=== PATIENT | male | born 1965 | race Caucasian/White ===

== ENCOUNTER 2018-12-10 04:05 | Outpatient (CLI) | payer OTHER | END 2018-12-10 04:06 | disposition EMS.NT | LOC: EMS 04:05 | PROVIDERS: ATTEND Surgery | DX: R56.9 Unspecified convulsions (principal) ==

== ENCOUNTER 2018-12-10 06:13 | Outpatient (CLI) | payer OTHER | END 2018-12-10 06:14 | disposition critical access hospital (66) | LOC: EMS 06:13 | PROVIDERS: ATTEND Surgery | DX: R56.9 Unspecified convulsions (principal) | CPT/HCPCS: A0425; A0429 ==

== ENCOUNTER 2018-12-10 06:18 | Emergency (ER) | payer OTHER ==
[2018-12-10 06:50] LABS: BASOPHILS % (AUTO) 0.4 %; EOSINOPHILS # (AUTO) 0.2 10^3/uL (0.0-0.7); EOSINOPHILS % (AUTO) 1.8 %; HGB - HEMOGLOBIN 14.5 g/dL (14.0-18.0); LYMPHOCYTES # (AUTO) 1.3 10^3/uL (1.5-3.5); LYMPHOCYTES % (AUTO) 13.9 %; MEAN CORPUSCULAR HGB CONC 32.2 g/dL (32.0-36.0); MEAN CORPUSCULAR VOLUME 96.4 fL (80.0-94.0); MEAN PLATELET VOLUME 9.4 fL (7.4-11.4); MONOCYTES # (AUTO) 0.8 10^3/uL (0.0-1.0); MONOCYTES % (AUTO) 8.4 %; NEUTROPHILS # (AUTO) 6.8 10^3/uL (1.5-6.6); NEUTROPHILS % (AUTO) 74.1 %; PLT - PLATELET COUNT 261 10^3/uL (130-450); RED BLOOD COUNT 4.67 10^6/uL (4.70-6.10); RED CELL DISTRIBUTION WIDTH 12.1 % (12.0-15.0); WHITE BLOOD COUNT 9.1 x10^3/uL (4.8-10.8)
[2018-12-10 07:07] LABS: ALBUMIN 4.3 g/dL (3.2-5.5); ALBUMIN/GLOBULIN RATIO 1.5 (1.0-2.2); ALKALINE PHOSPHATASE 54 IU/L (42-121); ALT ALANINE AMINOTRANSFERASE 25 IU/L (10-60); AST ASPARTATE AMINOTRANSFERASE 28 IU/L (10-42); BILIRUBIN,TOTAL 0.8 mg/dL (0.2-1.0); BUN - BLOOD UREA NITROGEN 14 mg/dL (6-20); CARBON DIOXIDE - CO2 19 mmol/L (21-32); CHLORIDE 94 mmol/L (101-111); CREATININE 0.8 mg/dL (0.6-1.2); GFR - MDRD 101 (>89); GLUCOSE 115 mg/dL (70-100); LIPASE 31 U/L (22-51); SODIUM 132 mmol/L (135-145); TOTAL PROTEIN 7.2 g/dL (6.7-8.2)
--- NOTE | 2018-12-10 07:10 | ED Physician Documentation ---
History of Present Illness - Stated complaint Stated Complaint: SZ - Chief complaint Chief Complaint: Neuro - History obtained from History obtained from: Patient, Family - History of Present Illness Timing: Prior to arrival - Additonal information Additional information: Patient is a 53-year-old male with history currently compliant with antiepileptic medications presenting with his after 2 seizures earlier this morning. Patient's notes they were sleeping at about 4 AM and she noted him to be having a generalized tonic-clonic seizure that lasted several minutes. He was postictal. EMS evaluated him at that time and all decided that he did not require transfer to the hospital. However, at about 6 AM today, patient had a second seizure, tonic-clonic movements again lasted several minutes causing him to fall to the ground. is able to catch him and denies any particular trauma. Patient was incontinent of urine. No tongue biting noted. Patient and deny any prodromal symptoms. Patient denies vision changes, neck pain, back pain, chest pain, difficulty breathing, abdominal pain, urine or stool changes, extremity pain or injury. Patient does note mild headache and feeling thirsty.Patient receives his care at [facility] in [place] and has had extensive work-ups to determine the source of his seizures including different types of brain imaging, repeat lumbar punctures, and neurology evaluations. notes the patient has area of brain scarring.No other improving or worsening factors noted. Review of Systems Constitutional: denies: Fever Eyes: denies: Loss of vision Cardiac: denies: Chest pain / pressure Respiratory: denies: Dyspnea GI: denies: Abdominal Pain, Nausea, Vomiting, Diarrhea : reports: Incontinent. denies: Dysuria Skin: denies: Bite / sting Musculoskeletal: denies: Neck pain, Back pain, Extremity pain Neurologic: reports: Seizure, Headache PD PAST MEDICAL HISTORY - Past Medical History Past Medical History: Yes Cardiovascular: None Respiratory: None Neuro: Seizure disorder Endocrine/Autoimmune: None GI: None : None HEENT: None Psych: Anxiety Musculoskeletal: None Derm: None Other Past Medical History: HYPONATREMIA...MOOD DISORDER...TICS DISORDER...MENINGIOMA... - Past Surgical History Past Surgical History: No - Present Medications Home Medications: Ambulatory Orders Medication Instructions Recorded Confirmed Divalproex [Мария Swift] 1,250 mg PO DAILY 12/10/18 12/10/18 Escitalopram [Lexapro] 10 mg PO DAILY 12/10/18 12/10/18 hydrOXYzine HCl [Hydroxyzine HCl] 20 mg PO DAILY PM 12/10/18 12/10/18 - Allergies Allergies/Adverse Reactions: Allergies Allergy/AdvReac Type Severity Reaction Status Date / Time lamotrigine [From Lamictal] AdvReac Unknown Verified 12/10/18 06:56 - Social History Does the pt smoke?: No Smoking Status: Never smoker Does the pt drink ETOH?: No Does the pt have substance abuse?: No - Immunizations Immunizations are current?: Yes - POLST Patient has POLST: No PD ED PE NORMAL - Vitals Vital signs reviewed: Yes - General General: No acute distress, Well developed/nourished, Other (Sleeping, but easily arousable, oriented except to time) - HEENT HEENT: Atraumatic, PERRL, EOMI (Gross visual acuity intact. No nystagmus.), Pharynx benign, Dentition benign, Other (No evidence of tongue biting). No: Moist mucous membranes (dry) - Neck Neck: No bony TTP - Cardiac Cardiac: RRR, No murmur - Respiratory Respiratory: No respiratory distress, Clear bilaterally - Abdomen Abdomen: Soft, Non tender, Non distended - Back Back: No spinal TTP - Derm Derm: Normal color, Warm and dry, No rash, Other (Small scattered areas of petechiae surrounding eyelids and upper chest) - Extremities Extremities: No deformity, No tenderness to palpate - Neuro Neuro: No motor deficit, No sensory deficit. No: Alert and oriented X 3 (Oriented except to time) - Psych Psych: Normal mood, Normal affect Results - Vitals Vitals: Vital Signs - 24 hr 12/10/18 12/10/18 12/10/18 06:23 06:31 06:59 Temperature 36.8 C Heart Rate 94 77 72 Respiratory 16 18 14 Rate Blood Pressure 134/101 H 135/90 H 135/90 H O2 Saturation 98 96 98 12/10/18 12/10/18 07:30 08:00 Temperature Heart Rate 73 71 Respiratory 18 18 Rate Blood Pressure 145/88 H 145/92 H O2 Saturation 99 99 Oxygen O2 Source Room air - Labs Labs: Laboratory Tests 12/10/18 12/10/18 12/10/18 06:25 06:25 06:25 WBC 9.1 RBC 4.67 L Hgb 14.5 Hct 45.0 MCV 96.4 H MCH 31.0 MCHC 32.2 RDW 12.1 Plt Count 261 MPV 9.4 Neut # (Auto) 6.8 H Lymph # (Auto) 1.3 L [place] # (Auto) 0.8 Eos # (Auto) 0.2 Baso # (Auto) 0.0 Absolute Nucleated RBC 0.00 Nucleated RBC % 0.0 Sodium 132 L Potassium 3.9 Chloride 94 L Carbon Dioxide 19 L Anion Gap 19.0 H BUN 14 Creatinine 0.8 Estimated GFR (MDRD) 101 Glucose 115 H Calcium 9.0 Total Bilirubin 0.8 AST 28 ALT 25 Alkaline Phosphatase 54 Total Protein 7.2 Albumin 4.3 Globulin 2.9 Albumin/Globulin Ratio 1.5 Lipase 31 TSH 1.73 Urine Color Urine Clarity Urine pH Ur Specific [place] Urine Protein Urine Glucose (UA) Urine Ketones Urine Occult Blood Urine Nitrite Urine Bilirubin Urine Urobilinogen Ur Leukocyte Esterase Ur Microscopic Review Urine Culture Comments Last Dose Date UNK Last Dose Time UNK Valproic Acid 58.0 12/10/18 09:00 WBC RBC Hgb Hct MCV MCH MCHC RDW Plt Count MPV Neut # (Auto) Lymph # (Auto) [place] # (Auto) Eos # (Auto) Baso # (Auto) Absolute Nucleated RBC Nucleated RBC % Sodium Potassium Chloride Carbon Dioxide Anion Gap BUN Creatinine Estimated GFR (MDRD) Glucose Calcium Total Bilirubin AST ALT Alkaline Phosphatase Total Protein Albumin Globulin Albumin/Globulin Ratio Lipase TSH Urine Color YELLOW Urine Clarity CLEAR Urine pH 8.0 H Ur Specific [place] 1.015 Urine Protein NEGATIVE Urine Glucose (UA) NEGATIVE Urine Ketones NEGATIVE Urine Occult Blood NEGATIVE Urine Nitrite NEGATIVE Urine Bilirubin NEGATIVE Urine Urobilinogen 0.2 (NORMAL) Ur Leukocyte Esterase NEGATIVE Ur Microscopic Review NOT INDICATED Urine Culture Comments NOT INDICATED Last Dose Date Last Dose Time Valproic Acid PD MEDICAL DECISION MAKING - ED course Complexity details: reviewed results, re-evaluated patient, considered differential, d/w patient, d/w family ED course: Patient presenting with 2 tonic-clonic seizures, each lasting several minutes and resolving spontaneously, that occurred earlier today. Do not believe patient is in status. Since arrival to ED, patient has had no further seizure activity and per his has nearly returned to his baseline except for being slightly disoriented to time. No evidence of trauma, new neurological deficit, or systemic infection on exam. Screening lab work returned relatively unremarkable. Depakote level within therapeutic range. Had extensive discussion with patient and regarding further interventions including imaging at all felt appropriate to obtain CT head at this time, particularly as patient has not had any brain imaging since May 2018 and patient has had 2 seizures today. Patient is currently scheduled for further neurology evaluation next week in [place].CT head returned without evidence of acute changes or other concerns. Urinalysis also returned unremarkable. Patient taking home antiepileptic medications in the ED. Patient and feel comfortable with discharge plan. Departure - Departure Disposition: 01 Home, Self Care Clinical Impression: Seizure Instructions: ED Seizure Recurrent Follow-Up: your,neurologist [Other] - Within 3 Days Comments: Please continue all home medications as previously instructed. Please follow-up with your primary care physician and neurologist in the next 2 to 3 days or as scheduled next week. Return to ED sooner if you experience recurrent seizure, worsening symptoms, or have other concerns.
[2018-12-10] MEDS ORDERED: SODIUM CHLORIDE 0.9% 1,000 ML IV ONE (07:43)
[2018-12-10] MEDS ORDERED: IBUPROFEN 800 MG TABLET PO STA (08:45)
[2018-12-10 09:07] LABS: BILIRUBIN,URINE NEGATIVE (NEGATIVE); GLUCOSE, URINE (UA) NEGATIVE (NEGATIVE); KETONES,URINE (UA) NEGATIVE (NEGATIVE); LEUKOCYTE ESTERASE, URINE NEGATIVE (NEGATIVE); NITRITE,URINE NEGATIVE (NEGATIVE); OCCULT BLOOD,URINE NEGATIVE (NEGATIVE); PROTEIN,URINE NEGATIVE (NEGATIVE); UROBILINOGEN,URINE 0.2 (NORMAL) E.U./dL (NORMAL)
[2018-12-10 09:09] LABS: CLARITY,URINE CLEAR (CLEAR)
--- NOTE | 2018-12-10 09:12 | CT Report ---
Reason: history of seizure, 2 seizures today Procedure Date: 12/10/2018 Accession Number: [id number] / [id number] Procedure: CT - HEAD WO CPT Code: FULL RESULT: EXAM: CT HEAD EXAM DATE: 12/10/2018 08:27 AM. CLINICAL HISTORY: History of seizure, 2 seizures today. COMPARISON: HEAD FAST TRAUMA (ADULT) 08/02/2018 9:01 AM MR BRAIN WITHOUT CONTRAST 08/20/2017 12:58 PM. TECHNIQUE: Multiaxial CT images were obtained from the foramen magnum to the vertex. Reformats: Sagittal and coronal. IV contrast: None. In accordance with CT protocol optimization, one or more of the following dose reduction techniques were utilized for this exam: automated exposure control, adjustment of mA and/or KV based on patient size, or use of iterative reconstructive technique. FINDINGS: Parenchyma: No evidence of an acute vascular insult or acute parenchymal hemorrhage. No midline shift. No mass-effect. Extraaxial Spaces: Extra-axial spaces are prominent. Falcine calcification again seen. No subdural or epidural collections identified. Ventricles: Ventricles are stable in size. No hydrocephalus. Sinuses and Orbits: Imaged paranasal sinuses, orbits, and mastoids show no significant abnormality. Bones: No evidence of fracture or calvarial defect. Other: Globes and orbits are unremarkable. IMPRESSION: 1. No acute intracranial abnormality is identified. 2. No acute fracture. RADIA
[2018-12-10] MEDS ORDERED: ONDANSETRON ODT 4 MG TABLET TL STA (09:36)
[2018-12-10] MEDS ORDERED: ONDANSETRON ODT 4 MG TABLET ONE (09:39)
[2018-12-10 09:41] VITALS: BP 142/90
== END 2018-12-10 09:49 | disposition home or self-care (01) ==
LOC: ED 06:18
DX: G40.909 Epilepsy, unspecified, not intractable, without status epilepticus (principal); R23.3 Spontaneous ecchymoses
CPT/HCPCS: 36415; 70450; 80164; 81003; 83690; 99283; 99284; A9270; Q0162; 80053; 81001; 84443; 85025; 87086

== ENCOUNTER 2019-03-28 09:55 | Emergency (ER) | payer OTHER ==
[2019-03-28] MEDS ORDERED: KETOROLAC 60 MG/2 ML VIAL IM STA (10:28)
[2019-03-28] MEDS ORDERED: ONDANSETRON ODT 4 MG TABLET TL STA (10:28)
--- NOTE | 2019-03-28 10:32 | ED Physician Documentation ---
PD HPI SEIZURE - Stated complaint Stated Complaint: SZ - Chief complaint Chief Complaint: Neuro - History obtained from History obtained from: Patient, Family - History of Present Illness Timing - onset: How many hours ago (3) Witnessed: Witnessed Number of seizures: Single, Lasted minutes (3-5) Description of seizure activity: Generalized, Tonic clonic Injury during seizure: Other (he thinks he may have hit his head) Pain level max: 6 Pain level now: 5 Associated symptoms: Headache. No: None, Unknown, Vision changes, Chest pain, Palpitations, Diaphoresis, Dyspnea, Nausea / vomiting History of seizures: Known seizure disorder Contributing factors: Other (tapering his depakote) Treatment FINANCIAL WRITER: Other (none) Similar symptoms before: Has not had sx before Recently seen: Not recently seen Review of Systems Ten Systems: 10 systems reviewed and negative Constitutional: denies: Fever, Chills Nose: denies: Rhinorrhea / runny nose, Congestion Cardiac: denies: Chest pain / pressure Respiratory: denies: Dyspnea, Cough GI: denies: Abdominal Pain, Vomiting, Diarrhea Skin: denies: Rash Musculoskeletal: reports: Neck pain (states neck is sore). denies: Back pain, Extremity pain, Joint pain Neurologic: reports: Confused ( states has long post ictal periods normally, states this is actually shorter than his normal post ictal period.). denies: Focal weakness, Numbness PD PAST MEDICAL HISTORY - Past Medical History Cardiovascular: None Respiratory: None Neuro: Seizure disorder Endocrine/Autoimmune: None GI: None : None HEENT: None Psych: Anxiety Musculoskeletal: None Derm: None - Past Surgical History Past Surgical History: No - Present Medications Home Medications: Ambulatory Orders Medication Instructions Recorded Confirmed Divalproex [Depakote ] 1,500 mg PO BID 12/10/18 03/28/19 Escitalopram [Lexapro] 10 mg PO DAILY 12/10/18 03/28/19 - Allergies Allergies/Adverse Reactions: Allergies Allergy/AdvReac Type Severity Reaction Status Date / Time lamotrigine [From Lamictal] AdvReac Unknown Verified 12/10/18 06:56 - Social History Does the pt smoke?: No Smoking Status: Never smoker Does the pt drink ETOH?: No Does the pt have substance abuse?: No - Immunizations Immunizations are current?: Yes - POLST Patient has POLST: No PD ED PE NORMAL - Vitals Vital signs reviewed: Yes - General General: Alert and oriented X 3, No acute distress, Well developed/nourished - HEENT HEENT: Atraumatic, PERRL, EOMI, Ears normal, Moist mucous membranes, Pharynx benign - Neck Neck: Supple, no meningeal sign, No bony TTP - Cardiac Cardiac: RRR - Respiratory Respiratory: No respiratory distress, Clear bilaterally - Back Back: No spinal TTP - Derm Derm: Warm and dry, No rash - Extremities Extremities: Normal ROM s pain - Neuro Neuro: Alert and oriented X 3, mergers and acquisitions banker 2-12 intact, No motor deficit, No sensory d eficit, Normal speech Eye Opening: Spontaneous Motor: Obeys Commands Verbal: Oriented GCS Score: 15 - Psych Psych: Normal mood, Normal affect Results - Vitals Vitals: Vital Signs - 24 hr 03/28/19 03/28/19 09:58 11:42 Temperature 36.4 C L Heart Rate 83 80 Respiratory 16 20 Rate Blood Pressure 159/92 H 150/81 H O2 Saturation 100 94 Oxygen O2 Source Room air - Labs Labs: Laboratory Tests 03/28/19 03/28/19 10:27 10:50 WBC 12.8 H RBC 4.60 L Hgb 14.4 Hct 43.3 MCV 94.1 H MCH 31.3 H MCHC 33.3 RDW 12.3 Plt Count 212 MPV 9.0 Neut # (Auto) 11.5 H Lymph # (Auto) 0.5 L [place] # (Auto) 0.8 Eos # (Auto) 0.0 Baso # (Auto) 0.0 Absolute Nucleated RBC 0.00 Nucleated RBC % 0.0 Sodium 134 L Potassium 3.9 Chloride 96 L Carbon Dioxide 27 Anion Gap 11.0 BUN 13 Creatinine 0.7 Estimated GFR (MDRD) 118 Glucose 130 H Calcium 8.7 Last Dose Date UNK Last Dose Time UNK Valproic Acid 121.2 PD MEDICAL DECISION MAKING - ED course Complexity details: reviewed results, re-evaluated patient, considered differential, d/w patient, d/w family ED course: Patient with a recurrent seizure disorder. No acute lab abnormalities. No indication for repeat imaging. Headache resolved with Toradol. Patient and family reminded not to drive, not to go swimming or take baths. They will follow-up with his neurologist for further care. C-spine cleared by Nexus criteria. Patient and family counseled regarding signs and symptoms for which I believe and urgent re-evaluation would be necessary. Patient with good understanding of and agreement to plan and is comfortable going home at this time This document was made in part using voice recognition software. While efforts are made to proofread this document, sound alike and grammatical errors may occur. Departure - Departure Disposition: 01 Home, Self Care Clinical Impression: Seizure Condition: Good Instructions: ED Seizure Recurrent Follow-Up: your,doctor in 1 week [Other] Comments: your depakote level today is 121. Return if you worsen. continue your current medications. Follow up with your neurologist for further care. Discharge Date/Time: 03/28/19 11:43
[2019-03-28 11:00] LABS: BASOPHILS % (AUTO) 0.3 %; EOSINOPHILS % (AUTO) 0.1 %; HGB - HEMOGLOBIN 14.4 g/dL (14.0-18.0); LYMPHOCYTES # (AUTO) 0.5 10^3/uL (1.5-3.5); LYMPHOCYTES % (AUTO) 3.7 %; MEAN CORPUSCULAR HEMOGLOBIN 31.3 pg (27.0-31.0); MEAN CORPUSCULAR HGB CONC 33.3 g/dL (32.0-36.0); MEAN CORPUSCULAR VOLUME 94.1 fL (80.0-94.0); MONOCYTES # (AUTO) 0.8 10^3/uL (0.0-1.0); MONOCYTES % (AUTO) 5.9 %; NEUTROPHILS # (AUTO) 11.5 10^3/uL (1.5-6.6); NEUTROPHILS % (AUTO) 89.2 %; PLT - PLATELET COUNT 212 10^3/uL (130-450); RED CELL DISTRIBUTION WIDTH 12.3 % (12.0-15.0); WHITE BLOOD COUNT 12.8 x10^3/uL (4.8-10.8)
[2019-03-28 11:15] LABS: BUN - BLOOD UREA NITROGEN 13 mg/dL (6-20); CALCIUM 8.7 mg/dL (8.5-10.3); CARBON DIOXIDE - CO2 27 mmol/L (21-32); CHLORIDE 96 mmol/L (101-111); CREATININE 0.7 mg/dL (0.6-1.2); GFR - MDRD 118 (>89); GLUCOSE 130 mg/dL (70-100); SODIUM 134 mmol/L (135-145); VALPROIC ACID (DEPAKOTE) 121.2 ug/mL
[2019-03-28 11:43] VITALS: BP 150/81
== END 2019-03-28 11:43 | disposition home or self-care (01) ==
LOC: ED 09:55
DX: G40.909 Epilepsy, unspecified, not intractable, without status epilepticus (principal); R51 Headache; M54.2 Cervicalgia
CPT/HCPCS: 36415; 80048; 80164; 85025; 96372; 99283; 99284; Q0162

== ENCOUNTER 2019-07-29 06:40 | Outpatient (CLI) | payer OTHER | END 2019-07-29 06:41 | disposition critical access hospital (66) | LOC: EMS 06:40 | PROVIDERS: ATTEND Surgery | DX: S09.90XA Unspecified injury of head, initial encounter (principal); R56.9 Unspecified convulsions; Z79.01 Long term (current) use of anticoagulants; W18.39XA Other fall on same level, initial encounter; Y92.000 Kitchen of unspecified non-institutional (private) residence as the place of occurrence of the external cause | CPT/HCPCS: A0425; A0429 ==

== ENCOUNTER 2019-08-19 06:06 | Outpatient (CLI) | payer OTHER | END 2019-08-19 06:07 | disposition EMS.NT | LOC: EMS 06:06 | PROVIDERS: ATTEND Surgery | DX: R56.9 Unspecified convulsions (principal) ==

== ENCOUNTER 2019-08-19 07:17 | Emergency (ER) | payer OTHER ==
[2019-08-19] MEDS ORDERED: KETOROLAC 60 MG/2 ML VIAL IM STA (08:38)
[2019-08-19] MEDS ORDERED: diphenhydrAMINE INJ 50 MG/ML VIAL IM STA (08:39)
[2019-08-19] MEDS ORDERED: PROMETHAZINE 25 MG/1 ML VIAL IM STA (08:39)
--- NOTE | 2019-08-19 08:44 | ED Physician Documentation ---
History of Present Illness - Stated complaint Stated Complaint: SEIZURE - Chief complaint Chief Complaint: Neuro - History obtained from History obtained from: Patient, Family - History of Present Illness Timing: Prior to arrival - Additonal information Additional information: Patient comes emergency department with his after experiencing a seizure this morning around 5:50 AM. 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 The patient takes Depakote for this, and states that he has not had any recent dose changes or known missed doses of his medication. He states he did have head injury about 3 weeks ago for which she was seen in the emergency department and had negative CT of the brain. He also had a CT C- spine which was unremarkable at that time. The patient states that he had a had a seizure at that time, as well, which resulted in a ground-level fall, In which he struck his head on the hard tile floor. However, this time, the states that she heard some strange noises in the bathroom upon awakening and went in to find the patient postictal on the toilet. She states he did not fall to the floor although he started to slump forward. She was able to catch him and call 911. The paramedics evaluated the patient at home, but he stated he did not want to be transported to the emergency department. The patient states that now, he is actually feeling fine, except he feels some tension in his neck musculature and feels as though he has a "migraine". He states that this headache is not really any different than headaches and neck tension that he has had in the past, especially after seizures. He states that he has not had escalating, increasingly excruciating headaches since the fall, and has not had any nausea or vomiting. He has not been off balance, and actually, has been able to ambulate in the emergency department. He denies any recent illnesses. NoInsomnia or other sleep deprivation. No stress. The patient is followed by neurology and actually had a provocation study in June for 8 days, during w hich time he did not have any seizure activity. It is not clear whether his seizures are from the hippocampal mass or another cause, according to patient and .Patient is here because called neurologist's on-call line, and they said to come and be evaluated here. The patient has had a total of 13 seizures, including today's, since onset of seizures 2 years ago. The seizures generally, every 1 to 4 months and prior to the seizure earlier this month, the last one had been in March. Review of Systems Ten Systems: 10 systems reviewed and negative Constitutional: reports: Reviewed and negative Eyes: reports: Reviewed and negative Ears: reports: Reviewed and negative Nose: reports: Reviewed and negative Throat: reports: Reviewed and negative Cardiac: reports: Reviewed and negative Respiratory: reports: Reviewed and negative GI: reports: Reviewed and negative : reports: Reviewed and negative Skin: reports: Reviewed and negative Musculoskeletal: reports: Reviewed and negative Neurologic: reports: Seizure, Headache Psychiatric: reports: Reviewed and negative Endocrine: reports: Reviewed and negative Immunocompromised: reports: Reviewed and negative PD PAST MEDICAL HISTORY - Past Medical History Cardiovascular: None Respiratory: None Neuro: Seizure disorder Endocrine/Autoimmune: None GI: None : None HEENT: None Psych: Anxiety Musculoskeletal: None Derm: None - Past Surgical History Past Surgical History: No - Present Medications Home Medications: Ambulatory Orders Medication Instructions Recorded Confirmed Divalproex [Depakote Dr] 1,250 mg PO DAILY 12/10/18 08/19/19 Escitalopram [Lexapro] 10 mg PO DAILY 12/10/18 03/28/19 - Allergies Allergies/Adverse Reactions: Allergies Allergy/AdvReac Type Severity Reaction Status Date / Time bupropion [From Wellbutrin] Allergy Unknown Verified 08/19/19 07:41 lamotrigine [From Lamictal] AdvReac Unknown Verified 08/19/19 07:41 - Social History Does the pt smoke?: No Smoking Status: Never smoker Does the pt drink ETOH?: No Does the pt have substance abuse?: No - Immunizations Immunizations are current?: Yes - POLST Patient has POLST: No PD ED PE NORMAL - Vitals Vital signs reviewed: Yes - General General: Alert and oriented X 3, No acute distress, Well developed/nourished - HEENT HEENT: Atraumatic, PERRL - Neck Neck: Supple, no meningeal sign - Cardiac Cardiac: RRR, No murmur - Respiratory Respiratory: Clear bilaterally - Abdomen Abdomen: Soft, Non tender, Non distended - Derm Derm: Warm and dry - Extremities Extremities: No deformity - Neuro Neuro: Alert and oriented X 3, registered midwife 2-12 intact, No motor deficit, No sensory deficit, Normal speech, Other (Patient ambulates normally on a narrow based gait without assistance) - Psych Psych: Normal mood, Normal affect Results - Vitals Vitals: Vital Signs - 24 hr 08/19/19 08/19/19 08/19/19 07:24 09:00 10:00 Temperature 36.7 C Heart Rate 98 87 80 Respiratory 16 17 19 Rate Blood Pressure 142/92 H 120/98 H O2 Saturation 99 97 98 Oxygen O2 Source Room air - Labs Labs: Laboratory Tests 08/19/19 08/19/19 08:56 08:56 PT 23.4 H INR 2.1 H Last Dose Date Unknown Last Dose Time Unknown Valproic Acid 73.9 PD MEDICAL DECISION MAKING - ED course Complexity details: reviewed old records, reviewed results, re-evaluated patient, considered differential, d/w patient, d/w family ED course: Patient opted not to have IV placed in the emergency department. He was evaluated with a Depakote level and INR, and treated symptomatically with low- dose Toradol, Phenergan, and Benadryl for his migraine/tension.We did discuss whether or not to get a CT scan; at this point, I do not find any evidence of head trauma and the patient and the patient did not fall to the ground. It is possible that he may have hit his head lightly on adjacent structures while having the seizure, but there is no evidence of trauma for the. Additionally, there is no evidence of a slow bleed that may have come up since the last head injury 3 weeks ago. At this time I do not feel that CT is indicated, and patient and family are agreeable.Depakote level was therapeutic as was the patient's INR. We have discussed the potential need for follow-up with neurology if the patient continues to have more frequent seizures. However, at this point in time, he has had only 2 seizures in close succession with otherwise no escalation in his seizure activity. We have discussed that the patient should follow-up with his bread packer tomorrow, as planned.We have discussed home management and symptoms, as well as usual indications for return. Departure - Departure Disposition: 01 Home, Self Care Clinical Impression: Seizure, Migraine, Tension headache Condition: Good Instructions: ED Headache Tension, ED Headache Migraine, ED Seizure Recurrent Comments: Your Depakote level today was within the therapeutic range, and your INR was at the low end of the therapeutic range.At this point, there is not evidence of a slow bleed in your brain, and any degree of head trauma you received today during the seizure is unlikely to have caused bleeding on its own. Please follow-up with your bread packer tomorrow, as planned. If you have further seizure activity, you will need to see your neurologist to determine whether your seizure medications need to be changed, or whether there is another cause for the increased frequency in seizures. The 2 seizures this month, which are closer together than usual for you, may be a fluke, but it remains to be seen. You may return to the emergency department at any time if needed Discharge Date/Time: 08/19/19 10:35
[2019-08-19 09:21] LABS: VALPROIC ACID (DEPAKOTE) 73.9 ug/mL
[2019-08-19 09:25] LABS: INR 2.1 (0.8-1.2); PT - PROTHROMBIN TIME 23.4 secs (9.9-12.6)
[2019-08-19 10:16] VITALS: BP 120/98
== END 2019-08-19 10:35 | disposition home or self-care (01) ==
LOC: ED 07:17
DX: R56.9 Unspecified convulsions (principal); G43.909 Migraine, unspecified, not intractable, without status migrainosus; G44.209 Tension-type headache, unspecified, not intractable
CPT/HCPCS: 36415; 80164; 85610; 96372; 99283; 99284; J1200

== ENCOUNTER 2019-08-29 23:53 | Emergency (ER) | payer OTHER ==
[2019-08-30] MEDS ORDERED: AMOXICILLIN 250 MG CAPSULE PO STA (00:34)
[2019-08-30] MEDS ORDERED: HYDROcod/ACET 5/325 Prepack 4 PO STA (00:36)
[2019-08-30] MEDS ORDERED: HYDROcod/ACETAM 5/325 MG TABLET PO STA (00:36)
--- NOTE | 2019-08-30 00:45 | ED Physician Documentation ---
PD HPI HEENT - Stated complaint Stated Complaint: TOOTH PX - Chief complaint Chief Complaint: Heent - History obtained from History obtained from: Patient - Additional information Additional information: Patient comes emergency department complaining of left maxillary dental pain that started yesterday afternoon. Patient has had intermittent problems with this tooth, and has a dental appointment scheduled in a week to take care of it, but states that the pain suddenly became worse. He denies any fevers or facial swelling. No swelling of his gingiva or tongue. No difficulty breathing or throat tightness. Patient states that he is otherwise doing well. He is here because he could not sleep, secondary to the pain. Review of Systems Ten Systems: 10 systems reviewed and negative Constitutional: reports: Reviewed and negative Eyes: reports: Reviewed and negative Ears: reports: Reviewed and negative Nose: reports: Reviewed and negative Throat: reports: Dental pain / toothache Cardiac: reports: Reviewed and negative Respiratory: reports: Reviewed and negative GI: reports: Reviewed and negative : reports: Reviewed and negative Skin: reports: Reviewed and negative Musculoskeletal: reports: Reviewed and negative Neurologic: reports: Reviewed and negative Psychiatric: reports: Reviewed and negative Endocrine: reports: Reviewed and negative Immunocompromised: reports: Reviewed and negative PD PAST MEDICAL HISTORY - Past Medical History Past Medical History: Yes Cardiovascular: Atrial fibrillation Respiratory: None Neuro: Seizure disorder Endocrine/Autoimmune: None GI: None : None HEENT: None Psych: Anxiety Musculoskeletal: None Derm: None - Past Surgical History Past Surgical History: No - Present Medications Home Medications: Ambulatory Orders Medication Instructions Recorded Confirmed Divalproex [Мария Swift] 1,250 mg PO DAILY 12/10/18 08/30/19 Escitalopram [Lexapro] 10 mg PO DAILY 12/10/18 08/30/19 Amoxicillin 500 mg PO TID 7 Days #21 capsule 08/30/19 Hydrocodone/Acetaminophen 1 - 2 each PO Q6H PRN #14 tablet 08/30/19 [Hydrocodon-Acetaminophen 5-325] Warfarin Sodium [Coumadin] 7.5 mg PO DAILY 08/30/19 08/30/19 - Allergies Allergies/Adverse Reactions: Allergies Allergy/AdvReac Type Severity Reaction Status Date / Time bupropion [From Wellbutrin] Allergy Unknown Verified 08/29/19 23:59 lamotrigine [From Lamictal] AdvReac Unknown Verified 08/29/19 23:59 - Social History Does the pt smoke?: No Smoking Status: Never smoker Does the pt drink ETOH?: No Does the pt have substance abuse?: No - Immunizations Immunizations are current?: Yes - POLST Patient has POLST: No PD ED PE NORMAL - Vitals Vital signs reviewed: Yes - General General: Alert and oriented X 3, No acute distress - HEENT HEENT: Atraumatic, PERRL, EOMI, Moist mucous membranes, Pharynx benign, Dentition benign, Other (No facial edema) - Neck Neck: Supple, no meningeal sign, No adenopathy - Respiratory Respiratory: No respiratory distress - Derm Derm: Normal color, Warm and dry, No rash - Extremities Extremities: No deformity, Other (Normal range of motion and gait.) - Neuro Neuro: Alert and oriented X 3, numerical control operator 2-12 intact, Normal speech - Psych Psych: Normal mood, Normal affect Results - Vitals Vitals: Vital Signs - 24 hr 08/29/19 08/30/19 23:56 00:48 Temperature 36.2 C L Heart Rate 88 77 Respiratory 16 16 Rate Blood Pressure 153/111 H 138/95 H O2 Saturation 98 98 Oxygen O2 Source Room air PD MEDICAL DECISION MAKING - ED course Complexity details: re-evaluated patient, considered differential, d/w patient, d/w family ED course: The patient was given doses of Vicodin and amoxicillin in the emergency department. He was given prescriptions for the same for at home and a prepack of Vicodin to take home. We have discussed home management of his symptoms, as well as usual indications for return.Patient states he will call the dentist luis alberto rios first thing later this morning when they open to see if he can get a same- day appointment. Departure - Departure Disposition: 01 Home, Self Care Clinical Impression: Pain due to dental caries Condition: Fair Instructions: ED Tooth Pain Prescriptions: Amoxicillin 500 mg PO TID 7 Days #21 capsule Hydrocodone/Acetaminophen [Hydrocodon-Acetaminophen 5-325] 1 - 2 each PO Q6H PRN #14 tablet PRN Reason: pain Discharge Date/Time: 08/30/19 00:49
[2019-08-30 00:49] VITALS: BP 138/95
== END 2019-08-30 00:49 | disposition home or self-care (01) ==
LOC: ED 23:53
DX: K02.9 Dental caries, unspecified (principal); I48.91 Unspecified atrial fibrillation; G40.909 Epilepsy, unspecified, not intractable, without status epilepticus; Z79.01 Long term (current) use of anticoagulants
CPT/HCPCS: 99282; 99284; A9270

== ENCOUNTER 2019-09-07 14:30 | Outpatient (CLI) | payer OTHER | END 2019-09-07 14:31 | disposition home or self-care (01) | LOC: LAB 14:30 | PROVIDERS: ATTEND Internal Medicine Cardiovascular Disease | DX: I48.19 Other persistent atrial fibrillation (principal) | CPT/HCPCS: 85610 ==

== ENCOUNTER 2019-09-10 17:39 | Outpatient (CLI) | payer OTHER ==
[2019-09-10] MEDS ORDERED: IOVERSOL 320 100 ML VIAL IVP ONE (18:22)
--- NOTE | 2019-09-10 19:10 | CT Report ---
Reason: SEIZURE DISORDER, DIZINESS, CLUSTER HEADACHES,FALL Procedure Date: 09/10/2019 Accession Number: [id number] / [id number] Procedure: CT - HEAD W/WO CPT Code: Final Report FULL RESULT: EXAM: CT HEAD WITHOUT AND WITH CONTRAST EXAM DATE: 09/10/2019 06:49 PM. CLINICAL HISTORY: 54-year-old male. SEIZURE DISORDER, DIZZINESS, CLUSTER HEADACHES, FALL. COMPARISON: CT head 07/29/2019 TECHNIQUE: Multiaxial CT images were obtained from the foramen magnum to the vertex without and with intravenous contrast. Reformats: Sagittal and coronal. IV contrast: 80 mL Optiray 320. In accordance with CT protocol optimization, one or more of the following dose reduction techniques were utilized for this exam: automated exposure control, adjustment of mA and/or KV based on patient size, or use of iterative reconstructive technique. FINDINGS: Parenchyma: No intraparenchymal hemorrhage. No evidence of mass, midline shift, or CT findings of infarction. Castaneda-white differentiation is distinct. No abnormal intracranial enhancement. Extraaxial Spaces: Normal for age. No subdural or epidural collections identified. Ventricles: Normal in size and position. Sinuses and Orbits: Imaged paranasal sinuses, orbits, and mastoids show no significant abnormality. Bones: No evidence of fracture or calvarial defect. Other: Stable 14 x 6 mm left parafalcine dural calcification. IMPRESSION: 1. No CT evidence of acute intracranial abnormality, specifically no CT evidence of acute infarct, intracranial hemorrhage, mass effect, midline shift, or hydrocephalus. 2. No abnormal intracranial enhancement. [facility] The call report notification system was initiated by Dr. Annalee Navarro at 07:08 PM on 09/10/2019.
== END 2019-09-10 17:40 | disposition home or self-care (01) ==
LOC: DI 17:39
PROVIDERS: ATTEND Psychiatry & Neurology Neurology
DX: G44.009 Cluster headache syndrome, unspecified, not intractable (principal); R42 Dizziness and giddiness
CPT/HCPCS: 70470; Q9967

== ENCOUNTER 2019-09-14 11:13 | Outpatient (CLI) | payer OTHER | END 2019-09-14 11:14 | disposition home or self-care (01) | LOC: LAB 11:13 | PROVIDERS: ATTEND Internal Medicine Cardiovascular Disease | DX: I48.19 Other persistent atrial fibrillation (principal) | CPT/HCPCS: 85610 ==

== ENCOUNTER 2019-09-18 04:42 | Outpatient (CLI) | payer OTHER | END 2019-09-18 04:43 | disposition EMS.NT | LOC: EMS 04:42 | PROVIDERS: ATTEND Surgery | DX: R56.9 Unspecified convulsions (principal) ==

== ENCOUNTER 2019-09-18 06:21 | Outpatient (CLI) | payer OTHER | END 2019-09-18 06:22 | disposition critical access hospital (66) | LOC: EMS 06:21 | PROVIDERS: ATTEND Surgery | DX: R56.9 Unspecified convulsions (principal) | CPT/HCPCS: A0425; A0429 ==

== ENCOUNTER 2019-09-18 06:26 | Emergency (ER) | payer OTHER ==
[2019-09-18 06:56] LABS: BASOPHILS % (AUTO) 0.6 %; EOSINOPHILS # (AUTO) 0.1 10^3/uL (0.0-0.7); HGB - HEMOGLOBIN 14.4 g/dL (14.0-18.0); LYMPHOCYTES # (AUTO) 0.9 10^3/uL (1.5-3.5); LYMPHOCYTES % (AUTO) 17.8 %; MEAN CORPUSCULAR HEMOGLOBIN 32.7 pg (27.0-31.0); MEAN CORPUSCULAR HGB CONC 33.8 g/dL (32.0-36.0); MEAN CORPUSCULAR VOLUME 96.6 fL (80.0-94.0); MEAN PLATELET VOLUME 9.4 fL (7.4-11.4); MONOCYTES # (AUTO) 0.6 10^3/uL (0.0-1.0); MONOCYTES % (AUTO) 11.7 %; NEUTROPHILS # (AUTO) 3.2 10^3/uL (1.5-6.6); NEUTROPHILS % (AUTO) 66.3 %; PLT - PLATELET COUNT 161 10^3/uL (130-450); RED BLOOD COUNT 4.41 10^6/uL (4.70-6.10); RED CELL DISTRIBUTION WIDTH 12.1 % (12.0-15.0); WHITE BLOOD COUNT 4.9 x10^3/uL (4.8-10.8)
[2019-09-18 07:05] LABS: INR 2.2 (0.8-1.2); PT - PROTHROMBIN TIME 24.1 secs (9.9-12.6)
[2019-09-18 07:09] LABS: CALCIUM 8.5 mg/dL (8.5-10.3); CREATININE 0.8 mg/dL (0.6-1.2)
[2019-09-18 07:12] LABS: PARTIAL THROMBOPLASTIN TIME 33.5 secs (24.9-33.3)
--- NOTE | 2019-09-18 07:14 | ED Physician Documentation ---
PD HPI SEIZURE - Stated complaint Stated Complaint: SZ - Chief complaint Chief Complaint: Neuro - History obtained from History obtained from: Patient - History of Present Illness Timing - onset: Last night (reportedlly had brief seizure about 4 am and again about 6 am. Self limited both. history of seizures the past 2 years, but has had 3 of them in past 2 months. He says he saw Neurologist couple weeks ago and had CT 1 weeks ago. No change in meds.) Witnessed: Witnessed (by ) Number of seizures: Multiple (2), Lasted minutes, Recovered between seizure Description of seizure activity: Generalized Injury during seizure: None Associated symptoms: None. No: Headache, Chest pain, Palpitations History of seizures: Known seizure disorder Contributing factors: No: Off meds, Out of meds, Changed meds, Low blood sugar, Head injury, EtOH withdrawal, Fever, Sleep deprivation Similar symptoms before: Diagnosis (Seizure disorder. 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 A CT from a week ago showed just some para falcine calcifications stable. I will sign) Recently seen: Clinic (Saw his neurologist just in the last couple of weeks. No change in medicines.) Review of Systems Constitutional: denies: Fever Nose: denies: Rhinorrhea / runny nose, Congestion Throat: denies: Sore throat Cardiac: reports: Palpitations. denies: Chest pain / pressure, Pedal edema, Calf pain Respiratory: denies: Dyspnea, Cough GI: denies: Vomiting, Diarrhea Skin: denies: Rash Neurologic: denies: Generalized weakness, Focal weakness, Headache, Head injury PD PAST MEDICAL HISTORY - Past Medical History Past Medical History: Yes Cardiovascular: Atrial fibrillation Respiratory: None Neuro: Seizure disorder Endocrine/Autoimmune: None GI: None : None HEENT: None Psych: Anxiety Musculoskeletal: None Derm: None Other Past Medical History: Brain tumor x2 - Past Surgical History Past Surgical History: No - Present Medications Home Medications: Ambulatory Orders Medication Instructions Recorded Confirmed Divalproex [Мария Swift] 1,250 mg PO DAILY 12/10/18 09/18/19 Escitalopram [Lexapro] 10 mg PO DAILY 12/10/18 09/18/19 Warfarin Sodium [Coumadin] 7.5 mg PO DAILY 08/30/19 09/18/19 Metoprolol Succinate [Toprol Xl] 1 tab DAILY 09/18/19 09/18/19 diazePAM [Valium] 5 - 10 mg PO TID PRN #15 tablet 09/18/19 - Allergies Allergies/Adverse Reactions: Allergies Allergy/AdvReac Type Severity Reaction Status Date / Time bupropion [From Wellbutrin] Allergy Unknown Verified 08/29/19 23:59 lamotrigine [From Lamictal] AdvReac Unknown Verified 08/29/19 23:59 - Social History Does the pt smoke?: No Smoking Status: Never smoker Does the pt drink ETOH?: No Does the pt have substance abuse?: No - Immunizations Immunizations are current?: Yes - POLST Patient has POLST: No PD ED PE NORMAL - Vitals Vital signs reviewed: Yes - General General: Alert and oriented X 3, No acute distress, Well developed/nourished - HEENT HEENT: Atraumatic, Ears normal, Moist mucous membranes, Pharynx benign - Neck Neck: Supple, no meningeal sign, No adenopathy - Cardiac Cardiac: RRR, No murmur - Respiratory Respiratory: Clear bilaterally - Abdomen Abdomen: Soft, Non tender - Back Back: No CVA TTP - Derm Derm: Normal color, Warm and dry - Extremities Extremities: No deformity, Normal ROM s pain - Neuro Neuro: Alert and oriented X 3, fighting vehicle infantryman 2-12 intact, No motor deficit, No sensory deficit, Normal speech Eye Opening: To Voice Motor: Obeys Commands Verbal: Oriented GCS Score: 14 Results - Vitals Vitals: Vital Signs - 24 hr 09/18/19 09/18/19 09/18/19 06:31 06:36 07:55 Temperature 36.7 C Heart Rate 83 82 74 Respiratory 18 18 16 Rate Blood Pressure 139/110 H 125/88 H 147/104 H O2 Saturation 97 96 98 09/18/19 08:43 Temperature 36.9 C Heart Rate 78 Respiratory 16 Rate Blood Pressure 145/100 H O2 Saturation 97 Oxygen O2 Source Room air - Labs Labs: Laboratory Tests 09/18/19 09/18/19 09/18/19 06:45 06:45 06:45 WBC 4.9 RBC 4.41 L Hgb 14.4 Hct 42.6 MCV 96.6 H MCH 32.7 H MCHC 33.8 RDW 12.1 Plt Count 161 MPV 9.4 Neut # (Auto) 3.2 Lymph # (Auto) 0.9 L [place] # (Auto) 0.6 Eos # (Auto) 0.1 Baso # (Auto) 0.0 Absolute Nucleated RBC 0.00 Nucleated RBC % 0.0 PT INR APTT Sodium 132 L Potassium 4.0 Chloride 95 L Carbon Dioxide 29 Anion Gap 8.0 BUN 14 Creatinine 0.8 Estimated GFR (MDRD) 101 Glucose 117 H Calcium 8.5 Last Dose Date 09/17/19 Last Dose Time 2000 Valproic Acid 72.3 09/18/19 06:45 WBC RBC Hgb Hct MCV MCH MCHC RDW Plt Count MPV Neut # (Auto) Lymph # (Auto) [place] # (Auto) Eos # (Auto) Baso # (Auto) Absolute Nucleated RBC Nucleated RBC % PT 24.1 H INR 2.2 H APTT 33.5 H Sodium Potassium Chloride Carbon Dioxide Anion Gap BUN Creatinine Estimated GFR (MDRD) Glucose Calcium Last Dose Date Last Dose Time Valproic Acid PD MEDICAL DECISION MAKING - ED course Complexity details: considered differential (No red flags to suggest need for imaging or lab testing. We will treat as recurrent seizure.), d/w patient Departure - Departure Disposition: 01 Home, Self Care Clinical Impression: Grand mal seizure Condition: Stable Record reviewed to determine appropriate education?: Yes Instructions: ED Seizure Recurrent Follow-Up: ANGELA GOMES MD [Physician No Access] - Ronal Everett MD [Primary Care Provider] - Prescriptions: diazePAM [Valium] 5 - 10 mg PO TID PRN #15 tablet PRN Reason: Spasms Comments: Stay well-hydrated and continue usual medications. Your Depakote level is in the therapeutic range at 72. Your electrolytes and blood sugar are good. Contact your neurologist office later today and see if they want to change or add any medications. I provided a copy of your CT report from last week did not have any significant findings. In the short-term, if you are having recurrent seizures, you could add diazepam orally twice daily to try to decrease the seizure activity and to be in contact with your neurologist as well. Discharge Date/Time: 09/18/19 08:43
[2019-09-18 07:15] LABS: VALPROIC ACID (DEPAKOTE) 72.3 ug/mL
[2019-09-18] MEDS ORDERED: diazePAM INJ 5 MG/ML SYRINGE IVP STA (07:25)
[2019-09-18 08:46] VITALS: BP 145/100
== END 2019-09-18 08:43 | disposition home or self-care (01) ==
LOC: EDUNIT# → ED 06:26
DX: G40.409 Other generalized epilepsy and epileptic syndromes, not intractable, without status epilepticus (principal); I48.91 Unspecified atrial fibrillation; F41.9 Anxiety disorder, unspecified; Z79.01 Long term (current) use of anticoagulants
CPT/HCPCS: 36415; 80048; 80164; 85025; 85610; 85730; 99283; 99284

== ENCOUNTER 2019-09-21 11:41 | Outpatient (CLI) | payer OTHER | END 2019-09-21 11:42 | disposition home or self-care (01) | LOC: LAB 11:41 | PROVIDERS: ATTEND Internal Medicine Cardiovascular Disease | DX: I48.91 Unspecified atrial fibrillation (principal) | CPT/HCPCS: 85610 ==

== ENCOUNTER 2019-09-28 10:12 | Outpatient (CLI) | payer OTHER | END 2019-09-28 10:13 | disposition home or self-care (01) | LOC: LAB 10:12 | PROVIDERS: ATTEND Internal Medicine Cardiovascular Disease | DX: I48.19 Other persistent atrial fibrillation (principal) | CPT/HCPCS: 85610 ==

== ENCOUNTER 2019-10-05 12:27 | Outpatient (CLI) | payer OTHER | END 2019-10-05 12:28 | disposition home or self-care (01) | LOC: LAB 12:27 | PROVIDERS: ATTEND Internal Medicine Cardiovascular Disease | DX: I48.19 Other persistent atrial fibrillation (principal) | CPT/HCPCS: 85610 ==

== ENCOUNTER 2019-10-12 11:51 | Outpatient (CLI) | payer OTHER | END 2019-10-12 11:52 | disposition home or self-care (01) | LOC: LAB 11:51 | PROVIDERS: ATTEND Internal Medicine Cardiovascular Disease | DX: I48.19 Other persistent atrial fibrillation (principal) | CPT/HCPCS: 85610 ==

== ENCOUNTER 2019-10-19 10:05 | Outpatient (CLI) | payer MEDICAID, OTHER | END 2019-10-19 10:06 | disposition home or self-care (01) | LOC: LAB 10:05 | PROVIDERS: ATTEND Internal Medicine Cardiovascular Disease | DX: I48.91 Unspecified atrial fibrillation (principal) | CPT/HCPCS: 85610 ==

== ENCOUNTER 2019-10-20 06:44 | Outpatient (CLI) | payer MEDICAID, OTHER | END 2019-10-20 06:45 | disposition critical access hospital (66) | LOC: EMS 06:44 | PROVIDERS: ATTEND Surgery | DX: S09.93XA Unspecified injury of face, initial encounter (principal); R56.9 Unspecified convulsions; W18.39XA Other fall on same level, initial encounter; Y92.002 Bathroom of unspecified non-institutional (private) residence as the place of occurrence of the external cause | CPT/HCPCS: A0425; A0429 ==

== ENCOUNTER 2019-10-20 06:49 | Emergency (ER) | payer OTHER ==
[2019-10-20] MEDS ORDERED: LORazepam 2 MG/ML VIAL IVP STA (07:02)
--- NOTE | 2019-10-20 07:12 | ED Physician Documentation ---
PD HPI SEIZURE - Stated complaint Stated Complaint: SZ - History obtained from History obtained from: Patient, EMS - History of Present Illness Timing - onset: Today Witnessed: Witnessed Number of seizures: Single (He was sitting on toiletAnd apparently had a seizure. His heard a noise and came into the bathroom and saw him having a seizure on the floor. He apparently struck the right side of his face in the periorbital area as he fell. He does have history of seizures. His seizure was self-limited after just a minute or so and then he was confused. She called EMS and was brought to the ER still somewhat confused on route. He had some bleeding on the right marie-orbital eyebrow area and a brief epistaxis on the way. He does take blood thinners of Coumadin. He had had a cardioversion from atrial fibrillation on September 30 and is supposed to be on the blood thinner about a month.), Lasted minutes (1) Description of seizure activity: Generalized Injury during seizure: Other (right periorbital and nose) Associated symptoms: Headache. No: Nausea / vomiting History of seizures: Known seizure disorder Contributing factors: No: Off meds, Out of meds, Low blood sugar Similar symptoms before: Diagnosis (seizures and is on Depakote. Has had seizures about every 1-2 months recently.) Recently seen: Clinic (had cardioversion by Cardiology September 30.) Review of Systems Constitutional: denies: Fever Nose: reports: Epistaxis. denies: Rhinorrhea / runny nose, Congestion Throat: denies: Sore throat Respiratory: denies: Cough GI: denies: Vomiting, Diarrhea Musculoskeletal: denies: Neck pain, Back pain Neurologic: reports: Confused, Headache. denies: Focal weakness, Numbness PD PAST MEDICAL HISTORY - Past Medical History Cardiovascular: Atrial fibrillation Respiratory: None Neuro: Seizure disorder Endocrine/Autoimmune: None GI: None : None HEENT: None Psych: Anxiety Musculoskeletal: None Derm: None - Past Surgical History Past Surgical History: No - Present Medications Home Medications: Ambulatory Orders Medication Instructions Recorded Confirmed Divalproex [Мария Swift] 1,250 mg PO DAILY 12/10/18 10/20/19 Escitalopram [Lexapro] 10 mg PO DAILY 12/10/18 10/20/19 Warfarin Sodium [Coumadin] 7.5 mg PO DAILY 08/30/19 10/20/19 Metoprolol Succinate [Toprol Xl] 1 tab DAILY 09/18/19 10/20/19 diazePAM [Valium] 5 - 10 mg PO TID PRN #15 tablet 09/18/19 10/20/19 - Allergies Allergies/Adverse Reactions: Allergies Allergy/AdvReac Type Severity Reaction Status Date / Time bupropion [From Wellbutrin] Allergy Unknown Verified 08/29/19 23:59 lamotrigine [From Lamictal] AdvReac Unknown Verified 08/29/19 23:59 - Social History Does the pt smoke?: No Smoking Status: Never smoker Does the pt drink ETOH?: No Does the pt have substance abuse?: No - Immunizations Immunizations are current?: Yes - POLST Patient has POLST: No PD ED PE NORMAL - Vitals Vital signs reviewed: Yes - General General: No acute distress, Well developed/nourished. No: Alert and oriented X 3 (Initially with some confusion and slow to process but that cleared within several minutes of being in the ER. He had dried blood over the right side of his face and some bruising on the upper and lower eyelids on the right. There is a small laceration in the lateral eyebrow area on the right. There is some mild tenderness of the nose. Dried blood in the nose but no epistaxis currently.) - HEENT HEENT: Moist mucous membranes, Pharynx benign, Dentition benign - Neck Neck: Supple, no meningeal sign, No bony TTP, No adenopathy - Cardiac Cardiac: RRR, No murmur, Other (Heart monitor appears to be sinus rhythm with occasional PACs.) - Respiratory Respiratory: Clear bilaterally - Abdomen Abdomen: Soft, Non tender - Back Back: No CVA TTP - Derm Derm: Normal color, Warm and dry - Extremities Extremities: No tenderness to palpate, Normal ROM s pain - Neuro Neuro: rn hematology 2-12 intact, No motor deficit, Normal speech Eye Opening: Spontaneous Motor: Obeys Commands Verbal: Oriented GCS Score: 15 Results - Vitals Vitals: Vital Signs - 24 hr 10/20/19 10/20/19 10/20/19 06:58 07:53 08:15 Temperature 36 C L Heart Rate 120 H 99 79 Respiratory 28 H 16 10 L Rate Blood Pressure 167/120 H 132/84 H 128/84 H O2 Saturation 97 99 100 10/20/19 10:27 Temperature 37.1 C Heart Rate 78 Respiratory 14 Rate Blood Pressure 122/78 O2 Saturation 98 Oxygen O2 Source Room air - Labs Labs: Laboratory Tests 10/20/19 10/20/19 10/20/19 06:56 06:56 06:56 WBC 9.7 RBC 4.95 Hgb 16.1 Hct 48.5 MCV 98.0 H MCH 32.5 H MCHC 33.2 RDW 12.1 Plt Count 255 MPV 9.6 Neut # (Auto) 3.8 Lymph # (Auto) 4.4 H [place] # (Auto) 1.0 Eos # (Auto) 0.3 Baso # (Auto) 0.1 Absolute Nucleated RBC 0.00 Nucleated RBC % 0.0 PT 32.9 H INR 3.1 H Sodium 133 L Potassium 3.8 Chloride 96 L Carbon Dioxide 19 L Anion Gap 18.0 H BUN 18 Creatinine 1.0 Estimated GFR (MDRD) 78 L Glucose 155 H Calcium 9.0 Magnesium 2.3 Total Bilirubin 0.6 AST 30 ALT 18 Alkaline Phosphatase 50 Total Protein 7.3 Albumin 4.3 Globulin 3.0 Albumin/Globulin Ratio 1.4 Lipase 36 Urine Color Urine Clarity Urine pH Ur Specific [place] Urine Protein Urine Glucose (UA) Urine Ketones Urine Occult Blood Urine Nitrite Urine Bilirubin Urine Urobilinogen Ur Leukocyte Esterase Ur Microscopic Review Urine Culture Comments Last Dose Date Last Dose Time Urine Opiates Screen Ur Oxycodone Screen Urine Methadone Screen Ur Propoxyphene Screen Ur Barbiturates Screen Valproic Acid Ur Tricyclics Screen Ur Phencyclidine Scrn Ur Amphetamine Screen U Methamphetamines Scrn U Benzodiazepines Scrn Urine Cocaine Screen U Cannabinoids Screen Ethyl Alcohol 10/20/19 10/20/19 06:56 07:52 WBC RBC Hgb Hct MCV MCH MCHC RDW Plt Count MPV Neut # (Auto) Lymph # (Auto) [place] # (Auto) Eos # (Auto) Baso # (Auto) Absolute Nucleated RBC Nucleated RBC % PT INR Sodium Potassium Chloride Carbon Dioxide Anion Gap BUN Creatinine Estimated GFR (MDRD) Glucose Calcium Magnesium Total Bilirubin AST ALT Alkaline Phosphatase Total Protein Albumin Globulin Albumin/Globulin Ratio Lipase Urine Color YELLOW Urine Clarity CLEAR Urine pH 6.0 Ur Specific [place] 1.025 Urine Protein TRACE Urine Glucose (UA) NEGATIVE Urine Ketones TRACE Urine Occult Blood TRACE-LYSE Urine Nitrite NEGATIVE Urine Bilirubin NEGATIVE Urine Urobilinogen 0.2 (NORMAL) Ur Leukocyte Esterase NEGATIVE Ur Microscopic Review NOT INDICATED Urine Culture Comments NOT INDICATED Last Dose Date UNKNOWN Last Dose Time UNKNOWN Urine Opiates Screen NEGATIVE Ur Oxycodone Screen NEGATIVE Urine Methadone Screen NEGATIVE Ur Propoxyphene Screen NEGATIVE Ur Barbiturates Screen NEGATIVE Valproic Acid 97.1 Ur Tricyclics Screen NEGATIVE Ur Phencyclidine Scrn NEGATIVE Ur Amphetamine Screen NEGATIVE U Methamphetamines Scrn NEGATIVE U Benzodiazepines Scrn NEGATIVE Urine Cocaine Screen NEGATIVE U Cannabinoids Screen POSITIVE H Ethyl Alcohol < 5.0 - Rads (name of study) head CT Radiology: Prelim report reviewed (No ICH. Right periorbital fractures n ondisplaced. ), See rad report cervical CT Radiology: Prelim report reviewed (no fractures. ), See rad report Procedures - Epistaxis Site: Right, Anterior Preparation: Clots removed, Afrin, Clamp / pressure applied, Other (TXA) Treatment: Packing inserted (expanding foam) Other: Observed - no bleeding, Pt tolerated well, O2 sat WNL PD MEDICAL DECISION MAKING - ED course Complexity details: re-evaluated patient (Initially was some little bit dazed and slow to process answers but that improved while in the ER. He was subsequently talking on his phone and having conversations and interacting but seemed appropriately. Prior to discharge his nose did start bleeding and so we treated the epistaxis on the right with TXA and Afrin and expanding foam packing. With then pinching it it did seem to be stopped bleeding at this time.), considered differential (He was initially dazed and slow to process consistent with postictal state and or mild concussive effect. We did a CT of the head and neck given the injury to the face and being on blood thinners. No intracranial hemorrhage was seen. He does have some nondisplaced periorbital fractures. He had a very minimal nosebleed initially but that did increase after sneezing on return from imaging. It was able to be controlled with Afrin and TXA as well as a expanding foam packing. He was not bleeding at the time of discharge. His conversation ability and orientation and such were much improved after being in the ER consistent with again either mild concussive effect or a postictal phase improving.), d/w patient, d/w technology methodology consultant (I talked with Dr. Dobbins, his sports equipment racker, who would want him to continue the Coumadin for another couple of weeks since he is recently post cardioversion. He is having a Holter monitor mailed to him and he will wear it for a week and if no recurrent A. fib episodes then they could discontinue the Coumadin at that point. Anticipation timeframe would be around October 30 or so to stop his blood thinners if all is well.) Departure - Departure Disposition: 01 Home, Self Care Clinical Impression: Seizure, Anticoagulant long-term use, Recurrent seizures, Anterior epistaxis Facial contusion Qualifiers: Encounter type: initial encounter Qualified Code(s): S00.83XA - Contusion of other part of head, initial encounter Orbital fracture Qualifiers: Encounter type: initial encounter Fracture type: closed Qualified Code(s): S02.85XA - Fracture of orbit, unspecified, initial encounter for closed fracture Mild concussion Qualifiers: Encounter type: initial encounter Loss of consciousness presence/duration: with LOC of unspecified duration Qualified Code(s): S06.0X9A - Concussion with loss of consciousness of unspecified duration, initial encounter Condition: Stable Record reviewed to determine appropriate education?: Yes Instructions: ED Nosebleed, ED Fx Face Follow-Up: Ronal Everett MD [Primary Care Provider] - Jose Dobbins MD [Physician No Access] - Mark Anthony Herrera DDS [Provider Admit Priv/Credential] - Comments: Continue your current medications. I did talk with Dr. Dobbins to confirm wanting to stay on the Coumadin for now. He asked if you have gotten the heart monitor in the mail as yet. They mailed it apparently on the . Call his [facility] if you have not received it today or tomorrow. He will want you to have the heart monitor for a week and confirm your maintaining normal rhythm and at that point could likely stop the blood thinner. This would be beneficial since you are having recurrent seizures to reduce the chance of bleeding from injury. Otherwise your valproic acid level is in the therapeutic range at 97. Your CT scan did not show any bleeding in the brain compartment. There was fractures of the orbit bones that are nondisplaced and should heal up adequately. Follow-up with the maxillofacial surgeon in a week or so to ensure they are healing well; call Dr. Melendrez for an appointment. Tylenol as needed for pains. Have your head and shoulders elevated often for the next few days to reduce swelling around the eye and orbit area. For the nosebleed leave the foam packing in the right nostril for a day today and a half to allow the bleeding area to heal up better. Remove it gently at that point later tomorrow. Through the day today, use the Afrin nasal spray 2-3 spritzes every 3 hours to re-moisturize the foam packing and decrease the blood flow in the area. If any bleeding occurs, then pinch the nose for 15-20 minutes. Return if consistent bleeding. Discharge Date/Time: 10/20/19 10:27
[2019-10-20] MEDS ORDERED: KETOROLAC 15 MG/ML VIAL IVP STA (07:26)
[2019-10-20 07:36] LABS: BASOPHILS # (AUTO) 0.1 10^3/uL (0.0-0.1); BASOPHILS % (AUTO) 0.5 %; EOSINOPHILS # (AUTO) 0.3 10^3/uL (0.0-0.7); EOSINOPHILS % (AUTO) 2.6 %; HGB - HEMOGLOBIN 16.1 g/dL (14.0-18.0); LYMPHOCYTES # (AUTO) 4.4 10^3/uL (1.5-3.5); LYMPHOCYTES % (AUTO) 45.2 %; MEAN CORPUSCULAR HEMOGLOBIN 32.5 pg (27.0-31.0); MEAN CORPUSCULAR HGB CONC 33.2 g/dL (32.0-36.0); MEAN PLATELET VOLUME 9.6 fL (7.4-11.4); MONOCYTES % (AUTO) 10.8 %; NEUTROPHILS # (AUTO) 3.8 10^3/uL (1.5-6.6); NEUTROPHILS % (AUTO) 39.7 %; PLT - PLATELET COUNT 255 10^3/uL (130-450); RED BLOOD COUNT 4.95 10^6/uL (4.70-6.10); RED CELL DISTRIBUTION WIDTH 12.1 % (12.0-15.0); WHITE BLOOD COUNT 9.7 x10^3/uL (4.8-10.8)
[2019-10-20 07:47] LABS: ALBUMIN 4.3 g/dL (3.2-5.5); ALBUMIN/GLOBULIN RATIO 1.4 (1.0-2.2); BILIRUBIN,TOTAL 0.6 mg/dL (0.2-1.0); MAGNESIUM 2.3 mg/dL (1.7-2.8); TOTAL PROTEIN 7.3 g/dL (6.7-8.2)
[2019-10-20 07:48] LABS: VALPROIC ACID (DEPAKOTE) 97.1 ug/mL
[2019-10-20 07:56] LABS: INR 3.1 (0.8-1.2); PT - PROTHROMBIN TIME 32.9 secs (9.9-12.6)
[2019-10-20 08:01] LABS: MUDS CUTOFF CONCENTRATIONS CUTOFF CONC BELOW:
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
[2019-10-20 08:08] LABS: BILIRUBIN,URINE NEGATIVE (NEGATIVE); GLUCOSE, URINE (UA) NEGATIVE (NEGATIVE); KETONES,URINE (UA) TRACE mg/dL (NEGATIVE); LEUKOCYTE ESTERASE, URINE NEGATIVE (NEGATIVE); NITRITE,URINE NEGATIVE (NEGATIVE); OCCULT BLOOD,URINE TRACE-LYSE (NEGATIVE); PROTEIN,URINE TRACE mg/dL (NEGATIVE); UROBILINOGEN,URINE 0.2 (NORMAL) E.U./dL (NORMAL)
[2019-10-20 08:13] LABS: CLARITY,URINE CLEAR (CLEAR)
[2019-10-20 08:21] LABS: AMPHETAMINE SCREEN,URINE NEGATIVE (NEGATIVE); BENZODIAZEPINES SCREEN, URINE NEGATIVE (NEGATIVE); COCAINE SCREEN URINE NEGATIVE (NEGATIVE); METHADONE SCREEN, URINE NEGATIVE (NEGATIVE); METHAMPHETAMINES SCREEN, URINE NEGATIVE (NEGATIVE); OPIATE SCREEN, URINE NEGATIVE (NEGATIVE); OXYCODONE SCREEN, URINE NEGATIVE (NEGATIVE); PROPOXYPHENE SCREEN, URINE NEGATIVE (NEGATIVE); TRICYCLIC ANTIDEPRESSANT,URINE NEGATIVE (NEGATIVE)
[2019-10-20] MEDS ORDERED: TRANEXAMIC ACID 1,000 MG/10 ML VIAL NAS STA (09:44)
[2019-10-20] MEDS ORDERED: OXYMETAZOLINE HCL 100 SPRAYS BOTTLE NAS STA (09:44)
[2019-10-20 10:28] VITALS: BP 122/78
[2019-10-20] MEDS ORDERED: OXYMETAZOLINE HCL 100 SPRAYS BOTTLE NAS ONE (12:41)
[2019-10-20] MEDS ORDERED: TRANEXAMIC ACID 1,000 MG/10 ML VIAL ONE (13:27)
== END 2019-10-20 10:27 | disposition home or self-care (01) ==
LOC: EDUNIT# → ED 06:49
DX: G40.909 Epilepsy, unspecified, not intractable, without status epilepticus (principal); R04.0 Epistaxis; S06.0X9A Concussion with loss of consciousness of unspecified duration, initial encounter; S00.83XA Contusion of other part of head, initial encounter; S02.85XA Fracture of orbit, unspecified, initial encounter for closed fracture; S02.40CA Maxillary fracture, right side, initial encounter for closed fracture; W22.8XXA Striking against or struck by other objects, initial encounter; Y93.89 Activity, other specified; Y92.002 Bathroom of unspecified non-institutional (private) residence as the place of occurrence of the external cause; I48.91 Unspecified atrial fibrillation; Z79.01 Long term (current) use of anticoagulants
CPT/HCPCS: 36415; 70450; 72125; 80053; 80164; 80306; 80320; 81001; 81003; 83690; 83735; 85025; 85610; 87086

== ENCOUNTER 2019-10-20 11:11 | Observation (INO) | payer MEDICAID, OTHER ==
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
[2019-10-20] MEDS ORDERED: DILTIAZEM 125 MG in DEXTROSE 5% 100 ML IV STA (13:45)
[2019-10-20] MEDS ORDERED: DILTIAZEM 50 MG/10 ML VIAL IVP STA (13:45)
[2019-10-20] MEDS ORDERED: SODIUM CHLORIDE 0.9% 1,000 ML IV ONE ×2 (13:49→14:43)
[2019-10-20] MEDS ORDERED: DILTIAZEM 50 MG/10 ML VIAL ONE (13:50)
[2019-10-20 13:59] LABS: BASOPHILS % (AUTO) 0.2 %; EOSINOPHILS % (AUTO) 0.1 %; HGB - HEMOGLOBIN 14.4 g/dL (14.0-18.0); LYMPHOCYTES # (AUTO) 1.1 10^3/uL (1.5-3.5); MEAN CORPUSCULAR HEMOGLOBIN 33.3 pg (27.0-31.0); MEAN CORPUSCULAR HGB CONC 34.6 g/dL (32.0-36.0); MEAN CORPUSCULAR VOLUME 96.1 fL (80.0-94.0); MEAN PLATELET VOLUME 9.4 fL (7.4-11.4); MONOCYTES # (AUTO) 1.4 10^3/uL (0.0-1.0); MONOCYTES % (AUTO) 10.3 %; NEUTROPHILS # (AUTO) 11.2 10^3/uL (1.5-6.6); NEUTROPHILS % (AUTO) 80.6 %; PLT - PLATELET COUNT 252 10^3/uL (130-450); RED BLOOD COUNT 4.33 10^6/uL (4.70-6.10); RED CELL DISTRIBUTION WIDTH 12.3 % (12.0-15.0); WHITE BLOOD COUNT 13.9 x10^3/uL (4.8-10.8)
[2019-10-20 14:06] LABS: INR 3.8 (0.8-1.2); PT - PROTHROMBIN TIME 40.5 secs (9.9-12.6)
[2019-10-20 14:13] LABS: ALBUMIN 3.9 g/dL (3.2-5.5); ALBUMIN/GLOBULIN RATIO 1.4 (1.0-2.2); CALCIUM 8.6 mg/dL (8.5-10.3); TOTAL PROTEIN 6.6 g/dL (6.7-8.2)
[2019-10-20] MEDS ORDERED: PROPOFOL 200 MG/20 ML VIAL IVP STA (14:41)
--- NOTE | 2019-10-20 15:52 | CT Report ---
Reason: head injury this AM; has increased confusion since Procedure Date: 10/20/2019 Accession Number: [id number] / [id number] Procedure: CT - HEAD WO CPT Code: Final Report FULL RESULT: EXAM: CT HEAD EXAM DATE: 10/20/2019 03:35 PM. CLINICAL HISTORY: Head injury this AM; has increased confusion since. COMPARISON: CERVICAL SPINE WO 10/20/2019 7:37 AM. TECHNIQUE: Multiaxial CT images were obtained from the foramen magnum to the vertex. Reformats: Sagittal and coronal. IV contrast: None. In accordance with CT protocol optimization, one or more of the following dose reduction techniques were utilized for this exam: automated exposure control, adjustment of mA and/or KV based on patient size, or use of iterative reconstructive technique. FINDINGS: Parenchyma: No intraparenchymal hemorrhage. No evidence of mass, midline shift, or CT findings of infarction. Castaneda-white differentiation is distinct. Extraaxial Spaces: Normal for age. No subdural or epidural collections identified. Ventricles: Normal in size and position. Sinuses and Orbits: Acute displaced fracture of anterior wall of right Sinus, rest of the imaged paranasal sinuses,and mastoids show no significant abnormality. Bones: Acute displaced comminuted fracture of the floor of right orbit with suggestion of significant HemoSinus involving right maxillary sinus. There is pre-/periorbital soft tissue hematoma, measuring 4.5 x 1.7 cm (image 8 on series 4). Other: None. IMPRESSION: No acute traumatic intracranial abnormality. Acute displaced comminuted fracture of floor of right orbit. Suggestion of significant HemoSinus involving right Sinus pain Significant pre-/periorbital hematoma. No intraorbital injury. Acute displaced fracture of anterior wall of right maxillary sinus. RADIA
--- NOTE | 2019-10-20 16:11 | MISCELLANEOUS PROVIDER NOTE ---
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
[2019-10-20] MEDS ORDERED: SODIUM CHLORIDE FLUSH 0.9% 10 ML SYRINGE IVP PRN (16:29)
[2019-10-20] MEDS ORDERED: ONDANSETRON 4 MG/2 ML VIAL IVP PRN (16:29)
--- NOTE | 2019-10-20 17:29 | HISTORY & PHYSICAL EXAMINATION ---
Chief Complaint - Chief Complaint Chief Complaint: Nose bleed History of Present Illness - Admitted From Admitted From:: Home - History Obtained From Records Reviewed: Yes History obtained from: Patient, ER Physician, EMR Exam Limitations: Patient is confused at times - History of Present Illness HPI Comment/Other: This is a 54-year-old male with a past medical history significant for seizure disorder, paroxysmal atrial fibrillation on Coumadin who presents today complaining of a nosebleed. He was seen in the emergency department this morning after he had a seizure at home and hit his head on the sink. He had a CT of the head obtained which showed no intracranial hemorrhage but did show a nondisplaced orbital fracture and a periorbital hematoma. His nose continued to bleed and this was treated with packing as well as TXA. He was discharged home but once he got home he began to sneeze and had further episodes of bleeding and so he returned to emergency department a few hours later. His noted that he was also more confused than what he is like after a seizure. When you initially discharge emergency department, he was slightly postictal or postconcussive but was able to converse. When he arrived emergency department he was confused and kept pulling out the packing from his nose and he continued to blow his nose which caused further bleeding. He was then treated with Afrin and a Rhino was placed. He eventually had control of the bleeding. Patient then developed rapid atrial patient with h eart rate in the 170s. He was given 10 mg of IV diltiazem and he was started on a diltiazem drip with improvement in his heart rates to the 100s. His supervisor lead refinery was contacted and recommended cardioversion as he had a cardioversion earlier this month on 30 September and he has been anticoagulated. He was successfully cardioverted in the emergency department and has returned to a sinus rhythm. Given his continued confusion which was relieved to be secondary to postictal state as well as possible concussion, medicine was consulted for observation. Patient currently reports no pain. He states he has difficulty opening his right eye but denies any diplopia or blurry vision. He denies any headache or eye pain with movement. He reports that he has been having seizures every couple of months. He does not recall if he has been started on any new medications although his called the emergency department and informed them that he was started on zonisamide recently in addition to Depakote and his dose was increased yesterday but they have not picked up the new prescription. He reports no nausea, vomiting, chest pain, dyspnea, palpitations. He reports no drug use. He reports that he no longer drinks alcohol. Repeat CT of the head was performed which showed no brain hemorrhage but there was an acute displaced comminuted fracture of the right floor of the right orbit as well as hemo-sinus involvement of the right sinus. There is also 4.5 x 1.7 cm periorbital hematoma but no orbital injury. There is also an acute displaced fracture of the right anterior wall the right maxillary sinus. I discussed this finding with Dr. Herrera of oral maxillofacial surgery who was more than happy to consult on the patient. The patient's INR is elevated at 3.8 otherwise his labs are unremarkable. History - Past Medical History Cardiovascular: reports: Atrial fibrillation Respiratory: reports: None Neuro: reports: Seizure disorder Endocrine/Autoimmune: reports: None GI: reports: None : reports: None HEENT: reports: None Psych: reports: Anxiety Musculoskeletal: reports: None Derm: reports: None MRSA Hx?: No - Family & Social History Family History Comment/Other: He reports his father committed suicide. His mother from alcohol use. His brother also has seizures. Living arrangement: At home Living Situation: With spouse/s.o. Social History Notes: He lives at home with his . He has lived on the [place] for the past 2 years. He was previously living in the [place] area. 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 Denies any smoking. States he drank alcohol in the past but has now quit. Denied any drug use including heroin and cocaine. He states he has used marijuana in the past but not recently although his urine drug screen was positive for marijuana. - Substance History Use: Uses substance without health or social issues: NONE - POLST Patient has POLST: No Meds/Allgy - Home Medications Home Medications: Ambulatory Orders Medication Instructions Recorded Confirmed Divalproex [Depakote Dr] 1,250 mg PO DAILY 12/10/18 10/20/19 Escitalopram [Lexapro] 10 mg PO DAILY 12/10/18 10/20/19 Warfarin Sodium [Coumadin] 7.5 mg PO DAILY 08/30/19 10/20/19 Metoprolol Succinate [Toprol Xl] 1 tab DAILY 09/18/19 10/20/19 diazePAM [Valium] 5 - 10 mg PO TID PRN #15 tablet 09/18/19 10/20/19 Tamsulosin [Flomax] 0.4 mg PO QPM 10/20/19 10/20/19 - Allergies Allergies/Adverse Reactions: Allergies Allergy/AdvReac Type Severity Reaction Status Date / Time bupropion [From Wellbutrin] Allergy Unknown Verified 08/29/19 23:59 lamotrigine [From Lamictal] AdvReac Unknown Verified 08/29/19 23:59 Review of Systems - Constitutional Constitutional: denies: Fatigue, Fever, Chills - Eyes Eyes: denies: Pain, Blurred vision, Vision loss, Dipolpia - Ears, Nose & Throat Ears, Nose & Throat: reports: Nosebleeds - Cardiovascular Cariovascular: denies: Palpitations, Chest pain, Exertional dyspnea, Decr. exe rcise tolerance - Respiratory Respiratory: denies: Cough, SOB at rest, SOB with exertion - Gastrointestinal Gastrointestinal: denies: Abdominal pain, Nausea, Vomiting - Musculoskeletal Musculoskeletal: denies: Muscle pain - Integumentary Integumentary: denies: Rash - Neurological Neurological: reports: Seizures. denies: General weakness, Focal weakness, Headache, Dizziness, Numbness, Memory problems - All Other Systems All Other Systems: reports: Reviewed and negative Prior Level of Functionality: He is independent with his ADLs. Exam - Vital Signs Reviewed Vital Signs: Yes Vital Signs: Vital Signs x48h Temp Pulse Resp BP Pulse Ox 10/20/19 16:11 85 16 122/65 100 10/20/19 15:30 80 16 166/75 H 100 10/20/19 15:23 78 20 10/20/19 15:00 106 H 16 105/65 100 10/20/19 14:30 97 16 80/65 L 100 10/20/19 14:05 73 19 103/64 96 10/20/19 14:00 36.9 C 101 H 16 103/64 100 10/20/19 13:45 165 H 16 125/68 98 10/20/19 13:30 150 H 20 125/68 98 10/20/19 11:12 36.5 C 82 20 121/89 H 98 - Physical Exam General Appearance: positive: No acute distress, Alert, Other (He does appear slightly lethargic in bed but had received sedation for the cardioversion. He is able to converse although he is slow to respond at times.) Eyes Bilateral: positive: PERRL, EOMI, Other (He has significant right periorbital edema and ecchymosis. This is nontender. There is subconjunctival hemorrhage. He has no pain with ocular movement. Visual acuity appears grossly intact with the left eye covered as he is able to state the number of fingers I am holding multiple times.) ENT: positive: Other (Oropharynx is clear. There is dry blood over his lips. The right nare has a Rhino Rocket in place.) Neck: positive: Nml inspection Respiratory: positive: No respiratory distress. negative: Wheezes, Rales, Rhonchi Cardiovascular: positive: Regular rate & rhythm, No murmur. negative: Systolic murmur Abdomen: positive: Non-tender, No distention. negative: Tenderness Skin: positive: Warm, Dry Extremities: positive: Full ROM, No pedal edema Neurologic/Psychiatric: positive: Oriented x3, Other. negative: Disoriented to person, Disoriented to place, Disoriented to time, Slurred/abnml speech (He is able to move all 4 extremities without any deficits. Sensation is intact.) Conclusion/Plan - Problem List (1) Confusion after a seizure Conclusion/Plan: His confusion is likely secondary to post ictal state but there may be a component of postconcussion syndrome as well given the trauma. Fortunately the CT of his head did not reveal any intracranial hemorrhage. He appears to be improving from a confusion standpoint and is alert and oriented x3. He was also more cooperative the conversation and exam. We will observe him overnight and hope to discharge him in the morning. (2) Fracture of right orbital floor Conclusion/Plan: He has a comminuted displaced fracture of the right orbital floor evident on CT of the head. There is a periorbital hematoma. Fortunately does not appear to have any visual acuity deficits and no evidence of nerve entrapment on exam. I have spoken with Dr. Herrera of oral maxillofacial surgery who will see the patient this evening. We will place the patient on Augmentin for prophylaxis given he has a sinus fracture as well. Treat his pain with Tylenol and oxycodone as needed. Qualifiers: Encounter type: initial encounter (3) Periorbital hematoma of right eye Conclusion/Plan: There is a 4 x 2 cm periorbital hematoma of the right orbit. There is no orbital involvement. No visual acuity deficits and extraocular movement is intact. I reviewed the films with radiology and he stated that the nerves and muscle appeared within normal limits without any involvement. Given he is on Coumadin and the hematoma did expand from the prior CT, we will give him vitamin K as his INR was supratherapeutic. (4) Epistaxis Conclusion/Plan: He has a Rhino Rocket in place and the bleeding has been controlled at the moment. We will continue to monitor for further signs of bleeding. Given his INR supratherapeutic, We will give him vitamin K to bring it within therapeutic range. Discussed with the patient to sneeze with his mouth open if he needs to as per the recommendation of oral maxillofacial surgery. (5) Paroxysmal atrial fibrillation Conclusion/Plan: He had an outpatient cardioversion on September 30. He is on metoprolol and Coumadin at home. His INR is supratherapeutic at 3.8. He went to rapid A. fib while he emerge department and was cardioverted for that. He is now in a sinus rhythm. We will continue his home Toprol once a dose is confirmed. We will reverse his INR given the periorbital hematoma. Monitor on telemetry while he is hospitalized. (6) Seizure Conclusion/Plan: He has a history of seizures for which he takes Depakote. His reports he was recently started on zonisamide and his dose was increased 150 mg every evening. We do not have this on formulary but she will bring his home medication to the hospital which we will resume this evening. He follows with neurology at [facility] and was scheduled for a telemedicine follow-up tomorrow via [employer] but this will likely need to be postponed given his hospitalization. Seizure precautions. (7) Anticoagulant long-term use Conclusion/Plan: He is on Coumadin for atrial fibrillation and his supervisor lead refinery had wanted to be continued for 30 days after his cardioversion. His INR was supratherapeutic today at 3.8. Given the periorbital hematoma and epistaxis, will administer vitamin K today. We will aim for an INR of 2 but this may need to be lowered even further if there is concern for worsening hemorrhage. Daily INR. - Lab Results Lab results reviewed: Yes Fish Bones: 10/20/19 13:45 10/20/19 13:45 - Diagnostic Imaging Results Diagnostic Imaging Results: positive: Final report reviewed, Discussed with radiologist (I asked the radiologist to review both CTs from today and they state that the hematoma has enlarged by roughly 2 cm. The right orbit does have a displaced comminuted fracture.) Core Measures - Anticipated LOS I expect patient to be DC'd or transferred within 96 hours.: Yes - Issues Hospital Issues and Management Plan: 84-year-old male who presents after having a seizure at home found to the right orbital fracture and periorbital hematoma. He is slightly confused which may be post ictal or postconcussive. We will observe overnight given his mental status. - DVT/VTE - Prophylaxis VTE/DVT Device ordered at admit?: Yes VTE/DVT Prophylaxis med ordered at admit?: No Not Ordered - Medical Reason: Not indicated
[2019-10-20] MEDS: ACETAMINOPHEN 325 MG TABLET PO PRN (17:59)
[2019-10-20] MEDS ORDERED: PHYTONADIONE 10 MG/ML AMP PO ONE (18:00)
[2019-10-20] MEDS ORDERED: CHERRY SYRUP 10 ML UDC PO ONE (18:00)
--- NOTE | 2019-10-20 18:38 | PHARMACY PROGRESS NOTE ---
- Best Possible Medication History Admit Date and Time: 10/20/19 1701 Processed by: Pharmacy Medication History completed: In progress Patient Interview: Pt interview ONLY source Will contact Dr Ronal Everett's office tomorrow for copy of list. As the person ultimately responsible for medication therapy, providers are able to order a medication from an existing home medication list in [facility] via the "Reconcile Routine" prior to Confirmation of that medication by forestry support specialist. Such practice is discouraged except when the physician, in their clinical judgment, deems that a medical need exists for a medication without regard to previous use.
--- NOTE | 2019-10-20 19:01 | CONSULTATION NOTE ---
Referring Provider Name of Referring Provider:: Afshin Gomez Consult Date: 10/20/19 Chief Complaint - Chief Complaint Chief Complaint: Facial Trauma History of Present Illness - Admitted From Admitted From:: ER - History Obtained From History obtained from: Patient and other providers Exam Limitations: The patient is disoriented and somewhat sedate - History of Present Illness HPI Comment/Other: Seizure early this am, causing a fall and his right face to strike a table. He was brought to the ER where a CT head demonstrated no acute intracranial abnormality, but did demonstrate a right orbital floor blowout fracture. In the ER he was found to be in afib w/ RVR. He underwent cardioversion and is now in sinus rhythm. He was also found to have an INR of 3.8 and just received oral vit K. He was disoriented and was admitted for monitoring. OMFS was consulted for evaluation of his right orbital trauma. He was able to follow commands during the exam and make conversation. Gathering a history from him was impeded by him being very drowsy and dosing frequently. History - Past Medical History Cardiovascular: reports: Atrial fibrillation Respiratory: reports: None Neuro: reports: Seizure disorder Endocrine/Autoimmune: reports: None GI: reports: None : reports: None HEENT: reports: None, Other (He wears corrective lenses.) Psych: reports: Anxiety Musculoskeletal: reports: None Derm: reports: None MRSA Hx?: No - Family & Social History Family History Comment/Other: He reports his father committed suicide. His mother from alcohol use. His brother also has seizures. Living arrangement: At home Living Situation: With spouse/s.o. Social History Notes: He lives at home with his . He [place] lived [place] the [place] for the past 2 years. He was previously living in the [place] area. 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 Denies any smoking. States he drank alcohol in the past but has now quit. Denied any drug use including heroin and cocaine. He states he has used marijuana in the past but not recently although his urine drug screen was positive for marijuana. - Substance History Use: Uses substance without health or social issues: NONE - POLST Patient has POLST: No Meds/Allgy - Home Medications Home Medications: Ambulatory Orders Medication Instructions Recorded Confirmed Divalprolong Swift [Мария Swift] 1,500 mg PO DAILY 12/10/18 10/20/19 Escitalopram [Lexapro] 20 mg PO DAILY 12/10/18 10/20/19 Warfarin Sodium [Coumadin] 7.5 mg PO SUTUWETHSA 08/30/19 10/20/19 Divalproex [Depakomakenzie Swift] 1,750 mg PO QPM 10/20/19 10/20/19 Metoprolol Succinate [Toprol Xl] 50 mg PO BID 10/20/19 10/20/19 Tamsulosin [Flomax] 0.4 mg PO QPM 10/20/19 Warfarin [Coumadin] 10 mg PO MOFR 10/20/19 10/20/19 Zonisamide 150 mg PO QPM 10/20/19 10/20/19 - Allergies Allergies/Adverse Reactions: Allergies Allergy/AdvReac Type Severity Reaction Status Date / Time bupropion [From Wellbutrin] Allergy Unknown Verified 08/29/19 23:59 lamotrigine [From Lamictal] AdvReac Unknown Verified 08/29/19 23:59 Review of Systems - Constitutional Constitutional: denies: Fever, Chills, Malaise - Eyes Eyes: reports: Pain. denies: Blurred vision, Vision loss, Dipolpia - Ears, Nose & Throat Ears, Nose & Throat: reports: Vertigo, Nasal pain, Nasal discharge, Nasal congestion. denies: Ear pain, Hearing loss, Tinnitus - Cardiovascular Cariovascular: denies: Palpitations, Chest pain - Respiratory Respiratory: denies: Cough, Wheezing - Gastrointestinal Gastrointestinal: denies: Abdominal pain - Musculoskeletal Musculoskeletal: denies: Muscle pain, Back pain - Integumentary Integumentary: denies: Rash, Lesions - Neurological Neurological: reports: Headache. denies: General weakness - Hematologic/Lymphatic Hematologic/Lymphatic: reports: Other (anticoagulant therapy) Exam - Vital Signs Reviewed Vital Signs: Yes Vital Signs: Vital Signs x48h Temp Pulse Pulse Resp BP BP Pulse Ox 10/20/19 17:59 36.4 C L 83 20 124/74 98 10/20/19 17:18 85 18 122/65 99 10/20/19 16:11 85 16 122/65 100 10/20/19 15:30 80 16 166/75 H 100 10/20/19 15:23 78 20 10/20/19 15:00 106 H 16 105/65 100 10/20/19 14:30 97 16 80/65 L 100 10/20/19 14:05 73 19 103/64 96 10/20/19 14:00 36.9 C 101 H 16 103/64 100 10/20/19 13:45 165 H 16 125/68 98 10/20/19 13:30 150 H 20 125/68 98 10/20/19 11:12 36.5 C 82 20 121/89 H 98 - Physical Exam General Appearance: positive: No acute distress, Other (Drowsy) Eyes Bilateral: positive: PERRL, EOMI, Other (R subconjuntival hemorrhave limited to the lateral half of the sclera) ENT: positive: Other (No active epistaxis. Nasal pack present in the R naris. Dried blood in the R naris. TTP of the dorsal nose. No lacerations or mobility. Occlusion stable and repeatable. No evidence of intaoral trauma Palpable step of the R infraorbital rim with protruding prominence of bone Moderate R periorbital edema and ecchymosis. Opens eye spontaneously) Neck: positive: Nml inspection, Other (No cervical spine ttp. FROM of the neck.) Respiratory: positive: Chest non-tender, No respiratory distress Cardiovascular: positive: Regular rate & rhythm Peripheral Pulses: positive: 2+ Abdomen: positive: Non-tender, No distention Skin: positive: Other (clean dry and intact except as noted above) Extremities: positive: Full ROM Neurologic/Psychiatric: positive: CN's nml (2-12) (Except for R infraorbital V2 hypoesthesia). negative: Oriented x3 Conclusion/Plan - Diagnosis Diagnosis: Right inferior orbital rim fracture, displaced - Plan Plan: 54 yo M s/p GLF, face to table during a seizure, sustaining a right minimally displaced orbital floor fracture and a right infraorbital rim fracture with moderate displacement. There is a nondisplaced fracture of the R lateral orbital rim as well. The fracture pattern is consistent with a ZMC fracture without the zygmatic arch component. These findings may be updated when a CT Max/face becomes available. Plan: We anticipate ORIF of the right infraorbital rim tomorrow at 0730. - NPO after midnight - ORIF of the R ZMC if the CT maxillofacial demonstrates fracture of the zygomatic arch - monitor INR. If over 3 in the am, consider FFP prior to surgery Thank you for including me in the care of George. Please call with any questions. Mark Anthony Herrera DDS [phone] - Lab Results Lab results reviewed: Yes Fish Bones: 10/20/19 13:45 10/20/19 13:45 - Other Other Results/Comments: CT Head: There is a minimally displace R orbital floor fracture with opacification of the right maxillary sinus. The inferior orbital rim is also fractured, with a fragment protruding anteriorly.
[2019-10-20] MEDS: AMOX/CLAV 875 MG/125 MG TABLET PO SCH (19:34)
[2019-10-20] MEDS: oxyCODONE 5 MG TABLET PO PRN ×2 (19:34→23:45)
[2019-10-20] MEDS ORDERED: PROCHLORPERAZINE 10 MG/2 ML VIAL IVP PRN (20:30)
--- NOTE | 2019-10-20 20:31 | CT Report ---
Reason: Right orbital fracture. Procedure Date: 10/20/2019 Accession Number: [id number] / [id number] Procedure: CT - MAXILLOFACIAL WO CPT Code: Final Report FULL RESULT: EXAM: CT MAXILLOFACIAL WITHOUT CONTRAST. EXAM DATE: 10/20/2019 07:22 PM. CLINICAL HISTORY: Right orbital fracture. COMPARISONS: HEAD WO 10/20/2019 3:31 PM. TECHNIQUE: Thin-section axial images were acquired of the face without contrast. Post-processing: Coronal and sagittal reformats. Other: None. In accordance with CT protocol optimization, one or more of the following dose reduction techniques were utilized for this exam: automated exposure control, adjustment of mA and/or KV based on patient size, or use of iterative reconstructive technique. FINDINGS: Soft Tissue: Right pre-and perioperative soft tissue hematoma with largest component measuring 4.5 x 1.5 cm. And a smaller focus of hematoma inferiorly measuring 1.5 cm area these findings are unchanged since prior. There is slightly increased perilesional subcutaneous fat stranding. Orbits: Again seen is acute displaced comminuted fracture of the floor of right orbit. There is significant hemosinus involving right maxillary sinus, and right ethmoid sinuses. Continued fracture of anterior wall of right maxillary sinus. No intraorbital injury. IMPRESSION: Redemonstrated is comminuted right orbital floor and anterior wall of right maxillary sinus fractures. Unchanged right pre-and periorbital soft tissue hematoma with components as described above. Slight increased subcutaneous fat stranding. Unchanged hemosinus involving right maxillary sinus and right ethmoid sinuses. RADIA
[2019-10-20] MEDS ORDERED: DIVALPROEX DR 250 MG TABLET PO SCH (21:00)
[2019-10-20] MEDS: METOPROLOL SUCCINATE 50 MG TABLET PO SCH (21:31)
[2019-10-20] MEDS: PANTOPRAZOLE 40 MG VIAL IV SCH (21:31)
[2019-10-20 22:14] LABS: HGB - HEMOGLOBIN 10.4 g/dL (14.0-18.0); MEAN CORPUSCULAR HEMOGLOBIN 32.4 pg (27.0-31.0); MEAN CORPUSCULAR HGB CONC 33.2 g/dL (32.0-36.0); MEAN CORPUSCULAR VOLUME 97.5 fL (80.0-94.0); MEAN PLATELET VOLUME 9.1 fL (7.4-11.4); RED BLOOD COUNT 3.21 10^6/uL (4.70-6.10); RED CELL DISTRIBUTION WIDTH 12.8 % (12.0-15.0); WHITE BLOOD COUNT 12.1 x10^3/uL (4.8-10.8)
[2019-10-20] MEDS ORDERED: SODIUM CHLORIDE 0.9% 1,000 ML IV SCH (23:00)
[2019-10-20] MEDS: SODIUM CHLORIDE FLUSH 0.9% 10 ML SYRINGE IVP SCH (23:51)
[2019-10-21] MEDS: oxyCODONE 5 MG TABLET PO PRN ×2 (00:03→04:02)
[2019-10-21] MEDS: ACETAMINOPHEN 325 MG TABLET PO PRN ×2 (04:00→13:17)
[2019-10-21 05:50] LABS: BASOPHILS % (AUTO) 0.3 %; EOSINOPHILS % (AUTO) 0.2 %; HGB - HEMOGLOBIN 9.5 g/dL (14.0-18.0); LYMPHOCYTES % (AUTO) 19.4 %; MEAN CORPUSCULAR HEMOGLOBIN 32.6 pg (27.0-31.0); MEAN CORPUSCULAR HGB CONC 33.7 g/dL (32.0-36.0); MEAN CORPUSCULAR VOLUME 96.9 fL (80.0-94.0); MEAN PLATELET VOLUME 9.6 fL (7.4-11.4); MONOCYTES # (AUTO) 1.3 10^3/uL (0.0-1.0); MONOCYTES % (AUTO) 12.4 %; NEUTROPHILS # (AUTO) 6.8 10^3/uL (1.5-6.6); NEUTROPHILS % (AUTO) 66.9 %; PLT - PLATELET COUNT 162 10^3/uL (130-450); RED BLOOD COUNT 2.91 10^6/uL (4.70-6.10); RED CELL DISTRIBUTION WIDTH 12.8 % (12.0-15.0); WHITE BLOOD COUNT 10.2 x10^3/uL (4.8-10.8)
[2019-10-21 05:56] LABS: INR 2.3 (0.8-1.2); PT - PROTHROMBIN TIME 24.6 secs (9.9-12.6)
[2019-10-21 06:02] LABS: CALCIUM 7.7 mg/dL (8.5-10.3); CREATININE 0.8 mg/dL (0.6-1.2); MAGNESIUM 2.4 mg/dL (1.7-2.8); PHOSPHORUS 3.7 mg/dL (2.5-4.6)
[2019-10-21] MEDS ORDERED: LIDOCAINE 2%-EPI 1:100000 20 ML MDV ONE (06:57)
[2019-10-21] MEDS ORDERED: OXYMETAZOLINE HCL 100 SPRAYS BOTTLE NAS ONE (06:58)
[2019-10-21] MEDS ORDERED: BACITRACIN ZINC OINT 1 PACKET TOP ONE (06:58)
--- NOTE | 2019-10-21 07:05 | ANESTHESIA ---
Pre-Anesthesia VS, & Labs - Diagnosis Diagnosis Right inferior orbital rim fracture, displaced - Procedure R orbit ORIF Vital Signs: Temp Pulse Resp BP Pulse Ox 36.6 C 73 16 133/60 H 95 10/21/19 04:05 10/21/19 04:05 10/21/19 04:05 10/21/19 04:05 10/21/19 04:05 Height 6 ft 2 in Weight (kg) 123 kg Body Mass Index 34.8 - NPO >8 hours - Lab Results Current Lab Results: Laboratory Tests 10/21/19 05:25: Sodium 136, Potassium 3.8, Chloride 105, Carbon Dioxide 24, Anion Gap 7.0, BUN 33 H, Creatinine 0.8, Estimated GFR (MDRD) 101, Glucose 107 H , Calcium 7.7 L, Phosphorus 3.7, Magnesium 2.4 10/21/19 05:25: PT 24.6 H, INR 2.3 H 10/21/19 05:25: WBC 10.2, RBC 2.91 L, Hgb 9.5 L, Hct 28.2 L, MCV 96.9 H, MCH 32.6 H, MCHC 33.7, RDW 12.8, Plt Count 162, MPV 9.6, Neut # (Auto) 6.8 H, Lymph # (Auto) 2.0, Pope # (Auto) 1.3 H, Eos # (Auto) 0.0, Baso # (Auto) 0.0, Absolute Nucleated RBC 0.00, Nucleated RBC % 0.0 10/20/19 22:08: WBC 12.1 H, RBC 3.21 L, Hgb 10.4 L, Hct 31.3 L, MCV 97.5 H, MCH 32.4 H, MCHC 33.2, RDW 12.8, Plt Count 155, MPV 9.1 10/20/19 13:45: Sodium 133 L, Potassium 4.2, Chloride 100 L, Carbon Dioxide 25, Anion Gap 8.0, BUN 29 H, Creatinine 1.0, Estimated GFR (MDRD) 78 L, Glucose 138 H, Calcium 8.6, Total Bilirubin 1.0, AST 24, ALT 18, Alkaline Phosphatase 44, Total Protein 6.6 L, Albumin 3.9, Globulin 2.7, Albumin/Globulin Ratio 1.4, Lipase 28 10/20/19 13:45: Troponin I High Sens 7.6 10/20/19 13:45: PT 40.5 H, INR 3.8 H 10/20/19 13:45: WBC 13.9 H, RBC 4.33 L, Hgb 14.4, Hct 41.6 L, MCV 96.1 H, MCH 33.3 H, MCHC 34.6, RDW 12.3, Plt Count 252, MPV 9.4, Neut # (Auto) 11.2 H, Lymph # (Auto) 1.1 L, Pope # (Auto) 1.4 H, Eos # (Auto) 0.0, Baso # (Auto) 0.0, Absolute Nucleated RBC 0.00, Nucleated RBC % 0.0 Fish Bones: 10/21/19 05:25 10/21/19 05:25 Home Medications and Allergies Home Medications: Ambulatory Orders Divalproex Dr [Мария Swift] 1,750 mg PO QPM 10/20/19 Metoprolol Succinate [Toprol Xl] 50 mg PO BID 10/20/19 Tamsulosin [Flomax] 0.4 mg PO QPM 10/20/19 Warfarin [Coumadin] 10 mg PO MOFR 10/20/19 Zonisamide 150 mg PO QPM 10/20/19 Active Medications Acetaminophen (Tylenol) 650 mg PO Q4HR PRN PRN Reason: Pain 1 to 4 Last Admin: 10/21/19 04:00 Dose: 650 mg Amoxicillin/Clavulanate Potassium (Augmentin 875/125) 1 tab PO BIDWM [facility] Last Admin: 10/20/19 19:34 Dose: 1 tab Divalproex Sodium (Мария Swift) 1,500 mg PO DAILY [facility] Divalproex Sodium (Мария Swift) 1,750 mg PO QPM [facility] Last Admin: 10/20/19 21:31 Dose: 1,750 mg Escitalopram Oxalate (Lexapro) 20 mg PO DAILY [facility] Metoprolol Succinate (Toprol Xl) 50 mg PO BID [facility] Last Admin: 10/20/19 21:31 Dose: 50 mg Ondansetron HCl (Zofran Inj) 4 mg IVP Q6HR PRN PRN Reason: Nausea / Vomiting Last Admin: 10/20/19 20:33 Dose: 4 mg Oxycodone HCl (Roxicodone) 5 mg PO Q4HR PRN PRN Reason: Pain 5 to 7 Last Admin: 10/21/19 04:02 Dose: 5 mg Pantoprazole Sodium (Protonix) 40 mg IV BID [facility] Last Admin: 10/20/19 21:31 Dose: 40 mg Zonisamide 50mg (Capsule) 3 each PO QPM [facility] Last Admin: 10/20/19 21:31 Dose: 3 each Prochlorperazine Edisylate (Compazine Inj) 10 mg IVP Q6HR PRN PRN Reason: Nausea / Vomiting Sodium Chloride (Normal Saline Flush 0.9%) 10 ml IVP PRN PRN PRN Reason: NEEDED PER PROVIDER ORDERS Last Admin: 10/21/19 00:04 Dose: 10 ml Sodium Chloride (Normal Saline Flush 0.9%) 10 ml IVP 0100,0900,1700 [facility] Last Admin: 10/20/19 23:51 Dose: 10 ml Divalproex [Мария Swift] 1,500 mg PO DAILY 12/10/18 Escitalopram [Lexapro] 20 mg PO DAILY 12/10/18 Warfarin Sodium [Coumadin] 7.5 mg PO SUTUWETHSA 08/30/19 Divalproex [Мария Swift] 1,750 mg PO QPM 10/20/19 Metoprolol Succinate [Toprol Xl] 50 mg PO BID 10/20/19 Tamsulosin [Flomax] 0.4 mg PO QPM 10/20/19 Warfarin [Coumadin] 10 mg PO MOFR 10/20/19 Zonisamide 150 mg PO QPM 10/20/19 Allergies/Adverse Reactions: Allergies Allergy/AdvReac Type Severity Reaction Status Date / Time bupropion [From Wellbutrin] Allergy Unknown Verified 08/29/19 23:59 lamotrigine [From Lamictal] AdvReac Unknown Verified 08/29/19 23:59 Anes History & Medical History - Anesthetic History Anesthesia Complications: reports: No previous complications (poor historian) - Medical History Cardiovascular: reports: Atrial fibrillation (cardioverted 10/19 in ED for AF RVR. currently SR) Pulmonary: reports: None, Sleep apnea, CPAP use Gastrointestinal: reports: None Urinary: reports: None Neuro: reports: Seizure disorder (seizures for last 2 years) Musculoskeletal: reports: None Endocrine/Autoimmune: reports: None Blood Disorders: reports: None Skin: reports: None Smoking Status: Never smoker Psychosocial: reports: Depression, Other (+MJ formerly heavy drinker. reports he quit 2 years ago with onset of seizure disorder) Exam General: Alert, Cooperative Dental: Other (recent dental work in preparation for crown - not completed) Mouth Openin Fingerbreadth Mallampati classification: IV Thyromental Distance: 4-6 cm Respiratory: Lungs clear Cardiovascular: Regular rate Plan Anesthesia Type: General Consent for Procedure(s) Verified and Reviewed: Yes Code Status: Attempt Resuscitation ASA classification: 3-Severe systemic disease Is this case an emergency?: No
[2019-10-21] MEDS ORDERED: PROPOFOL 1000 MG/100 ML 100 ML IV ONE ×2 (07:24→07:38)
[2019-10-21] MEDS ORDERED: fentaNYL 100 MCG/2 ML VIAL IVP ONE (07:38)
[2019-10-21] MEDS ORDERED: PROPOFOL 200 MG/20 ML VIAL IVP ONE (07:38)
[2019-10-21] MEDS ORDERED: LACTATED RINGERS 1,000 ML IV ONE ×2 (07:38→09:38)
[2019-10-21] MEDS ORDERED: DEXAMETHASONE 4 MG/ML VIAL IVP ONE (07:38)
[2019-10-21] MEDS ORDERED: ONDANSETRON 4 MG/2 ML VIAL IVP ONE (07:38)
[2019-10-21] MEDS ORDERED: GLYCOPYRROLATE 1 MG/5 ML VIAL IVP ONE (07:38)
[2019-10-21] MEDS ORDERED: NEOSTIGMINE 1 MG/1 ML 10 ML MDV IVP ONE (07:38)
[2019-10-21] MEDS ORDERED: MIDAZOLAM 2 MG/2 ML VIAL IVP ONE (07:38)
[2019-10-21] MEDS ORDERED: ePHEDrine 50 MG/ML VIAL IVP ONE (07:38)
[2019-10-21] MEDS ORDERED: MINERAL OIL/PETROLAT OPHTH OINT ONE (08:12)
[2019-10-21] MEDS ORDERED: LIDOCAINE 2%-EPI 1:100000 20 ML MDV SUBQ ONE (08:29)
[2019-10-21] MEDS ORDERED: CHLORHEXIDINE GLUCONATE 15 ML UDC PO ONE (08:30)
[2019-10-21] MEDS ORDERED: CARBOXYMETHYLCELLULOSE OPHTH DROPS LEFTEYE ONE (08:31)
[2019-10-21] MEDS ORDERED: ESCITALOPRAM 10 MG TABLET PO SCH (09:00)
[2019-10-21] MEDS ORDERED: DIVALPROEX ER 250 MG TABLET PO SCH (09:00)
[2019-10-21] MEDS ORDERED: DIVALPROEX DR 250 MG TABLET PO SCH (09:00)
--- NOTE | 2019-10-21 09:29 | PHARMACY PROGRESS NOTE ---
- Best Possible Medication History Admit Date and Time: 10/20/19 1701 Processed by: Pharmacy Medication History completed: Yes Patient Interview: Completed Secondary Source(s): Prescription bottles As the person ultimately responsible for medication therapy, providers are able to order a medication from an existing home medication list in [facility] via the "Reconcile Routine" prior to Confirmation of that medication by technical sales support manager. Such practice is discouraged except when the physician, in their clinical judgment, deems that a medical need exists for a medication without regard to previous use.
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
--- NOTE | 2019-10-21 11:13 | Discharge Plan ---
Discharge Plan Problem Reviewed?: Yes Disposition: Home, Self Care Condition: Good Prescriptions: Acetaminophen [Tylenol] 650 mg PO Q4HR PRN #60 tablet PRN Reason: Pain 1 to 4 Amox/Clav 875/125 [Augmentin 875/125] 1 tab PO BIDWM 4 Days #8 tablet Pantoprazole [Protonix] 40 mg PO DAILY #30 tablet Instruction Topics: Diet Soft Dc Health Concerns: You were seen in the hospital because there was concern that you may have been slightly confused after concussion or your seizure. You are found to have a fracture of your sinus bone and the inferior portion of your eye bone. Dr. Herrera of oral surgery recommended intervention and he repaired 2 of these fractures. Please see his recommendations below with regards to diet and follow-up. Plan of Treatment: Please take Augmentin twice daily for 4 more days as prescribed. Please stop taking your metoprolol as recommended by your cigarette tester. Please continue the sotalol that he has prescribed. Please also stop the Coumadin as also recommended by your cigarette tester given the recent trauma and the frequency of your seizures. Please follow-up with your cigarette tester as scheduled. You were also given a prescription for Protonix which suppresses acid in your stomach. You were provided with this prescription as you did have one episode of vomiting blood. It is likely that this is not bleeding from your stomach but likely from your nosebleed as blood can drain into your stomach. There were no other changes made to medications. Dr. Herrera phone number is [phone]. Please contact his office to schedule a follow up appointment. Please do not use your CPAP mask until you follow-up with the surgeon. Additional Instructions or Follow Up instructions: per Dr. Herrera: You may begin eating and drinking immediately. Observe a STRICT soft food diet for 2 weeks. Foods Like mashed potatoes and ice cream are ok. Cool all hot foods and drinks to lukewarm before eating. The sutures in your mouth need to be removed in 2-3 weeks. Please return to clinic to have them removed. the sutures in your eye will dissolve on their own, usually within a week. Your upper jaw is very delicate and will remain weak for 4 weeks. After 2 weeks of a soft diet you may slowly advance your diet to regular. Sleep with your head elevated. Do not sleep on the RIGHT side of your face. Any excess pressure on the right side of your face could cause the fracture to be pushed back out of place. Return to clinic within 5 days. [phone] No Smoking: If you smoke, Please STOP! Call for help. Follow-up with: Camacho Aleman MD [Provider Admit Priv/Credential] -
[2019-10-21] MEDS: PANTOPRAZOLE 40 MG VIAL IV SCH (13:16)
[2019-10-21] MEDS: AMOX/CLAV 875 MG/125 MG TABLET PO SCH (13:17)
[2019-10-21] MEDS: SODIUM CHLORIDE FLUSH 0.9% 10 ML SYRINGE IVP SCH (13:18)
[2019-10-21] MEDS: METOPROLOL SUCCINATE 50 MG TABLET PO SCH (13:18)
[2019-10-21 13:45] VITALS: BP 128/63
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
[2019-10-21 14:49] LABS: HGB - HEMOGLOBIN 9.9 g/dL (14.0-18.0); MEAN CORPUSCULAR HGB CONC 33.3 g/dL (32.0-36.0); MEAN PLATELET VOLUME 9.3 fL (7.4-11.4); RED CELL DISTRIBUTION WIDTH 12.9 % (12.0-15.0); WHITE BLOOD COUNT 12.9 x10^3/uL (4.8-10.8)
== END 2019-10-21 15:39 | disposition home or self-care (01) ==
LOC: ED 11:11 → MS2 17:01
PROVIDERS: ADMIT Internal Medicine; ATTEND Internal Medicine
DX: S02.31XB Fracture of orbital floor, right side, initial encounter for open fracture (principal); S02.40EB Zygomatic fracture, right side, initial encounter for open fracture; S05.11XA Contusion of eyeball and orbital tissues, right eye, initial encounter; W18.39XA Other fall on same level, initial encounter; W22.09XA Striking against other stationary object, initial encounter; R04.0 Epistaxis; I48.0 Paroxysmal atrial fibrillation; G40.909 Epilepsy, unspecified, not intractable, without status epilepticus; R41.0 Disorientation, unspecified; G47.30 Sleep apnea, unspecified; Z79.01 Long term (current) use of anticoagulants; S06.0X9A Concussion with loss of consciousness of unspecified duration, initial encounter; Y93.89 Activity, other specified; Y92.002 Bathroom of unspecified non-institutional (private) residence as the place of occurrence of the external cause
CPT/HCPCS: 21365; 21386; 30903; 36415; 70450; 70486; 72125; 80048; 80053; 80164; 80203; 80306; 80320; 81003; 83690; 83735; 84100; 84484; 85025; 85027; 85610; 93005; 96374; 96375; 99284; 99285; A9270; C1713; G0378; J2060; J7120; 30901; 81599; 94770

== ENCOUNTER 2019-10-31 20:55 | Emergency (ER) | payer MEDICAID, OTHER ==
--- NOTE | 2019-10-31 21:11 | ED Physician Documentation ---
PD HPI CHEST PAIN - Stated complaint Stated Complaint: HEART RACING/CLAMMY - History obtained from History obtained from: Patient (54-year-old gentleman with history of atrial fibrillation. Recent admission after a concussion and facial fracture requiring operative fixation. Subsequent to that he says his primary retread supervisor, Dr. Dobbins took him off of warfarin and he is now on sotalol. Starting today for unclear reasons he is just profoundly fatigued. He just feels like he has to sleep all the time. He says he might have mild shortness of breath on that but vacillates. Denies any chest pain or pedal edema.) Review of Systems Ten Systems: 10 systems reviewed and negative Constitutional: denies: Fever, Chills Cardiac: denies: Chest pain / pressure, Palpitations Respiratory: reports: Dyspnea (?) GI: denies: Abdominal Pain, Nausea, Vomiting PD PAST MEDICAL HISTORY - Past Medical History Cardiovascular: Atrial fibrillation (cardioverted 10/19 in ED for AF RVR. currently SR) Respiratory: None, Sleep apnea, CPAP use Neuro: Seizure disorder (seizures for last 2 years) Endocrine/Autoimmune: None GI: None : None HEENT: None, Other (He wears corrective lenses.) Psych: Anxiety Musculoskeletal: None Derm: None - Past Surgical History Past Surgical History: No - Present Medications Home Medications: Ambulatory Orders Medication Instructions Recorded Confirmed Divalproex Dr JuanA Swift] 1,500 mg PO DAILY 12/10/18 10/20/19 Escitalopram [Lexapro] 20 mg PO DAILY 12/10/18 10/20/[address] Juan A Swift] 1,750 mg PO QPM 10/20/19 10/20/19 Zonisamide 150 mg PO QPM 10/20/19 10/20/19 Acetaminophen [Tylenol] 650 mg PO Q4HR PRN #60 tablet 10/21/19 Amox/Clav 875/125 [Augmentin 1 tab PO BIDWM 4 Days #8 tablet 10/21/19 875/125] Pantoprazole [Protonix] 40 mg PO DAILY #30 tablet 10/21/19 - Allergies Allergies/Adverse Reactions: Allergies Allergy/AdvReac Type Severity Reaction Status Date / Time bupropion [From Wellbutrin] Allergy Unknown Verified 10/31/19 21:11 lamotrigine [From Lamictal] AdvReac Unknown Verified 10/31/19 21:11 - Social History Does the pt smoke?: No Smoking Status: Never smoker Does the pt drink ETOH?: No Does the pt have substance abuse?: No - Immunizations Immunizations are current?: Yes - POLST Patient has POLST: No PD ED PE NORMAL - Vitals Vital signs reviewed: Yes - General General: Other (He seems slightly confused, presume this is from his recent concussion.) - HEENT HEENT: PERRL, EOMI, Other (Persistent slight swelling and ecchymosis in the right infraorbital area) - Neck Neck: No bony TTP - Cardiac Cardiac: Other (Irregularly irregular without murmur) - Respiratory Respiratory: No respiratory distress, Clear bilaterally - Abdomen Abdomen: Non tender - Derm Derm: Normal color, No rash - Extremities Extremities: No edema, No calf tenderness / cord - Neuro Neuro: Alert and oriented X 3, No motor deficit, No sensory deficit, Normal speech Results - Vitals Vitals: Vital Signs - 24 hr 10/31/19 10/31/19 10/31/19 21:12 21:31 21:45 Temperature 36.7 C Heart Rate 88 82 79 Respiratory 15 20 17 Rate Blood Pressure 155/97 H 155/97 H 134/103 H O2 Saturation 100 97 99 10/31/19 22:15 Temperature 36.4 C L Heart Rate 76 Respiratory 18 Rate Blood Pressure 129/90 H O2 Saturation 98 Oxygen O2 Source Room air - EKG (time done) 2103 Rate: Rate (enter#) (92) Rhythm: Atrial fibrillation [place]: Normal QRS: Normal Computer interpretation: Agree with computer - Labs Labs: Laboratory Tests 10/31/19 10/31/19 10/31/19 21:12 21:12 21:12 WBC 7.4 RBC 3.11 L Hgb 10.3 L Hct 30.4 L MCV 97.7 H MCH 33.1 H MCHC 33.9 RDW 13.0 Plt Count 237 MPV 8.8 Neut # (Auto) 3.8 Lymph # (Auto) 2.2 [place] # (Auto) 1.1 H Eos # (Auto) 0.1 Baso # (Auto) 0.0 Absolute Nucleated RBC 0.00 Nucleated RBC % 0.0 PT 12.4 INR 1.1 Sodium 130 L Potassium 4.2 Chloride 96 L Carbon Dioxide 26 Anion Gap 8.0 BUN 17 Creatinine 0.9 Estimated GFR (MDRD) 88 L Glucose 103 H Calcium 9.0 Total Bilirubin 0.6 AST 18 ALT 14 Alkaline Phosphatase 41 L Troponin I High Sens Total Protein 6.6 L Albumin 4.1 Globulin 2.5 Albumin/Globulin Ratio 1.6 Lipase 40 Last Dose Date Last Dose Time Valproic Acid Ethyl Alcohol < 5.0 10/31/19 10/31/19 21:12 21:12 WBC RBC Hgb Hct MCV MCH MCHC RDW Plt Count MPV Neut # (Auto) Lymph # (Auto) [place] # (Auto) Eos # (Auto) Baso # (Auto) Absolute Nucleated RBC Nucleated RBC % PT INR Sodium Potassium Chloride Carbon Dioxide Anion Gap BUN Creatinine Estimated GFR (MDRD) Glucose Calcium Total Bilirubin AST ALT Alkaline Phosphatase Troponin I High Sens 4.1 Total Protein Albumin Globulin Albumin/Globulin Ratio Lipase Last Dose Date UNKNOWN Last Dose Time UNKNOWN Valproic Acid 106.0 Ethyl Alcohol PD MEDICAL DECISION MAKING - ED course ED course: 54yo male with afib, recent fall/seizure d/o. Now on sotalol, off warfarin. Presents with fatigue, sweats, maybe dyspnea, no CP. Appears well, v mildly confused. Timing suggestive that maybe sotalol could be the cause. Depakte level sl high. H/H better than on discharge. Spoke with Dr Guaman, technology sales consultant for Dr Adam (cardiology) who agrees, but wants Dr Adam to make the decision tomorrow, but will have his RN reach out to patient. Was updated by phone, did not feel like his mental status was any worse than normal. Any confusion was pretty mild. Departure - Departure Disposition: 01 Home, Self Care Clinical Impression: Fatigue Qualifiers: Fatigue type: unspecified Qualified Code(s): R53.83 - Other fatigue Condition: Good Record reviewed to determine appropriate education?: Yes Instructions: Atrial Fibrillation Dc Comments: As discussed, your Depakote level is very slightly high, skip 1 pill tomorrow morning. Your atrial fibrillation seems controlled, the timing of your fatigue suggest that this may be due to your new medication, sotalol. I spoke with the on-call retread supervisor for Dr. Dobbins, Dr. Guaman who agrees but would like you to continue current medications right now until you can coordinate with Dr. Dobbins on this tomorrow. Return anytime if worse. Discharge Date/Time: 10/31/19 22:21
[2019-10-31 21:17] LABS: BASOPHILS % (AUTO) 0.4 %; EOSINOPHILS # (AUTO) 0.1 10^3/uL (0.0-0.7); EOSINOPHILS % (AUTO) 1.8 %; HGB - HEMOGLOBIN 10.3 g/dL (14.0-18.0); LYMPHOCYTES # (AUTO) 2.2 10^3/uL (1.5-3.5); LYMPHOCYTES % (AUTO) 30.1 %; MEAN CORPUSCULAR HEMOGLOBIN 33.1 pg (27.0-31.0); MEAN CORPUSCULAR HGB CONC 33.9 g/dL (32.0-36.0); MEAN CORPUSCULAR VOLUME 97.7 fL (80.0-94.0); MEAN PLATELET VOLUME 8.8 fL (7.4-11.4); MONOCYTES # (AUTO) 1.1 10^3/uL (0.0-1.0); MONOCYTES % (AUTO) 15.5 %; NEUTROPHILS # (AUTO) 3.8 10^3/uL (1.5-6.6); NEUTROPHILS % (AUTO) 50.8 %; PLT - PLATELET COUNT 237 10^3/uL (130-450); RED BLOOD COUNT 3.11 10^6/uL (4.70-6.10); WHITE BLOOD COUNT 7.4 x10^3/uL (4.8-10.8)
[2019-10-31 21:26] LABS: INR 1.1 (0.8-1.2); PT - PROTHROMBIN TIME 12.4 secs (9.9-12.6)
[2019-10-31 21:30] LABS: ALBUMIN 4.1 g/dL (3.2-5.5); ALBUMIN/GLOBULIN RATIO 1.6 (1.0-2.2); ALKALINE PHOSPHATASE 41 IU/L (42-121); ALT ALANINE AMINOTRANSFERASE 14 IU/L (10-60); AST ASPARTATE AMINOTRANSFERASE 18 IU/L (10-42); BILIRUBIN,TOTAL 0.6 mg/dL (0.2-1.0); BUN - BLOOD UREA NITROGEN 17 mg/dL (6-20); CARBON DIOXIDE - CO2 26 mmol/L (21-32); CHLORIDE 96 mmol/L (101-111); CREATININE 0.9 mg/dL (0.6-1.2); GLUCOSE 103 mg/dL (70-100); LIPASE 40 U/L (22-51); SODIUM 130 mmol/L (135-145); TOTAL PROTEIN 6.6 g/dL (6.7-8.2)
[2019-10-31 22:21] VITALS: BP 129/90
== END 2019-10-31 22:21 | disposition home or self-care (01) ==
LOC: ED 20:55
DX: R53.83 Other fatigue (principal); I48.91 Unspecified atrial fibrillation; G40.909 Epilepsy, unspecified, not intractable, without status epilepticus; Z79.899 Other long term (current) drug therapy
CPT/HCPCS: 36415; 80053; 80164; 80320; 83690; 84484; 85025; 85610; 93005; 99284; 99285

== ENCOUNTER 2019-11-07 09:37 | Emergency (ER) | payer MEDICAID ==
[2019-11-07 10:31] VITALS: BP 118/76
--- NOTE | 2019-11-07 11:37 | ED Physician Documentation ---
History of Present Illness - Stated complaint Stated Complaint: COUGH - Chief complaint Chief Complaint: General - History obtained from History obtained from: Patient - History of Present Illness Timing: How many days ago (7) - Additonal information Additional information: 54 year-old male with a history of afib had a seizure, collapsed, hit his face on a door jam, and had an orbital blowout fracture and repair done by Dr. Herrera here in the hospital. Since that time he has coughed up a tiny amount of bright red blood and old blood daily. He states that anytime he does something like brushes teeth he will cough up a small amount of blood. He does not think he is lost any significant amount of blood. He is not having blood from the nose, swelling of the face, change in vision or change in mentation. He has not had fever or cough other than when he coughs up the blood. Review of Systems Constitutional: reports: Fatigue (for weeks preceeding the injury). denies: Fever, Chills Eyes: denies: Loss of vision, Decreased vision, Photophobia, Discharge, Irritation Ears: denies: Loss of hearing, Ear pain Nose: denies: Rhinorrhea / runny nose, Congestion, Epistaxis Throat: denies: Sore throat Cardiac: denies: Chest pain / pressure, Palpitations Respiratory: reports: Cough, Hemoptysis. denies: Dyspnea GI: denies: Abdominal Pain, Nausea, Vomiting : denies: Dysuria, Frequency PD PAST MEDICAL HISTORY - Past Medical History Past Medical History: Yes Cardiovascular: Atrial fibrillation Respiratory: None, Sleep apnea, CPAP use Neuro: Seizure disorder Endocrine/Autoimmune: None GI: None : None HEENT: None, Other Psych: Anxiety Musculoskeletal: None Derm: None - Past Surgical History Past Surgical History: No - Present Medications Home Medications: Ambulatory Orders Medication Instructions Recorded Confirmed Divalproex [Мария Swift] 1,500 mg PO DAILY 12/10/18 10/20/19 Escitalopram [Lexapro] 20 mg PO DAILY 12/10/18 10/20/19 Divalproex [Мария Swift] 1,750 mg PO QPM 10/20/19 10/20/19 Zonisamide 150 mg PO QPM 10/20/19 10/20/19 Acetaminophen [Tylenol] 650 mg PO Q4HR PRN #60 tablet 10/21/19 Amox/Clav 875/125 [Augmentin 1 tab PO BIDWM 4 Days #8 tablet 10/21/19 875/125] Pantoprazole [Protonix] 40 mg PO DAILY #30 tablet 10/21/19 - Allergies Allergies/Adverse Reactions: Allergies Allergy/AdvReac Type Severity Reaction Status Date / Time bupropion [From Wellbutrin] Allergy Unknown Verified 11/07/19 09:47 lamotrigine [From Lamictal] AdvReac Unknown Verified 11/07/19 09:47 - Social History Does the pt smoke?: No Smoking Status: Never smoker Does the pt drink ETOH?: No Does the pt have substance abuse?: No - Immunizations Immunizations are current?: Yes - POLST Patient has POLST: No PD ED PE NORMAL - Vitals Vital signs reviewed: Yes (normal ) - General General: Alert and oriented X 3, No acute distress, Well developed/nourished - HEENT HEENT: PERRL, EOMI, Ears normal, Moist mucous membranes, Other (There is mild ecchymosis to the right marie-orbital tissues without swelling. There is a line of blood from above on the right side of the posterior pharynx. ) - Neck Neck: Supple, no meningeal sign, No bony TTP - Cardiac Cardiac: RRR, No murmur - Respiratory Respiratory: No respiratory distress, Clear bilaterally - Abdomen Abdomen: Soft, Non tender - Derm Derm: Normal color, Warm and dry, No rash - Extremities Extremities: No deformity, No edema - Neuro Neuro: Alert and oriented X 3, photoradio operator 2-12 intact, No motor deficit, No sensory deficit, Normal speech Eye Opening: Spontaneous Motor: Obeys Commands Verbal: Oriented GCS Score: 15 - Psych Psych: Normal mood, Normal affect Results - Vitals Vitals: Vital Signs - 24 hr 11/07/19 11/07/19 09:47 09:52 Temperature 36.5 C Heart Rate 95 60 Respiratory 16 18 Rate Blood Pressure 113/74 118/76 O2 Saturation 98 97 Oxygen O2 Source Room air PD MEDICAL DECISION MAKING - ED course Complexity details: considered differential, d/w patient ED course: 54-year-old male status post repair of orbital fracture has persistent bleeding down the right posterior pharynx. He is 1 week post procedure. I have consulted Dr. Herrera and he recommends follow-up in his office tomorrow. The patient is in agreement with this otherwise feels well and does not think he has lost any substantial amount of blood. Today we find him with a normal and regular heart rate. Departure - Departure Disposition: 01 Home, Self Care Clinical Impression: Post-operative hemorrhage Qualifiers: Surgical complication system/body Area: ocular adnexa Procedure type: non- ophthalmic Laterality: right Qualified Code(s): H59.321 - Postprocedural hemorrhage of right eye and adnexa following other procedure Condition: Stable Instructions: ED Fx Face Follow-Up: Mark Anthony Herrera DDS [Provider Admit Priv/Credential] - Comments: Today it appears that the blood that you are coughing up is coming from the right sinus. I have talked to Dr. Herrera today and he would like you to follow- up with him tomorrow in his office.
== END 2019-11-07 11:48 | disposition home or self-care (01) ==
LOC: ED 09:37
DX: J95.831 Postprocedural hemorrhage of a respiratory system organ or structure following other procedure (principal); Y83.8 Other surgical procedures as the cause of abnormal reaction of the patient, or of later complication, without mention of misadventure at the time of the procedure
CPT/HCPCS: 99282; 99284

== ENCOUNTER 2020-01-03 16:01 | Emergency (ER) | payer MEDICAID ==
[2020-01-03 16:49] LABS: BASOPHILS % (AUTO) 0.6 %; EOSINOPHILS # (AUTO) 0.2 10^3/uL (0.0-0.7); EOSINOPHILS % (AUTO) 3.1 %; HGB - HEMOGLOBIN 11.4 g/dL (14.0-18.0); LYMPHOCYTES # (AUTO) 1.6 10^3/uL (1.5-3.5); LYMPHOCYTES % (AUTO) 23.3 %; MEAN CORPUSCULAR HEMOGLOBIN 28.9 pg (27.0-31.0); MEAN CORPUSCULAR HGB CONC 32.3 g/dL (32.0-36.0); MEAN CORPUSCULAR VOLUME 89.6 fL (80.0-94.0); MEAN PLATELET VOLUME 8.8 fL (7.4-11.4); MONOCYTES # (AUTO) 0.8 10^3/uL (0.0-1.0); MONOCYTES % (AUTO) 11.4 %; NEUTROPHILS # (AUTO) 4.1 10^3/uL (1.5-6.6); NEUTROPHILS % (AUTO) 60.7 %; PLT - PLATELET COUNT 185 10^3/uL (130-450); RED BLOOD COUNT 3.94 10^6/uL (4.70-6.10); RED CELL DISTRIBUTION WIDTH 13.4 % (12.0-15.0); WHITE BLOOD COUNT 6.7 x10^3/uL (4.8-10.8)
--- NOTE | 2020-01-03 16:52 | XRAY Report ---
PROCEDURE: Chest 1 View X-Ray INDICATIONS: Chest pain TECHNIQUE: One view of the chest was acquired. COMPARISON: None. FINDINGS: Surgical changes and devices: None. Lungs and pleura: No pleural effusions or pneumothorax. Lungs are clear. Mediastinum: Mediastinal contours appear normal. Heart size is enlarged. Bones and chest wall: No suspicious bony lesions. Overlying soft tissues appear unremarkable. IMPRESSION: No acute cardiopulmonary pathology. Reviewed by: Jono Melchor MD on 01/03/2020 4:50 PM PDT Approved by: Jono Melchor MD on 01/03/2020 4:50 PM PDT Station ID: [id number]
[2020-01-03 16:57] LABS: ALBUMIN 3.8 g/dL (3.2-5.5); ALBUMIN/GLOBULIN RATIO 1.7 (1.0-2.2); BILIRUBIN,TOTAL 0.7 mg/dL (0.2-1.0); CALCIUM 8.8 mg/dL (8.5-10.3); CREATININE 0.9 mg/dL (0.6-1.2); TOTAL PROTEIN 6.1 g/dL (6.7-8.2)
[2020-01-03 17:02] LABS: PT - PROTHROMBIN TIME 11.9 secs (9.9-12.6)
[2020-01-03 17:09] LABS: PARTIAL THROMBOPLASTIN TIME 29.1 secs (24.9-33.3)
--- NOTE | 2020-01-03 17:28 | ED Physician Documentation ---
PD HPI ALTERED MENTAL STATUS - Stated complaint Stated Complaint: POST OP COMPLICATIONS - Chief complaint Chief Complaint: Cardiac - History obtained from History obtained from: Patient, Family () - History of Present Illness Timing - onset: Last night Timing - details: Abrupt onset (pt had diagnostic heart cath last Wed (5 days ago) prior to eval for mitral valve repair/surgery. Normal heart vessels, per and patient. Had some local swelling and tender at right inguinal area couple days after. Mild local bruising. Then last night, noted to have large bruising right thigh.) Quality / character: Other ( says the patient has been generally tired and less interactive since his heart cath. No recent change in meds. Was NPO the night prior/day of procedure, and eating less the past few days. He says he is hydrating okay.) Associated symptoms: General weakness. No: Fever, Headache, Stiff neck, Dyspnea, Cough, Focal weakness Contributing factors: Recent med change (last med change was increased Zonagran dose about 2 months ago.). No: Anticoagulated, Diabetic, New medication, Recent illness [place] status: Alert and oriented X 3, Ambulatory Review of Systems Constitutional: denies: Fever, Chills, Myalgias Nose: denies: Rhinorrhea / runny nose, Congestion Throat: denies: Sore throat Cardiac: denies: Chest pain / pressure Respiratory: denies: Cough GI: reports: Nausea. denies: Abdominal Pain, Vomiting, Constipation, Diarrhea : denies: Dysuria Neurologic: reports: Generalized weakness, Altered mental status (more tired). denies: Focal weakness, Seizure, Confused, Headache Endocrine: denies: Weight loss Immunocompromised: denies: Immunocompromised PD PAST MEDICAL HISTORY - Past Medical History Cardiovascular: Atrial fibrillation Respiratory: None, Sleep apnea, CPAP use Neuro: Seizure disorder Endocrine/Autoimmune: None GI: None : None HEENT: None, Other Psych: Anxiety Musculoskeletal: None Derm: None - Past Surgical History Past Surgical History: No - Present Medications Home Medications: Ambulatory Orders Medication Instructions Recorded Confirmed Divalproex [Мария Swift] 1,500 mg PO DAILY 12/10/18 10/20/19 Escitalopram [Lexapro] 20 mg PO DAILY 12/10/18 10/20/[address] Juan A Swift] 1,750 mg PO QPM 10/20/19 10/20/19 Zonisamide 150 mg PO QPM 10/20/19 10/20/19 Acetaminophen [Tylenol] 650 mg PO Q4HR PRN #60 tablet 10/21/19 Amox/Clav 875/125 [Augmentin 1 tab PO BIDWM 4 Days #8 tablet 10/21/19 875/125] Pantoprazole [Protonix] 40 mg PO DAILY #30 tablet 10/21/19 - Allergies Allergies/Adverse Reactions: Allergies Allergy/AdvReac Type Severity Reaction Status Date / Time bupropion [From Wellbutrin] Allergy Unknown Verified 12/07/19 12:37 lamotrigine [From Lamictal] AdvReac Unknown Verified 12/07/19 12:37 - Social History Does the pt smoke?: No Smoking Status: Never smoker Does the pt drink ETOH?: No Does the pt have substance abuse?: No - Immunizations Immunizations are current?: No Immunizations: TDAP >10years/unknown - POLST Patient has POLST: No PD ED PE NORMAL - Vitals Vital signs reviewed: Yes - General General: Alert and oriented X 3, No acute distress, Well developed/nourished - HEENT HEENT: Moist mucous membranes, Pharynx benign - Neck Neck: Supple, no meningeal sign, No adenopathy - Cardiac Cardiac: RRR, Other (2/6 murmur at right sternal border. ) - Respiratory Respiratory: Clear bilaterally - Abdomen Abdomen: Normal bowel sounds, Soft, Non tender, Non distended, Other (right inguinal area with local mild rounded lump without fluctuance c/w likely small residual hematoma. Normal palpable pulse. There is purple bruising without tenderness from inguinal crease down to mid medial right thigh. ) - Derm Derm: Normal color, Warm and dry - Extremities Extremities: No edema, No calf tenderness / cord - Neuro Neuro: No motor deficit, No sensory deficit, Other (good pulse, color and cap refill in foot/toes. ) Results - Vitals Vitals: Vital Signs - 24 hr 01/03/20 01/03/20 01/03/20 16:14 17:00 17:30 Temperature 36.9 C Heart Rate 136 H 76 74 Respiratory 20 17 19 Rate Blood Pressure 122/73 117/70 118/78 O2 Saturation 96 98 96 07/01/03/20 01/03/20 18:00 18:30 19:09 Temperature Heart Rate 73 74 76 Respiratory 16 16 15 Rate Blood Pressure 121/74 135/90 H 130/88 H O2 Saturation 97 97 99 Oxygen O2 Source Room air - Labs Labs: Laboratory Tests 01/03/20 01/03/20 01/03/20 16:30 16:37 16:37 WBC 6.7 RBC 3.94 L Hgb 11.4 L Hct 35.3 L MCV 89.6 MCH 28.9 MCHC 32.3 RDW 13.4 Plt Count 185 MPV 8.8 Neut # (Auto) 4.1 Lymph # (Auto) 1.6 [place] # (Auto) 0.8 Eos # (Auto) 0.2 Baso # (Auto) 0.0 Absolute Nucleated RBC 0.00 Nucleated RBC % 0.0 PT INR APTT Sodium 130 L Potassium 4.2 Chloride 94 L Carbon Dioxide 28 Anion Gap 8.0 BUN 21 H Creatinine 0.9 Estimated GFR (MDRD) 88 L Glucose 94 Calcium 8.8 Total Bilirubin 0.7 AST 19 ALT 14 Alkaline Phosphatase 44 Troponin I High Sens Total Protein 6.1 L Albumin 3.8 Globulin 2.3 Albumin/Globulin Ratio 1.7 Lipase 31 Last Dose Date UNKNOWN Last Dose Time UNKNOWN Valproic Acid 71.5 01/03/20 01/03/20 16:37 16:37 WBC RBC Hgb Hct MCV MCH MCHC RDW Plt Count MPV Neut # (Auto) Lymph # (Auto) [place] # (Auto) Eos # (Auto) Baso # (Auto) Absolute Nucleated RBC Nucleated RBC % PT 11.9 INR 1.0 APTT 29.1 Sodium Potassium Chloride Carbon Dioxide Anion Gap BUN Creatinine Estimated GFR (MDRD) Glucose Calcium Total Bilirubin AST ALT Alkaline Phosphatase Troponin I High Sens 3.2 Total Protein Albumin Globulin Albumin/Globulin Ratio Lipase Last Dose Date Last Dose Time Valproic Acid - Rads (name of study) right femoral duplex Radiology: Prelim report reviewed (normal flow. No aneurysm nor intimal tear. No occlusion. ), See rad report PD MEDICAL DECISION MAKING - ED course Complexity details: considered differential, d/w patient, d/w family () Departure - Departure Disposition: 01 Home, Self Care Clinical Impression: Postoperative hematoma involving circulatory system following cardiac catheterization, Generalized weakness Groin hematoma Qualifiers: Encounter type: initial encounter Qualified Code(s): S30.1XXA - Contusion of abdominal wall, initial encounter Condition: Stable Record reviewed to determine appropriate education?: Yes Instructions: ED Hematoma Follow-Up: Ronal Everett MD [Primary Care Provider] - Comments: The blood vessel of the groin appears normal on ultrasound. There was a small hematoma in the soft tissue around it. The bruising on the thigh is just a gravity effect of the blood leaching down. Your blood tests appear normal. I printed copies of them for your reference with your neurologist visit tomorrow. Stay well-hydrated. Discharge Date/Time: 01/03/20 18:59
[2020-01-03 18:09] LABS: VALPROIC ACID (DEPAKOTE) 71.5 ug/mL
--- NOTE | 2020-01-03 18:18 | Ultrasound Report ---
PROCEDURE: Duplex Lwr Ext Arterial RT INDICATIONS: swelling R groin at angio site. TECHNIQUE: Color and pulse Doppler interrogation was performed of the right lower extremity arterial system, wit h image documentation. COMPARISON: None FINDINGS: Common femoral artery: 94.5 cm/sec, with triphasic flow. Proximal superficial femoral artery: 100.2 cm/sec, with triphasic flow. Posterior tibial artery: 103.3 cm/sec, with triphasic flow. Anterior tibial artery/dorsalis pedis: 72.9 cm/sec, with triphasic flow. Castaneda-scale imaging description: There is no gross AV fistula or pseudoaneurysm formation. IMPRESSION: 1. No evidence of AV fistula or pseudoaneurysm formation in right groin. 2. No hemodynamically significant stenosis in visualized right lower extremity arteries. Reviewed by: Jono Melchor MD on 01/03/2020 6:17 PM PDT Approved by: Jono Melchor MD on 01/03/2020 6:17 PM PDT Station ID: [id number]
[2020-01-03 19:12] VITALS: BP 130/88
== END 2020-01-03 18:59 | disposition home or self-care (01) ==
LOC: ED 16:01
DX: L76.32 Postprocedural hematoma of skin and subcutaneous tissue following other procedure (principal); I97.630 Postprocedural hematoma of a circulatory system organ or structure following a cardiac catheterization; Y84.0 Cardiac catheterization as the cause of abnormal reaction of the patient, or of later complication, without mention of misadventure at the time of the procedure; S30.1XXA Contusion of abdominal wall, initial encounter; I48.91 Unspecified atrial fibrillation
CPT/HCPCS: 36415; 71045; 80053; 80164; 83690; 84484; 85025; 85610; 85730; 93005; 99284

== ENCOUNTER 2020-01-17 19:03 | Outpatient (CLI) | payer MEDICAID | END 2020-01-17 19:04 | disposition critical access hospital (66) | LOC: EMS 19:03 | PROVIDERS: ATTEND Surgery | DX: R56.9 Unspecified convulsions (principal) | CPT/HCPCS: A0425; A0427; A0999 ==

== ENCOUNTER 2020-01-17 19:11 | Emergency (ER) | payer MEDICAID ==
--- NOTE | 2020-01-17 19:26 | ED Physician Documentation ---
PD HPI SEIZURE - Stated complaint Stated Complaint: SEIZURE - Chief complaint Chief Complaint: Neuro - History obtained from History obtained from: Patient, EMS - Additional information Additional information: 54-year-old gentleman with seizure disorder, he is on Zonegran and Depakote. He also has atrial fibrillation, not currently anticoagulated. He has occasional seizures, last was a couple of months ago. Today he was out in the garage working all day. Of note he was putting up paneling and was at times up on a ladder which she was advised probably he should not do. He came in the house a nd felt odd and then had a 2-minute seizure with short postictal episode. He denies injuries. Feels back to normal. He is taking Depakote, 5 tablets in the morning, 7 tablets at night. There was no incontinence or tongue biting. Review of Systems Constitutional: reports: Reviewed and negative Ears: reports: Reviewed and negative Nose: reports: Reviewed and negative Throat: reports: Reviewed and negative Cardiac: reports: Reviewed and negative PD PAST MEDICAL HISTORY - Past Medical History Cardiovascular: Atrial fibrillation Respiratory: None, Sleep apnea, CPAP use Neuro: Seizure disorder Endocrine/Autoimmune: None GI: None : None HEENT: None, Other Psych: Anxiety Musculoskeletal: None Derm: None - Past Surgical History Past Surgical History: No - Present Medications Home Medications: Ambulatory Orders Medication Instructions Recorded Confirmed Divalproex [Мария Swift] 1,500 mg PO DAILY 12/10/18 10/20/19 Escitalopram [Lexapro] 20 mg PO DAILY 12/10/18 10/20/[address] Juan A Swift] 1,750 mg PO QPM 10/20/19 10/20/19 Zonisamide 150 mg PO QPM 10/20/19 10/20/19 Pantoprazole [Protonix] 40 mg PO DAILY #30 tablet 10/21/19 Metoprolol Succinate 25 mg ORAL 01/17/20 - Allergies Allergies/Adverse Reactions: Allergies Allergy/AdvReac Type Severity Reaction Status Date / Time bupropion [From Wellbutrin] Allergy Unknown Verified 01/17/20 19:25 lamotrigine [From Lamictal] AdvReac Unknown Verified 01/17/20 19:25 - Social History Does the pt smoke?: No Smoking Status: Never smoker Does the pt drink ETOH?: No Does the pt have substance abuse?: No - Immunizations Immunizations are current?: No Immunizations: TDAP >10years/unknown - POLST Patient has POLST: No PD ED PE NORMAL - Vitals Vital signs reviewed: Yes - General General: Alert and oriented X 3 (He is very mildly confused, however the review of the chart shows this is probably his baseline.) - HEENT HEENT: PERRL, EOMI - Neck Neck: Supple, no meningeal sign, No bony TTP - Respiratory Respiratory: No respiratory distress, Clear bilaterally - Abdomen Abdomen: Non tender - Back Back: No CVA TTP, No spinal TTP - Derm Derm: Normal color, Warm and dry - Extremities Extremities: No edema, No calf tenderness / cord - Neuro Neuro: No motor deficit, No sensory deficit, Normal speech Eye Opening: Spontaneous Motor: Obeys Commands Verbal: Oriented GCS Score: 15 Results - Vitals Vitals: Vital Signs - 24 hr 01/17/20 01/17/20 19:15 19:26 Temperature 37.3 C 37.2 C Heart Rate 69 98 Respiratory 16 30 H Rate Blood Pressure 140/101 H 140/101 H O2 Saturation 96 96 Oxygen O2 Source Room air - Labs Labs: Laboratory Tests 01/17/20 01/17/20 01/17/20 19:25 19:25 19:25 WBC 9.4 RBC 4.61 L Hgb 13.1 L Hct 41.0 L MCV 88.9 MCH 28.4 MCHC 32.0 RDW 14.1 Plt Count 249 MPV 8.7 Neut # (Auto) 5.9 Lymph # (Auto) 2.0 [place] # (Auto) 1.3 H Eos # (Auto) 0.2 Baso # (Auto) 0.0 Absolute Nucleated RBC 0.00 Nucleated RBC % 0.0 Sodium 131 L Potassium 3.6 Chloride 96 L Carbon Dioxide 16 L Anion Gap 19.0 H BUN 18 Creatinine 1.2 Estimated GFR (MDRD) 63 L Glucose 109 H Calcium 9.4 Total Bilirubin 0.8 AST 29 ALT 17 Alkaline Phosphatase 56 Total Protein 7.4 Albumin 4.5 Globulin 2.9 Albumin/Globulin Ratio 1.6 Lipase 33 Valproic Acid 81.4 Ethyl Alcohol < 5.0 PD MEDICAL DECISION MAKING - ED course ED course: 54-year-old gentleman presents after recurrent seizure. Depakote level is therapeutic. He remained stable throughout his stay. Advised not to use ladders. Supportive at the bedside. Departure - Departure Disposition: 01 Home, Self Care Clinical Impression: Seizure Condition: Good Record reviewed to determine appropriate education?: Yes Instructions: ED Seizure Recurrent Comments: Call your neurologist tomorrow, let her know that your Depakote level was 81.4, our reference range is 50-100 for therapeutic. Return for new or worsening symptoms. Continue to not drive. Avoid ladders. Your sodium level is stable at 131 which is slightly low but seems to be your recent baseline.
[2020-01-17 19:29] LABS: BASOPHILS % (AUTO) 0.3 %; EOSINOPHILS # (AUTO) 0.2 10^3/uL (0.0-0.7); EOSINOPHILS % (AUTO) 1.6 %; HGB - HEMOGLOBIN 13.1 g/dL (14.0-18.0); LYMPHOCYTES % (AUTO) 20.7 %; MEAN CORPUSCULAR HEMOGLOBIN 28.4 pg (27.0-31.0); MEAN CORPUSCULAR VOLUME 88.9 fL (80.0-94.0); MEAN PLATELET VOLUME 8.7 fL (7.4-11.4); MONOCYTES # (AUTO) 1.3 10^3/uL (0.0-1.0); MONOCYTES % (AUTO) 13.9 %; NEUTROPHILS # (AUTO) 5.9 10^3/uL (1.5-6.6); NEUTROPHILS % (AUTO) 62.8 %; PLT - PLATELET COUNT 249 10^3/uL (130-450); RED BLOOD COUNT 4.61 10^6/uL (4.70-6.10); RED CELL DISTRIBUTION WIDTH 14.1 % (12.0-15.0); WHITE BLOOD COUNT 9.4 x10^3/uL (4.8-10.8)
[2020-01-17 19:42] LABS: ALBUMIN 4.5 g/dL (3.2-5.5); ALBUMIN/GLOBULIN RATIO 1.6 (1.0-2.2); ALKALINE PHOSPHATASE 56 IU/L (42-121); ALT ALANINE AMINOTRANSFERASE 17 IU/L (10-60); AST ASPARTATE AMINOTRANSFERASE 29 IU/L (10-42); BILIRUBIN,TOTAL 0.8 mg/dL (0.2-1.0); BUN - BLOOD UREA NITROGEN 18 mg/dL (6-20); CALCIUM 9.4 mg/dL (8.5-10.3); CARBON DIOXIDE - CO2 16 mmol/L (21-32); CHLORIDE 96 mmol/L (101-111); CREATININE 1.2 mg/dL (0.6-1.2); GLUCOSE 109 mg/dL (70-100); LIPASE 33 U/L (22-51); SODIUM 131 mmol/L (135-145); TOTAL PROTEIN 7.4 g/dL (6.7-8.2)
[2020-01-17 19:46] LABS: VALPROIC ACID (DEPAKOTE) 81.4 ug/mL
[2020-01-17 20:48] VITALS: BP 147/96
== END 2020-01-17 20:46 | disposition home or self-care (01) ==
LOC: EDUNIT# → ED 19:11
DX: G40.909 Epilepsy, unspecified, not intractable, without status epilepticus (principal); I48.91 Unspecified atrial fibrillation
CPT/HCPCS: 36415; 80053; 80164; 80320; 83690; 85025; 99283; 99284

== ENCOUNTER 2020-02-07 07:51 | Emergency (ER) | payer MEDICAID ==
--- NOTE | 2020-02-07 07:58 | ED Physician Documentation ---
PD HPI MALE - Stated complaint Stated Complaint: MALE - History obtained from History obtained from: Patient, Family (spouse) - History of Present Illness Timing - onset: Today Timing - duration: Hours (1) Timing - details: Abrupt onset Associated symptoms: Hematuria (The patient had recent cardiac surgery with valve replacement of a porcine valve and ablation for A. fib. He is on Coumadin short-term after the ablation. He had had a catheter in with hematuria on placement of it and then on removal of it. No blood in the urine for several days, then some today). No: Genital sore / lesion Similar symptoms before: Diagnosis (Apparent injury of the urethra or prostate with catheter placement for heart surgery and then blood on removal for part of a day) Recently seen: Surgery (Heart surgery and was in the ICU for or hospital for couple of weeks with a catheter placed during much of that. There is been hematuria on placement of the catheter from "traumatic placement" and then some blood again on removal couple of days prior to discharge. No interval hematuria.), Other (Had delayed discharge after his heart surgery due to electrolyte problems with persistent hyponatremia which had improved to 126 at the time of discharge. He was to get it rechecked as his INR as well) Review of Systems Constitutional: denies: Fever, Chills Nose: denies: Rhinorrhea / runny nose, Congestion Throat: denies: Sore throat Respiratory: denies: Cough Neurologic: denies: Generalized weakness, Seizure (none recently), Altered mental status Immunocompromised: denies: Immunocompromised PD PAST MEDICAL HISTORY - Past Medical History Cardiovascular: Atrial fibrillation, Valve disorder Respiratory: None, Sleep apnea, CPAP use Neuro: Head injury, Seizure disorder Endocrine/Autoimmune: None GI: None : None HEENT: None, Other Psych: Anxiety Musculoskeletal: None Derm: None - Past Surgical History Past Surgical History: No Cardiovascular: Valve replacement (couple weeks ago, and ablation for atrial fib. ) - Present Medications Home Medications: Ambulatory Orders Medication Instructions Recorded Confirmed Divalproex [Мария Swift] 1,500 mg PO DAILY 12/10/18 10/20/19 Escitalopram [Lexapro] 20 mg PO DAILY 12/10/18 10/20/19 Divalproex [Мария Swift] 1,750 mg PO QPM 10/20/19 10/20/19 Zonisamide 150 mg PO QPM 10/20/19 10/20/19 Pantoprazole [Protonix] 40 mg PO DAILY #30 tablet 10/21/19 Metoprolol Succinate 25 mg ORAL 01/17/20 - Allergies Allergies/Adverse Reactions: Allergies Allergy/AdvReac Type Severity Reaction Status Date / Time bupropion [From Wellbutrin] Allergy Unknown Verified 02/07/20 08:08 lamotrigine [From Lamictal] AdvReac Unknown Verified 02/07/20 08:08 - Social History Does the pt smoke?: No Smoking Status: Never smoker Does the pt drink ETOH?: No Does the pt have substance abuse?: No - Immunizations Immunizations are current?: No Immunizations: TDAP >10years/unknown - POLST Patient has POLST: No PD ED PE NORMAL - Vitals Vital signs reviewed: Yes - General General: Alert and oriented X 3, No acute distress, Well developed/nourished - HEENT HEENT: Pharynx benign - Neck Neck: Supple, no meningeal sign, No adenopathy - Cardiac Cardiac: Other (healing sternotomy scar/wound noted without signs of infection. ). No: RRR (regular with slight valve murmur noted. ) - Respiratory Respiratory: No respiratory distress, Clear bilaterally - Abdomen Abdomen: Normal bowel sounds, Soft, Non tender, Non distended - Male Male : Other (no sores at meatus. ) - Derm Derm: Normal color, Warm and dry - Extremities Extremities: Normal ROM s pain, No edema - Neuro Neuro: Alert and oriented X 3, No motor deficit, Normal speech Results - Vitals Vitals: Vital Signs - 24 hr 02/07/20 02/07/20 02/07/20 08:04 08:08 10:08 Temperature 36.3 C L Heart Rate 110 H 100 99 Respiratory 20 16 16 Rate Blood Pressure 123/68 115/72 122/65 O2 Saturation 97 98 99 02/07/20 10:15 Temperature 36.8 C Heart Rate 100 Respiratory 16 Rate Blood Pressure 132/65 H O2 Saturation 99 Oxygen O2 Source Room air - Labs Labs: Laboratory Tests 02/07/20 02/07/20 02/07/20 08:22 08:51 08:51 PT 28.4 H INR 2.6 H Sodium 136 Potassium 4.6 Chloride 98 L Carbon Dioxide 28 Anion Gap 10.0 BUN 21 H Creatinine 1.1 Estimated GFR (MDRD) 70 L Glucose 110 H Calcium 8.6 Magnesium 1.9 Urine Color DARK YELLOW Urine Clarity SL. CLOUDY Urine pH 5.5 Ur Specific [place] 1.015 Urine Protein NEGATIVE Urine Glucose (UA) NEGATIVE Urine Ketones NEGATIVE Urine Occult Blood LARGE H Urine Nitrite NEGATIVE Urine Bilirubin NEGATIVE Urine Urobilinogen 0.2 (NORMAL) Ur Leukocyte Esterase NEGATIVE Urine RBC TNTC H Urine WBC 0-3 Ur Squamous Epith Cells RARE Squamous Urine Bacteria Few Urine Culture Comments NOT INDICATED PD MEDICAL DECISION MAKING - ED course Complexity details: reviewed results (His electrolytes are good here. ), considered differential, d/w patient Departure - Departure Disposition: 01 Home, Self Care Clinical Impression: Electrolyte imbalance, Bleeding from urethra in male Condition: Stable Follow-Up: Ronal Everett MD [Primary Care Provider] - Comments: Your electrolytes of sodium potassium magnesium and kidney function look good right now. Your INR Coumadin level is 2.6. These are both good. Continue your current medications. You could likely in loosen up your fluid restrictions to 1500 mils rather than 1200 mils. They can recheck your electrolytes again later next week. Regarding the urea supplement suggested, I did find I think what they were thinking on [employer] that was an electrolyte supplement. I will include the link here, but was called Blueseed-Lyte Electrolyte replacement tablets (so did have some sodium replacement, as well as potassium and Mag). https://[email or web address]/Hlqbolnzbno-Argzutowolu-Txgglpgucmv-Magnesium-Potassium/d p /[email or web address]/ref=sr_1_5?crid=[email or web address]&dchild=[email or web address]&keywords=ure-na+packets&qid=[email or web address] [id number]&sprefix=ure+packet%2Caps%2C337&sr=8-5 Regarding the blood in the urine, I think it will taper down and stop through the day and was likely a small wet scab let loose from the prior injury spot in the blood vessel just reopened temporarily. Recheck if persistent bleeding significantly through the day or has not stopped over a couple of days Discharge Date/Time: 02/07/20 10:17
[2020-02-07 08:36] LABS: BILIRUBIN,URINE NEGATIVE (NEGATIVE); GLUCOSE, URINE (UA) NEGATIVE (NEGATIVE); KETONES,URINE (UA) NEGATIVE (NEGATIVE); LEUKOCYTE ESTERASE, URINE NEGATIVE (NEGATIVE); NITRITE,URINE NEGATIVE (NEGATIVE); OCCULT BLOOD,URINE LARGE (NEGATIVE); PH,URINE 5.5 PH (5.0-7.5); PROTEIN,URINE NEGATIVE (NEGATIVE); UROBILINOGEN,URINE 0.2 (NORMAL) E.U./dL (NORMAL)
[2020-02-07 08:38] LABS: CLARITY,URINE SL. CLOUDY (CLEAR)
[2020-02-07 08:47] LABS: BACTERIA,URINE Few /HPF (None Seen); RBC,URINE TNTC /HPF (0-5); SQUAMOUS EPITHELIAL CELL,UR RARE Squamous (<= Few)
[2020-02-07 09:06] LABS: INR 2.6 (0.8-1.2); PT - PROTHROMBIN TIME 28.4 secs (9.9-12.6)
[2020-02-07 09:21] LABS: CALCIUM 8.6 mg/dL (8.5-10.3); CREATININE 1.1 mg/dL (0.6-1.2); MAGNESIUM 1.9 mg/dL (1.7-2.8)
[2020-02-07 10:17] VITALS: BP 132/65
== END 2020-02-07 10:17 | disposition home or self-care (01) ==
LOC: ED 07:51
DX: N36.8 Other specified disorders of urethra (principal); E87.8 Other disorders of electrolyte and fluid balance, not elsewhere classified; Z95.2 Presence of prosthetic heart valve; Z79.01 Long term (current) use of anticoagulants
CPT/HCPCS: 36415; 80048; 81001; 83735; 85610; 87086; 99283; 99284

== ENCOUNTER 2020-02-14 11:10 | Outpatient (CLI) | payer MEDICAID | END 2020-02-14 11:11 | disposition home or self-care (01) | LOC: LAB 11:10 | PROVIDERS: ATTEND Internal Medicine Cardiovascular Disease | DX: I48.19 Other persistent atrial fibrillation (principal) | CPT/HCPCS: 85610 ==

== ENCOUNTER 2020-02-14 19:35 | Emergency (ER) | payer MEDICAID ==
--- NOTE | 2020-02-14 19:58 | ED Physician Documentation ---
PD HPI DYSPNEA - Stated complaint Stated Complaint: POST OP SOA/ANXIETY - Chief complaint Chief Complaint: Cardiac - History obtained from History obtained from: Patient, Family - Additional information Additional information: On January 24 of this year this gentleman had a tissue mitral valve replacement. Subsequently had a groin hemorrhage and some other issues. Subsequently was discharged home on gabapentin which he has been overusing. Now stopped taking it and feels very short of breath and anxious. No chest pain. No pedal edema. Review of Systems Constitutional: denies: Fever, Chills Cardiac: denies: Chest pain / pressure Respiratory: reports: Dyspnea. denies: Cough GI: denies: Abdominal Pain, Nausea, Vomiting, Constipation, Bloody / black stool PD PAST MEDICAL HISTORY - Past Medical History Cardiovascular: Atrial fibrillation, Valve disorder Respiratory: None, Sleep apnea, CPAP use Neuro: Head injury, Seizure disorder Endocrine/Autoimmune: None GI: None : None HEENT: None, Other Psych: Anxiety Musculoskeletal: None Derm: None - Past Surgical History Past Surgical History: No Cardiovascular: Valve replacement (couple weeks ago, and ablation for atrial fib. ) - Present Medications Home Medications: Ambulatory Orders Medication Instructions Recorded Confirmed Divalproex [Мария Swift] 1,500 mg PO DAILY 12/10/18 10/20/19 Escitalopram [Lexapro] 20 mg PO DAILY 12/10/18 10/20/[address] Juan A Swift] 1,750 mg PO QPM 10/20/19 10/20/19 Zonisamide 150 mg PO QPM 10/20/19 10/20/19 Pantoprazole [Protonix] 40 mg PO DAILY #30 tablet 10/21/19 Metoprolol Succinate 25 mg ORAL 01/17/20 Ferrous Sulfate 325 mg PO BID #60 tablet 02/14/20 LORazepam [Ativan] 1 mg PO ONCE #12 tablet 02/14/20 - Allergies Allergies/Adverse Reactions: Allergies Allergy/AdvReac Type Severity Reaction Status Date / Time bupropion [From Wellbutrin] Allergy Unknown Verified 02/07/20 08:08 lamotrigine [From Lamictal] AdvReac Unknown Verified 02/07/20 08:08 - Social History Does the pt smoke?: No Smoking Status: Never smoker Does the pt drink ETOH?: No Does the pt have substance abuse?: No - Immunizations Immunizations are current?: No Immunizations: TDAP >10years/unknown - POLST Patient has POLST: No PD ED PE NORMAL - Vitals Vital signs reviewed: Yes - General General: Alert and oriented X 3, No acute distress - HEENT HEENT: PERRL, EOMI - Neck Neck: Supple, no meningeal sign, No bony TTP - Cardiac Cardiac: Other (Closing click and soft murmur) - Respiratory Respiratory: No respiratory distress, Clear bilaterally - Abdomen Abdomen: Non tender - Extremities Extremities: No edema, No calf tenderness / cord Results - Vitals Vitals: Vital Signs - 24 hr 02/14/20 02/14/20 19:40 19:56 Temperature 36.9 C 36.9 C Heart Rate 100 100 Respiratory 20 20 Rate Blood Pressure 145/96 H 145/96 H O2 Saturation 100 100 Oxygen O2 Source Room air - Labs Labs: Laboratory Tests 02/14/20 02/14/20 02/14/20 20:03 20:03 20:03 WBC 5.6 RBC 2.85 L Hgb 8.0 L Hct 25.5 L MCV 89.5 MCH 28.1 MCHC 31.4 L RDW 16.2 H Plt Count 265 MPV 8.3 Neut # (Auto) 3.5 Lymph # (Auto) 0.9 L [place] # (Auto) 1.0 Eos # (Auto) 0.2 Baso # (Auto) 0.0 Absolute Nucleated RBC 0.00 Nucleated RBC % 0.0 PT 25.2 H INR 2.3 H Sodium 129 L Potassium 4.2 Chloride 92 L Carbon Dioxide 29 Anion Gap 8.0 BUN 17 Creatinine 0.8 Estimated GFR (MDRD) 101 Glucose 115 H Calcium 8.5 Total Bilirubin 0.3 AST 16 ALT 11 Alkaline Phosphatase 58 Total Protein 6.2 L Albumin 3.4 Globulin 2.8 Albumin/Globulin Ratio 1.2 Lipase 40 Valproic Acid 84.7 - Rads (name of study) 1v chest Radiology: EMP read contemporaneously (Possible left pleural effusion, otherwise no acute disease.) PD MEDICAL DECISION MAKING - ED course ED course: 54-year-old gentleman presents with shortness of breath, given the pattern this is likely some element of gabapentin withdrawal. The says that he was prescribed 90 on discharge from the hospital and should have used about 20 by now but there are about 50 extra missing from the bottle. He feels shaky and short of breath. He denies hallucinations. No recent seizure activity although does have a history of that and is maintained on Depakote for same. No clinical evidence of heart failure or PE although both of these are considered given the recent cardiac surgery. He is anticoagulated. He was also complaining of left foot pain, focused examination there demonstrated no tenderness, no limited range of motion, excellent capillary refill. During the course of the visit we also discussed chronic anxiety. He admitted he had been on clonazepam but had run of that out of that early as well. understands that it seems like the bulk of his issue right now is a combination of gabapentin and benzodiazepine withdrawal although I suspect anemia is a portion of it. She said that a few days ago his hemoglobin was 8.7. He had been having ongoing urinary losses but the says stopped, and they are seeing a urologist tomorrow. Going forward the will manage the medications. Departure - Departure Disposition: 01 Home, Self Care Clinical Impression: Dyspnea Qualifiers: Dyspnea type: shortness of breath Qualified Code(s): R06.02 - Shortness of breath; R06.00 - Dyspnea, unspecified; R06.01 - Orthopnea Adverse effect of gabapentin Qualifiers: Encounter type: initial encounter Qualified Code(s): T42.6X5A - Adverse effect of other antiepileptic and sedative-hypnotic drugs, initial encounter Benzodiazepine withdrawal Qualifiers: Complication of substance-induced condition: uncomplicated Qualified Code(s): F13.230 - Sedative, hypnotic or anxiolytic dependence with withdrawal, uncomplicated Anemia Qualifiers: Anemia type: unspecified type Qualified Code(s): D64.9 - Anemia, unspecified Condition: Good Record reviewed to determine appropriate education?: Yes Instructions: ED Dyspnea Shortness of Breath Prescriptions: LORazepam [Ativan] 1 mg PO ONCE #12 tablet Ferrous Sulfate 325 mg PO BID #60 tablet Comments: You were seen today for shortness of breath, as we discussed I think this is mu ltifactorial and probably due to some level of anemia as well as overuse of both gabapentin and then clonazepam and then running out early and then suffering a withdrawal syndrome. Please have your manage your medications. We are putting you on a lorazepam taper to be used until you can follow-up with your primary care physician for further evaluation and treatment.
[2020-02-14 20:09] LABS: BASOPHILS % (AUTO) 0.5 %; EOSINOPHILS # (AUTO) 0.2 10^3/uL (0.0-0.7); EOSINOPHILS % (AUTO) 3.2 %; LYMPHOCYTES # (AUTO) 0.9 10^3/uL (1.5-3.5); LYMPHOCYTES % (AUTO) 15.3 %; MEAN CORPUSCULAR HEMOGLOBIN 28.1 pg (27.0-31.0); MEAN CORPUSCULAR HGB CONC 31.4 g/dL (32.0-36.0); MEAN CORPUSCULAR VOLUME 89.5 fL (80.0-94.0); MEAN PLATELET VOLUME 8.3 fL (7.4-11.4); MONOCYTES % (AUTO) 17.6 %; NEUTROPHILS # (AUTO) 3.5 10^3/uL (1.5-6.6); NEUTROPHILS % (AUTO) 62.5 %; PLT - PLATELET COUNT 265 10^3/uL (130-450); RED BLOOD COUNT 2.85 10^6/uL (4.70-6.10); RED CELL DISTRIBUTION WIDTH 16.2 % (12.0-15.0); WHITE BLOOD COUNT 5.6 x10^3/uL (4.8-10.8)
[2020-02-14 20:14] LABS: INR 2.3 (0.8-1.2); PT - PROTHROMBIN TIME 25.2 secs (9.9-12.6)
--- NOTE | 2020-02-14 20:21 | XRAY Report ---
PROCEDURE: Chest 1 View X-Ray INDICATIONS: dyspnea TECHNIQUE: One view of the chest was acquired. COMPARISON: CXR 01/03/2020. Lung apices on CT 10/20/2019. FINDINGS: Note, suboptimal radiograph. Radiograph is underexposed and the patient is in a semiupright position. Surgical changes and devices: Post median sternotomy and aortic valve replacement. Left atrial append age clip. Lungs and pleura: No pleural effusions or pneumothorax. Apparent silhouetting of the left hemidiaphr agm. Prominent interstitial markings. Minimal streaky opacity at the right lung base. Mediastinum: Mediastinal contours appear normal. Heart size is enlarged. Bones and chest wall: No suspicious bony lesions. Osteophyte at the inferior left humeral head. Ove rlying soft tissues appear unremarkable. IMPRESSION: Apparent silhouetting of the left hemidiaphragm. This could be due to technique. Small left pleural e ffusion, consolidation, or atelectasis could also have this appearance. When clinically feasible 2 vi ew radiographs would be helpful for further characterization. Cardiomegaly. Reviewed by: Rodo Girard MD on 02/14/2020 8:20 PM PDT Approved by: Rodo Girard MD on 02/14/2020 8:20 PM PDT Station ID: [id number]
[2020-02-14] MEDS ORDERED: LORazepam 1 MG TABLET PO STA ×2 (20:24→20:59)
[2020-02-14 20:38] LABS: ALBUMIN 3.4 g/dL (3.2-5.5); ALBUMIN/GLOBULIN RATIO 1.2 (1.0-2.2); ALKALINE PHOSPHATASE 58 IU/L (42-121); ALT ALANINE AMINOTRANSFERASE 11 IU/L (10-60); AST ASPARTATE AMINOTRANSFERASE 16 IU/L (10-42); BILIRUBIN,TOTAL 0.3 mg/dL (0.2-1.0); BUN - BLOOD UREA NITROGEN 17 mg/dL (6-20); CALCIUM 8.5 mg/dL (8.5-10.3); CARBON DIOXIDE - CO2 29 mmol/L (21-32); CHLORIDE 92 mmol/L (101-111); CREATININE 0.8 mg/dL (0.6-1.2); GLUCOSE 115 mg/dL (70-100); LIPASE 40 U/L (22-51); SODIUM 129 mmol/L (135-145); TOTAL PROTEIN 6.2 g/dL (6.7-8.2); VALPROIC ACID (DEPAKOTE) 84.7 ug/mL
[2020-02-14 21:15] VITALS: BP 138/87
== END 2020-02-14 21:14 | disposition home or self-care (01) ==
LOC: ED 19:35
DX: R06.02 Shortness of breath (principal); T42.6X5A Adverse effect of other antiepileptic and sedative-hypnotic drugs, initial encounter; F13.230 Sedative, hypnotic or anxiolytic dependence with withdrawal, uncomplicated; D64.9 Anemia, unspecified; M79.672 Pain in left foot; I48.19 Other persistent atrial fibrillation
CPT/HCPCS: 36415; 71045; 80053; 80164; 83690; 85025; 85610; 99283; J8499

== ENCOUNTER 2020-02-21 08:22 | Outpatient (CLI) | payer MEDICAID | END 2020-02-21 08:23 | disposition home or self-care (01) | LOC: LAB 08:22 | PROVIDERS: ATTEND Internal Medicine Cardiovascular Disease | DX: I48.19 Other persistent atrial fibrillation (principal) | CPT/HCPCS: 85610 ==

== ENCOUNTER 2020-02-28 09:14 | Outpatient (CLI) | payer MEDICAID | END 2020-02-28 09:15 | disposition home or self-care (01) | LOC: LAB 09:14 | PROVIDERS: ATTEND Internal Medicine Cardiovascular Disease | DX: I48.19 Other persistent atrial fibrillation (principal) | CPT/HCPCS: 85610 ==

== ENCOUNTER 2020-03-06 09:04 | Outpatient (CLI) | payer MEDICAID | END 2020-03-06 09:05 | disposition home or self-care (01) | LOC: LAB 09:04 | PROVIDERS: ATTEND Internal Medicine Cardiovascular Disease | DX: I48.19 Other persistent atrial fibrillation (principal) | CPT/HCPCS: 85610 ==

== ENCOUNTER 2020-03-07 12:52 | Outpatient (CLI) | payer MEDICAID ==
[2020-03-07 13:10] LABS: CALCIUM 9.1 mg/dL (8.5-10.3)
== END 2020-03-07 12:53 | disposition home or self-care (01) ==
LOC: LAB 12:52
PROVIDERS: ATTEND Student in an Organized Health Care Education/Training Program
DX: E87.1 Hypo-osmolality and hyponatremia (principal)
CPT/HCPCS: 36415; 80048

== ENCOUNTER 2020-03-13 11:01 | Outpatient (CLI) | payer MEDICAID | END 2020-03-13 11:02 | disposition home or self-care (01) | LOC: LAB 11:01 | PROVIDERS: ATTEND Internal Medicine Cardiovascular Disease | DX: I48.19 Other persistent atrial fibrillation (principal) | CPT/HCPCS: 85610 ==

== ENCOUNTER 2020-03-20 10:03 | Outpatient (CLI) | payer MEDICAID | END 2020-03-20 10:04 | disposition home or self-care (01) | LOC: LAB 10:03 | PROVIDERS: ATTEND Internal Medicine Cardiovascular Disease | DX: I48.19 Other persistent atrial fibrillation (principal) | CPT/HCPCS: 85610 ==

== ENCOUNTER 2020-03-27 09:34 | Outpatient (CLI) | payer MEDICAID | END 2020-03-27 09:35 | disposition home or self-care (01) | LOC: LAB 09:34 | PROVIDERS: ATTEND Internal Medicine Cardiovascular Disease | DX: I48.19 Other persistent atrial fibrillation (principal) | CPT/HCPCS: 85610 ==

== ENCOUNTER 2020-04-04 10:10 | Outpatient (CLI) | payer MEDICAID | END 2020-04-04 10:11 | disposition home or self-care (01) | LOC: LAB 10:10 | DX: Z53.9 Procedure and treatment not carried out, unspecified reason (principal) ==

== ENCOUNTER 2020-04-05 08:29 | Outpatient (CLI) | payer MEDICAID ==
[2020-04-05 08:58] LABS: CALCIUM 9.3 mg/dL (8.5-10.3); PHOSPHORUS 3.3 mg/dL (2.5-4.6); URIC ACID 5.9 mg/dL (2.6-7.2)
== END 2020-04-05 08:30 | disposition home or self-care (01) ==
LOC: LAB 08:29
DX: I48.19 Other persistent atrial fibrillation (principal); E22.2 Syndrome of inappropriate secretion of antidiuretic hormone
CPT/HCPCS: 36415; 80069; 81599; 82436; 82570; 83930; 83935; 84133; 84300; 84550; 85610

== ENCOUNTER 2020-04-11 08:59 | Outpatient (CLI) | payer MEDICAID | END 2020-04-11 09:00 | disposition home or self-care (01) | LOC: LAB 08:59 | PROVIDERS: ATTEND Internal Medicine Cardiovascular Disease | DX: I48.19 Other persistent atrial fibrillation (principal) | CPT/HCPCS: 85610 ==

== ENCOUNTER 2020-04-18 13:12 | Outpatient (CLI) | payer MEDICAID | END 2020-04-18 13:13 | disposition home or self-care (01) | LOC: LAB 13:12 | PROVIDERS: ATTEND Internal Medicine Cardiovascular Disease | DX: Z98.890 Other specified postprocedural states (principal) | CPT/HCPCS: 85610 ==

== ENCOUNTER 2020-04-24 09:20 | Outpatient (CLI) | payer MEDICAID | END 2020-04-24 09:21 | disposition home or self-care (01) | LOC: LAB 09:20 | PROVIDERS: ATTEND Internal Medicine Cardiovascular Disease | DX: Z98.890 Other specified postprocedural states (principal) | CPT/HCPCS: 85610 ==

== ENCOUNTER 2020-05-01 08:53 | Outpatient (CLI) | payer MEDICAID | END 2020-05-01 08:54 | disposition home or self-care (01) | LOC: LAB 08:53 | PROVIDERS: ATTEND Internal Medicine Cardiovascular Disease | DX: Z98.890 Other specified postprocedural states (principal) | CPT/HCPCS: 85610 ==

== ENCOUNTER 2020-05-08 08:58 | Outpatient (CLI) | payer MEDICAID | END 2020-05-08 08:59 | disposition home or self-care (01) | LOC: LAB 08:58 | PROVIDERS: ATTEND Internal Medicine Cardiovascular Disease | DX: Z98.890 Other specified postprocedural states (principal) | CPT/HCPCS: 85610 ==

== ENCOUNTER 2020-05-22 09:03 | Outpatient (CLI) | payer MEDICAID | END 2020-05-22 09:04 | disposition home or self-care (01) | LOC: LAB 09:03 | PROVIDERS: ATTEND Internal Medicine Cardiovascular Disease | DX: Z98.890 Other specified postprocedural states (principal) | CPT/HCPCS: 85610 ==

== ENCOUNTER 2020-06-05 08:53 | Outpatient (CLI) | payer MEDICAID | END 2020-06-05 08:54 | disposition home or self-care (01) | LOC: LAB 08:53 | PROVIDERS: ATTEND Internal Medicine Cardiovascular Disease | DX: Z98.890 Other specified postprocedural states (principal) | CPT/HCPCS: 85610 ==

== ENCOUNTER 2020-06-19 09:07 | Outpatient (CLI) | payer MEDICAID | END 2020-06-19 09:08 | disposition home or self-care (01) | LOC: LAB 09:07 | PROVIDERS: ATTEND Internal Medicine Cardiovascular Disease | DX: Z98.890 Other specified postprocedural states (principal) | CPT/HCPCS: 85610 ==

== ENCOUNTER 2020-06-26 09:26 | Outpatient (CLI) | payer MEDICAID | END 2020-06-26 09:27 | disposition home or self-care (01) | LOC: LAB 09:26 | PROVIDERS: ATTEND Internal Medicine Cardiovascular Disease | DX: Z98.890 Other specified postprocedural states (principal) | CPT/HCPCS: 85610 ==

== ENCOUNTER 2020-07-03 09:03 | Outpatient (CLI) | payer MEDICAID | END 2020-07-03 09:04 | disposition home or self-care (01) | LOC: LAB 09:03 | PROVIDERS: ATTEND Internal Medicine Cardiovascular Disease | DX: Z79.01 Long term (current) use of anticoagulants (principal) | CPT/HCPCS: 85610 ==

== ENCOUNTER 2020-07-10 10:31 | Outpatient (CLI) | payer MEDICAID | END 2020-07-10 10:32 | disposition home or self-care (01) | LOC: LAB 10:31 | PROVIDERS: ATTEND Internal Medicine Cardiovascular Disease | DX: Z98.890 Other specified postprocedural states (principal) | CPT/HCPCS: 85610 ==

== ENCOUNTER 2020-07-17 08:00 | Outpatient (CLI) | payer MEDICAID | END 2020-07-17 23:59 | disposition home or self-care (01) | LOC: LAB 08:00 | PROVIDERS: ATTEND Internal Medicine Cardiovascular Disease | DX: Z98.890 Other specified postprocedural states (principal) | CPT/HCPCS: 85610 ==

== ENCOUNTER 2020-07-24 09:15 | Outpatient (CLI) | payer MEDICAID | END 2020-07-24 09:16 | disposition home or self-care (01) | LOC: LAB 09:15 | PROVIDERS: ATTEND Internal Medicine Cardiovascular Disease | DX: Z98.890 Other specified postprocedural states (principal) | CPT/HCPCS: 85610 ==

== ENCOUNTER 2020-07-31 08:43 | Outpatient (CLI) | payer MEDICAID | END 2020-07-31 08:44 | disposition home or self-care (01) | LOC: LAB 08:43 | PROVIDERS: ATTEND Internal Medicine Cardiovascular Disease | DX: Z98.890 Other specified postprocedural states (principal) | CPT/HCPCS: 85610 ==

== ENCOUNTER 2020-08-07 08:00 | Outpatient (CLI) | payer MEDICAID | END 2020-08-07 23:59 | disposition home or self-care (01) | LOC: LAB 08:00 | PROVIDERS: ATTEND Internal Medicine Cardiovascular Disease | DX: Z98.890 Other specified postprocedural states (principal) | CPT/HCPCS: 85610 ==

== ENCOUNTER 2020-08-14 09:46 | Outpatient (CLI) | payer MEDICAID | END 2020-08-14 09:47 | disposition home or self-care (01) | LOC: LAB 09:46 | PROVIDERS: ATTEND Internal Medicine Cardiovascular Disease | DX: Z98.890 Other specified postprocedural states (principal) | CPT/HCPCS: 85610 ==

== ENCOUNTER 2020-08-21 08:00 | Outpatient (CLI) | payer MEDICAID | END 2020-08-21 23:59 | disposition home or self-care (01) | LOC: LAB 08:00 | PROVIDERS: ATTEND Internal Medicine Cardiovascular Disease | DX: Z98.890 Other specified postprocedural states (principal) | CPT/HCPCS: 85610 ==

== ENCOUNTER 2020-08-28 09:25 | Outpatient (CLI) | payer MEDICAID | END 2020-08-28 09:26 | disposition home or self-care (01) | LOC: LAB 09:25 | PROVIDERS: ATTEND Internal Medicine Cardiovascular Disease | DX: Z98.890 Other specified postprocedural states (principal) | CPT/HCPCS: 85610 ==

== ENCOUNTER 2020-09-04 08:00 | Outpatient (CLI) | payer MEDICAID | END 2020-09-04 23:59 | disposition home or self-care (01) | LOC: LAB 08:00 | PROVIDERS: ATTEND Internal Medicine Cardiovascular Disease | DX: Z98.890 Other specified postprocedural states (principal) | CPT/HCPCS: 85610 ==

== ENCOUNTER 2020-09-12 13:36 | Outpatient (CLI) | payer MEDICAID ==
[2020-09-12 14:33] LABS: ALBUMIN 3.3 g/dL (3.2-5.5); CALCIUM 8.8 mg/dL (8.5-10.3); CREATININE 0.8 mg/dL (0.6-1.2); PHOSPHORUS 2.2 mg/dL (2.5-4.6); POTASSIUM 4.1 mmol/L (3.5-5.0)
== END 2020-09-12 13:37 | disposition home or self-care (01) ==
LOC: LAB 13:36
PROVIDERS: ATTEND Internal Medicine
DX: E87.1 Hypo-osmolality and hyponatremia (principal); E22.2 Syndrome of inappropriate secretion of antidiuretic hormone
CPT/HCPCS: 36415; 80069; 81599; 83930; 83935; 84560

== ENCOUNTER 2020-09-22 07:35 | Outpatient (CLI) | payer MEDICAID ==
[2020-09-22 08:14] LABS: ALBUMIN 3.4 g/dL (3.2-5.5); ALBUMIN/GLOBULIN RATIO 0.9 (1.0-2.2); ALKALINE PHOSPHATASE 59 IU/L (42-121); ALT ALANINE AMINOTRANSFERASE 12 IU/L (10-60); AST ASPARTATE AMINOTRANSFERASE 15 IU/L (10-42); BILIRUBIN,TOTAL 0.6 mg/dL (0.2-1.0); BUN - BLOOD UREA NITROGEN 24 mg/dL (6-20); CARBON DIOXIDE - CO2 26 mmol/L (21-32); CHLORIDE 100 mmol/L (101-111); CHOL/HDL RATIO 4.4 (<5.0); CHOLESTEROL 160 mg/dL; CREATININE 0.9 mg/dL (0.6-1.2); GFR - MDRD 88 (>89); GLUCOSE 106 mg/dL (70-100); HDL CHOLESTEROL 36 mg/dL; LDL CHOLESTEROL,CALCULATED 105 mg/dL; LDL/HDL RATIO 2.9 (<3.6); POTASSIUM 4.5 mmol/L (3.5-5.0); SODIUM 136 mmol/L (135-145); TOTAL PROTEIN 7.3 g/dL (6.7-8.2); TRIGLYCERIDES 93 mg/dL; VLDL CHOLESTEROL 19 mg/dL
--- OUTSIDE RECORDS SUMMARY | 2020-09-27 01:30 | EXTERNAL MEDICAL SUMMARY RPT | Continuity of Care Document ---
:1965 Demographics Phone Unavailable Preferred Language Greenlandic Marital Status Unknown Scientologist Affiliation Unknown Race Unknown Ethnic Group Unknown Author Organization [facility] [address] [place] [address] Phone Care Team Providers Name Role Phone Marguerite Unavailable Unavailable Problems date description facility [id number] Generalized anxiety disorder [facility] Social History date description facility [id number]
== END 2020-09-22 07:36 | disposition home or self-care (01) ==
LOC: LAB 07:35
PROVIDERS: ATTEND Internal Medicine Cardiovascular Disease
DX: Z98.890 Other specified postprocedural states (principal)
CPT/HCPCS: 36415; 80053; 80061; 83721

== ENCOUNTER 2020-09-25 07:00 | Outpatient (CLI) | payer BC, MEDICAID | END 2020-09-25 23:59 | disposition home or self-care (01) | LOC: LAB 07:00 | PROVIDERS: ATTEND Internal Medicine Cardiovascular Disease | DX: Z98.890 Other specified postprocedural states (principal) | CPT/HCPCS: 85610 ==

== ENCOUNTER 2020-11-07 08:12 | Outpatient (CLI) | payer BC ==
[2020-11-07 09:12] LABS: VALPROIC ACID (DEPAKOTE) 69.4 ug/mL
== END 2020-11-07 08:13 | disposition home or self-care (01) ==
LOC: LAB 08:12
PROVIDERS: ATTEND Psychiatry & Neurology Neurology
DX: G40.909 Epilepsy, unspecified, not intractable, without status epilepticus (principal); Z79.899 Other long term (current) drug therapy
CPT/HCPCS: 36415; 80164

== ENCOUNTER 2020-11-09 09:07 | Outpatient (CLI) | payer BC | END 2020-11-09 09:08 | disposition home or self-care (01) | LOC: LAB 09:07 | PROVIDERS: ATTEND Psychiatry & Neurology Neurology | DX: G40.909 Epilepsy, unspecified, not intractable, without status epilepticus (principal); Z79.899 Other long term (current) drug therapy | CPT/HCPCS: 80203; 81599 ==

== ENCOUNTER 2020-11-15 08:03 | Outpatient (CLI) | payer BC ==
[2020-11-15 08:24] LABS: BILIRUBIN,URINE NEGATIVE (NEGATIVE); CLARITY,URINE HAZY (CLEAR); GLUCOSE, URINE (UA) NEGATIVE (NEGATIVE); KETONES,URINE (UA) NEGATIVE (NEGATIVE); LEUKOCYTE ESTERASE, URINE NEGATIVE (NEGATIVE); NITRITE,URINE NEGATIVE (NEGATIVE); OCCULT BLOOD,URINE NEGATIVE (NEGATIVE); PROTEIN,URINE NEGATIVE (NEGATIVE); UROBILINOGEN,URINE 0.2 (NORMAL) E.U./dL (NORMAL)
[2020-11-15 08:32] LABS: ALBUMIN 3.5 g/dL (3.2-5.5); ALBUMIN/GLOBULIN RATIO 0.9 (1.0-2.2); BILIRUBIN,TOTAL 0.4 mg/dL (0.2-1.0); CALCIUM 8.7 mg/dL (8.5-10.3); CREATININE 0.8 mg/dL (0.6-1.2); POTASSIUM 4.1 mmol/L (3.5-5.0); TOTAL PROTEIN 7.4 g/dL (6.7-8.2)
[2020-11-15 08:38] LABS: AMORPHOUS SEDIMENT,UR Moderate /LPF; BACTERIA,URINE Few /HPF (None Seen); RBC,URINE None Seen /HPF (0-5); SQUAMOUS EPITHELIAL CELL,UR RARE Squamous (<= Few); WBC,URINE 0-3 /HPF (0-3)
== END 2020-11-15 08:04 | disposition home or self-care (01) ==
LOC: LAB 08:03
PROVIDERS: ATTEND Psychiatry & Neurology Neurology
DX: G40.209 Localization-related (focal) (partial) symptomatic epilepsy and epileptic syndromes with complex partial seizures, not intractable, without status epilepticus (principal); R10.9 Unspecified abdominal pain
CPT/HCPCS: 36415; 80053; 81001; 81003; 87086

== ENCOUNTER 2021-03-13 09:04 | Outpatient (CLI) | payer BC ==
[2021-03-13 09:39] LABS: PT - PROTHROMBIN TIME 11.6 secs (9.9-12.6)
[2021-03-13 09:46] LABS: PARTIAL THROMBOPLASTIN TIME 32.8 secs (24.9-33.3)
== END 2021-03-13 09:05 | disposition home or self-care (01) ==
LOC: LAB 09:04
DX: R41.9 Unspecified symptoms and signs involving cognitive functions and awareness (principal)
CPT/HCPCS: 36415; 85610; 85730

== ENCOUNTER 2021-03-18 11:24 | Emergency (ER) | payer BC ==
[2021-03-18 11:35] VITALS: BP 145/101
[2021-03-18 11:48] LABS: BASOPHILS % (AUTO) 0.4 %; EOSINOPHILS # (AUTO) 0.1 10^3/uL (0.0-0.7); HCT - HEMATOCRIT 40.2 % (42.0-52.0); HGB - HEMOGLOBIN 12.9 g/dL (14.0-18.0); LYMPHOCYTES # (AUTO) 1.4 10^3/uL (1.5-3.5); LYMPHOCYTES % (AUTO) 12.3 %; MEAN CORPUSCULAR HGB CONC 32.1 g/dL (32.0-36.0); MEAN CORPUSCULAR VOLUME 90.3 fL (80.0-94.0); MEAN PLATELET VOLUME 8.4 fL (7.4-11.4); MONOCYTES # (AUTO) 1.7 10^3/uL (0.0-1.0); NEUTROPHILS # (AUTO) 7.9 10^3/uL (1.5-6.6); NEUTROPHILS % (AUTO) 69.8 %; PLT - PLATELET COUNT 245 10^3/uL (130-450); RED BLOOD COUNT 4.45 10^6/uL (4.70-6.10); RED CELL DISTRIBUTION WIDTH 14.6 % (12.0-15.0); WHITE BLOOD COUNT 11.3 x10^3/uL (4.8-10.8)
[2021-03-18 11:58] LABS: SLIDE REVIEW? Indicated
[2021-03-18 12:02] LABS: ALBUMIN 3.9 g/dL (3.2-5.5); ALBUMIN/GLOBULIN RATIO 1.2 (1.0-2.2); BILIRUBIN,TOTAL 0.6 mg/dL (0.2-1.0); CALCIUM 9.2 mg/dL (8.5-10.3); CREATININE 1.1 mg/dL (0.6-1.2); TOTAL PROTEIN 7.2 g/dL (6.7-8.2)
[2021-03-18 12:10] LABS: RBC MORPHOLOGY (MULTIPLE) 2+ ANISOCYTOSIS (NORMAL)
== END 2021-03-18 12:25 | disposition left against medical advice (07) ==
LOC: ED 11:24
DX: Z53.21 Procedure and treatment not carried out due to patient leaving prior to being seen by health care provider (principal)
CPT/HCPCS: 36415; 80053; 83690; 85025

== ENCOUNTER 2021-03-18 15:07 | Emergency (ER) | payer BC ==
[2021-03-18 15:39] LABS: BILIRUBIN,URINE NEGATIVE (NEGATIVE); GLUCOSE, URINE (UA) NEGATIVE (NEGATIVE); KETONES,URINE (UA) NEGATIVE (NEGATIVE); LEUKOCYTE ESTERASE, URINE NEGATIVE (NEGATIVE); NITRITE,URINE NEGATIVE (NEGATIVE); OCCULT BLOOD,URINE MODERATE (NEGATIVE); PH,URINE 7.5 PH (5.0-7.5); PROTEIN,URINE NEGATIVE (NEGATIVE); UROBILINOGEN,URINE 0.2 (NORMAL) E.U./dL (NORMAL)
--- NOTE | 2021-03-18 15:40 | ED Physician Documentation ---
PD HPI ABD PAIN - Stated complaint Stated Complaint: ABD/BACK PX - Chief complaint Chief Complaint: Abd Pain - History obtained from History obtained from: Patient - Additional information Additional information: 55-year-old gentleman with no history of about a weeks worth of waxing and waning left flank pain associated with nausea, hematuria, and urinary frequency. Denies fevers or chills. Of note he had checked in earlier in the day and left without being seen, labs were done on that visit to include blood work with a CBC showing a white count of 11.3, hemoglobin of 12.9, chemistry is basically normal. Review of Systems Ten Systems: 10 systems reviewed and negative Constitutional: denies: Fever, Chills Cardiac: denies: Chest pain / pressure, Palpitations Respiratory: denies: Dyspnea, Cough PD PAST MEDICAL HISTORY - Past Medical History Cardiovascular: Atrial fibrillation, Valve disorder Respiratory: None, Sleep apnea, CPAP use Neuro: Head injury, Seizure disorder Endocrine/Autoimmune: None GI: None : None HEENT: None, Other Psych: Anxiety Musculoskeletal: None Derm: None - Past Surgical History Past Surgical History: Yes Cardiovascular: Valve replacement - Present Medications Home Medications: Ambulatory Orders Medication Instructions Recorded Confirmed Divalproex [Мария Swift] 1,500 mg PO DAILY 12/10/18 10/20/19 Escitalopram [Lexapro] 20 mg PO DAILY 12/10/18 10/20/19 Divalproex [Мария Swift] 1,750 mg PO QPM 10/20/19 10/20/19 Zonisamide 150 mg PO QPM 10/20/19 10/20/19 Pantoprazole [Protonix] 40 mg PO DAILY #30 tablet 10/21/19 Metoprolol Succinate 25 mg ORAL 01/17/20 Ferrous Sulfate 325 mg PO BID #60 tablet 02/14/20 LORazepam [Ativan] 1 mg PO ONCE #12 tablet 02/14/20 Ibuprofen [Motrin] 800 mg PO Q8H PRN #20 tablet 03/18/21 Ondansetron Odt [Zofran] 4 mg TL Q6H PRN #10 tablet 03/18/21 Oxycodone HCl/Acetaminophen 1 - 2 each PO Q6H PRN #14 tablet 03/18/21 [Percocet 5-325 mg Tablet] Tamsulosin [Flomax] 0.4 mg PO DAILY #14 cap 03/18/21 - Allergies Allergies/Adverse Reactions: Allergies Allergy/AdvReac Type Severity Reaction Status Date / Time bupropion [From Wellbutrin] Allergy Unknown Verified 03/18/21 15:13 lamotrigine [From Lamictal] AdvReac Unknown Verified 03/18/21 15:13 - Social History Does the pt smoke?: No Smoking Status: Never smoker Does the pt drink ETOH?: No Does the pt have substance abuse?: No - Immunizations Immunizations are current?: No Immunizations: TDAP >10years/unknown - POLST Patient has POLST: No PD ED PE NORMAL - Vitals Vital signs reviewed: Yes - General General: Alert and oriented X 3, No acute distress - Abdomen Abdomen: Normal bowel sounds, Soft, Non tender - Back Back: No CVA TTP - Neuro Neuro: Alert and oriented X 3, Normal speech Results - Vitals Vitals: Vital Signs - 24 hr 03/18/21 15:13 Temperature 36.5 C Heart Rate 100 Respiratory 16 Rate Blood Pressure 150/100 H O2 Saturation 99 Oxygen O2 Source Room air - Labs Labs: Laboratory Tests 03/18/21 15:28 Urine Color YELLOW Urine Clarity CLEAR Urine pH 7.5 Ur Specific [place] 1.015 Urine Protein NEGATIVE Urine Glucose (UA) NEGATIVE Urine Ketones NEGATIVE Urine Occult Blood MODERATE H Urine Nitrite NEGATIVE Urine Bilirubin NEGATIVE Urine Urobilinogen 0.2 (NORMAL) Ur Leukocyte Esterase NEGATIVE Urine RBC 6-10 H Urine WBC 0-3 Ur Squamous Epith Cells FEW Squamous Urine Bacteria Few Ur Microscopic Review INDICATED Urine Culture Comments NOT INDICATED - Rads (name of study) CT KUB presents shows nephrolithiasis but a causative 6 mm left UVJ stone with obstruction Radiology: EMP read contemporaneously PD MEDICAL DECISION MAKING - ED course ED course: 55-year-old gentleman with signs and symptoms consistent with renal colic proven on CT. Feeling better after IM Toradol and Dilaudid here. Discussed return /follow-up precautions. I am prescribing a short course of short-acting opioid pain medication for this patient. 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 I have discussed that the opioids are for short term therapy only, and will not be refilled from the ED. Departure - Departure Disposition: 01 Home, Self Care Clinical Impression: Renal colic Condition: Good Record reviewed to determine appropriate education?: Yes Instructions: ED Stone Renal W Colic Follow-Up: Prince Delacruz MD [Physician No Access] - Prescriptions: Tamsulosin [Flomax] 0.4 mg PO DAILY #14 cap Ibuprofen [Motrin] 800 mg PO Q8H PRN #20 tablet PRN Reason: PAIN &/OR FEVER Oxycodone HCl/Acetaminophen [Percocet 5-325 mg Tablet] 1 - 2 each PO Q6H PRN #14 tablet PRN Reason: pain Ondansetron Odt [Zofran] 4 mg TL Q6H PRN #10 tablet PRN Reason: Nausea / Vomiting Comments: If not better over the next few days you need to follow-up with urologist, the numbers on this form. Prescription sent electronically to [facility] in [place]. Return for new or worsening symptoms. I am prescribing a short course of narcotic pain medication for you. These are potentially dangerous and addictive medications that should be used carefully. These medications may constipate you. Take an jiyn-qzz-njxrche stool softener (docusate) twice daily with plenty of water while taking these medications. If you go 24 hours without a bowel movement, take [id number]-drw-[id number] miralax, per package instructions. Do not drink or drive while taking these medications. If you received narcotic or sedating medications while in the emergency department, do not drive for 24 hours. Store this medication in a safe, secure place and out of reach of children. It is a violation of federal law to give or sell this medication to another person or to use in a manner other than prescribed. The ED will not refill narcotic prescriptions, including prescriptions lost or stolen. To dispose of unwanted medications: 1. [facility] at [address] in [place] has a medication drop box. They accept prescription medications (in pill form) Friday through Friday 9:00 a.m. to 5:00 p.m. 2. The [facility] [employer] accepts prescription medications (in pill form only) for disposal year round. Call for more information. 3. Contact the [facility] for the next [facility] sponsored prescription drug collection event. , [phone], or [phone]; Note that many narcotic pain relievers also contain Tylenol/acetaminophen. Please ensure that your total dose of acetaminophen from all sources does not exceed 3 g (3000 mg) per day.
[2021-03-18 15:43] LABS: CLARITY,URINE CLEAR (CLEAR)
[2021-03-18] MEDS: ONDANSETRON ODT 4 MG TABLET TL STA (15:45)
[2021-03-18] MEDS: HYDROmorphone 1 MG/ML CARPUJECT IM STA (15:46)
[2021-03-18] MEDS: KETOROLAC 60 MG/2 ML VIAL IM STA (15:47)
[2021-03-18 16:00] LABS: BACTERIA,URINE Few /HPF (None Seen); SQUAMOUS EPITHELIAL CELL,UR FEW Squamous (<= Few)
[2021-03-18 16:02] LABS: WBC,URINE 0-3 /HPF (0-3)
--- NOTE | 2021-03-18 16:33 | CT Report ---
PROCEDURE: Abdomen/Pelvis WO INDICATIONS: L flank pain TECHNIQUE: Noncontrast 5 mm thick sections acquired from the diaphragms to the symphysis. 5 mm coronal and sagi ttal reformats were then performed. For radiation dose reduction, the following was used: automated exposure control, adjustment of mA and/or kV according to patient size. COMPARISON: None. FINDINGS: Image quality: Excellent. ABDOMEN: Lung bases: Lung bases are clear. Heart size is normal. Sternotomy wires and a mitral valve prosth esis can be seen. A small hiatal hernia is incidentally noted. Solid organs: Liver and spleen are normal in size. An accessory splenule is incidentally noted brooke g the hilum of the primary spleen. Gallbladder wall does not appear thickened. Pancreas is john l in contours. No adrenal nodules. There is an obstructing stone seen involving the left ureterovesicular junction, as on series 3 image 141 and on series 6 image 70 that measures 6 mm. There is associated mild left-sided hydroureter and hydronephrosis. Left-sided perinephric fat straining can be seen. The left kidney appears mildly enl arged. Nonobstructing bilateral renal stones are seen, which measure up to 4 mm on the right and up to 2 mm on the left. There is no right-sided hydronephrosis. Peritoneum and bowel: Unenhanced bowel loops demonstrate normal wall thickness and caliber. No free fluid or air. There is sigmoid diverticulosis, without findings of active diverticulitis. A normal appendix is incidentally noted. Nodes and vessels: No retroperitoneal or mesenteric adenopathy by size criteria. Aorta and inferior vena cava are normal in caliber. Miscellaneous: No ventral hernias. PELVIS: Genitourinary: Bladder wall thickness is normal. Miscellaneous: No inguinal hernias or adenopathy. Bones: No suspicious bony lesions. No vertebral body compression fractures. Mild levoconvex scolio tic curvature is seen. IMPRESSION: 6 mm obstructing stone seen at the left ureterovesicular junction, with associated left-sided hydrour eter and hydronephrosis, perinephric fat study. Nonobstructing bilateral renal stones are seen. Incidental note is made of: Sternotomy wires Mitral valve prosthesis Small hiatal hernia Accessory splenule Diverticulosis, without active diverticulitis Normal appendix Levoconvex scoliotic curvature Reviewed by: Kwdawo Hernandes MD on 03/18/2021 3:32 PM [id number] Approved by: Kwadwo Hernandes MD on 03/18/2021 3:32 PM SYLVAIN Station ID: [id number]
[2021-03-18 17:04] VITALS: BP 133/92
== END 2021-03-18 17:02 | disposition home or self-care (01) ==
LOC: ED 15:07
DX: N13.2 Hydronephrosis with renal and ureteral calculous obstruction (principal)
CPT/HCPCS: 36415; 74176; 80053; 81001; 83690; 85025; 96372; 99283; 99284; J1170; Q0162; 81003; 87086

== ENCOUNTER 2021-04-27 09:08 | Outpatient (CLI) | payer BC ==
[2021-04-27 09:25] LABS: BASOPHILS # (AUTO) 0.1 10^3/uL (0.0-0.1); BASOPHILS % (AUTO) 0.7 %; EOSINOPHILS # (AUTO) 0.1 10^3/uL (0.0-0.7); EOSINOPHILS % (AUTO) 1.9 %; HGB - HEMOGLOBIN 13.1 g/dL (14.0-18.0); LYMPHOCYTES # (AUTO) 1.5 10^3/uL (1.5-3.5); LYMPHOCYTES % (AUTO) 20.4 %; MEAN CORPUSCULAR HEMOGLOBIN 29.2 pg (27.0-31.0); MEAN CORPUSCULAR VOLUME 91.3 fL (80.0-94.0); MEAN PLATELET VOLUME 8.2 fL (7.4-11.4); MONOCYTES # (AUTO) 1.1 10^3/uL (0.0-1.0); MONOCYTES % (AUTO) 13.9 %; NEUTROPHILS # (AUTO) 4.6 10^3/uL (1.5-6.6); NEUTROPHILS % (AUTO) 61.5 %; PLT - PLATELET COUNT 273 10^3/uL (130-450); RED BLOOD COUNT 4.49 10^6/uL (4.70-6.10); RED CELL DISTRIBUTION WIDTH 14.4 % (12.0-15.0); WHITE BLOOD COUNT 7.5 x10^3/uL (4.8-10.8)
[2021-04-27 09:41] LABS: ALBUMIN 3.7 g/dL (3.2-5.5); ALKALINE PHOSPHATASE 58 IU/L (42-121); ALT ALANINE AMINOTRANSFERASE 12 IU/L (10-60); AST ASPARTATE AMINOTRANSFERASE 13 IU/L (10-42); BILIRUBIN,TOTAL 0.7 mg/dL (0.2-1.0); BUN - BLOOD UREA NITROGEN 23 mg/dL (6-20); CARBON DIOXIDE - CO2 27 mmol/L (21-32); CHLORIDE 102 mmol/L (101-111); CHOL/HDL RATIO 5.2 (<5.0); CHOLESTEROL 171 mg/dL; CREATININE 0.7 mg/dL (0.6-1.2); GFR - MDRD 117 (>89); GLUCOSE 110 mg/dL (70-100); HDL CHOLESTEROL 33 mg/dL; LDL CHOLESTEROL,CALCULATED 111 mg/dL; LDL/HDL RATIO 3.4 (<3.6); POTASSIUM 4.5 mmol/L (3.5-5.0); SODIUM 137 mmol/L (135-145); TOTAL PROTEIN 7.4 g/dL (6.7-8.2); TRIGLYCERIDES 136 mg/dL; VLDL CHOLESTEROL 27 mg/dL
[2021-04-27 09:52] LABS: THYROID STIMULATING HORMONE 2.93 uIU/mL (0.34-5.60)
== END 2021-04-27 09:09 | disposition home or self-care (01) ==
LOC: LAB 09:08
PROVIDERS: ATTEND Internal Medicine Cardiovascular Disease
DX: I48.4 Atypical atrial flutter (principal); Z98.890 Other specified postprocedural states
CPT/HCPCS: 36415; 80053; 80061; 83721; 84443; 85025

== ENCOUNTER 2021-05-11 08:00 | Outpatient (CLI) | payer BC | END 2021-05-11 23:59 | disposition home or self-care (01) | LOC: LAB 08:00 | PROVIDERS: ATTEND Nurse Practitioner | DX: U07.1 COVID-19 (principal) ==

== ENCOUNTER 2021-09-07 06:13 | Outpatient (CLI) | payer BC | END 2021-09-07 06:14 | disposition critical access hospital (66) | LOC: EMS 06:13 | DX: R56.9 Unspecified convulsions (principal) | CPT/HCPCS: A0425; A0427 ==

== ENCOUNTER 2021-09-07 06:43 | Emergency (ER) | payer BC ==
[2021-09-07] MEDS ORDERED: LORazepam 2 MG/ML VIAL IVP STA ×2 (06:50→07:03)
[2021-09-07] MEDS ORDERED: SODIUM CHLORIDE 0.9% 1,000 ML IV STA (06:50)
[2021-09-07] MEDS ORDERED: PHENYTOIN 100 MG/2 ML VIAL IVP STA ×2 (07:12→09:47)
[2021-09-07 07:22] LABS: ALBUMIN 4.1 g/dL (3.2-5.5); BILIRUBIN,TOTAL 0.5 mg/dL (0.2-1.0); CALCIUM 9.4 mg/dL (8.5-10.3); CREATININE 0.9 mg/dL (0.6-1.2); POTASSIUM 4.6 mmol/L (3.5-5.0); TOTAL PROTEIN 8.1 g/dL (6.7-8.2)
--- OUTSIDE RECORDS SUMMARY | 2021-09-07 07:23 | EXTERNAL MEDICAL SUMMARY RPT | Continuity of Care Document ---
:1965 Author Organization [facility] Address [address] [place] [address] Phone Care Team Providers Name Role Phone Marguerite Unavailable Unavailable Allergies No information. Encounters No information. Medications date description facility [id number] Hydroxyzine Hydrochloride 50 MG Oral Ta [facility] [id number] Clonazepam 0.5 MG Oral Tablet [facility] ospital Problems Procedures date description facility [id number] [facility] [id number] [facility] [id number] Diagnosis [facility] [id number] [facility] Results No information.
[2021-09-07 07:29] LABS: INR 1.1 (0.8-1.2)
[2021-09-07 07:35] LABS: VALPROIC ACID (DEPAKOTE) 67.1 ug/mL
--- NOTE | 2021-09-07 07:47 | ED Physician Documentation ---
PD HPI SEIZURE - Stated complaint Stated Complaint: SEIZURE - Chief complaint Chief Complaint: Neuro - History obtained from History obtained from: Patient, Family, EMS - History of Present Illness Timing - onset: Today Witnessed: Witnessed Number of seizures: Status epilepticus Description of seizure activity: Generalized, Tonic clonic Injury during seizure: None History of seizures: Known seizure disorder Similar symptoms before: Diagnosis (seizure) Recently seen: Other - Additional information Additional information: 56-year-old male with a known seizure disorder is usually had about 1 seizure per month and these are usually single seizures with complete recovery. He is continue to be compliant with his medication. He is unable to give any history as he is currently seizing. His history is from the patient's over the telephone. Patient is apparently been installing his sink in the house which is more activity than he is usually used to doing. He is otherwise not been ill. At about 5 AM he began seizing and medics were called. Patient continued to seize at all on arrival to the emerge department at 7 AM. Review of Systems Unable to obtain: Unresponsive, Other (Review of systems from the .) Constitutional: denies: Fever Nose: denies: Congestion Throat: denies: Sore throat Respiratory: denies: Cough GI: denies: Vomiting, Diarrhea Neurologic: reports: Seizure PD PAST MEDICAL HISTORY - Past Medical History Past Medical History: Yes Cardiovascular: Atrial fibrillation, Valve disorder Respiratory: None, Sleep apnea, CPAP use Neuro: Head injury, Seizure disorder Endocrine/Autoimmune: None GI: None : None HEENT: None, Other Psych: Anxiety Musculoskeletal: None Derm: None - Past Surgical History Past Surgical History: Yes Cardiovascular: Valve replacement - Present Medications Home Medications: Ambulatory Orders Medication Instructions Recorded Confirmed Divalproex [Мария Swift] 1,500 mg PO DAILY 12/10/18 10/20/19 Escitalopram [Lexapro] 20 mg PO DAILY 12/10/18 10/20/[address] Juan A Swift] 1,750 mg PO QPM 10/20/19 10/20/19 Zonisamide 150 mg PO QPM 10/20/19 10/20/19 Pantoprazole [Protonix] 40 mg PO DAILY #30 tablet 10/21/19 Metoprolol Succinate 25 mg ORAL 01/17/20 Ferrous Sulfate 325 mg PO BID #60 tablet 02/14/20 LORazepam [Ativan] 1 mg PO ONCE #12 tablet 02/14/20 Ibuprofen [Motrin] 800 mg PO Q8H PRN #20 tablet 03/18/21 Ondansetron Odt [Zofran] 4 mg TL Q6H PRN #10 tablet 03/18/21 Oxycodone HCl/Acetaminophen 1 - 2 each PO Q6H PRN #14 tablet 03/18/21 [Percocet 5-325 mg Tablet] Tamsulosin [Flomax] 0.4 mg PO DAILY #14 cap 03/18/21 - Allergies Allergies/Adverse Reactions: Allergies Allergy/AdvReac Type Severity Reaction Status Date / Time bupropion [From Wellbutrin] Allergy Unknown Verified 09/07/21 07:27 lamotrigine [From Lamictal] AdvReac Unknown Verified 09/07/21 07:27 - Social History Does the pt smoke?: No Smoking Status: Never smoker Does the pt drink ETOH?: No Does the pt have substance abuse?: No - Immunizations Immunizations are current?: No Immunizations: TDAP >10years/unknown - POLST Patient has POLST: No PD ED PE NORMAL - Vitals Vital signs reviewed: Yes (Tachypneic and hypertensive marked) - General General: Well developed/nourished, Other (Overweight 56-year-old male laying on his right side with generalized tonic-clonic seizure activity and eye blinking. 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, No motor deficit Eye Opening: Spontaneous Motor: Localizes to Pain Verbal: Inappropriate GCS Score: 12 Results - Vitals Vitals: Vital Signs - 24 hr 09/07/21 09/07/21 09/07/21 07:02 07:12 07:18 Temperature 37.0 C Heart Rate 69 74 75 Respiratory 26 H 24 25 H Rate Blood Pressure 163/151 H 162/116 H 162/116 H O2 Saturation 99 94 93 09/07/21 09/07/21 09/07/21 08:00 08:25 09:01 Temperature Heart Rate 58 L 62 62 Respiratory 22 20 27 H Rate Blood Pressure 174/100 H 153/82 H 165/76 H O2 Saturation 99 98 100 09/07/21 09/07/21 09/07/21 10:14 10:19 10:23 Temperature Heart Rate 65 64 65 Respiratory 17 Rate Blood Pressure 171/84 H 147/81 H 138/70 H O2 Saturation 100 100 100 09/07/21 09/07/21 09/07/21 10:28 10:34 11:12 Temperature Heart Rate 64 64 64 Respiratory 18 Rate Blood Pressure 150/68 H 120/80 159/73 H O2 Saturation 100 100 Oxygen O2 Source Room air - Labs Labs: Laboratory Tests 09/07/21 09/07/21 09/07/21 07:01 07:01 07:01 WBC 10.7 RBC 4.80 Hgb 14.1 Hct 44.7 MCV 93.1 MCH 29.4 MCHC 31.5 L RDW 13.3 Plt Count 372 MPV 9.0 Neut # (Auto) 6.5 Lymph # (Auto) 2.2 Clayton # (Auto) 1.5 H Eos # (Auto) 0.2 Baso # (Auto) 0.1 Absolute Nucleated RBC 0.00 Nucleated RBC % 0.0 Manual Slide Review Indicated WBC Morphology NORMAL APPEARANCE Platelet Estimate NORMAL (130-450,000) Platelet Morphology NORMAL APPEARANCE RBC Morph Micro Appear NORMAL APPEARANCE PT INR APTT Sodium 137 Potassium 4.6 Chloride 98 L Carbon Dioxide 21 Anion Gap 18.0 H BUN 19 Creatinine 0.9 Estimated GFR (MDRD) 87 L Glucose 147 H Calcium 9.4 Total Bilirubin 0.5 AST 19 ALT 14 Alkaline Phosphatase 61 Total Protein 8.1 Albumin 4.1 Globulin 4.0 Albumin/Globulin Ratio 1.0 Lipase 30 Urine Color Urine Clarity Urine pH Ur Specific [place] Urine Protein Urine Glucose (UA) Urine Ketones Urine Occult Blood Urine Nitrite Urine Bilirubin Urine Urobilinogen Ur Leukocyte Esterase Urine RBC Urine WBC Ur Squamous Epith Cells Urine Bacteria Ur Microscopic Review Urine Culture Comments Nasal Adenovirus (PCR) Nasal B. parapertussis DNA (PCR) Nasal Coronavir 229E PCR Nasal Coronavir HKU1 PCR Nasal Coronavir NL63 PCR Nasal Coronavir OC43 PCR Nasal Enterovir/Rhinovir PCR Nasal Influenza B PCR Nasal Influenza A PCR Nasal Parainfluen 1 PCR Nasal Parainfluen 2 PCR Nasal Parainfluen 3 PCR Nasal Parainfluen 4 PCR Nasal RSV (PCR) Nasal B.pertussis DNA PCR Nasal C.pneumoniae (PCR) Mc Human Metapneumo PCR Nasal M.pneumoniae (PCR) Nasal SARS-CoV-2 (PCR) Last Dose Date UNKNOWN Last Dose Time UNKNOWN Urine Opiates Screen Ur Oxycodone Screen Urine Methadone Screen Ur Propoxyphene Screen Ur Barbiturates Screen Valproic Acid 67.1 Ur Tricyclics Screen Ur Phencyclidine Scrn Ur Amphetamine Screen U Methamphetamines Scrn U Benzodiazepines Scrn Urine Cocaine Screen U Cannabinoids Screen Ethyl Alcohol 09/07/21 09/07/21 09/07/21 07:01 11:00 11:25 WBC RBC Hgb Hct MCV MCH MCHC RDW Plt Count MPV Neut # (Auto) Lymph # (Auto) [place] # (Auto) Eos # (Auto) Baso # (Auto) Absolute Nucleated RBC Nucleated RBC % Manual Slide Review WBC Morphology Platelet Estimate Platelet Morphology RBC Morph Micro Appear PT 12.0 INR 1.1 APTT 35.0 H Sodium Potassium Chloride Carbon Dioxide Anion Gap BUN Creatinine Estimated GFR (MDRD) Glucose Calcium Total Bilirubin AST ALT Alkaline Phosphatase Total Protein Albumin Globulin Albumin/Globulin Ratio Lipase Urine Color YELLOW Urine Clarity CLEAR Urine pH 8.5 H Ur Specific [place] 1.010 Urine Protein NEGATIVE Urine Glucose (UA) NEGATIVE Urine Ketones NEGATIVE Urine Occult Blood MODERATE H Urine Nitrite NEGATIVE Urine Bilirubin NEGATIVE Urine Urobilinogen 0.2 (NORMAL) Ur Leukocyte Esterase NEGATIVE Urine RBC 0-5 Urine WBC 0-3 Ur Squamous Epith Cells NONE SEEN Urine Bacteria None Seen Ur Microscopic Review INDICATED Urine Culture Comments NOT INDICATED Nasal Adenovirus (PCR) NOT DETECTED Nasal B. parapertussis DNA (PCR) NOT DETECTED Nasal Coronavir 229E PCR NOT DETECTED Nasal Coronavir HKU1 PCR NOT DETECTED Nasal Coronavir NL63 PCR NOT DETECTED Nasal Coronavir OC43 PCR NOT DETECTED Nasal Enterovir/Rhinovir PCR NOT DETECTED Nasal Influenza B PCR NOT DETECTED Nasal Influenza A PCR NOT DETECTED Nasal Parainfluen 1 PCR NOT DETECTED Nasal Parainfluen 2 PCR NOT DETECTED Nasal Parainfluen 3 PCR NOT DETECTED Nasal Parainfluen 4 PCR NOT DETECTED Nasal RSV (PCR) NOT DETECTED Nasal B.pertussis DNA PCR NOT DETECTED Nasal C.pneumoniae (PCR) NOT DETECTED Mc Human Metapneumo PCR NOT DETECTED Nasal M.pneumoniae (PCR) NOT DETECTED Nasal SARS-CoV-2 (PCR) NOT DETECTED Last Dose Date Last Dose Time Urine Opiates Screen NEGATIVE Ur Oxycodone Screen NEGATIVE Urine Methadone Screen NEGATIVE Ur Propoxyphene Screen NEGATIVE Ur Barbiturates Screen POSITIVE H Valproic Acid Ur Tricyclics Screen NEGATIVE Ur Phencyclidine Scrn NEGATIVE Ur Amphetamine Screen NEGATIVE U Methamphetamines Scrn NEGATIVE U Benzodiazepines Scrn POSITIVE H Urine Cocaine Screen NEGATIVE U Cannabinoids Screen POSITIVE H Ethyl Alcohol 09/07/21 11:28 WBC RBC Hgb Hct MCV MCH MCHC RDW Plt Count MPV Neut # (Auto) Lymph # (Auto) [place] # (Auto) Eos # (Auto) Baso # (Auto) Absolute Nucleated RBC Nucleated RBC % Manual Slide Review WBC Morphology Platelet Estimate Platelet Morphology RBC Morph Micro Appear PT INR APTT Sodium Potassium Chloride Carbon Dioxide Anion Gap BUN Creatinine Estimated GFR (MDRD) Glucose Calcium Total Bilirubin AST ALT Alkaline Phosphatase Total Protein Albumin Globulin Albumin/Globulin Ratio Lipase Urine Color Urine Clarity Urine pH Ur Specific [place] Urine Protein Urine Glucose (UA) Urine Ketones Urine Occult Blood Urine Nitrite Urine Bilirubin Urine Urobilinogen Ur Leukocyte Esterase Urine RBC Urine WBC Ur Squamous Epith Cells Urine Bacteria Ur Microscopic Review Urine Culture Comments Nasal Adenovirus (PCR) Nasal B. parapertussis DNA (PCR) Nasal Coronavir 229E PCR Nasal Coronavir HKU1 PCR Nasal Coronavir NL63 PCR Nasal Coronavir OC43 PCR Nasal Enterovir/Rhinovir PCR Nasal Influenza B PCR Nasal Influenza A PCR Nasal Parainfluen 1 PCR Nasal Parainfluen 2 PCR Nasal Parainfluen 3 PCR Nasal Parainfluen 4 PCR Nasal RSV (PCR) Nasal B.pertussis DNA PCR Nasal C.pneumoniae (PCR) Mc Human Metapneumo PCR Nasal M.pneumoniae (PCR) Nasal SARS-CoV-2 (PCR) Last Dose Date Last Dose Time Urine Opiates Screen Ur Oxycodone Screen Urine Methadone Screen Ur Propoxyphene Screen Ur Barbiturates Screen Valproic Acid Ur Tricyclics Screen Ur Phencyclidine Scrn Ur Amphetamine Screen U Methamphetamines Scrn U Benzodiazepines Scrn Urine Cocaine Screen U Cannabinoids Screen Ethyl Alcohol < 5.0 - Rads (name of study) CT head Radiology: Prelim report reviewed (Impression: 1. No acute intracranial abnormality. 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 Findings similar to prior studies.), EMP read indepedently, See rad report CTA head Radiology: Prelim report reviewed (Impression: No significant abnormality), EMP read indepedently, See rad report CTA neck Radiology: Prelim report reviewed (Impression: No significant arterial abnormality. The estimate of stenosis included in the report of the imaging study was calculated using the NASCET method.), EMP read indepedently, See rad report PD MEDICAL DECISION MAKING - ED course Complexity details: reviewed old records, reviewed results, re-evaluated patient, considered differential, d/w family, d/w senior telecommunications consultant (Spoke with Dr. Christianson on-call neurology at [facility] and he is recommended transfer of the patient to the neuro strip catcher. Dr. Leger the neuro strip catcher is consulted in the case and he recommends increasing the Dilantin to a 20 mg/kg bolus and he will accept the patient in transfe) ED course: 56-year-old male with a known seizure disorder has had a valve replacement done in January 2021 and he has been having about 1 seizure per month. indicates he has never had persistent seizure. She believes he has been compliant with his medication. He is on Eliquis.Today he arrives to the emergency department in status and 4 mg of Ativan did not relieve the patient's seizure. He was loaded with a gram of Dilantin and seizure ceased approximately 20 minutes after administration.Patient is still postictal and he slowly improves until he is able to respond to commands. When he is able to respond to commands it is evident that he has left sided weakness. He is unable to move his left arm or leg. He has a speech difficulty as well. At 9:55 AM we initiated an attempt to obtain CT angio of the head and neck. He is administered a 2nd gram of dilantin for 15mg/kg loading dose. Arrangements for transfer to [facility] via life flight are made. - Critical Care Time(min): 40 Time Includes: Direct patient care, Review records, Reassess patient, Document care, Coordinate care, Medical consult, Family consult for tx may Data interpretation: Labs, Pulse ox Departure - Departure Disposition: 02 Transfer Acute Care Hosp Clinical Impression: Status epilepticus Cerebrovascular accident (CVA) Qualifiers: CVA mechanism: unspecified Qualified Code(s): I63.9 - Cerebral infarction, unspecified Discharge Date/Time: 09/07/21 11:49
[2021-09-07 07:59] LABS: BASOPHILS # (AUTO) 0.1 10^3/uL (0.0-0.1); BASOPHILS % (AUTO) 0.5 %; EOSINOPHILS # (AUTO) 0.2 10^3/uL (0.0-0.7); EOSINOPHILS % (AUTO) 1.5 %; HCT - HEMATOCRIT 44.7 % (42.0-52.0); HGB - HEMOGLOBIN 14.1 g/dL (14.0-18.0); LYMPHOCYTES # (AUTO) 2.2 10^3/uL (1.5-3.5); LYMPHOCYTES % (AUTO) 20.8 %; MEAN CORPUSCULAR HEMOGLOBIN 29.4 pg (27.0-31.0); MEAN CORPUSCULAR HGB CONC 31.5 g/dL (32.0-36.0); MEAN CORPUSCULAR VOLUME 93.1 fL (80.0-94.0); MONOCYTES # (AUTO) 1.5 10^3/uL (0.0-1.0); MONOCYTES % (AUTO) 14.4 %; NEUTROPHILS # (AUTO) 6.5 10^3/uL (1.5-6.6); PLT - PLATELET COUNT 372 10^3/uL (130-450); RED CELL DISTRIBUTION WIDTH 13.3 % (12.0-15.0); WHITE BLOOD COUNT 10.7 x10^3/uL (4.8-10.8)
[2021-09-07 08:02] LABS: SLIDE REVIEW? Indicated
--- NOTE | 2021-09-07 08:33 | CT Report ---
PROCEDURE: HEAD WO INDICATIONS: Seizure TECHNIQUE: Noncontrast 4.5 mm thick angled axial sections acquired from the foramen magnum to the vertex. For r adiation dose reduction, the following was used: automated exposure control, adjustment of mA and/or kV according to patient size. COMPARISON: CT head 10/20/2019, 09/10/2019. FINDINGS: Image quality: Excellent. CSF spaces: Basal cisterns are patent. No extra-axial fluid collections. Ventricles are normal in size and shape. Brain: No intracranial hemorrhage, mass, or mass effect. Castaneda-white matter interface appears preser meli. There is asymmetric volume loss in the region of the hippocampal formation in the medial right t emporal lobe with adjacent mild subcortical hypoattenuation within the middle cranial fossa which roscoe ears similar to the prior studies. Skull and face: Calvarium and visualized facial bones demonstrate no acute fractures. There are pos tsurgical changes status post prior surgical repair of the right anterior axillary sinus with a fixat ion plate and multiple fixation screws. Sinuses: Visualized sinuses and mastoids are clear. IMPRESSION: 1. No acute intracranial abnormality. 2. 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 Findings appear similar to the prior studies. Reviewed by: Milo Hilton MD on 09/07/2021 8:31 AM PDT Approved by: Milo Hilton MD on 09/07/2021 8:31 AM PDT Station ID: [id number]
[2021-09-07 08:45] LABS: PLATELET MORPHOLOGY NORMAL APPEARANCE (NORMAL)
[2021-09-07 08:46] LABS: PLATELET ESTIMATE, MANUAL NORMAL (130-450,000) (NORMAL); RBC MORPHOLOGY (MULTIPLE) NORMAL APPEARANCE (NORMAL); WBC MORPHOLOGY (MULTIPLE) NORMAL APPEARANCE (NORMAL)
[2021-09-07] MEDS ORDERED: IOVERSOL 320 100 ML VIAL IVP ONE ×2 (10:43→14:57)
[2021-09-07 11:15] VITALS: BP 159/73
[2021-09-07 11:32] LABS: MUDS CUTOFF CONCENTRATIONS CUTOFF CONC BELOW:
[2021-09-07 11:44] LABS: BILIRUBIN,URINE NEGATIVE (NEGATIVE); GLUCOSE, URINE (UA) NEGATIVE (NEGATIVE); KETONES,URINE (UA) NEGATIVE (NEGATIVE); LEUKOCYTE ESTERASE, URINE NEGATIVE (NEGATIVE); NITRITE,URINE NEGATIVE (NEGATIVE); OCCULT BLOOD,URINE MODERATE (NEGATIVE); PH,URINE 8.5 PH (5.0-7.5); PROTEIN,URINE NEGATIVE (NEGATIVE); UROBILINOGEN,URINE 0.2 (NORMAL) E.U./dL (NORMAL)
[2021-09-07 11:53] LABS: AMPHETAMINE SCREEN,URINE NEGATIVE (NEGATIVE); BARBITURATE SCREEN,UR POSITIVE (NEGATIVE); BENZODIAZEPINES SCREEN, URINE POSITIVE (NEGATIVE); COCAINE SCREEN URINE NEGATIVE (NEGATIVE); METHADONE SCREEN, URINE NEGATIVE (NEGATIVE); METHAMPHETAMINES SCREEN, URINE NEGATIVE (NEGATIVE); OPIATE SCREEN, URINE NEGATIVE (NEGATIVE); OXYCODONE SCREEN, URINE NEGATIVE (NEGATIVE); PROPOXYPHENE SCREEN, URINE NEGATIVE (NEGATIVE); THC CANNABINOID SCREEN, URINE POSITIVE (NEGATIVE); TRICYCLIC ANTIDEPRESSANT,URINE NEGATIVE (NEGATIVE)
[2021-09-07 11:57] LABS: BACTERIA,URINE None Seen /HPF (None Seen); CLARITY,URINE CLEAR (CLEAR); RBC,URINE 0-5 /HPF (0-5); SQUAMOUS EPITHELIAL CELL,UR NONE SEEN (<= Few); WBC,URINE 0-3 /HPF (0-3)
--- NOTE | 2021-09-07 12:01 | CT Report ---
PROCEDURE: ANGIO HEAD W INDICATIONS: L sided facial droop L weakness CONTRAST: IV CONTRAST: Optiray 320 ml: 80 PO CONTRAST: *NO PO CONTRAST TECHNIQUE: After the administration of intravenous contrast, 1 mm thick sections acquired through the [place]. Postcontrast 4.5 mm thick sections then re-acquired from the foramen magnum to the vertex. 3-dimensional [id number] (MIP) and/or volume rendering reformats were acquired of t central intracranial vasculature. For radiation dose reduction, the following was used: automate d exposure control, adjustment of mA and/or kV according to patient size. COMPARISON: Reference is made to CT head distended. FINDINGS: Image quality: Excellent. Anterior circulation: Intracranial internal carotid arteries are normal in size and flow. The flow within the paired anterior cerebral arteries is normal and symmetric. The flow within the middle cer ebral arteries is normal and symmetric. The anterior communicating artery is seen. No aneurysms are seen. Posterior circulation: Visualized portions of the vertebral arteries demonstrate normal caliber, and join to form a normal appearing basilar artery. Flow within the posterior cerebral arteries is norm al and symmetric. No aneurysms are seen. CSF spaces: Ventricles are normal in size and shape. Basal cisterns are patent. No extra-axial flu id collections. Brain: No midline shift. No intracranial bleeds or masses. Castaneda-white matter interface appears int act. Skull and face: Calvarium and facial bones appear intact, without suspicious lesions. Fat attenuation areas within the left parotid gland, which may reflect lipomatous change. Sinuses: Remote fracture deformity or fixation hardware in the right anterior maxillary sinus. Small polyp/retention cyst in the anterior aspect of the left maxillary sinus. The remaining visualized si nuses and mastoids are clear. IMPRESSION: 1. No significant abnormality. Reviewed by: Chauncey Tate MD on 09/07/2021 11:59 AM PDT Approved by: Chauncey Tate MD on 09/07/2021 11:59 AM PDT Station ID: [id number]
--- NOTE | 2021-09-07 12:06 | CT Report ---
PROCEDURE: ANGIO NECK W INDICATIONS: L sided facial droop L weakness CONTRAST: IV CONTRAST: Optiray 320 ml: 80 PO CONTRAST: *NO PO CONTRAST TECHNIQUE: After the administration of intravenous contrast, 1.5 mm axial sections acquired from the aortic arch to the [place] of [place]. Coronal 3-D maximum intensity projection (MIP) and/or volume rendering ref ormats were then performed. For radiation dose reduction, the following was used: automated exposur e control, adjustment of mA and/or kV according to patient size. COMPARISON: Reference is made to the CT cervical spine dated October 20, 2019. FINDINGS: Image quality: Some images are degraded by beam hardening artifact. Carotid system: The great vessels demonstrate a conventional anatomy as they arise from the aortic a rch. The origins of the common carotid arteries appear patent. The common carotid arteries demonstr ate normal calibers and courses. The bifurcation regions appear normal bilaterally. The internal ca rotid arteries demonstrate normal caliber and course. Posterior circulation: The origins of the vertebral arteries appear patent. The more superior porti ons of the vertebral arteries demonstrate normal course and caliber. They join to form a normal appe aring basilar artery. Soft tissues: Fatty attenuation areas within the left parotid gland, which may reflect atrophy or lip maria guadalupe. The thyroid is normal in size and there are no incidental findings. Bones: No suspicious bony lesions. Multilevel degenerative change of the cervical spine with maintai larry alignment. IMPRESSION: No significant arterial abnormality. The estimate of stenosis included in the report of the imaging study was calculated using the NASCET method Reviewed by: Chauncey Tate MD on 09/07/2021 12:05 PM PDT Approved by: Chauncey Tate MD on 09/07/2021 12:05 PM PDT Station ID: [id number]
[2021-09-07 12:28] LABS: B. PARAPERTUSSIS- RESP PCR PAN NOT DETECTED; B. PERTUSSIS- RESP PCR PANEL NOT DETECTED; C. PNEUMONIAE- RESP PCR PANEL NOT DETECTED; CORONAVIRUS 229E-RESP PCR NOT DETECTED; CORONAVIRUS HKU1-RESP PCR NOT DETECTED; CORONAVIRUS NL63-RESP PCR NOT DETECTED; CORONAVIRUS OC43-RESP PCR NOT DETECTED; HUMAN METAPNEUMOVIRUS NOT DETECTED; INFLUENZA A- RESP PCR PANEL NOT DETECTED; INFLUENZA B - RESP PCR PANEL NOT DETECTED; M. PNEUMONIAE- RESP PCR PANEL NOT DETECTED; PARAINFLUENZA VIRUS 1 NOT DETECTED; PARAINFLUENZA VIRUS 2 NOT DETECTED; PARAINFLUENZA VIRUS 3 NOT DETECTED; PARAINFLUENZA VIRUS 4 NOT DETECTED; RHINOVIRUS/ENTEROVIRUS NOT DETECTED; RSV- RESP PCR PANEL NOT DETECTED; SARS-CoV-2 -RESP PCR PANEL NOT DETECTED
== END 2021-09-07 11:49 | disposition short-term general hospital (02) ==
LOC: EDUNIT# → ED 06:43
DX: I63.9 Cerebral infarction, unspecified (principal); G40.909 Epilepsy, unspecified, not intractable, without status epilepticus; R40.2422 Glasgow coma scale score 9-12, at arrival to emergency department; I48.91 Unspecified atrial fibrillation; Z95.2 Presence of prosthetic heart valve; Z79.01 Long term (current) use of anticoagulants; Z20.822 Contact with and (suspected) exposure to COVID-19
CPT/HCPCS: 0202U; 36415; 51702; 70450; 70496; 70498; 80053; 80164; 80306; 80320; 81001; 83690; 85025; 85610; 85730; 96374; 96375; 99285; 99291; J2060; Q9967; 81003; 87086

== ENCOUNTER 2021-09-13 08:53 | Emergency (ER) | payer BC ==
[2021-09-13] MEDS ORDERED: HYDROmorphone 1 MG/ML CARPUJECT IM STA (09:12)
--- NOTE | 2021-09-13 09:13 | ED Physician Documentation ---
History of Present Illness - Stated complaint Stated Complaint: RT SHOULDER INJ - History obtained from History obtained from: Patient, Family - Additonal information Additional information: 56-year-old gentleman with a bad left shoulder, history of left shoulder replacement. Also history of seizure disorder with recent hospitalization for status epilepticus and discharged on Vimpat in addition to his prior medications. He has been on Vimpat for 3 days. Today he was walking and tripped and fell in the driveway hitting directly on the right shoulder with severe pain. No loss of consciousness or seizure recently. His notes that he has been a little slow and uncoordinated since discharge from the hospital. Patient denies this. Review of Systems Ten Systems: 10 systems reviewed and negative Constitutional: reports: Reviewed and negative Ears: reports: Reviewed and negative Nose: reports: Reviewed and negative Throat: reports: Reviewed and negative Cardiac: reports: Reviewed and negative Respiratory: reports: Reviewed and negative PD PAST MEDICAL HISTORY - Past Medical History Cardiovascular: Atrial fibrillation, Valve disorder Respiratory: None, Sleep apnea, CPAP use Neuro: Head injury, Seizure disorder Endocrine/Autoimmune: None GI: None : None HEENT: None, Other Psych: Anxiety Musculoskeletal: None Derm: None - Past Surgical History Past Surgical History: Yes Cardiovascular: Valve replacement - Present Medications Home Medications: Ambulatory Orders Medication Instructions Recorded Confirmed Divalproex [Мария Swift] 1,500 mg PO DAILY 12/10/18 10/20/19 Escitalopram [Lexapro] 20 mg PO DAILY 12/10/18 10/20/[address] Juan A Swift] 1,750 mg PO QPM 10/20/19 10/20/19 Zonisamide 150 mg PO QPM 10/20/19 10/20/19 Pantoprazole [Protonix] 40 mg PO DAILY #30 tablet 10/21/19 Metoprolol Succinate 25 mg ORAL 01/17/20 Ferrous Sulfate 325 mg PO BID #60 tablet 02/14/20 LORazepam [Ativan] 1 mg PO ONCE #12 tablet 02/14/20 Ibuprofen [Motrin] 800 mg PO Q8H PRN #20 tablet 03/18/21 Ondansetron Odt [Zofran] 4 mg TL Q6H PRN #10 tablet 03/18/21 Oxycodone HCl/Acetaminophen 1 - 2 each PO Q6H PRN #14 tablet 03/18/21 [Percocet 5-325 mg Tablet] Tamsulosin [Flomax] 0.4 mg PO DAILY #14 cap 03/18/21 Oxycodone HCl/Acetaminophen 1 - 2 each PO Q6H PRN #20 tablet 09/13/21 [Percocet 5-325 mg Tablet] - Allergies Allergies/Adverse Reactions: Allergies Allergy/AdvReac Type Severity Reaction Status Date / Time bupropion [From Wellbutrin] Allergy Unknown Verified 09/07/21 07:27 lamotrigine [From Lamictal] AdvReac Unknown Verified 09/07/21 07:27 - Social History Does the pt smoke?: No Smoking Status: Never smoker Does the pt drink ETOH?: No Does the pt have substance abuse?: No - Immunizations Immunizations are current?: No Immunizations: TDAP >10years/unknown - POLST Patient has POLST: No PD ED PE NORMAL - Vitals Vital signs reviewed: Yes - General General: Alert and oriented X 3, No acute distress - HEENT HEENT: PERRL, EOMI - Neck Neck: Supple, no meningeal sign, No bony TTP - Extremities Extremities: Other (Unable to range the right shoulder at all due to pain and there is mild tenderness over the scapula and glenohumeral joint without deformity. Cannot internally or externally rotate. Normal neurovascular function in the right upper extremity. No rib tenderness.) - Neuro Neuro: Alert and oriented X 3, No motor deficit, No sensory deficit, Normal speech Eye Opening: Spontaneous Motor: Obeys Commands Verbal: Oriented GCS Score: 15 Results - Vitals Vitals: Vital Signs - 24 hr 09/13/21 09/13/21 08:58 09:42 Temperature 36.6 C 36.6 C Heart Rate 64 59 L Respiratory 24 15 Rate Blood Pressure 123/85 H 128/73 O2 Saturation 98 97 Oxygen O2 Source Room air - Labs Labs: Laboratory Tests 09/13/21 09:37 Sodium 134 L Potassium 4.3 Chloride 100 L Carbon Dioxide 25 Anion Gap 9.0 BUN 26 H Creatinine 0.8 Estimated GFR (MDRD) 100 Glucose 107 H Calcium 8.6 Last Dose Date Not Reportable Last Dose Time Not Reportable Valproic Acid 70.0 PD MEDICAL DECISION MAKING - ED course ED course: 56-year-old gentleman presents after a right shoulder injury after a trip and fall with severe pain. X-ray showed AC joint arthritis, but no fracture. He was placed in a sling for comfort but we discussed the necessity not to use it long-term. He claimed no improvement after a milligram of Dilaudid IM and this was followed by an oxycodone. His notes that he can be quite pushy for pain medication sometimes and we discussed that the pain medications would not be refilled. He has a follow-up appointment with his neurologist today and they requested we do labs that might be necessary for that neurology appointment and these were done and paper copies given to the . Departure - Departure Disposition: Home, Self Care Clinical Impression: Shoulder strain Condition: Good Record reviewed to determine appropriate education?: Yes Instructions: ED Sprain Shoulder Prescriptions: Oxycodone HCl/Acetaminophen [Percocet 5-325 mg Tablet] 1 - 2 each PO Q6H PRN #20 tablet PRN Reason: pain Comments: I sent prescription electronically to the [facility] pharmacy at the corner of [address] [address] and [facility] here in [place]. As discussed, follow-up with your primary care physician for ongoing pain management. Return for new or worsening symptoms. Follow-up with your neurologist today as scheduled. If you continue to have issues with the shoulder talk with your doctor about ordering an MRI. I am prescribing a short course of narcotic pain medication for you. These are potentially dangerous and addictive medications that should be used carefully. These medications may constipate you. Take an [id number]-[id number] stool softener (docusate) twice daily with plenty of water while taking these medications. If you go 24 hours without a bowel movement, take zaha-hec-pqqhjva miralax, per package instructions. Do not drink or drive while taking these medications. If you received narcotic or sedating medications while in the emergency department, do not drive for 24 hours. Store this medication in a safe, secure place and out of reach of children. It is a violation of federal law to give or sell this medication to another person or to use in a manner other than prescribed. The ED will not refill narcotic prescriptions, including prescriptions lost or stolen. To dispose of unwanted medications: 1. [facility] at [address] in [place] has a medication drop box. They accept prescription medications (in pill form) Friday through Friday 9:00 a.m. to 5:00 p.m. 2. The [facility] [place] [employer] accepts prescription medications (in pill form only) for disposal year round. Call for more information. 3. Contact the [facility] for the next [facility] sponsored prescription drug collection event. , [phone], or [phone]; Note that many narcotic pain relievers also contain Tylenol/acetaminophen. Please ensure that your total dose of acetaminophen from all sources does not exceed 3 g (3000 mg) per day.
--- OUTSIDE RECORDS SUMMARY | 2021-09-13 09:23 | EXTERNAL MEDICAL SUMMARY RPT | Continuity of Care Document ---
:1965 Author Organization [facility] Address [address] [place] [address] Phone Care Team Providers Name Role Phone Ronal Everett Unavailable Unavailable Allergies No information. Encounters No information. Medications date description facility [id number] Hydroxyzine Hydrochloride 50 MG Oral [facility] [id number] Clonazepam 0.5 MG Oral Tablet [facility] Problems date description facility [id number] Status Epilepticus, CVA [employer] Procedures date description facility [id number] [facility] [id number] [facility] [id number] Diagnosis [facility] [id number] [facility] Results No information.
--- NOTE | 2021-09-13 09:36 | XRAY Report ---
PROCEDURE: Shoulder 3 View RT INDICATIONS: shoulder inj TECHNIQUE: 3 views of the shoulder were acquired. COMPARISON: None. FINDINGS: Bones: No fractures or dislocations. No suspicious bony lesions. Visualized ribs appear intact. M oderate acromioclavicular degenerative narrowing is present. Soft tissues: No suspicious soft tissue calcifications. IMPRESSION: No visualized acute fracture or dislocation. However, occult injury cannot be excluded. Recommend jorge rt interval imaging follow-up in 7-10 days as clinically indicated for additional evaluation. Reviewed by: Sharee Luna MD on 09/13/2021 9:35 AM PDT Approved by: Sharee Luna MD on 09/13/2021 9:35 AM PDT Station ID: [id number]
[2021-09-13 10:00] LABS: BUN - BLOOD UREA NITROGEN 26 mg/dL (6-20); CALCIUM 8.6 mg/dL (8.5-10.3); CARBON DIOXIDE - CO2 25 mmol/L (21-32); CHLORIDE 100 mmol/L (101-111); CREATININE 0.8 mg/dL (0.6-1.2); GFR - MDRD 100 (>89); GLUCOSE 107 mg/dL (70-100); POTASSIUM 4.3 mmol/L (3.5-5.0); SODIUM 134 mmol/L (135-145)
[2021-09-13] MEDS ORDERED: oxyCODONE 5 MG TABLET PO STA (10:12)
[2021-09-13 10:21] VITALS: BP 130/72
== END 2021-09-13 10:24 | disposition home or self-care (01) ==
LOC: ED 08:53
DX: S46.911A Strain of unspecified muscle, fascia and tendon at shoulder and upper arm level, right arm, initial encounter (principal); W01.0XXA Fall on same level from slipping, tripping and stumbling without subsequent striking against object, initial encounter; Y93.01 Activity, walking, marching and hiking; Y92.007 Garden or yard of unspecified non-institutional (private) residence as the place of occurrence of the external cause; I48.91 Unspecified atrial fibrillation; Z79.01 Long term (current) use of anticoagulants; Z95.2 Presence of prosthetic heart valve
CPT/HCPCS: 36415; 73030; 80048; 80164; 96372; 99282; 99284; A9270; J1170

== ENCOUNTER 2021-11-07 11:13 | Outpatient (CLI) | payer BC ==
[2021-11-07 11:28] LABS: BASOPHILS % (AUTO) 0.4 %; EOSINOPHILS # (AUTO) 0.2 10^3/uL (0.0-0.7); EOSINOPHILS % (AUTO) 2.9 %; HCT - HEMATOCRIT 36.3 % (42.0-52.0); HGB - HEMOGLOBIN 11.6 g/dL (14.0-18.0); LYMPHOCYTES # (AUTO) 1.6 10^3/uL (1.5-3.5); LYMPHOCYTES % (AUTO) 21.3 %; MEAN CORPUSCULAR HEMOGLOBIN 29.4 pg (27.0-31.0); MEAN CORPUSCULAR VOLUME 91.9 fL (80.0-94.0); MEAN PLATELET VOLUME 8.6 fL (7.4-11.4); MONOCYTES # (AUTO) 0.9 10^3/uL (0.0-1.0); MONOCYTES % (AUTO) 12.6 %; NEUTROPHILS # (AUTO) 4.5 10^3/uL (1.5-6.6); NEUTROPHILS % (AUTO) 61.7 %; PLT - PLATELET COUNT 238 10^3/uL (130-450); RED BLOOD COUNT 3.95 10^6/uL (4.70-6.10); RED CELL DISTRIBUTION WIDTH 13.4 % (12.0-15.0); WHITE BLOOD COUNT 7.3 x10^3/uL (4.8-10.8)
[2021-11-07 11:49] LABS: BUN - BLOOD UREA NITROGEN 19 mg/dL (6-20); CARBON DIOXIDE - CO2 26 mmol/L (21-32); CHLORIDE 100 mmol/L (101-111); CREATININE 0.7 mg/dL (0.6-1.2); GFR - MDRD 117 (>89); POTASSIUM 4.5 mmol/L (3.5-5.0); SODIUM 135 mmol/L (135-145)
[2021-11-07 11:50] LABS: ALBUMIN 3.4 g/dL (3.2-5.5); ALKALINE PHOSPHATASE 52 IU/L (42-121); ALT ALANINE AMINOTRANSFERASE 12 IU/L (10-60); AST ASPARTATE AMINOTRANSFERASE 12 IU/L (10-42); BILIRUBIN,TOTAL 0.5 mg/dL (0.2-1.0); GLUCOSE 102 mg/dL (70-100); TOTAL PROTEIN 6.9 g/dL (6.7-8.2); VALPROIC ACID (DEPAKOTE) 54.1 ug/mL
== END 2021-11-07 11:14 | disposition home or self-care (01) ==
LOC: LAB 11:13
PROVIDERS: ATTEND Psychiatry & Neurology Neurology
DX: G40.909 Epilepsy, unspecified, not intractable, without status epilepticus (principal); Z79.899 Other long term (current) drug therapy
CPT/HCPCS: 36415; 80053; 80164; 80201; 81599; 82140; 82379; 85025

== ENCOUNTER 2021-12-06 14:06 | Emergency (ER) | payer BC ==
--- NOTE | 2021-12-06 14:50 | XRAY Report ---
PROCEDURE: Chest 1 View X-Ray INDICATIONS: Chest Pain TECHNIQUE: One view of the chest was acquired. COMPARISON: 02/14/2020 plain film examination of the chest. FINDINGS: Surgical changes and devices: Median sternotomy. Lungs and pleura: No pleural effusions or pneumothorax. Lungs are clear. Mediastinum: Mediastinal contours appear normal. Heart size is normal. Bones and chest wall: No suspicious bony lesions. Overlying soft tissues appear unremarkable. IMPRESSION: No acute process. Reviewed by: Alexx Pichardo MD on 12/06/2021 2:48 PM PDT Approved by: Alexx Pichardo MD on 12/06/2021 2:48 PM PDT Station ID: [id number]
[2021-12-06 15:00] LABS: BASOPHILS % (AUTO) 0.4 %; EOSINOPHILS # (AUTO) 0.2 10^3/uL (0.0-0.7); EOSINOPHILS % (AUTO) 2.1 %; HCT - HEMATOCRIT 38.1 % (42.0-52.0); HGB - HEMOGLOBIN 12.3 g/dL (14.0-18.0); LYMPHOCYTES # (AUTO) 2.1 10^3/uL (1.5-3.5); LYMPHOCYTES % (AUTO) 24.6 %; MEAN CORPUSCULAR HEMOGLOBIN 28.7 pg (27.0-31.0); MEAN CORPUSCULAR HGB CONC 32.3 g/dL (32.0-36.0); MEAN PLATELET VOLUME 8.8 fL (7.4-11.4); MONOCYTES % (AUTO) 11.6 %; NEUTROPHILS % (AUTO) 59.8 %; PLT - PLATELET COUNT 281 10^3/uL (130-450); RED BLOOD COUNT 4.28 10^6/uL (4.70-6.10); RED CELL DISTRIBUTION WIDTH 13.4 % (12.0-15.0); WHITE BLOOD COUNT 8.4 x10^3/uL (4.8-10.8)
[2021-12-06 15:04] LABS: ALBUMIN 3.8 g/dL (3.2-5.5); BILIRUBIN,TOTAL 0.4 mg/dL (0.2-1.0); CREATININE 0.8 mg/dL (0.6-1.2); POTASSIUM 4.4 mmol/L (3.5-5.0); TOTAL PROTEIN 7.6 g/dL (6.7-8.2)
--- NOTE | 2021-12-06 16:35 | ED Physician Documentation ---
History of Present Illness - Stated complaint Stated Complaint: BILAT FEET/LEG SWELLING - Chief complaint Chief Complaint: Ext Problem - Additonal information Additional information: 56-year-old male presents emergency department for evaluation of acute bilateral lower extremity edema that has gotten progressively worse over the last week. This gentleman has a history of a fairly significant seizure disorder as well as a history of A. fib and mitral valve replacement in 2019. Currently on Eliquis. He has required cardioversion x3 due to A. fib RVR. Is followed by Dr. Weinstein through [facility]. Patient states that he has noticed that his legs are progressively swollen over the last week he is also feeling that he has swelling in his abdomen. He is denying any chest pain or dyspnea. No cough, fevers. No recent travel. Meds: Metoprolol, Eliquis, Depakote, topiramate, Lexapro, daily aspirin, gabapentin, Vimpat, hydroxyzine Review of Systems Constitutional: denies: Fever, Chills Throat: reports: Reviewed and negative Cardiac: reports: Reviewed and negative Respiratory: reports: Other (Bilateral lower extremity edema) GI: reports: Reviewed and negative : denies: Dysuria, Frequency, Hesitancy Skin: denies: Rash Musculoskeletal: reports: Reviewed and negative Neurologic: reports: Reviewed and negative Psychiatric: reports: Reviewed and negative PD PAST MEDICAL HISTORY - Past Medical History Past Medical History: Yes Cardiovascular: Atrial fibrillation, Valve disorder Respiratory: None, Sleep apnea, CPAP use Neuro: Head injury, Seizure disorder Endocrine/Autoimmune: None GI: None : None HEENT: None, Other Psych: Anxiety Musculoskeletal: None Derm: None - Past Surgical History Past Surgical History: Yes Cardiovascular: Valve replacement - Present Medications Home Medications: Ambulatory Orders Medication Instructions Recorded Confirmed Divalproex [Мария Swift] 1,500 mg PO DAILY 12/10/18 10/20/19 Escitalopram [Lexapro] 20 mg PO DAILY 12/10/18 10/20/[address] Juan A Swift] 1,750 mg PO QPM 10/20/19 10/20/19 Zonisamide 150 mg PO QPM 10/20/19 10/20/19 Pantoprazole [Protonix] 40 mg PO DAILY #30 tablet 10/21/19 Metoprolol Succinate 25 mg ORAL 01/17/20 Ferrous Sulfate 325 mg PO BID #60 tablet 02/14/20 LORazepam [Ativan] 1 mg PO ONCE #12 tablet 02/14/20 Ibuprofen [Motrin] 800 mg PO Q8H PRN #20 tablet 03/18/21 Ondansetron Odt [Zofran] 4 mg TL Q6H PRN #10 tablet 03/18/21 Oxycodone HCl/Acetaminophen 1 - 2 each PO Q6H PRN #14 tablet 03/18/21 [Percocet 5-325 mg Tablet] Tamsulosin [Flomax] 0.4 mg PO DAILY #14 cap 03/18/21 Oxycodone HCl/Acetaminophen 1 - 2 each PO Q6H PRN #20 tablet 09/13/21 [Percocet 5-325 mg Tablet] Furosemide [Lasix] 20 mg PO DAILY 7 Days #7 tablet 12/06/21 - Allergies Allergies/Adverse Reactions: Allergies Allergy/AdvReac Type Severity Reaction Status Date / Time bupropion [From Wellbutrin] Allergy Unknown Verified 12/06/21 14:22 oxycodone Allergy Hallucinati Verified 12/06/21 14:22 ons lamotrigine [From Lamictal] AdvReac Unknown Verified 12/06/21 14:22 - Social History Does the pt smoke?: No Smoking Status: Never smoker Does the pt drink ETOH?: No Does the pt have substance abuse?: No - Immunizations Immunizations are current?: No Immunizations: TDAP >10years/unknown - POLST Patient has POLST: No PD ED PE NORMAL - General General: Alert and oriented X 3, No acute distress, Well developed/nourished (Obese) - HEENT HEENT: Atraumatic, Moist mucous membranes, Pharynx benign - Neck Neck: Supple, no meningeal sign, No adenopathy - Cardiac Cardiac: RRR, Strong equal pulses, Other (Anasarca to mid thighs.). No: No murmur (systolic murmur) - Respiratory Respiratory: No respiratory distress, Clear bilaterally - Abdomen Abdomen: Normal bowel sounds, Soft - Back Back: No CVA TTP, No spinal TTP - Derm Derm: Normal color, Warm and dry, No rash - Extremities Extremities: No deformity, No tenderness to palpate, Normal ROM s pain. 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 Eye Opening: Spontaneous Motor: Obeys Commands Verbal: Oriented GCS Score: 15 Results - Vitals Vitals: Vital Signs - 24 hr 12/06/21 14:11 Temperature 36.3 C L Heart Rate 51 L Respiratory 14 Rate Blood Pressure 140/78 H O2 Saturation 99 Oxygen O2 Source Room air - EKG (time done) 1504 Rate: Rate (enter#) (50) Rhythm: NSR [place]: Normal Intervals: RBBB (incomplete) QRS: Normal Ischemia: Non specific changes Compare to prior EKG: Changed from prior EKG Computer interpretation: Agree with computer - Labs Labs: Laboratory Tests 12/06/21 12/06/21 12/06/21 14:45 14:45 14:45 WBC 8.4 RBC 4.28 L Hgb 12.3 L Hct 38.1 L MCV 89.0 MCH 28.7 MCHC 32.3 RDW 13.4 Plt Count 281 MPV 8.8 Neut # (Auto) 5.0 Lymph # (Auto) 2.1 [place] # (Auto) 1.0 Eos # (Auto) 0.2 Baso # (Auto) 0.0 Absolute Nucleated RBC 0.00 Nucleated RBC % 0.0 Sodium 131 L Potassium 4.4 Chloride 98 L Carbon Dioxide 25 Anion Gap 8.0 BUN 17 Creatinine 0.8 Estimated GFR (MDRD) 100 Glucose 94 Calcium 9.0 Total Bilirubin 0.4 AST 13 ALT 12 Alkaline Phosphatase 54 Ammonia B-Natriuretic Peptide 321 H Total Protein 7.6 Albumin 3.8 Globulin 3.8 Albumin/Globulin Ratio 1.0 Lipase 34 12/06/21 16:56 WBC RBC Hgb Hct MCV MCH MCHC RDW Plt Count MPV Neut # (Auto) Lymph # (Auto) [place] # (Auto) Eos # (Auto) Baso # (Auto) Absolute Nucleated RBC Nucleated RBC % Sodium Potassium Chloride Carbon Dioxide Anion Gap BUN Creatinine Estimated GFR (MDRD) Glucose Calcium Total Bilirubin AST ALT Alkaline Phosphatase Ammonia 24.2 B-Natriuretic Peptide Total Protein Albumin Globulin Albumin/Globulin Ratio Lipase - Rads (name of study) cxr Radiology: Final report received (No acute cardiopulmonary process) PD MEDICAL DECISION MAKING - ED course Complexity details: reviewed results, re-evaluated patient, considered differential, d/w patient, d/w family ED course: 56-year-old male who has a history most significant for a seizure disorder as well as atrial fib, mitral valve repair anticoagulated on Eliquis presents to the emergency department with worsening lower extremity edema for 1 week. He denies chest pain or dyspnea. He is followed by Dr. Cartagena cardiology through [facility]. On presentation he appears well. He is not hypoxic, dyspneic, or tachypneic. Room air saturations 97% or better. Chest x-ray is without acute focal opacity findings of volume overload. His screening EKG does show sinus rhythm with an incomplete right bundle branch block. Screening labs showed no significant anemia normal renal and liver function. He does have a mildly elevated BNP of 321. He is noted to be mildly hyponatremic at 131, which He has had previously in the past. I suspect that the cause of his hyponatremia is hypervolemic hyponatremia. I believe that he would benefit from at least a short course of diuresis. 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 Patience Cartagena) but they have not returned the call. I did discuss today's lab findings and my concerns for the pedal edema and hyponatremia with the patient and his . They are agreeable to a short course of diuretic. They report that they have easy ability to follow-up with her primary care provider in [place] and follow-up with her lathe mechanic. I have advised that the need to have their labs repeated early next week to ensure that the hyponatremia is not worsening as well as to reevaluate his potassium in the setting of furosemide administration. Patient is advised to return immediately to the ER for any worsening edema, chest pain, or shortness of air. Pt and his are quite reliable and are in agreement with plan Departure - Departure Disposition: 01 Home, Self Care Clinical Impression: Bilateral lower extremity edema, Hyponatremia Condition: Stable Record reviewed to determine appropriate education?: Yes Follow-Up: PATIENCE CARTAGENA MD [Physician No Access] - Prescriptions: Furosemide [Lasix] 20 mg PO DAILY 7 Days #7 tablet Comments: George you were seen today in the emergency department because you have developed progressive swelling of your lower legs that seems to have occurred over the last week. With your history of atrial fibrillation as well as mitral valve replacement this can be a sign of early heart failure. Your screening labs today are essentially normal with the exception of your sodium that is 131. I suspect that the low sodium level is due to a condition called hypervolemic hyponatremia which simply means low sodium levels in the setting of excessive fluid volume. In order to help manage this I would like you to start taking the Lasix every day for the next week. This prescription has been sent to the [facility] pharmacy here in [place]. I would like you to take 10 mg of potassium chloride that you have at home every day while taking the Lasix. It is critical that you follow-up with Dr. Weinstein your lathe mechanic to discuss this ED visit. They may want to continue giving you additional Lasix. They may also want to consider obtaining an echocardiogram of your heart to evaluate heart function. It is very important that you have your blood chemistry redrawn early next week perhaps Friday or Friday to ensure that the sodium levels are stable and that your potassium is not too low. I do recommend that you begin weighing yourself every morning when you wake up. This can help determine where you are out in terms of excessive volume gain or loss. If at any point you develop fevers, develop chest pain, have shortness of air, have worsening swelling or develop new onset seizures then please return to the ER for a second evaluation
[2021-12-06] MEDS ORDERED: GABAPENTIN 100 MG CAPSULE PO STA (17:46)
[2021-12-06] MEDS ORDERED: FUROSEMIDE 20 MG TABLET PO STA (17:52)
[2021-12-06 18:02] VITALS: BP 144/90
== END 2021-12-06 18:01 | disposition home or self-care (01) ==
LOC: ED 14:06
DX: R60.9 Edema, unspecified (principal); E87.1 Hypo-osmolality and hyponatremia; I48.91 Unspecified atrial fibrillation; Z79.01 Long term (current) use of anticoagulants
CPT/HCPCS: 36415; 71045; 80053; 82140; 83690; 83880; 85025; 93005; 99283; 99284; A9270

== ENCOUNTER 2021-12-21 11:26 | Outpatient (CLI) | payer BC ==
[2021-12-21 12:15] LABS: THYROID STIMULATING HORMONE 0.89 uIU/mL (0.34-5.60)
== END 2021-12-21 11:27 | disposition home or self-care (01) ==
LOC: LAB 11:26
PROVIDERS: ATTEND Internal Medicine Cardiovascular Disease
DX: I48.4 Atypical atrial flutter (principal)
CPT/HCPCS: 36415; 84443

== ENCOUNTER 2022-01-16 06:37 | Outpatient (CLI) | payer BC | END 2022-01-16 06:38 | disposition critical access hospital (66) | LOC: EMS 06:37 | DX: G40.909 Epilepsy, unspecified, not intractable, without status epilepticus (principal); S09.93XA Unspecified injury of face, initial encounter; W18.39XA Other fall on same level, initial encounter; Y92.000 Kitchen of unspecified non-institutional (private) residence as the place of occurrence of the external cause | CPT/HCPCS: A0425; A0429 ==

== ENCOUNTER 2022-01-16 07:23 | Emergency (ER) | payer BC ==
[2022-01-16] MEDS ORDERED: LORazepam 2 MG/ML VIAL IVP STA ×2 (08:00→08:01)
[2022-01-16 08:06] LABS: BASOPHILS % (AUTO) 0.2 %; EOSINOPHILS % (AUTO) 0.5 %; HCT - HEMATOCRIT 35.8 % (42.0-52.0); HGB - HEMOGLOBIN 11.8 g/dL (14.0-18.0); LYMPHOCYTES # (AUTO) 0.7 10^3/uL (1.5-3.5); LYMPHOCYTES % (AUTO) 7.9 %; MEAN CORPUSCULAR HEMOGLOBIN 27.9 pg (27.0-31.0); MEAN CORPUSCULAR VOLUME 84.6 fL (80.0-94.0); MEAN PLATELET VOLUME 8.4 fL (7.4-11.4); MONOCYTES # (AUTO) 0.5 10^3/uL (0.0-1.0); MONOCYTES % (AUTO) 5.6 %; NEUTROPHILS # (AUTO) 7.4 10^3/uL (1.5-6.6); NEUTROPHILS % (AUTO) 85.3 %; PLT - PLATELET COUNT 287 10^3/uL (130-450); RED BLOOD COUNT 4.23 10^6/uL (4.70-6.10); RED CELL DISTRIBUTION WIDTH 13.2 % (12.0-15.0); WHITE BLOOD COUNT 8.6 x10^3/uL (4.8-10.8)
--- NOTE | 2022-01-16 08:07 | CT Report ---
PROCEDURE: HEAD WO INDICATIONS: fell, hit head, eliquis TECHNIQUE: Noncontrast 4.5 mm thick angled axial sections acquired from the foramen magnum to the vertex. For r adiation dose reduction, the following was used: automated exposure control, adjustment of mA and/or kV according to patient size. COMPARISON: 09/07/2021 FINDINGS: Image quality: Excellent. CSF spaces: Basal cisterns are patent. No extra-axial fluid collections. Ventricles are normal in size and shape. Brain: No midline shift. No intracranial masses or hemorrhage. Castaneda-white matter interface is norm al. Skull and face: Calvarium and visualized facial bones are intact, without suspicious lesions. Sinuses: Visualized sinuses and mastoids are clear. IMPRESSION: CT head without acute intracranial abnormalities. No acute calvarial fractures. Reviewed by: Francisco Warner MD on 01/16/2022 8:06 AM PDT Approved by: Francisco Warner MD on 01/16/2022 8:06 AM PDT Station ID: [id number]
[2022-01-16] MEDS ORDERED: LORazepam 2 MG/ML VIAL ONE (08:15)
--- NOTE | 2022-01-16 08:16 | ED Physician Documentation ---
PD HPI SEIZURE - Stated complaint Stated Complaint: FALL/SEIZURE - Chief complaint Chief Complaint: Neuro - History obtained from History obtained from: EMS - Additional information Additional information: The patient is brought to the emergency department by EMS for chief complaint of seizure. The patient has a history of seizure disorder and most recently has been on Topamax and Depakote for this. He is also previously been on Dilantin. The immediate circumstances surrounding the seizure are not clear. He is reported to have hit his head by medics and he takes Eliquis for A. fib. The patient has been postictal in route, but is verbalizing and moving all 4 extremities. He has not able to give any history at this time. Review of records reveals he has been seen here on a number of occasions for breakthrough seizures, as well as visits related to his cardiac condition and other miscellaneous complaints. No known recent changes to his meds. It is not known whether he has been taking his medications. Review of Systems Unable to obtain: Other (Heavily postictal) PD PAST MEDICAL HISTORY - Past Medical History Cardiovascular: Atrial fibrillation, Valve disorder Respiratory: None, Sleep apnea, CPAP use Neuro: Head injury, Seizure disorder Endocrine/Autoimmune: None GI: None : None HEENT: None, Other Psych: Anxiety Musculoskeletal: None Derm: None - Past Surgical History Past Surgical History: Yes Cardiovascular: Valve replacement - Present Medications Home Medications: Ambulatory Orders Medication Instructions Recorded Confirmed Escitalopram [Lexapro] 20 mg PO DAILY 12/10/18 10/20/19 Zonisamide 150 mg PO QPM 10/20/19 10/20/19 Pantoprazole [Protonix] 40 mg PO DAILY #30 tablet 10/21/19 Metoprolol Succinate 25 mg ORAL 01/17/20 Ferrous Sulfate 325 mg PO BID #60 tablet 02/14/20 LORazepam [Ativan] 1 mg PO ONCE #12 tablet 02/14/20 Ibuprofen [Motrin] 800 mg PO Q8H PRN #20 tablet 03/18/21 Ondansetron Odt [Zofran] 4 mg TL Q6H PRN #10 tablet 03/18/21 Tamsulosin [Flomax] 0.4 mg PO DAILY #14 cap 03/18/21 Oxycodone HCl/Acetaminophen 1 - 2 each PO Q6H PRN #20 tablet 09/13/21 [Percocet 5-325 mg Tablet] Furosemide [Lasix] 20 mg PO DAILY 7 Days #7 tablet 12/06/21 Lacosamide 150 mg PO BID #250 tablet 01/16/22 clonazePAM [Clonazepam] 0.5 mg PO Q6H PRN #25 tab 01/16/22 - Allergies Allergies/Adverse Reactions: Allergies Allergy/AdvReac Type Severity Reaction Status Date / Time bupropion [From Wellbutrin] Allergy Unknown Verified 12/06/21 14:22 oxycodone Allergy Hallucinati Verified 12/06/21 14:22 ons lamotrigine [From Lamictal] AdvReac Unknown Verified 12/06/21 14:22 - Social History Does the pt smoke?: No Smoking Status: Never smoker Does the pt drink ETOH?: No Does the pt have substance abuse?: No - Immunizations Immunizations are current?: No Immunizations: TDAP >10years/unknown - POLST Patient has POLST: No PD ED PE NORMAL - Vitals Vital signs reviewed: Yes - General General: Well developed/nourished, Other (The patient is confused, breathing heavily, and moving all 4 extremities. He does not answer questions at this time.) - HEENT HEENT: Atraumatic, PERRL, Moist mucous membranes - Neck Neck: Supple, no meningeal sign - Cardiac Cardiac: RRR, No murmur, Strong equal pulses - Respiratory Respiratory: No respiratory distress, Clear bilaterally - Abdomen Abdomen: Soft, Non tender, Other (Obese) - Derm Derm: Normal color, Warm and dry, No rash - Extremities Extremities: No deformity, No edema - Neuro Neuro: Other (Awake but not alert, moving all 4 extremities. Appears clinically postictal.) - Psych Psych: Normal mood, Normal affect Results - Vitals Vitals: Oxygen O2 Source Room air - Labs Labs: Laboratory Tests 01/16/22 01/16/22 01/16/22 07:30 07:59 07:59 WBC 8.6 RBC 4.23 L Hgb 11.8 L Hct 35.8 L MCV 84.6 MCH 27.9 MCHC 33.0 RDW 13.2 Plt Count 287 MPV 8.4 Neut # (Auto) 7.4 H Lymph # (Auto) 0.7 L [place] # (Auto) 0.5 Eos # (Auto) 0.0 Baso # (Auto) 0.0 Absolute Nucleated RBC 0.00 Nucleated RBC % 0.0 Sodium 134 L Potassium 4.0 Chloride 101 Carbon Dioxide 19 L Anion Gap 14.0 H BUN 13 Creatinine 0.8 Estimated GFR (MDRD) 100 Glucose 153 H Calcium 9.2 Total Bilirubin 0.7 AST 21 ALT 14 Alkaline Phosphatase 64 Total Protein 7.1 Albumin 3.8 Globulin 3.3 Albumin/Globulin Ratio 1.2 Lipase 33 Urine Color YELLOW Urine Clarity CLEAR Urine pH 5.5 Ur Specific [place] >=1.030 H Urine Protein 30 H Urine Glucose (UA) NEGATIVE Urine Ketones NEGATIVE Urine Occult Blood TRACE-INTA Urine Nitrite NEGATIVE Urine Bilirubin NEGATIVE Urine Urobilinogen 0.2 (NORMAL) Ur Leukocyte Esterase NEGATIVE Urine RBC 0-5 Urine WBC 0-3 Ur Squamous Epith Cells RARE Squamous Urine Bacteria Few Urine Casts 0-2 Course Granular Ur Microscopic Review INDICATED Urine Culture Comments NOT INDICATED Last Dose Date Last Dose Time Phenytoin Valproic Acid 01/16/22 01/16/22 07:59 07:59 WBC RBC Hgb Hct MCV MCH MCHC RDW Plt Count MPV Neut # (Auto) Lymph # (Auto) [place] # (Auto) Eos # (Auto) Baso # (Auto) Absolute Nucleated RBC Nucleated RBC % Sodium Potassium Chloride Carbon Dioxide Anion Gap BUN Creatinine Estimated GFR (MDRD) Glucose Calcium Total Bilirubin AST ALT Alkaline Phosphatase Total Protein Albumin Globulin Albumin/Globulin Ratio Lipase Urine Color Urine Clarity Urine pH Ur Specific [place] Urine Protein Urine Glucose (UA) Urine Ketones Urine Occult Blood Urine Nitrite Urine Bilirubin Urine Urobilinogen Ur Leukocyte Esterase Urine RBC Urine WBC Ur Squamous Epith Cells Urine Bacteria Urine Casts Ur Microscopic Review Urine Culture Comments Last Dose Date UNKNOWN Last Dose Time UNKNOWN Phenytoin < 2.5 Valproic Acid < 10.0 PD MEDICAL DECISION MAKING - ED course Complexity details: reviewed results, re-evaluated patient, considered differential, d/w patient, d/w family ED course: The patient was worked up with labs and CT scan of the head. His CT was unremarkable. He did have one other seizure in the emergency department and was given 2 mg of Ativan for this. was able to speak with pt's neurologist, who recommended putting the dose of pt's new seizure medication up, which we will do. They have made an appointment for the pt for next week. Pt is awake and conversant, and stable for d/c. Departure - Departure Disposition: 01 Home, Self Care Clinical Impression: Seizure Condition: Stable Instructions: ED Seizure Recurrent Prescriptions: clonazePAM [Clonazepam] 0.5 mg PO Q6H PRN #25 tab PRN Reason: Anxiety Lacosamide 150 mg PO BID #250 tablet Comments: You have been treated for a breakthrough seizure today. Your labs and head CT look good. We have given you IV medication to help prevent further seizures from happening today and you have taken your morning dose of antiseizure medication. Your neurologist has recommended that you go up to 150 mg twice daily on your Vimpat and that in 5 days, you increase this further to 200 mg twice daily. They would like to see you in their office at noon on Friday, January 25, for a follow-up appointment. Refill prescriptions for both your Vimpat and your clonazepam have been electronically transmitted to the [facility]. Discharge Date/Time: 01/16/22 10:39
[2022-01-16 08:20] LABS: ALBUMIN 3.8 g/dL (3.2-5.5); ALBUMIN/GLOBULIN RATIO 1.2 (1.0-2.2); BILIRUBIN,TOTAL 0.7 mg/dL (0.2-1.0); CALCIUM 9.2 mg/dL (8.5-10.3); CREATININE 0.8 mg/dL (0.6-1.2); TOTAL PROTEIN 7.1 g/dL (6.7-8.2)
[2022-01-16 08:47] LABS: VALPROIC ACID (DEPAKOTE) < 10.0 ug/mL
--- NOTE | 2022-01-16 09:41 | XRAY Report ---
PROCEDURE: Shoulder 3 View RT INDICATIONS: TRAUMA TECHNIQUE: 3 views of the shoulder were acquired. COMPARISON: None. FINDINGS: Bones: On initial 3 views of the right shoulder, anterior dislocation of the shoulder is present. Th ere is apparent flattening of the superior lateral humeral head. No definite bony glenoid fracture id entified. On the image labeled "post pt movement" the shoulder dislocation appears reduced. No suspic ious bony lesions. Visualized ribs appear intact. Soft tissues: No suspicious soft tissue calcifications. IMPRESSION: 1. Initial images show anterior dislocation of the shoulder. On a subsequent image labeled "post pt m ovement", the shoulder dislocation appears reduced. 2. Flattened appearance of the superior lateral humeral head in the setting of recent shoulder disloc ation raises the possibility of a Hill-Sachs fracture. No definite bony glenoid fracture visualized. Follow-up radiographs or CT can be obtained for evaluation if indicated. Reviewed by: Gio Veras MD on 01/16/2022 9:40 AM PDT Approved by: Gio Veras MD on 01/16/2022 9:40 AM PDT Station ID: [id number]
[2022-01-16 10:00] LABS: BILIRUBIN,URINE NEGATIVE (NEGATIVE); GLUCOSE, URINE (UA) NEGATIVE (NEGATIVE); KETONES,URINE (UA) NEGATIVE (NEGATIVE); LEUKOCYTE ESTERASE, URINE NEGATIVE (NEGATIVE); NITRITE,URINE NEGATIVE (NEGATIVE); OCCULT BLOOD,URINE TRACE-INTA (NEGATIVE); PH,URINE 5.5 PH (5.0-7.5); PROTEIN,URINE 30 mg/dL (NEGATIVE); UROBILINOGEN,URINE 0.2 (NORMAL) E.U./dL (NORMAL)
[2022-01-16 10:01] LABS: CLARITY,URINE CLEAR (CLEAR)
[2022-01-16 10:11] LABS: BACTERIA,URINE Few /HPF (None Seen); RBC,URINE 0-5 /HPF (0-5); SQUAMOUS EPITHELIAL CELL,UR RARE Squamous (<= Few); WBC,URINE 0-3 /HPF (0-3)
[2022-01-16 10:12] LABS: CASTS, URINE 0-2 Course Granular /LPF
[2022-01-16] MEDS ORDERED: KETOROLAC 30 MG/ML VIAL IVP STA (10:13)
[2022-01-16] MEDS ORDERED: ACETAMINOPHEN 325 MG TABLET PO STA (10:14)
[2022-01-16 10:40] VITALS: BP 133/93
== END 2022-01-16 10:39 | disposition home or self-care (01) ==
LOC: EDUNIT# → ED 07:23
DX: R56.9 Unspecified convulsions (principal); I48.91 Unspecified atrial fibrillation; Z79.01 Long term (current) use of anticoagulants
CPT/HCPCS: 36415; 70450; 73030; 80053; 80164; 80185; 81001; 83690; 85025; 96374; 96375; 99281; 99284; A9270; J2060; 81003; 87086

== ENCOUNTER 2022-01-19 21:29 | Outpatient (CLI) | payer BC | END 2022-01-19 21:30 | disposition critical access hospital (66) | LOC: EMS 21:29 | DX: M24.411 Recurrent dislocation, right shoulder (principal) | CPT/HCPCS: A0425; A0427 ==

== ENCOUNTER 2022-01-19 21:34 | Emergency (ER) | payer BC ==
[2022-01-19] MEDS ORDERED: SODIUM CHLORIDE 0.9% 1,000 ML IV STA (21:58)
[2022-01-19] MEDS ORDERED: HYDROmorphone 1 MG/ML CARPUJECT IVP STA (22:03)
[2022-01-19 22:23] LABS: BASOPHILS # (AUTO) 0.1 10^3/uL (0.0-0.1); BASOPHILS % (AUTO) 0.6 %; EOSINOPHILS # (AUTO) 0.2 10^3/uL (0.0-0.7); EOSINOPHILS % (AUTO) 2.8 %; HCT - HEMATOCRIT 36.9 % (42.0-52.0); HGB - HEMOGLOBIN 11.7 g/dL (14.0-18.0); LYMPHOCYTES % (AUTO) 25.3 %; MEAN CORPUSCULAR HEMOGLOBIN 27.9 pg (27.0-31.0); MEAN CORPUSCULAR HGB CONC 31.7 g/dL (32.0-36.0); MEAN CORPUSCULAR VOLUME 88.1 fL (80.0-94.0); MEAN PLATELET VOLUME 8.7 fL (7.4-11.4); MONOCYTES # (AUTO) 0.9 10^3/uL (0.0-1.0); MONOCYTES % (AUTO) 11.9 %; NEUTROPHILS # (AUTO) 4.6 10^3/uL (1.5-6.6); PLT - PLATELET COUNT 338 10^3/uL (130-450); RED BLOOD COUNT 4.19 10^6/uL (4.70-6.10); RED CELL DISTRIBUTION WIDTH 13.4 % (12.0-15.0); WHITE BLOOD COUNT 7.8 x10^3/uL (4.8-10.8)
[2022-01-19 22:36] LABS: ALBUMIN 3.9 g/dL (3.2-5.5); ALBUMIN/GLOBULIN RATIO 1.1 (1.0-2.2); BILIRUBIN,TOTAL 0.5 mg/dL (0.2-1.0); CREATININE 0.9 mg/dL (0.6-1.2); TOTAL PROTEIN 7.3 g/dL (6.7-8.2)
--- NOTE | 2022-01-19 22:38 | XRAY Report ---
PROCEDURE: Shoulder 3 View RT INDICATIONS: shoulder injury TECHNIQUE: 3 views of the shoulder were acquired. COMPARISON: None. FINDINGS/IMPRESSION: Partial anterior left shoulder dislocation with Hill-Sachs deformity as seen on the previous exam. Reviewed by: Sammy Vincent MD on 01/19/2022 10:37 PM PDT Approved by: Sammy Vincent MD on 01/19/2022 10:37 PM PDT Station ID: [id number]
--- NOTE | 2022-01-19 22:42 | ED Physician Documentation ---
PD HPI UPPER EXT INJURY - Stated complaint Stated Complaint: R SHOULDER DISLOCATION - Chief complaint Chief Complaint: Trauma Ext - Additonal information Additional information: Patient is 56-year-old male presenting to the emergency department withRight shoulder pain. Reports was at home when he felt his shoulder pop. Was not doing anything strenuous at the time. Denies any specific traumatic event. Reports a similar episode in the past. Past medical significant for total reconstruction of his left shoulder. Additionally was seen here August 2021 with a similar presentation. Review of Systems Ten Systems: 10 systems reviewed and negative PD PAST MEDICAL HISTORY - Past Medical History Cardiovascular: Atrial fibrillation, Valve disorder Respiratory: None, Sleep apnea, CPAP use Neuro: Head injury, Seizure disorder Endocrine/Autoimmune: None GI: None : None HEENT: None, Other Psych: Anxiety Musculoskeletal: None Derm: None - Past Surgical History Past Surgical History: Yes Cardiovascular: Valve replacement - Present Medications Home Medications: Ambulatory Orders Medication Instructions Recorded Confirmed Escitalopram [Lexapro] 20 mg PO DAILY 12/10/18 10/20/19 Zonisamide 150 mg PO QPM 10/20/19 10/20/19 Pantoprazole [Protonix] 40 mg PO DAILY #30 tablet 10/21/19 Metoprolol Succinate 25 mg ORAL 01/17/20 Ferrous Sulfate 325 mg PO BID #60 tablet 02/14/20 LORazepam [Ativan] 1 mg PO ONCE #12 tablet 02/14/20 Ibuprofen [Motrin] 800 mg PO Q8H PRN #20 tablet 03/18/21 Ondansetron Odt [Zofran] 4 mg TL Q6H PRN #10 tablet 03/18/21 Tamsulosin [Flomax] 0.4 mg PO DAILY #14 cap 03/18/21 Oxycodone HCl/Acetaminophen 1 - 2 each PO Q6H PRN #20 tablet 09/13/21 [Percocet 5-325 mg Tablet] Furosemide [Lasix] 20 mg PO DAILY 7 Days #7 tablet 12/06/21 Lacosamide 150 mg PO BID #250 tablet 01/16/22 clonazePAM [Clonazepam] 0.5 mg PO Q6H PRN #25 tab 01/16/22 - Allergies Allergies/Adverse Reactions: Allergies Allergy/AdvReac Type Severity Reaction Status Date / Time bupropion [From Wellbutrin] Allergy Unknown Verified 01/19/22 21:40 oxycodone Allergy Hallucinati Verified 01/19/22 21:40 ons lamotrigine [From Lamictal] AdvReac Unknown Verified 01/19/22 21:40 - Social History Does the pt smoke?: No Smoking Status: Never smoker Does the pt drink ETOH?: No Does the pt have substance abuse?: No - Immunizations Immunizations are current?: No Immunizations: TDAP >10years/unknown - POLST Patient has POLST: No PD ED PE NORMAL - Vitals Vital signs reviewed: Yes - General General: Alert and oriented X 3, Other (Patient acutely distressed). No: No acute distress - HEENT HEENT: Atraumatic - Neck Neck: Supple, no meningeal sign - Cardiac Cardiac: RRR - Respiratory Respiratory: No respiratory distress - Extremities Extremities: Other (There is deformity and decreased range of motion to the right shoulder. Normal flexion and extension of the right elbow. Radial and ulnar pulses palpable. Normal sensation distal to the site of injury.) Results - Vitals Vitals: Vital Signs - 24 hr 01/19/22 01/19/22 01/19/22 21:40 21:44 23:45 Temperature 36.5 C 36.5 C 36.5 C Heart Rate 64 64 64 Respiratory 22 22 18 Rate Blood Pressure 175/93 H 175/93 H 150/88 H O2 Saturation 99 99 100 Oxygen O2 Source Room air - EKG (time done) 2213 Rate: Rate (enter#) (58) Rhythm: NSR [place]: Normal Intervals: Normal [place] QRS: Normal Ischemia: Normal ST segments Computer interpretation: Disagree with computer - Labs Labs: Laboratory Tests 01/19/22 01/19/22 22:18 22:18 WBC 7.8 RBC 4.19 L Hgb 11.7 L Hct 36.9 L MCV 88.1 MCH 27.9 MCHC 31.7 L RDW 13.4 Plt Count 338 MPV 8.7 Neut # (Auto) 4.6 Lymph # (Auto) 2.0 [place] # (Auto) 0.9 Eos # (Auto) 0.2 Baso # (Auto) 0.1 Absolute Nucleated RBC 0.00 Nucleated RBC % 0.0 Sodium 137 Potassium 4.0 Chloride 100 L Carbon Dioxide 27 Anion Gap 10.0 BUN 19 Creatinine 0.9 Estimated GFR (MDRD) 87 L Glucose 137 H Calcium 10.0 Total Bilirubin 0.5 AST 17 ALT 15 Alkaline Phosphatase 59 Total Protein 7.3 Albumin 3.9 Globulin 3.4 Albumin/Globulin Ratio 1.1 Lipase 46 PD MEDICAL DECISION MAKING - ED course Complexity details: reviewed results, d/w patient ED course: Patient 56-year-old male presenting with atraumatic spontaneous dislocation to right shoulder. Neurovascularly intact. Initial x-rays demonstrate partial dislocation with likely Hill-Sachs deformity. Patient given medication for pain control in the emergency department with spontaneous reduction. Repeat x-rays confirm reduction. Provided sling for immobilization. Discharge with medication for pain control. Given contact information for orthopedics for follow-up. Otherwise clear return precautions and follow-up instructions given prior to discharge. Departure - Departure Disposition: 01 Home, Self Care Clinical Impression: Shoulder dislocation, Hill-Sachs fracture Instructions: ED Dislocation Shoulder Redu, ED Sling Comments: [facility]. Your first x-rays taken today showed a partial dislocation to your right shoulder however it appears that your shoulder has reduced itself while in the emergency department. I would like you to follow-up with your it communications specialist to help you with your total reconstruction of the left shoulder. I will be discharging you with some medication for pain. Please use this as needed. Also recommend regular ice packs to your shoulder for the next few da ys. Please follow-up with your primary care doctor soon as possible. If anytime you have any new or worsening symptoms please not hesitate to return. Discharge Date/Time: 01/19/22 23:45
--- OUTSIDE RECORDS SUMMARY | 2022-01-19 22:46 | EXTERNAL MEDICAL SUMMARY RPT | Continuity of Care Document ---
:1965 Author Organization [facility] Address [address] [place] [address] Phone Allergies No information. Encounters No information. Functional Status No information. Immunizations No information. Medications date description facility + Clonazepam 0.5 MG Oral Tablet [facility] +0000 Furosemide 20 MG Oral Tablet [facility] +0000 gabapentin 600 MG Oral Tablet [facility] [id number]+0000 gabapentin 600 MG Oral Tablet [facility] +0000 lacosamide 50 MG Oral Tablet [facility] Problems No information. Procedures date description facility + Diagnosis [facility] +0000 Finding [facility] +0000 General Physician [facility] Results/Labs test date author facility value unit interpret ation Result panel 1 (unknown) (no (unknown) (unknown) (no value) (units (unk nown) date) unknown) (unknown) (no (unknown) (unknown) Medications: (units (u nknown) date) unknown) (unknown) (no (unknown) (unknown) (no value) (units (unk nown) date) unknown) (unknown) (no (unknown) (unknown) 10/16/21 (units (unkno wn) date) unknown) (unknown) (no (unknown) (unknown) 10:21 (units (unkno wn) date) unknown) (unknown) (no (unknown) (unknown) [place], [place] (units ( unknown) date) [id number] unknown) (unknown) (no (unknown) (unknown) Discontinued (units (u nknown) date) Reason: Dose unknown) Change 300 mg PO TID 90 caps 0RF G62.9 - (unknown) (no (unknown) (unknown) Draft (units (unkno wn) date) unknown) (unknown) (no (unknown) (unknown) [facility] (units (unknown[facility] date[facility] unknown) (unknown) (no (unknown) (unknown) Hyponatremia (units (u nknown) date) unknown) (unknown) (no (unknown) (unknown) Internal Medicine (units (unknown) date) Office Visit unknown) (unknown) (no (unknown) (unknown) hallucinations, (units (unknown) date) delirium unknown) (unknown) (no (unknown) (unknown) (no value) (units (unk nown) date) unknown) (unknown) (no (unknown) (unknown) 10/16/21] (units (unkn own) date) unknown) (unknown) (no (unknown) (unknown) 08/06/21 [Rx (units (u nknown) date) Confirmed unknown) 10/16/21] (unknown) (no (unknown) (unknown) 10/16/21 (units (unkno wn) date) unknown) (unknown) (no (unknown) (unknown) 10/16/21] (units (unkn own) date) unknown) (unknown) (no (unknown) (unknown) 02/22/20 [History (units (unknown) date) Confirmed unknown) 10/16/21] (unknown) (no (unknown) (unknown) [id number] (units (unkno wn) date) unknown) (unknown) (no (unknown) (unknown) Age/Sex: 56 / M (units (unknown) date) Date of Service: unknown) (unknown) (no (unknown) (unknown) Allergic rhinitis (units (unknown) date) unknown) (unknown) (no (unknown) (unknown) Allergies (units (unkn own) date) unknown) (unknown) (no (unknown) (unknown) Assessment + Plan (units (unknown) date) unknown) (unknown) (no (unknown) (unknown) Attending Dr: (units ( unknown) date) Ronal Everett MD unknown) (unknown) (no (unknown) (unknown) BMI 39.4 (units (un known) date) unknown) (unknown) (no (unknown) (unknown) BP 130/80 (units (u nknown) date) unknown) (unknown) (no (unknown) (unknown) Blood Pressure (units (unknown) date) Location Lt unknown) brachial (unknown) (no (unknown) (unknown) : 1965 (units (unknown) date) Acct:[id number] unknown) (unknown) (no (unknown) (unknown) Dept at (units (unkno wn) date) . unknown) (unknown) (no (unknown) (unknown) Discontinued (units (u nknown) date) unknown) (unknown) (no (unknown) (unknown) Documented By: (units (unknown) date) Ronal Everett MD unknown) 10/16/21 0750 (unknown) (no (unknown) (unknown) Health Management (units (unknown) date) unknown) (unknown) (no (unknown) (unknown) Health Management (units (unknown) date) reviewed with unknown) patient: Yes (unknown) (no (unknown) (unknown) Height 6 ft 1 (units (unknown) date) in unknown) (unknown) (no (unknown) (unknown) Intake (units (unkno wn) date) unknown) (unknown) (no (unknown) (unknown) Intake Note: (units (u nknown) date) unknown) (unknown) (no (unknown) (unknown) Loc: [facility] (units (unkno wn) date) unknown) (unknown) (no (unknown) (unknown) Medical History (units (unknown) date) (Updated 07/18/21 unknown) @ 09:06 by Ronal Everett MD) (unknown) (no (unknown) (unknown) Medications (units (un known) date) unknown) (unknown) (no (unknown) (unknown) Oxygen Delivery (units (unknown) date) Method room air unknown) (unknown) (no (unknown) (unknown) PFSH (units (unkno wn) date) unknown) (unknown) (no (unknown) (unknown) Patient: (units (unkno wn) date) George Stoner unknown) MR#: [id number] (unknown) (no (unknown) (unknown) Polyneuropathy, (units (unknown) date) unspecified unknown) (unknown) (no (unknown) (unknown) Position (units (unkno wn) date) Sitting unknown) (unknown) (no (unknown) (unknown) Pulse 55 L (units ( unknown) date) unknown) (unknown) (no (unknown) (unknown) Pulse Oximetry (units (unknown) date) (%) 97 unknown) (unknown) (no (unknown) (unknown) Pulse Source (units (u nknown) date) Monitor unknown) (unknown) (no (unknown) (unknown) Reason For Visit (units (unknown) date) unknown) (unknown) (no (unknown) (unknown) Signed By: (units (unk nown) date) unknown) (unknown) (no (unknown) (unknown) Smoking Status: (units (unknown) date) Never smoker unknown) (unknown) (no (unknown) (unknown) Status post (units (un known) date) mitral valve unknown) repair (unknown) (no (unknown) (unknown) Surgical History (units (unknown) date) (Updated 07/18/21 unknown) @ 09:06 by Ronal Everett MD) (unknown) (no (unknown) (unknown) This note may (units ( unknown) date) have been all or unknown) partially generated using voice recognition (unknown) (no (unknown) (unknown) Tobacco + (units (unkn own) date) Substance Use unknown) (unknown) (no (unknown) (unknown) Tobacco Status (units (unknown) date) unknown) (unknown) (no (unknown) (unknown) Visit Reasons: (units (unknown) date) recent seizure unknown) (unknown) (no (unknown) (unknown) Vitals (units (unkno wn) date) unknown) (unknown) (no (unknown) (unknown) Weight 298 lb (units (unknown) date) 9 oz unknown) (unknown) (no (unknown) (unknown) [History (units (unkno wn) date) Confirmed unknown) 10/16/21] (unknown) (no (unknown) (unknown) acetaminophen 500 (units (unknown) date) mg capsule 500 mg unknown) PO Q6H PRN 02/22/20 [History Confirmed (unknown) (no (unknown) (unknown) amiodarone 200 mg (units (unknown) date) tablet 200 mg PO unknown) DAILY 02/22/20 [History Confirmed 10/16/21] (unknown) (no (unknown) (unknown) apixaban 5 mg (units (u nknown) date) tablet (Eliquis) 5 unknown) mg PO BID 10/16/21 [History Confirmed 10/16/21] (unknown) (no (unknown) (unknown) booster- decline (units (unknown) date) unknown) (unknown) (no (unknown) (unknown) cholecalciferol (units (unknown) date) (vitamin D3) 25 unknown) mcg (1,000 unit) capsule 25 mcg PO DAILY (unknown) (no (unknown) (unknown) clonazepam 0.5 mg (units (unknown) date) tablet 0.5 mg PO unknown) DAILY #30 tab 07/18/21 [Rx Confirmed (unknown) (no (unknown) (unknown) cscope- will (units (u nknown) date) order unknown) (unknown) (no (unknown) (unknown) divalproex 250 mg (units (unknown) date) tablet,delayed unknown) release (Depakote) 250 mg PO BID 09/03/19 (unknown) (no (unknown) (unknown) during the (units (unk nown) date) seizure dislocated unknown) it (unknown) (no (unknown) (unknown) escitalopram (units (u nknown) date) oxalate 20 mg unknown) tablet 20 mg PO DAILY #90 tab 08/22/21 [Rx Confirmed (unknown) (no (unknown) (unknown) gabapentin (units (unk nown) date) unknown) (unknown) (no (unknown) (unknown) gabapentin 600 mg (units (unknown) date) tablet 600 mg PO unknown) TID #90 tab 10/22/21 [Rx] (unknown) (no (unknown) (unknown) have occurred. (units (unknown) date) If there are any unknown) questions, please contact the Medical Records (unknown) (no (unknown) (unknown) hydroxyzine HCl (units (unknown) date) 50 mg tablet 50 mg unknown) PO BID PRN #180 tab 07/18/21 [Rx Confirmed (unknown) (no (unknown) (unknown) ketorolac [From (units (unknown) date) Toradol] Adverse unknown) Reaction (Severe, Verified 10/16/21 10:16) (unknown) (no (unknown) (unknown) may occur. (units (unk nown) date) Occasional unknown) wrong-word or 'sound-alike' substitutions may have (unknown) (no (unknown) (unknown) metoprolol (units (unkn own) date) succinate 100 mg unknown) tablet,extended release 24 hr 100 mg PO BID #180 tab (unknown) (no (unknown) (unknown) occurred due to (units (unknown) date) the inherent unknown) limitations of voice recognition software. Please (unknown) (no (unknown) (unknown) oxycodone Adverse (units (unknown) date) Reaction (Severe, unknown) Verified 10/16/21 10:16) (unknown) (no (unknown) (unknown) read the note (units ( unknown) date) carefully and unknown) recognize, using context, where these substitutions (unknown) (no (unknown) (unknown) recent seizure a (units (unknown) date) month ago- pt unknown) states he is doing good. he hurt his rt shoulder (unknown) (no (unknown) (unknown) software. (units (unkn own) date) Although every unknown) effort is made to edit content, infertility nurse errors (unknown) (no (unknown) (unknown) topiramate 50 mg (units (unknown) date) tablet (Topamax) unknown) 100 mg PO BID tab 10/16/21 [History Confirmed (unknown) (no (unknown) (unknown) zonisamide 50 mg (units (unknown) date) capsule 150 mg PO unknown) DAILY cap 02/22/20 [History Confirmed Result panel 2 (unknown) (no (unknown) (unknown) (no value) (units (unk nown) date) unknown) (unknown) (no (unknown) (unknown) Medications: (units (u nknown) date) unknown) (unknown) (no (unknown) (unknown) Status: Acute (units ( unknown) date) unknown) (unknown) (no (unknown) (unknown) (no value) (units (unk nown) date) unknown) (unknown) (no (unknown) (unknown) 10/16/21 (units (unkno wn) date) unknown) (unknown) (no (unknown) (unknown) 10/29/21 0804 (units ( unknown) date) unknown) (unknown) (no (unknown) (unknown) 10:21 (units (unkno wn) date) unknown) (unknown) (no (unknown) (unknown) [place], [place] (units ( unknown) date) [id number] unknown) (unknown) (no (unknown) (unknown) Discontinued (units (u nknown) date) Reason: Dose unknown) Change 300 mg PO TID 90 caps 0RF G62.9 - (unknown) (no (unknown) (unknown) [facility] unknown) (unknown) (no (unknown) (unknown) Hyponatremia (units (u nknown) date) unknown) (unknown) (no (unknown) (unknown) Internal Medicine (units (unknown) date) Office Visit unknown) (unknown) (no (unknown) (unknown) Signed (units (unkno wn) date) unknown) (unknown) (no (unknown) (unknown) hallucinations, (units (unknown) date) delirium unknown) (unknown) (no (unknown) (unknown) (no value) (units (unk nown) date) unknown) (unknown) (no (unknown) (unknown) 10/16/21] (units (unkn own) date) unknown) (unknown) (no (unknown) (unknown) PT for management (units (unknown) date) of his unknown) comorbidities. (unknown) (no (unknown) (unknown) Records are not (units (unknown) date) available as of unknown) this visit. The patient is a poor historian, (unknown) (no (unknown) (unknown) (1) Seizure (units (un known) date) disorder: unknown) (unknown) (no (unknown) (unknown) 08/06/21 [Rx (units (u nknown) date) Confirmed unknown) 10/16/21] (unknown) (no (unknown) (unknown) 10/16/21 (units (unkno wn) date) unknown) (unknown) (no (unknown) (unknown) 10/16/21] (units (unkn own) date) unknown) (unknown) (no (unknown) (unknown) 02/22/20 [History (units (unknown) date) Confirmed unknown) 10/16/21] (unknown) (no (unknown) (unknown) [id number] (units (unkno wn) date) unknown) (unknown) (no (unknown) (unknown) Affect: normal (units (unknown) date) affect unknown) (unknown) (no (unknown) (unknown) Age/Sex: 56 / M (units (unknown) date) Date of Service: unknown) (unknown) (no (unknown) (unknown) All systems (units (un known) date) reviewed + are unknown) unremarkable except as noted in HPI and below (unknown) (no (unknown) (unknown) Allergic rhinitis (units (unknown) date) unknown) (unknown) (no (unknown) (unknown) Allergies (units (unkn own) date) unknown) (unknown) (no (unknown) (unknown) Appearance: (units (un known) date) grossly normal unknown) (unknown) (no (unknown) (unknown) Assessment + Plan (units (unknown) date) unknown) (unknown) (no (unknown) (unknown) Attending Dr: (units ( unknown) date) Ronal Everett MD unknown) (unknown) (no (unknown) (unknown) Attitude: (units (unkn own) date) cooperative unknown) (unknown) (no (unknown) (unknown) BMI 39.4 (units (un known) date) unknown) (unknown) (no (unknown) (unknown) BP 130/80 (units (u nknown) date) unknown) (unknown) (no (unknown) (unknown) Blood Pressure (units (unknown) date) Location Lt unknown) brachial (unknown) (no (unknown) (unknown) Chief Complaint (units (unknown) date) unknown) (unknown) (no (unknown) (unknown) Chief Complaint: (units (unknown) date) F/u unknown) hospitalization for seizure activity (unknown) (no (unknown) (unknown) Const (units (unkno wn) date) unknown) (unknown) (no (unknown) (unknown) : 1965 (units (unknown) date) Acct:[id number] unknown) (unknown) (no (unknown) (unknown) Dept at (units (unkno wn) date) . unknown) (unknown) (no (unknown) (unknown) Details: (units (unkno wn) date) unknown) (unknown) (no (unknown) (unknown) Discontinued (units (u nknown) date) unknown) (unknown) (no (unknown) (unknown) Documented By: (units (unknown) date) Ronal Everett MD unknown) 10/16/21 0750 (unknown) (no (unknown) (unknown) Effort + (units (unkno wn) date) Inspection: normal unknown) respiratory effort, able to speak in complete (unknown) (no (unknown) (unknown) Exam (units (unkno wn) date) unknown) (unknown) (no (unknown) (unknown) General: (units (unkno wn) date) cooperative, unknown) healthy appearing, comfortable and no acute distress (unknown) (no (unknown) (unknown) HPI (units (unkno wn) date) unknown) (unknown) (no (unknown) (unknown) Health Management (units (unknown) date) unknown) (unknown) (no (unknown) (unknown) Health Management (units (unknown) date) reviewed with unknown) patient: Yes (unknown) (no (unknown) (unknown) Height 6 ft 1 (units (unknown) date) in unknown) (unknown) (no (unknown) (unknown) Hospital records (units (unknown) date) requested to unknown) reconcile medications. Will defer to neurology and (unknown) (no (unknown) (unknown) Intake (units (unkno wn) date) unknown) (unknown) (no (unknown) (unknown) Intake Note: (units (u nknown) date) unknown) (unknown) (no (unknown) (unknown) Judgment: limited (units (unknown) date) unknown) (unknown) (no (unknown) (unknown) Loc: [facility] (units (unkno wn) date) unknown) (unknown) (no (unknown) (unknown) Medical History (units (unknown) date) (Updated 07/18/21 unknown) @ 09:06 by Ronal Everett MD) (unknown) (no (unknown) (unknown) Medications (units (un known) date) unknown) (unknown) (no (unknown) (unknown) Mental Status: (units (unknown) date) mental status unknown) grossly normal (unknown) (no (unknown) (unknown) Mood: congruent (units (unknown) date) mood unknown) (unknown) (no (unknown) (unknown) Mr. Stoner is here (units (unknown) date) with his to unknown) discuss a recent hospitalization for seizure. (unknown) (no (unknown) (unknown) Nutritional (units (un known) date) Appearance: unknown) overweight (unknown) (no (unknown) (unknown) Orientation: (units (u nknown) date) oriented x3 unknown) (unknown) (no (unknown) (unknown) Oxygen Delivery (units (unknown) date) Method room air unknown) (unknown) (no (unknown) (unknown) PFSH (units (unkno wn) date) unknown) (unknown) (no (unknown) (unknown) Patient: (units (unkno wn) date) George Stoner W unknown) MR#: [id number] (unknown) (no (unknown) (unknown) Physical therapy (units (unknown) date) is already unknown) arranged. Neurology follow up is also arranged. (unknown) (no (unknown) (unknown) Plan (units (unkno wn) date) unknown) (unknown) (no (unknown) (unknown) Polyneuropathy, (units (unknown) date) unspecified unknown) (unknown) (no (unknown) (unknown) Position (units (unkno wn) date) Sitting unknown) (unknown) (no (unknown) (unknown) Psych (units (unkno wn) date) unknown) (unknown) (no (unknown) (unknown) Pulse 55 L (units ( unknown) date) unknown) (unknown) (no (unknown) (unknown) Pulse Oximetry (units (unknown) date) (%) 97 unknown) (unknown) (no (unknown) (unknown) Pulse Source (units (u nknown) date) Monitor unknown) (unknown) (no (unknown) (unknown) ROS (units (unkno wn) date) unknown) (unknown) (no (unknown) (unknown) Reason For Visit (units (unknown) date) unknown) (unknown) (no (unknown) (unknown) Resp (units (unkno wn) date) unknown) (unknown) (no (unknown) (unknown) Signed By: (units (unk nown) date) <Electronically unknown) signed by Ronal Everett MD> (unknown) (no (unknown) (unknown) Smoking Status: (units (unknown) date) Never smoker unknown) (unknown) (no (unknown) (unknown) Speech and (units (unk nown) date) Movement: speech unknown) and movement normal (unknown) (no (unknown) (unknown) Status post (units (un known) date) mitral valve unknown) repair (unknown) (no (unknown) (unknown) Surgical History (units (unknown) date) (Updated 07/18/21 unknown) @ 09:06 by Ronal Everett MD) (unknown) (no (unknown) (unknown) This note may (units ( unknown) date) have been all or unknown) partially generated using voice recognition (unknown) (no (unknown) (unknown) Thought Content: (units (unknown) date) normal unknown) (unknown) (no (unknown) (unknown) Thought Process: (units (unknown) date) impoverished unknown) (unknown) (no (unknown) (unknown) Tobacco + (units (unkn own) date) Substance Use unknown) (unknown) (no (unknown) (unknown) Tobacco Status (units (unknown) date) unknown) (unknown) (no (unknown) (unknown) Visit Reasons: (units (unknown) date) recent seizure unknown) (unknown) (no (unknown) (unknown) Vitals (units (unkno wn) date) unknown) (unknown) (no (unknown) (unknown) Weight 298 lb (units (unknown) date) 9 oz unknown) (unknown) (no (unknown) (unknown) [History (units (unkno wn) date) Confirmed unknown) 10/16/21] (unknown) (no (unknown) (unknown) acetaminophen 500 (units (unknown) date) mg capsule 500 mg unknown) PO Q6H PRN 02/22/20 [History Confirmed (unknown) (no (unknown) (unknown) amiodarone 200 mg (units (unknown) date) tablet 200 mg PO unknown) DAILY 02/22/20 [History Confirmed 10/16/21] (unknown) (no (unknown) (unknown) and has had (units (un known) date) further unknown) dislocations following the hospitalization. He describes (unknown) (no (unknown) (unknown) apixaban 5 mg (units (u nknown) date) tablet (Eliquis) 5 unknown) mg PO BID 10/16/21 [History Confirmed 10/16/21] (unknown) (no (unknown) (unknown) booster- decline (units (unknown) date) unknown) (unknown) (no (unknown) (unknown) but generally (units ( unknown) date) says he is doing unknown) well. Meds were adjusted in the hospital and he (unknown) (no (unknown) (unknown) cholecalciferol (units (unknown) date) (vitamin D3) 25 unknown) mcg (1,000 unit) capsule 25 mcg PO DAILY (unknown) (no (unknown) (unknown) clonazepam 0.5 mg (units (unknown) date) tablet 0.5 mg PO unknown) DAILY #30 tab 07/18/21 [Rx Confirmed (unknown) (no (unknown) (unknown) cscope- will (units (u nknown) date) order unknown) (unknown) (no (unknown) (unknown) divalproex 250 mg (units (unknown) date) tablet,delayed unknown) release (Depakote) 250 mg PO BID 09/03/19 (unknown) (no (unknown) (unknown) during the (units (unk nown) date) seizure dislocated unknown) it (unknown) (no (unknown) (unknown) escitalopram (units (u nknown) date) oxalate 20 mg unknown) tablet 20 mg PO DAILY #90 tab 08/22/21 [Rx Confirmed (unknown) (no (unknown) (unknown) gabapentin (units (unk nown) date) unknown) (unknown) (no (unknown) (unknown) gabapentin 600 mg (units (unknown) date) tablet 600 mg PO unknown) TID #90 tab 10/22/21 [Rx] (unknown) (no (unknown) (unknown) has had no (units (unk nown) date) further seizure unknown) activity since discharge. However, he is having (unknown) (no (unknown) (unknown) have occurred. (units (unknown) date) If there are any unknown) questions, please contact the Medical Records (unknown) (no (unknown) (unknown) hydroxyzine HCl (units (unknown) date) 50 mg tablet 50 mg unknown) PO BID PRN #180 tab 07/18/21 [Rx Confirmed (unknown) (no (unknown) (unknown) ketorolac [From (units (unknown) date) Toradol] Adverse unknown) Reaction (Severe, Verified 10/16/21 10:16) (unknown) (no (unknown) (unknown) may occur. (units (unk nown) date) Occasional unknown) wrong-word or 'sound-alike' substitutions may have (unknown) (no (unknown) (unknown) metoprolol (units (unkn own) date) succinate 100 mg unknown) tablet,extended release 24 hr 100 mg PO BID #180 tab (unknown) (no (unknown) (unknown) occurred due to (units (unknown) date) the inherent unknown) limitations of voice recognition software. Please (unknown) (no (unknown) (unknown) ongoing shoulder (units (unknown) date) pain. Says that he unknown) dislocated the shoulder during the seizure (unknown) (no (unknown) (unknown) oxycodone Adverse (units (unknown) date) Reaction (Severe, unknown) Verified 10/16/21 10:16) (unknown) (no (unknown) (unknown) read the note (units ( unknown) date) carefully and unknown) recognize, using context, where these substitutions (unknown) (no (unknown) (unknown) recent seizure a (units (unknown) date) month ago- pt unknown) states he is doing good. he hurt his rt shoulder (unknown) (no (unknown) (unknown) sentences and no (units (unknown) date) audible wheezes unknown) (unknown) (no (unknown) (unknown) software. (units (unkn own) date) Although every unknown) effort is made to edit content, infertility nurse errors (unknown) (no (unknown) (unknown) these events as a (units (unknown) date) sharp pain that unknown) resolves within a few minutes of rest. (unknown) (no (unknown) (unknown) topiramate 50 mg (units (unknown) date) tablet (Topamax) unknown) 100 mg PO BID tab 10/16/21 [History Confirmed (unknown) (no (unknown) (unknown) zonisamide 50 mg (units (unknown) date) capsule 150 mg PO unknown) DAILY cap 02/22/20 [History Confirmed Result panel 3 (unknown) (no (unknown) (unknown) (no value) (units (unk nown) date) unknown) (unknown) (no (unknown) (unknown) [place] (units ( unknown) date) [id number] unknown) (unknown) (no (unknown) (unknown) Draft (units (unkno wn) date) unknown) (unknown) (no (unknown) (unknown) [facility] (units ([facility] date[facility] unknown) (unknown) (no (unknown) (unknown) Hyponatremia (units (u nknown) date) unknown) (unknown) (no (unknown) (unknown) Internal Medicine (units (unknown) date) Office Visit unknown) (unknown) (no (unknown) (unknown) hallucinations, (units (unknown) date) delirium unknown) (unknown) (no (unknown) (unknown) (no value) (units (unk nown) date) unknown) (unknown) (no (unknown) (unknown) 01/09/22] (units (unkn own) date) unknown) (unknown) (no (unknown) (unknown) 01/07/22 (units (unkno wn) date) unknown) (unknown) (no (unknown) (unknown) 01/09/22] (units (unkn own) date) unknown) (unknown) (no (unknown) (unknown) 02/22/20 [History (units (unknown) date) Confirmed unknown) 01/09/22] (unknown) (no (unknown) (unknown) [id number] (units (unkno wn) date) unknown) (unknown) (no (unknown) (unknown) Age/Sex: 56 / M (units (unknown) date) Date of Service: unknown) (unknown) (no (unknown) (unknown) Allergic rhinitis (units (unknown) date) unknown) (unknown) (no (unknown) (unknown) Allergies (units (unkn own) date) unknown) (unknown) (no (unknown) (unknown) Attending Dr: (units ( unknown) date) Ronal Everett MD unknown) (unknown) (no (unknown) (unknown) Confirmed (units (unkn own) date) 01/09/22] unknown) (unknown) (no (unknown) (unknown) : 1965 (units (unknown) date) Acct:[id number] unknown) (unknown) (no (unknown) (unknown) Dept at (units (unkno wn) date) . unknown) (unknown) (no (unknown) (unknown) Discuss ongoing (units (unknown) date) leg edema. unknown) (unknown) (no (unknown) (unknown) Discuss shoulder (units (unknown) date) pain. unknown) (unknown) (no (unknown) (unknown) Discuss/review. (units (unknown) date) unknown) (unknown) (no (unknown) (unknown) Documented By: (units (unknown) date) Ronal Everett MD unknown) 01/09/22 0750 (unknown) (no (unknown) (unknown) Follow up for (units ( unknown) date) medication review. unknown) (unknown) (no (unknown) (unknown) Health Management (units (unknown) date) unknown) (unknown) (no (unknown) (unknown) Health Management (units (unknown) date) reviewed with unknown) patient: Yes (unknown) (no (unknown) (unknown) Intake (units (unkno wn) date) unknown) (unknown) (no (unknown) (unknown) Intake Note: (units (u nknown) date) unknown) (unknown) (no (unknown) (unknown) Intake performed (units (unknown) date) by: Olya Franklin unknown) (unknown) (no (unknown) (unknown) Intake- Clincial (units (unknown) date) Staff unknown) (unknown) (no (unknown) (unknown) Loc: [facility] (units (unkno wn) date) unknown) (unknown) (no (unknown) (unknown) Medical History (units (unknown) date) (Updated 07/18/21 unknown) @ 09:06 by Ronal Everett MD) (unknown) (no (unknown) (unknown) Medications (units (un known) date) unknown) (unknown) (no (unknown) (unknown) PFSH (units (unkno wn) date) unknown) (unknown) (no (unknown) (unknown) Patient: (units (unkno wn) date) George Stoner unknown) MR#: [id number] (unknown) (no (unknown) (unknown) Reason For Visit (units (unknown) date) unknown) (unknown) (no (unknown) (unknown) Signed By: (units (unk nown) date) unknown) (unknown) (no (unknown) (unknown) Smoking Status: (units (unknown) date) Never smoker unknown) (unknown) (no (unknown) (unknown) Status post (units (un known) date) mitral valve unknown) repair (unknown) (no (unknown) (unknown) Surgical History (units (unknown) date) (Updated 07/18/21 unknown) @ 09:06 by Ronal Everett MD) (unknown) (no (unknown) (unknown) This note may (units ( unknown) date) have been all or unknown) partially generated using voice recognition (unknown) (no (unknown) (unknown) Tobacco + (units (unkn own) date) Substance Use unknown) (unknown) (no (unknown) (unknown) Tobacco Status (units (unknown) date) unknown) (unknown) (no (unknown) (unknown) Visit Reasons: (units (unknown) date) discuss unknown) medications (unknown) (no (unknown) (unknown) [History (units (unkno wn) date) Confirmed unknown) 01/09/22] (unknown) (no (unknown) (unknown) acetaminophen 500 (units (unknown) date) mg capsule 500 mg unknown) PO Q6H PRN 02/22/20 [History Confirmed (unknown) (no (unknown) (unknown) amiodarone 200 mg (units (unknown) date) tablet 200 mg PO unknown) DAILY 02/22/20 [History Confirmed 01/09/22] (unknown) (no (unknown) (unknown) apixaban 5 mg (units (u nknown) date) tablet (Eliquis) 5 unknown) mg PO BID 10/16/21 [History Confirmed 01/09/22] (unknown) (no (unknown) (unknown) cholecalciferol (units (unknown) date) (vitamin D3) 25 unknown) mcg (1,000 unit) capsule 25 mcg PO DAILY (unknown) (no (unknown) (unknown) clonazepam 0.5 mg (units (unknown) date) tablet 0.5 mg PO unknown) DAILY #30 tabs 12/27/21 [Rx Confirmed (unknown) (no (unknown) (unknown) divalproex 250 mg (units (unknown) date) tablet,delayed unknown) release (Depakote) 250 mg PO BID 09/03/19 (unknown) (no (unknown) (unknown) escitalopram (units (un known) date) oxalate 20 mg unknown) tablet 20 mg PO DAILY #90 tabs 08/22/21 [Rx Confirmed (unknown) (no (unknown) (unknown) furosemide 20 mg (units (unknown) date) tablet 20 mg PO unknown) DAILY #7 tabs 12/18/21 [Rx Confirmed 01/09/22] (unknown) (no (unknown) (unknown) gabapentin 600 mg (units (unknown) date) tablet 600 mg PO unknown) TID #90 tabs 11/01/21 [Rx Confirmed 01/09/22] (unknown) (no (unknown) (unknown) have occurred. (units (unknown) date) If there are any unknown) questions, please contact the Medical Records (unknown) (no (unknown) (unknown) hydroxyzine HCl (units (unknown) date) 50 mg tablet 50 mg unknown) PO BID PRN anxiety #180 tabs 07/18/21 [Rx (unknown) (no (unknown) (unknown) ketorolac [From (units (unknown) date) Toradol] Adverse unknown) Reaction (Severe, Verified 01/09/22 07:51) (unknown) (no (unknown) (unknown) may occur. (units (unk nown) date) Occasional unknown) wrong-word or 'sound-alike' substitutions may have (unknown) (no (unknown) (unknown) metoprolol (units (unk nown) date) succinate 100 mg unknown) tablet,extended release 24 hr 100 mg PO BID #180 (unknown) (no (unknown) (unknown) occurred due to (units (unknown) date) the inherent unknown) limitations of voice recognition software. Please (unknown) (no (unknown) (unknown) oxycodone Adverse (units (unknown) date) Reaction (Severe, unknown) Verified 01/09/22 07:51) (unknown) (no (unknown) (unknown) read the note (units ( unknown) date) carefully and unknown) recognize, using context, where these substitutions (unknown) (no (unknown) (unknown) software. (units (unkn own) date) Although every unknown) effort is made to edit content, infertility nurse errors (unknown) (no (unknown) (unknown) tabs 08/06/21 [Rx (units (unknown) date) Confirmed unknown) 01/09/22] (unknown) (no (unknown) (unknown) topiramate 50 mg (units (unknown) date) tablet (Topamax) unknown) 100 mg PO BID 10/16/21 [History Confirmed (unknown) (no (unknown) (unknown) zonisamide 50 mg (units (unknown) date) capsule 150 mg PO unknown) DAILY 02/22/20 [History Confirmed 01/09/22] Result panel 4 (unknown) (no (unknown) (unknown) (no value) (units (unk nown) date) unknown) (unknown) (no (unknown) (unknown) [place] (units ( unknown) date) [id number] unknown) (unknown) (no (unknown) (unknown) Draft (units (unkno wn) date) unknown) (unknown) (no (unknown) (unknown) [facility] ([facility] ([facility] date[facility] unknown) (unknown) (no (unknown) (unknown) Hyponatremia (units (u nknown) date) unknown) (unknown) (no (unknown) (unknown) Internal Medicine (units (unknown) date) Office Visit unknown) (unknown) (no (unknown) (unknown) hallucinations, (units (unknown) date) delirium unknown) (unknown) (no (unknown) (unknown) (no value) (units (unk nown) date) unknown) (unknown) (no (unknown) (unknown) 01/09/22] (units (unkn own) date) unknown) (unknown) (no (unknown) (unknown) 01/09/22 (units (unkno wn) date) unknown) (unknown) (no (unknown) (unknown) 01/09/22] (units (unkn own) date) unknown) (unknown) (no (unknown) (unknown) 02/22/20 [History (units (unknown) date) Confirmed unknown) 01/09/22] (unknown) (no (unknown) (unknown) [id number] (units (unkno wn) date) unknown) (unknown) (no (unknown) (unknown) Age/Sex: 56 / M (units (unknown) date) Date of Service: unknown) (unknown) (no (unknown) (unknown) Allergic rhinitis (units (unknown) date) unknown) (unknown) (no (unknown) (unknown) Allergies (units (unkn own) date) unknown) (unknown) (no (unknown) (unknown) Attending Dr: (units ( unknown) date) Ronal Everett MD unknown) (unknown) (no (unknown) (unknown) Confirmed (units (unkn own) date) 01/09/22] unknown) (unknown) (no (unknown) (unknown) : 1965 (units (unknown) date) Acct:[id number] unknown) (unknown) (no (unknown) (unknown) Dept at (units (unkno wn) date) . unknown) (unknown) (no (unknown) (unknown) Details: (units (unkno wn) date) unknown) (unknown) (no (unknown) (unknown) Discuss ongoing (units (unknown) date) leg edema. unknown) (unknown) (no (unknown) (unknown) Discuss shoulder (units (unknown) date) pain. unknown) (unknown) (no (unknown) (unknown) Discuss/review. (units (unknown) date) unknown) (unknown) (no (unknown) (unknown) Documented By: (units (unknown) date) Ronal Everett MD unknown) 01/09/22 0750 (unknown) (no (unknown) (unknown) Follow up for (units ( unknown) date) medication review. unknown) (unknown) (no (unknown) (unknown) HPI (units (unkno wn) date) unknown) (unknown) (no (unknown) (unknown) Health Management (units (unknown) date) unknown) (unknown) (no (unknown) (unknown) Health Management (units (unknown) date) reviewed with unknown) patient: Yes (unknown) (no (unknown) (unknown) Intake (units (unkno wn) date) unknown) (unknown) (no (unknown) (unknown) Intake Note: (units (u nknown) date) unknown) (unknown) (no (unknown) (unknown) Intake performed (units (unknown) date) by: Olya Franklin unknown) (unknown) (no (unknown) (unknown) Intake- Clincial (units (unknown) date) Staff unknown) (unknown) (no (unknown) (unknown) Loc: [facility] (units (unkno wn) date) unknown) (unknown) (no (unknown) (unknown) Medical History (units (unknown) date) (Updated 07/18/21 unknown) @ 09:06 by Ronal Everett MD) (unknown) (no (unknown) (unknown) Medications (units (un known) date) unknown) (unknown) (no (unknown) (unknown) PFSH (units (unkno wn) date) unknown) (unknown) (no (unknown) (unknown) Patient is (units (unk nown) date) scheduled for an unknown) appointment with Dr. Everett to discuss medications (unknown) (no (unknown) (unknown) Patient: (units (unkno wn) date) George Stoner unknown) MR#: [id number] (unknown) (no (unknown) (unknown) Reason For Visit (units (unknown) date) unknown) (unknown) (no (unknown) (unknown) Signed By: (units (unk nown) date) unknown) (unknown) (no (unknown) (unknown) Smoking Status: (units (unknown) date) Never smoker unknown) (unknown) (no (unknown) (unknown) Status post (units (un known) date) mitral valve unknown) repair (unknown) (no (unknown) (unknown) Surgical History (units (unknown) date) (Updated 07/18/21 unknown) @ 09:06 by Ronal Everett MD) (unknown) (no (unknown) (unknown) This note may (units ( unknown) date) have been all or unknown) partially generated using voice recognition (unknown) (no (unknown) (unknown) Tobacco + (units (unkn own) date) Substance Use unknown) (unknown) (no (unknown) (unknown) Tobacco Status (units (unknown) date) unknown) (unknown) (no (unknown) (unknown) Visit Reasons: (units (unknown) date) discuss unknown) medications (unknown) (no (unknown) (unknown) [History (units (unkno wn) date) Confirmed unknown) 01/09/22] (unknown) (no (unknown) (unknown) acetaminophen 500 (units (unknown) date) mg capsule 500 mg unknown) PO Q6H PRN 02/22/20 [History Confirmed (unknown) (no (unknown) (unknown) amiodarone 200 mg (units (unknown) date) tablet 200 mg PO unknown) DAILY 02/22/20 [History Confirmed 01/09/22] (unknown) (no (unknown) (unknown) apixaban 5 mg (units (u nknown) date) tablet (Eliquis) 5 unknown) mg PO BID 10/16/21 [History Confirmed 01/09/22] (unknown) (no (unknown) (unknown) cholecalciferol (units (unknown) date) (vitamin D3) 25 unknown) mcg (1,000 unit) capsule 25 mcg PO DAILY (unknown) (no (unknown) (unknown) clonazepam 0.5 mg (units (unknown) date) tablet 0.5 mg PO unknown) DAILY #30 tabs 12/27/21 [Rx Confirmed (unknown) (no (unknown) (unknown) divalproex 250 mg (units (unknown) date) tablet,delayed unknown) release (Depakote) 250 mg PO BID 09/03/19 (unknown) (no (unknown) (unknown) escitalopram (units (un known) date) oxalate 20 mg unknown) tablet 20 mg PO DAILY #90 tabs 08/22/21 [Rx Confirmed (unknown) (no (unknown) (unknown) for pain (units (unkno wn) date) management, as his unknown) is currently taking his gabapentin four times a day. (unknown) (no (unknown) (unknown) furosemide 20 mg (units (unknown) date) tablet 20 mg PO unknown) DAILY #7 tabs 12/18/21 [Rx Confirmed 01/09/22] (unknown) (no (unknown) (unknown) gabapentin 600 mg (units (unknown) date) tablet 600 mg PO unknown) TID #90 tabs 11/01/21 [Rx Confirmed 01/09/22] (unknown) (no (unknown) (unknown) have occurred. (units (unknown) date) If there are any unknown) questions, please contact the Medical Records (unknown) (no (unknown) (unknown) hydroxyzine HCl (units (unknown) date) 50 mg tablet 50 mg unknown) PO BID PRN anxiety #180 tabs 07/18/21 [Rx (unknown) (no (unknown) (unknown) ketorolac [From (units (unknown) date) Toradol] Adverse unknown) Reaction (Severe, Verified 01/09/22 07:51) (unknown) (no (unknown) (unknown) may occur. (units (unk nown) date) Occasional unknown) wrong-word or 'sound-alike' substitutions may have (unknown) (no (unknown) (unknown) metoprolol (units (unk nown) date) succinate 100 mg unknown) tablet,extended release 24 hr 100 mg PO BID #180 (unknown) (no (unknown) (unknown) occurred due to (units (unknown) date) the inherent unknown) limitations of voice recognition software. Please (unknown) (no (unknown) (unknown) oxycodone Adverse (units (unknown) date) Reaction (Severe, unknown) Verified 01/09/22 07:51) (unknown) (no (unknown) (unknown) read the note (units ( unknown) date) carefully and unknown) recognize, using context, where these substitutions (unknown) (no (unknown) (unknown) software. (units (unkn own) date) Although every unknown) effort is made to edit content, infertility nurse errors (unknown) (no (unknown) (unknown) swelling has not (units (unknown) date) improved too much, unknown) nor has his weight gone down. (unknown) (no (unknown) (unknown) tabs 08/06/21 [Rx (units (unknown) date) Confirmed unknown) 01/09/22] (unknown) (no (unknown) (unknown) topiramate 50 mg (units (unknown) date) tablet (Topamax) unknown) 100 mg PO BID 10/16/21 [History Confirmed (unknown) (no (unknown) (unknown) who states patient (units (unknown) date) has been in unknown) increasing pain in his shoulder. His leg and foot (unknown) (no (unknown) (unknown) zonisamide 50 mg (units (unknown) date) capsule 150 mg PO unknown) DAILY 02/22/20 [History Confirmed 01/09/22] Result panel 5 (unknown) (no (unknown) (unknown) (no value) (units (unk nown) date) unknown) (unknown) (no (unknown) (unknown) (no value) (units (unk nown) date) unknown) (unknown) (no (unknown) (unknown) 01/09/22 (units (unkno wn) date) unknown) (unknown) (no (unknown) (unknown) 11:13 01/09/22 (units (unknown) date) unknown) (unknown) (no (unknown) (unknown) 11:14 (units (unkno wn) date) unknown) (unknown) (no (unknown) (unknown) MIKEL Gordon (units ( unknown) date) [id number] unknown) (unknown) (no (unknown) (unknown) Draft (units (unkno wn) date) unknown) (unknown) (no (unknown) (unknown) [facility] (units ([facility] date) [facility] unknown) (unknown) (no (unknown) (unknown) Hyponatremia (units (u nknown) date) unknown) (unknown) (no (unknown) (unknown) Internal Medicine (units (unknown) date) Office Visit unknown) (unknown) (no (unknown) (unknown) hallucinations, (units (unknown) date) delirium unknown) (unknown) (no (unknown) (unknown) (no value) (units (unk nown) date) unknown) (unknown) (no (unknown) (unknown) 01/09/22] (units (unkn own) date) unknown) (unknown) (no (unknown) (unknown) 01/09/22 (units (unkno wn) date) unknown) (unknown) (no (unknown) (unknown) 01/09/22] (units (unkn own) date) unknown) (unknown) (no (unknown) (unknown) 02/22/20 [History (units (unknown) date) Confirmed unknown) 01/09/22] (unknown) (no (unknown) (unknown) [id number] (units (unkno wn) date) unknown) (unknown) (no (unknown) (unknown) Accompanied by: (units (unknown) date) Spouse unknown) (unknown) (no (unknown) (unknown) Age/Sex: 56 / M (units (unknown) date) Date of Service: unknown) (unknown) (no (unknown) (unknown) Allergic rhinitis (units (unknown) date) unknown) (unknown) (no (unknown) (unknown) Allergies (units (unkn own) date) unknown) (unknown) (no (unknown) (unknown) Attending Dr: (units ( unknown) date) Ronal Everett MD unknown) (unknown) (no (unknown) (unknown) BMI 39.8 (units (un known) date) unknown) (unknown) (no (unknown) (unknown) BP 108/58 L (units (unknown) date) 104/59 L unknown) (unknown) (no (unknown) (unknown) Blood Pressure (units (unknown) date) Location Rt unknown) radial Rt radial (unknown) (no (unknown) (unknown) Confirmed (units (unkn own) date) 01/09/22] unknown) (unknown) (no (unknown) (unknown) : 1965 (units (unknown) date) Acct:[id number] unknown) (unknown) (no (unknown) (unknown) Dept at (units (unkno wn) date) . unknown) (unknown) (no (unknown) (unknown) Details: (units (unkno wn) date) unknown) (unknown) (no (unknown) (unknown) Discuss ongoing (units (unknown) date) bilateral shoulder unknown) pain. (unknown) (no (unknown) (unknown) Discuss ongoing (units (unknown) date) leg edema. unknown) (unknown) (no (unknown) (unknown) Discuss/review. (units (unknown) date) unknown) (unknown) (no (unknown) (unknown) Documented By: (units (unknown) date) Ronal Everett MD unknown) 01/09/22 0750 (unknown) (no (unknown) (unknown) Follow up for (units ( unknown) date) medication review. unknown) (unknown) (no (unknown) (unknown) HPI (units (unkno wn) date) unknown) (unknown) (no (unknown) (unknown) Health Management (units (unknown) date) unknown) (unknown) (no (unknown) (unknown) Health Management (units (unknown) date) reviewed with unknown) patient: Yes (unknown) (no (unknown) (unknown) Height 6 ft 1 (units (unknown) date) in unknown) (unknown) (no (unknown) (unknown) Intake (units (unkno wn) date) unknown) (unknown) (no (unknown) (unknown) Intake Note: (units (u nknown) date) unknown) (unknown) (no (unknown) (unknown) Intake performed (units (unknown) date) by: Olya Franklin unknown) (unknown) (no (unknown) (unknown) Intake- Clincial (units (unknown) date) Staff unknown) (unknown) (no (unknown) (unknown) Loc: [facility] (units (unkno wn) date) unknown) (unknown) (no (unknown) (unknown) Medical History (units (unknown) date) (Updated 07/18/21 unknown) @ 09:06 by Ronal Everett MD) (unknown) (no (unknown) (unknown) Medications (units (un known) date) unknown) (unknown) (no (unknown) (unknown) Oxygen Delivery (units (unknown) date) Method room air unknown) (unknown) (no (unknown) (unknown) PFSH (units (unkno wn) date) unknown) (unknown) (no (unknown) (unknown) Patient is (units (unk nown) date) scheduled for an unknown) appointment with Dr. Everett to discuss medications (unknown) (no (unknown) (unknown) Patient: (units (unkno wn) date) George Stoner unknown) MR#: [id number] (unknown) (no (unknown) (unknown) Position (units (unkno wn) date) Sitting Sitting unknown) (unknown) (no (unknown) (unknown) Pulse 52 L (units ( unknown) date) unknown) (unknown) (no (unknown) (unknown) Pulse Oximetry (units (unknown) date) (%) 97 unknown) (unknown) (no (unknown) (unknown) Pulse Source (units (u nknown) date) Monitor unknown) (unknown) (no (unknown) (unknown) Reason For Visit (units (unknown) date) unknown) (unknown) (no (unknown) (unknown) Signed By: (units (unk nown) date) unknown) (unknown) (no (unknown) (unknown) Smoking Status: (units (unknown) date) Never smoker unknown) (unknown) (no (unknown) (unknown) Status post (units (un known) date) mitral valve unknown) repair (unknown) (no (unknown) (unknown) Surgical History (units (unknown) date) (Updated 07/18/21 unknown) @ 09:06 by Ronal Everett MD) (unknown) (no (unknown) (unknown) This note may (units ( unknown) date) have been all or unknown) partially generated using voice recognition (unknown) (no (unknown) (unknown) Tobacco + (units (unkn own) date) Substance Use unknown) (unknown) (no (unknown) (unknown) Tobacco Status (units (unknown) date) unknown) (unknown) (no (unknown) (unknown) Visit Reasons: (units (unknown) date) discuss unknown) medications (unknown) (no (unknown) (unknown) Vitals (units (unkno wn) date) unknown) (unknown) (no (unknown) (unknown) Weight 302 lb (units (unknown) date) unknown) (unknown) (no (unknown) (unknown) apixaban 5 mg (units (u nknown) date) tablet (Eliquis) 5 unknown) mg PO BID 10/16/21 [History Confirmed 01/09/22] (unknown) (no (unknown) (unknown) cholecalciferol (units (unknown) date) (vitamin D3) 25 unknown) mcg (1,000 unit) capsule 25 mcg PO DAILY (unknown) (no (unknown) (unknown) clonazepam 0.5 mg (units (unknown) date) tablet 0.5 mg PO unknown) DAILY #30 tabs 12/27/21 [Rx Confirmed (unknown) (no (unknown) (unknown) escitalopram (units (un known) date) oxalate 20 mg unknown) tablet 20 mg PO DAILY #90 tabs 08/22/21 [Rx Confirmed (unknown) (no (unknown) (unknown) for pain (units (unkno wn) date) management, as his unknown) is currently taking his gabapentin four times a day. (unknown) (no (unknown) (unknown) gabapentin 600 mg (units (unknown) date) tablet 600 mg PO unknown) TID #90 tabs 11/01/21 [Rx Confirmed 01/09/22] (unknown) (no (unknown) (unknown) have occurred. (units (unknown) date) If there are any unknown) questions, please contact the Medical Records (unknown) (no (unknown) (unknown) hydroxyzine HCl (units (unknown) date) 50 mg tablet 50 mg unknown) PO BID PRN anxiety #180 tabs 07/18/21 [Rx (unknown) (no (unknown) (unknown) ketorolac [From (units (unknown) date) Toradol] Adverse unknown) Reaction (Severe, Verified 01/09/22 07:51) (unknown) (no (unknown) (unknown) lacosamide 50 mg (units (unknown) date) tablet 100 mg PO unknown) BID 01/09/22 [History Confirmed 01/09/22] (unknown) (no (unknown) (unknown) may occur. (units (unk nown) date) Occasional unknown) wrong-word or 'sound-alike' substitutions may have (unknown) (no (unknown) (unknown) metoprolol (units (unk nown) date) succinate 100 mg unknown) tablet,extended release 24 hr 100 mg PO BID #180 (unknown) (no (unknown) (unknown) occurred due to (units (unknown) date) the inherent unknown) limitations of voice recognition software. Please (unknown) (no (unknown) (unknown) oxycodone Adverse (units (unknown) date) Reaction (Severe, unknown) Verified 01/09/22 07:51) (unknown) (no (unknown) (unknown) read the note (units ( unknown) date) carefully and unknown) recognize, using context, where these substitutions (unknown) (no (unknown) (unknown) software. (units (unkn own) date) Although every unknown) effort is made to edit content, infertility nurse errors (unknown) (no (unknown) (unknown) swelling has not (units (unknown) date) improved too much, unknown) nor has his weight gone down. (unknown) (no (unknown) (unknown) tabs 08/06/21 [Rx (units (unknown) date) Confirmed unknown) 01/09/22] (unknown) (no (unknown) (unknown) who states patient (units (unknown) date) has been in unknown) increasing pain in his shoulder. His leg and foot Result panel 6 (unknown) (no (unknown) (unknown) (no value) (units (unk nown) date) unknown) (unknown) (no (unknown) (unknown) Orders: (units (unkno wn) date) unknown) (unknown) (no (unknown) (unknown) Status: Acute (units ( unknown) date) unknown) (unknown) (no (unknown) (unknown) MIK[facility] [id number] (unit s (unknown) date) unknown) (unknown) (no (unknown) (unknown) Draft (units (unkno wn) date) unknown) (unknown) (no (unknown) (unknown) [facility] (units (unknown) date) [facility] unknown) (unknown) (no (unknown) (unknown) Hyponatremia (units (u nknown) date) unknown) (unknown) (no (unknown) (unknown) Internal Medicine (units (unknown) date) Office Visit unknown) (unknown) (no (unknown) (unknown) hallucinations, (units (unknown) date) delirium unknown) (unknown) (no (unknown) (unknown) (no value) (units (unk nown) date) unknown) (unknown) (no (unknown) (unknown) 01/09/22] (units (unkn own) date) unknown) (unknown) (no (unknown) (unknown) (1) Right shoulder (units (unknown) date) pain: unknown) (unknown) (no (unknown) (unknown) (2) (units (unkno wn) date) Acromioclavicular unknown) joint arthritis: (unknown) (no (unknown) (unknown) 01/09/22 (units (unkno wn) date) unknown) (unknown) (no (unknown) (unknown) 01/09/22] (units (unkn own) date) unknown) (unknown) (no (unknown) (unknown) 02/22/20 [History (units (unknown) date) Confirmed 01/09/22] unknown) (unknown) (no (unknown) (unknown) [id number] (units (unkno wn) date) unknown) (unknown) (no (unknown) (unknown) Accompanied by: (units (unknown) date) Spouse unknown) (unknown) (no (unknown) (unknown) Age/Sex: 56 / M (units (unknown) date) Date of Service: unknown) (unknown) (no (unknown) (unknown) Allergic rhinitis (units (unknown) date) unknown) (unknown) (no (unknown) (unknown) Allergies (units (unkn own) date) unknown) (unknown) (no (unknown) (unknown) Assessment + Plan (units (unknown) date) unknown) (unknown) (no (unknown) (unknown) Attending Dr: Ronal (unit s (unknown) date) Marguerite NEWSOME unknown) (unknown) (no (unknown) (unknown) Confirmed 01/09/22] (unit s (unknown) date) unknown) (unknown) (no (unknown) (unknown) : 1965 (units (unknown) date) Acct:[id number] unknown) (unknown) (no (unknown) (unknown) Dept at (units (unkno wn) date) . unknown) (unknown) (no (unknown) (unknown) Details: (units (unkno wn) date) unknown) (unknown) (no (unknown) (unknown) Discuss ongoing (units (unknown) date) bilateral shoulder unknown) pain. (unknown) (no (unknown) (unknown) Discuss ongoing leg (unit s (unknown) date) edema. unknown) (unknown) (no (unknown) (unknown) Discuss/review. (units (unknown) date) unknown) (unknown) (no (unknown) (unknown) Documented By: (units (unknown) date) Ronal Everett MD unknown) 01/09/22 0750 (unknown) (no (unknown) (unknown) Follow up for (units ( unknown) date) medication review. unknown) (unknown) (no (unknown) (unknown) HPI (units (unkno wn) date) unknown) (unknown) (no (unknown) (unknown) Health Management (units (unknown) date) unknown) (unknown) (no (unknown) (unknown) Health Management (units (unknown) date) reviewed with unknown) patient: Yes (unknown) (no (unknown) (unknown) Intake (units (unkno wn) date) unknown) (unknown) (no (unknown) (unknown) Intake Note: (units (u nknown) date) unknown) (unknown) (no (unknown) (unknown) Intake performed (units (unknown) date) by: Olya Franklin unknown) (unknown) (no (unknown) (unknown) Intake- Clincial (units (unknown) date) Staff unknown) (unknown) (no (unknown) (unknown) Loc: [facility] (units (unkno wn) date) unknown) (unknown) (no (unknown) (unknown) Medical History (units (unknown) date) (Updated 01/09/22 @ unknown) 11:43 by Ronal Everett MD) (unknown) (no (unknown) (unknown) Medications (units (un known) date) unknown) (unknown) (no (unknown) (unknown) Orders (units (unkno wn) date) unknown) (unknown) (no (unknown) (unknown) PFSH (units (unkno wn) date) unknown) (unknown) (no (unknown) (unknown) Patient is (units (unk nown) date) scheduled for an unknown) appointment with Dr. Everett to discuss medications (unknown) (no (unknown) (unknown) Patient: (units (unkno wn) date) George Stoner unknown) MR#: [id number] (unknown) (no (unknown) (unknown) Reason For Visit (units (unknown) date) unknown) (unknown) (no (unknown) (unknown) Referral Orthopedic (unit s (unknown) date) Surgery M19.019 - unknown) Primary osteoarthritis, unspecified (unknown) (no (unknown) (unknown) Referrals (units (unkn own) date) unknown) (unknown) (no (unknown) (unknown) Signed By: (units (unk nown) date) unknown) (unknown) (no (unknown) (unknown) Smoking Status: (units (unknown) date) Never smoker unknown) (unknown) (no (unknown) (unknown) Status post mitral (units (unknown) date) valve repair unknown) (unknown) (no (unknown) (unknown) Surgical History (units (unknown) date) (Updated 07/18/21 @ unknown) 09:06 by Ronal Everett MD) (unknown) (no (unknown) (unknown) This note may have (units (unknown) date) been all or unknown) partially generated using voice recognition (unknown) (no (unknown) (unknown) Tobacco + Substance (unit s (unknown) date) Use unknown) (unknown) (no (unknown) (unknown) Tobacco Status (units (unknown) date) unknown) (unknown) (no (unknown) (unknown) Visit Reasons: (units (unknown) date) discuss medications unknown) (unknown) (no (unknown) (unknown) XR shoulder RT min (units (unknown) date) 2V Today M25.511 - unknown) Pain in right shoulder (unknown) (no (unknown) (unknown) apixaban 5 mg tablet (unit s (unknown) date) (Eliquis) 5 mg PO unknown) BID 10/16/21 [History Confirmed 01/09/22] (unknown) (no (unknown) (unknown) cholecalciferol (units (unknown) date) (vitamin D3) 25 mcg unknown) (1,000 unit) capsule 25 mcg PO DAILY (unknown) (no (unknown) (unknown) clonazepam 0.5 mg (units (unknown) date) tablet 0.5 mg PO unknown) DAILY #30 tabs 12/27/21 [Rx Confirmed (unknown) (no (unknown) (unknown) escitalopram oxalate (unit s (unknown) date) 20 mg tablet 20 mg unknown) PO DAILY #90 tabs 08/22/21 [Rx Confirmed (unknown) (no (unknown) (unknown) for pain management, (unit s (unknown) date) as his is currently unknown) taking his gabapentin four times a day. (unknown) (no (unknown) (unknown) gabapentin 600 mg (units (unknown) date) tablet 600 mg PO TID unknown) #90 tabs 11/01/21 [Rx Confirmed 01/09/22] (unknown) (no (unknown) (unknown) have occurred. If (units (unknown) date) there are any unknown) questions, please contact the Medical Records (unknown) (no (unknown) (unknown) hydroxyzine HCl 50 (units (unknown) date) mg tablet 50 mg PO unknown) BID PRN anxiety #180 tabs 07/18/21 [Rx (unknown) (no (unknown) (unknown) ketorolac [From (units (unknown) date) Toradol] Adverse unknown) Reaction (Severe, Verified 01/09/22 07:51) (unknown) (no (unknown) (unknown) lacosamide 50 mg (units (unknown) date) tablet 100 mg PO BID unknown) 01/09/22 [History Confirmed 01/09/22] (unknown) (no (unknown) (unknown) may occur. (units (unk nown) date) Occasional unknown) wrong-word or 'sound-alike' substitutions may have (unknown) (no (unknown) (unknown) metoprolol (units (unk nown) date) succinate 100 mg unknown) tablet,extended release 24 hr 100 mg PO BID #180 (unknown) (no (unknown) (unknown) occurred due to the (unit s (unknown) date) inherent limitations unknown) of voice recognition software. Please (unknown) (no (unknown) (unknown) oxycodone Adverse (units (unknown) date) Reaction (Severe, unknown) Verified 01/09/22 07:51) (unknown) (no (unknown) (unknown) read the note (units ( unknown) date) carefully and unknown) recognize, using context, where these substitutions (unknown) (no (unknown) (unknown) shoulder (units (unkno wn) date) unknown) (unknown) (no (unknown) (unknown) software. Although (units (unknown) date) every effort is made unknown) to edit content, infertility nurse errors (unknown) (no (unknown) (unknown) swelling has not (units (unknown) date) improved too much, unknown) nor has his weight gone down. (unknown) (no (unknown) (unknown) tabs 08/06/21 [Rx (units (unknown) date) Confirmed 01/09/22] unknown) (unknown) (no (unknown) (unknown) who states patient (units (unknown) date) has been in unknown) increasing pain in his shoulder. His leg and foot Result panel 7 (unknown) (no (unknown) (unknown) (no value) (units (unk nown) date) unknown) (unknown) (no (unknown) (unknown) [address] [place] [address] (units (unknown) date) unknown) (unknown) (no (unknown) (unknown) [place] [address] (unit s (unknown) date) unknown) (unknown) (no (unknown) (unknown) Draft (units (unkno wn) date) unknown) (unknown) (no (unknown) (unknown) [facility] (units (unknown) date) unknown) (unknown) (no (unknown) (unknown) Signed (units (unkno wn) date) unknown) (unknown) (no (unknown) (unknown) XRay Report (units (un known) date) unknown) (unknown) (no (unknown) (unknown) (no value) (units (unk nown) date) unknown) (unknown) (no (unknown) (unknown) 01/09/22 (units (unkno wn) date) unknown) (unknown) (no (unknown) (unknown) 1. New humeral head (unit s (unknown) date) erosions, of unknown) uncertain significance. Initial further (unknown) (no (unknown) (unknown) 2. (units (unkno wn) date) Acromioclavicular unknown) separation. (unknown) (no (unknown) (unknown) 3. 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 (unknown) (no (unknown) (unknown) 4. Chronic fracture (unit s (unknown) date) deformity of the unknown) scapula. (unknown) (no (unknown) (unknown) Approved by: [facility] (unit s (unknown) date) Viviane Pichardo on unknown) 01/09/2022 at 16:55 (unknown) (no (unknown) (unknown) Bones: No acute (units (unknown) date) fractures. unknown) Acromioclavicular interval widening is present (unknown) (no (unknown) (unknown) Bones: No (units (unk nown) date) fractures or unknown) dislocations. No suspicious bony lesions. Visualized (unknown) (no (unknown) (unknown) COMPARISON: None. (units (unknown) date) unknown) (unknown) (no (unknown) (unknown) COMPARISON: [facility] (units (unknown) date) Outside Film, CR, XR unknown) SHOULDER 2+ VIEWS LEFT, 10/23/2020, 13:59. (unknown) (no (unknown) (unknown) Dictated by: [facility] (unit s (unknown) date) Viviane Pichardo on unknown) 01/09/2022 at 14:25 (unknown) (no (unknown) (unknown) Dictated by: [employer] (unit s (unknown) date) Viviane Pichardo on unknown) 01/09/2022 at 14:27 (unknown) (no (unknown) (unknown) FINDINGS: (units (unkn own) date) unknown) (unknown) (no (unknown) (unknown) IMPRESSION: (units (un known) date) unknown) (unknown) (no (unknown) (unknown) IMPRESSION: (units (un known) date) Osteoarthritis. No unknown) acute fracture. No osseous lesion. If symptoms (unknown) (no (unknown) (unknown) INDICATIONS: Right (unit s (unknown) date) shoulder pain, unknown) re-assess AC joint (unknown) (no (unknown) (unknown) INDICATIONS: left (units (unknown) date) and right shoulder unknown) pain (unknown) (no (unknown) (unknown) MRI with and (units (u nknown) date) without intravenous unknown) contrast is recommended. (unknown) (no (unknown) (unknown) Outside Film, CT, (units (unknown) date) CT SHOULDER LEFT unknown) ARTHROGRAM, 02/18/2018, 9:21. [facility] Outside (unknown) (no (unknown) (unknown) PROCEDURE: XR (units (unknown) date) SHOULDER LT MIN 2V unknown) (unknown) (no (unknown) (unknown) PROCEDURE: XR (units (unknown) date) SHOULDER RT MIN 2V unknown) (unknown) (no (unknown) (unknown) SHOULDER LEFT (units ( unknown) date) ARTHROGRAM, unknown) 02/18/2018, 10:25. (unknown) (no (unknown) (unknown) [facility] (units (unkno wn) date) unknown) (unknown) (no (unknown) (unknown) Soft tissues: No (units (unknown) date) suspicious soft unknown) tissue calcifications. (unknown) (no (unknown) (unknown) TECHNIQUE: 3 views (unit s (unknown) date) of the shoulder were unknown) acquired. (unknown) (no (unknown) (unknown) Transcribed by: (units (unknown) date) PICHARDO on 01/09/2022 unknown) at 14:27 (unknown) (no (unknown) (unknown) Transcribed by: (units (unknown) date) PICHARDO on 01/09/2022 unknown) at 14:27 (unknown) (no (unknown) (unknown) Transcribed by: (units (unknown) date) PICHARDO on 01/09/2022 unknown) at 14:28 (unknown) (no (unknown) (unknown) Transcribed by: (units (unknown) date) PICHARDO on 01/09/2022 unknown) at 14:28 (unknown) (no (unknown) (unknown) appear intact. (units (unknown) date) Periarticular unknown) osteophyte formation at the acromioclavicular and (unknown) (no (unknown) (unknown) clinical suspicion (units (unknown) date) for pathology unknown) persist, further assessment with repeat, or (unknown) (no (unknown) (unknown) formation at the (units (unknown) date) glenohumeral joint. unknown) Ill-defined erosions within the superior (unknown) (no (unknown) (unknown) glenohumeral (units (u nknown) date) joints. unknown) (unknown) (no (unknown) (unknown) head measuring 7 mm (unit s (unknown) date) and within the unknown) superomedial humeral head measuring 13 mm, (unknown) (no (unknown) (unknown) imaging (e.g., CT, (units (unknown) date) MRI, or bone scan) unknown) may be helpful for further assessment. (unknown) (no (unknown) (unknown) mm. Chronic (units (u nknown) date) fracture deformity unknown) of the scapula is present. Periarticular (unknown) (no (unknown) (unknown) the prior (units (unkn own) date) examinations.. No unknown) suspicious bony lesions. Visualized ribs appear (unknown) (no (unknown) (unknown) [id number] (units (unkno wn) date) unknown) (unknown) (no (unknown) (unknown) Accession Number: (units (unknown) date) [id number] unknown) (unknown) (no (unknown) (unknown) Accession Number: (units (unknown) date) [id number] unknown) (unknown) (no (unknown) (unknown) Age/Sex: 56 / M (units (unknown) date) Date of Service: unknown) (unknown) (no (unknown) (unknown) Caution: Report not (unit s (unknown) date) yet finalized and unknown) possibly incomplete! (unknown) (no (unknown) (unknown) : 1965 (units (unknown) date) Acct:[id number] unknown) (unknown) (no (unknown) (unknown) Film, MR, MR (units (u nknown) date) unknown) (unknown) (no (unknown) (unknown) Loc: [facility] (units (unkno wn) date) unknown) (unknown) (no (unknown) (unknown) Ordering Provider: (units (unknown) date) Ronal Everett MD unknown) (unknown) (no (unknown) (unknown) PROCEDURE: XR (units (unknown) date) SHOULDER LT MIN 2V unknown) (unknown) (no (unknown) (unknown) PROCEDURE: XR (units (unknown) date) SHOULDER RT MIN 2V unknown) (unknown) (no (unknown) (unknown) Patient: (units (unkno wn) date) George Stoner Suzie unknown) MR#: [id number] (unknown) (no (unknown) (unknown) Procedure: XR (units ( unknown) date) shoulder LT min 2V unknown) (unknown) (no (unknown) (unknown) Procedure: XR (units ( unknown) date) shoulder RT min 2V unknown) (unknown) (no (unknown) (unknown) advanced (units (unkno wn) date) unknown) (unknown) (no (unknown) (unknown) and/or (units (unkno wn) date) unknown) (unknown) (no (unknown) (unknown) assessment with (units (unknown) date) unknown) (unknown) (no (unknown) (unknown) humeral (units (unkno wn) date) unknown) (unknown) (no (unknown) (unknown) intact. (units (unkno wn) date) unknown) (unknown) (no (unknown) (unknown) measuring 16 (units (u nknown) date) unknown) (unknown) (no (unknown) (unknown) new since (units (unkn own) date) unknown) (unknown) (no (unknown) (unknown) osteophyte (units (unk nown) date) unknown) (unknown) (no (unknown) (unknown) ribs (units (unkno wn) date) unknown) Result panel 8 (unknown) (no (unknown) (unknown) (no value) (units (unk nown) date) unknown) (unknown) (no (unknown) (unknown) Orders: (units (unkno wn) date) unknown) (unknown) (no (unknown) (unknown) Status: Acute (units ( unknown) date) unknown) (unknown) (no (unknown) (unknown) (no value) (units (unk nown) date) unknown) (unknown) (no (unknown) (unknown) 01/09/22 (units (unkno wn) date) unknown) (unknown) (no (unknown) (unknown) 11:13 01/09/22 (units (unknown) date) unknown) (unknown) (no (unknown) (unknown) 11:14 (units (unkno wn) date) unknown) (unknown) (no (unknown) (unknown) [place]K[facility] [place] [id number] (unit s (unknown) date) unknown) (unknown) (no (unknown) (unknown) Draft (units (unkno wn) date) unknown) (unknown) (no (unknown) (unknown) [facility] ([facility] unknown) (unknown) (no (unknown) (unknown) Hyponatremia (units (u nknown) date) unknown) (unknown) (no (unknown) (unknown) Internal Medicine (units (unknown) date) Office Visit unknown) (unknown) (no (unknown) (unknown) hallucinations, (units (unknown) date) delirium unknown) (unknown) (no (unknown) (unknown) (no value) (units (unk nown) date) unknown) (unknown) (no (unknown) (unknown) 01/09/22] (units (unkn own) date) unknown) (unknown) (no (unknown) (unknown) (1) Right shoulder (units (unknown) date) pain: unknown) (unknown) (no (unknown) (unknown) (2) (units (unkno wn) date) Acromioclavicular unknown) joint arthritis: (unknown) (no (unknown) (unknown) 01/09/22 (units (unkno wn) date) unknown) (unknown) (no (unknown) (unknown) 01/09/22] (units (unkn own) date) unknown) (unknown) (no (unknown) (unknown) 02/22/20 [History (units (unknown) date) Confirmed 01/09/22] unknown) (unknown) (no (unknown) (unknown) [id number] (units (unkno wn) date) unknown) (unknown) (no (unknown) (unknown) Accompanied by: (units (unknown) date) Spouse unknown) (unknown) (no (unknown) (unknown) Age/Sex: 56 / M (units (unknown) date) Date of Service: unknown) (unknown) (no (unknown) (unknown) Allergic rhinitis (units (unknown) date) unknown) (unknown) (no (unknown) (unknown) Allergies (units (unkn own) date) unknown) (unknown) (no (unknown) (unknown) Assessment + Plan (units (unknown) date) unknown) (unknown) (no (unknown) (unknown) Attending Dr: Ronal (unit s (unknown) date) Marguerite NEWSOME unknown) (unknown) (no (unknown) (unknown) BMI 39.8 (units (un known) date) unknown) (unknown) (no (unknown) (unknown) BP 108/58 L (units (unknown) date) 104/59 L unknown) (unknown) (no (unknown) (unknown) Blood Pressure (units (unknown) date) Location Rt unknown) radial Rt radial (unknown) (no (unknown) (unknown) Chief Complaint (units (unknown) date) unknown) (unknown) (no (unknown) (unknown) Chief Complaint: (units (unknown) date) Follow-up unknown) medications (unknown) (no (unknown) (unknown) Confirmed 01/09/22] (unit s (unknown) date) unknown) (unknown) (no (unknown) (unknown) : 1965 (units (unknown) date) Acct:[id number] unknown) (unknown) (no (unknown) (unknown) Dept at (units (unkno wn) date) . unknown) (unknown) (no (unknown) (unknown) Details: (units (unkno wn) date) unknown) (unknown) (no (unknown) (unknown) Discuss ongoing (units (unknown) date) bilateral shoulder unknown) pain. (unknown) (no (unknown) (unknown) Discuss ongoing leg (unit s (unknown) date) edema. unknown) (unknown) (no (unknown) (unknown) Discuss/review. (units (unknown) date) unknown) (unknown) (no (unknown) (unknown) Documented By: (units (unknown) date) Ronal Everett MD unknown) 01/09/22 0750 (unknown) (no (unknown) (unknown) Follow up for (units ( unknown) date) medication review. unknown) (unknown) (no (unknown) (unknown) HPI (units (unkno wn) date) unknown) (unknown) (no (unknown) (unknown) Health Management (units (unknown) date) unknown) (unknown) (no (unknown) (unknown) Health Management (units (unknown) date) reviewed with unknown) patient: Yes (unknown) (no (unknown) (unknown) Height 6 ft 1 in (unit s (unknown) date) unknown) (unknown) (no (unknown) (unknown) Intake (units (unkno wn) date) unknown) (unknown) (no (unknown) (unknown) Intake Note: (units (u nknown) date) unknown) (unknown) (no (unknown) (unknown) Intake performed (units (unknown) date) by: Olya Franklin unknown) (unknown) (no (unknown) (unknown) Intake- Clincial (units (unknown) date) Staff unknown) (unknown) (no (unknown) (unknown) Loc: [facility] (units (unkno wn) date) unknown) (unknown) (no (unknown) (unknown) Medical History (units (unknown) date) (Updated 01/09/22 @ unknown) 11:43 by Ronal Everett MD) (unknown) (no (unknown) (unknown) Medications (units (un known) date) unknown) (unknown) (no (unknown) (unknown) Orders (units (unkno wn) date) unknown) (unknown) (no (unknown) (unknown) Oxygen Delivery (units (unknown) date) Method room air unknown) (unknown) (no (unknown) (unknown) PFSH (units (unkno wn) date) unknown) (unknown) (no (unknown) (unknown) Patient is (units (unk nown) date) scheduled for an unknown) appointment with Dr. Everett to discuss medications (unknown) (no (unknown) (unknown) Patient: (units (unkno wn) date) George Stoner unknown) MR#: [id number] (unknown) (no (unknown) (unknown) Position Sitting (unit s (unknown) date) Sitting unknown) (unknown) (no (unknown) (unknown) Pulse 52 L (units ( unknown) date) unknown) (unknown) (no (unknown) (unknown) Pulse Oximetry (%) (units (unknown) date) 97 unknown) (unknown) (no (unknown) (unknown) Pulse Source (units (u nknown) date) Monitor unknown) (unknown) (no (unknown) (unknown) Reason For Visit (units (unknown) date) unknown) (unknown) (no (unknown) (unknown) Referral Orthopedic (unit s (unknown) date) Surgery M19.019 - unknown) Primary osteoarthritis, unspecified (unknown) (no (unknown) (unknown) Referrals (units (unkn own) date) unknown) (unknown) (no (unknown) (unknown) Signed By: (units (unk nown) date) unknown) (unknown) (no (unknown) (unknown) Smoking Status: (units (unknown) date) Never smoker unknown) (unknown) (no (unknown) (unknown) Status post mitral (units (unknown) date) valve repair unknown) (unknown) (no (unknown) (unknown) Surgical History (units (unknown) date) (Updated 07/18/21 @ unknown) 09:06 by Ronal Everett MD) (unknown) (no (unknown) (unknown) This note may have (units (unknown) date) been all or unknown) partially generated using voice recognition (unknown) (no (unknown) (unknown) Tobacco + Substance (unit s (unknown) date) Use unknown) (unknown) (no (unknown) (unknown) Tobacco Status (units (unknown) date) unknown) (unknown) (no (unknown) (unknown) Visit Reasons: (units (unknown) date) discuss medications unknown) (unknown) (no (unknown) (unknown) Vitals (units (unkno wn) date) unknown) (unknown) (no (unknown) (unknown) Weight 302 lb (units (unknown) date) unknown) (unknown) (no (unknown) (unknown) XR shoulder LT min (units (unknown) date) 2V 01/09/22 M25.511 unknown) - Pain in right shoulder, M25.512 - Pain (unknown) (no (unknown) (unknown) XR shoulder RT min (units (unknown) date) 2V 01/09/22 M25.511 unknown) - Pain in right shoulder (unknown) (no (unknown) (unknown) apixaban 5 mg tablet (unit s (unknown) date) (Eliquis) 5 mg PO unknown) BID 10/16/21 [History Confirmed 01/09/22] (unknown) (no (unknown) (unknown) cholecalciferol (units (unknown) date) (vitamin D3) 25 mcg unknown) (1,000 unit) capsule 25 mcg PO DAILY (unknown) (no (unknown) (unknown) clonazepam 0.5 mg (units (unknown) date) tablet 0.5 mg PO unknown) DAILY #30 tabs 12/27/21 [Rx Confirmed (unknown) (no (unknown) (unknown) escitalopram oxalate (unit s (unknown) date) 20 mg tablet 20 mg unknown) PO DAILY #90 tabs 08/22/21 [Rx Confirmed (unknown) (no (unknown) (unknown) for pain management, (unit s (unknown) date) as his is currently unknown) taking his gabapentin four times a day. (unknown) (no (unknown) (unknown) gabapentin 600 mg (units (unknown) date) tablet 600 mg PO TID unknown) #90 tabs 11/01/21 [Rx Confirmed 01/09/22] (unknown) (no (unknown) (unknown) have occurred. If (units (unknown) date) there are any unknown) questions, please contact the Medical Records (unknown) (no (unknown) (unknown) hydroxyzine HCl 50 (units (unknown) date) mg tablet 50 mg PO unknown) BID PRN anxiety #180 tabs 07/18/21 [Rx (unknown) (no (unknown) (unknown) in left shoulder (units (unknown) date) unknown) (unknown) (no (unknown) (unknown) ketorolac [From (units (unknown) date) Toradol] Adverse unknown) Reaction (Severe, Verified 01/09/22 07:51) (unknown) (no (unknown) (unknown) lacosamide 50 mg (units (unknown) date) tablet 100 mg PO BID unknown) 01/09/22 [History Confirmed 01/09/22] (unknown) (no (unknown) (unknown) may occur. (units (unk nown) date) Occasional unknown) wrong-word or 'sound-alike' substitutions may have (unknown) (no (unknown) (unknown) metoprolol (units (unk nown) date) succinate 100 mg unknown) tablet,extended release 24 hr 100 mg PO BID #180 (unknown) (no (unknown) (unknown) occurred due to the (unit s (unknown) date) inherent limitations unknown) of voice recognition software. Please (unknown) (no (unknown) (unknown) oxycodone Adverse (units (unknown) date) Reaction (Severe, unknown) Verified 01/09/22 07:51) (unknown) (no (unknown) (unknown) read the note (units ( unknown) date) carefully and unknown) recognize, using context, where these substitutions (unknown) (no (unknown) (unknown) shoulder (units (unkno wn) date) unknown) (unknown) (no (unknown) (unknown) software. Although (units (unknown) date) every effort is made unknown) to edit content, infertility nurse errors (unknown) (no (unknown) (unknown) swelling has not (units (unknown) date) improved too much, unknown) nor has his weight gone down. (unknown) (no (unknown) (unknown) tabs 08/06/21 [Rx (units (unknown) date) Confirmed 01/09/22] unknown) (unknown) (no (unknown) (unknown) who states patient (units (unknown) date) has been in unknown) increasing pain in his shoulder. His leg and foot Result panel 9 (unknown) (no (unknown) (unknown) (no value) (units (unk nown) date) unknown) (unknown) (no (unknown) (unknown) Orders: (units (unkno wn) date) unknown) (unknown) (no (unknown) (unknown) Qualifiers: (units (un known) date) unknown) (unknown) (no (unknown) (unknown) Status: Acute (units ( unknown) date) unknown) (unknown) (no (unknown) (unknown) (no value) (units (unk nown) date) unknown) (unknown) (no (unknown) (unknown) 01/09/22 (units (unkno wn) date) unknown) (unknown) (no (unknown) (unknown) 01/13/22 1219 (units ( unknown) date) unknown) (unknown) (no (unknown) (unknown) 11:13 01/09/22 (units (unknown) date) unknown) (unknown) (no (unknown) (unknown) 11:14 (units (unkno wn) date) unknown) (unknown) (no (unknown) (unknown) [place] [address] (unit s (unknown) date) unknown) (unknown) (no (unknown) (unknown) Chronicity: chronic (unit s (unknown) date) Qualified Code(s): unknown) M25.511 - Pain in right (unknown) (no (unknown) (unknown) [facility] date[facility] unknown) (unknown) (no (unknown) (unknown) Hyponatremia (units (u nknown) date) unknown) (unknown) (no (unknown) (unknown) Internal Medicine (units (unknown) date) Office Visit unknown) (unknown) (no (unknown) (unknown) Laterality: (units (un known) date) bilateral Qualified unknown) Code(s): M19.011 - Primary (unknown) (no (unknown) (unknown) Signed (units (unkno wn) date) unknown) (unknown) (no (unknown) (unknown) hallucinations, (units (unknown) date) delirium unknown) (unknown) (no (unknown) (unknown) (no value) (units (unk nown) date) unknown) (unknown) (no (unknown) (unknown) 01/09/22] (units (unkn own) date) unknown) (unknown) (no (unknown) (unknown) (1) Right shoulder (units (unknown) date) pain: unknown) (unknown) (no (unknown) (unknown) (2) (units (unkno wn) date) Acromioclavicular unknown) joint arthritis: (unknown) (no (unknown) (unknown) 01/09/22 (units (unkno wn) date) unknown) (unknown) (no (unknown) (unknown) 01/09/22] (units (unkn own) date) unknown) (unknown) (no (unknown) (unknown) 02/22/20 [History (units (unknown) date) Confirmed 01/09/22] unknown) (unknown) (no (unknown) (unknown) [id number] (units (unkno wn) date) unknown) (unknown) (no (unknown) (unknown) Accompanied by: (units (unknown) date) Spouse unknown) (unknown) (no (unknown) (unknown) Affect: normal (units (unknown) date) affect unknown) (unknown) (no (unknown) (unknown) Age/Sex: 56 / M (units (unknown) date) Date of Service: unknown) (unknown) (no (unknown) (unknown) All systems (units (un known) date) reviewed + are unknown) unremarkable except as noted in HPI and below (unknown) (no (unknown) (unknown) Allergic rhinitis (units (unknown) date) unknown) (unknown) (no (unknown) (unknown) Allergies (units (unkn own) date) unknown) (unknown) (no (unknown) (unknown) Appearance: grossly (unit s (unknown) date) normal unknown) (unknown) (no (unknown) (unknown) Assessment + Plan (units (unknown) date) unknown) (unknown) (no (unknown) (unknown) Attending Dr: Ronal (unit s (unknown) date) Marguerite NEWSOME unknown) (unknown) (no (unknown) (unknown) Attitude: (units (unkn own) date) cooperative unknown) (unknown) (no (unknown) (unknown) BMI 39.8 (units (un known) date) unknown) (unknown) (no (unknown) (unknown) BP 108/58 L (units (unknown) date) 104/59 L unknown) (unknown) (no (unknown) (unknown) Bilateral shoulder (units (unknown) date) pain continues to be unknown) activity limiting. The patient is (unknown) (no (unknown) (unknown) Blood Pressure (units (unknown) date) Location Rt unknown) radial Rt radial (unknown) (no (unknown) (unknown) Chief Complaint (units (unknown) date) unknown) (unknown) (no (unknown) (unknown) Chief Complaint: (units (unknown) date) Follow-up unknown) medications (unknown) (no (unknown) (unknown) Confirmed 01/09/22] (unit s (unknown) date) unknown) (unknown) (no (unknown) (unknown) Const (units (unkno wn) date) unknown) (unknown) (no (unknown) (unknown) Counseling and (units (unknown) date) educating the unknown) patient/family/careg iver: 25 (unknown) (no (unknown) (unknown) : 1965 (units (unknown) date) Acct:[id number] unknown) (unknown) (no (unknown) (unknown) Dept at (units (unkno wn) date) . unknown) (unknown) (no (unknown) (unknown) Details: (units (unkno wn) date) unknown) (unknown) (no (unknown) (unknown) Discuss ongoing (units (unknown) date) bilateral shoulder unknown) pain. (unknown) (no (unknown) (unknown) Discuss ongoing leg (unit s (unknown) date) edema. unknown) (unknown) (no (unknown) (unknown) Discuss/review. (units (unknown) date) unknown) (unknown) (no (unknown) (unknown) Documented By: (units (unknown) date) Ronal Everett MD unknown) 01/09/22 0750 (unknown) (no (unknown) (unknown) Effort + (units (unkno wn) date) Inspection: normal unknown) respiratory effort, able to speak in complete (unknown) (no (unknown) (unknown) Exam (units (unkno wn) date) unknown) (unknown) (no (unknown) (unknown) Follow up for (units ( unknown) date) medication review. unknown) (unknown) (no (unknown) (unknown) General: (units (unkno wn) date) cooperative, healthy unknown) appearing, comfortable and no acute distress (unknown) (no (unknown) (unknown) HPI (units (unkno wn) date) unknown) (unknown) (no (unknown) (unknown) Health Management (units (unknown) date) unknown) (unknown) (no (unknown) (unknown) Health Management (units (unknown) date) reviewed with unknown) patient: Yes (unknown) (no (unknown) (unknown) Height 6 ft 1 in (unit s (unknown) date) unknown) (unknown) (no (unknown) (unknown) Intake (units (unkno wn) date) unknown) (unknown) (no (unknown) (unknown) Intake Note: (units (u nknown) date) unknown) (unknown) (no (unknown) (unknown) Intake performed (units (unknown) date) by: Olya Franklin unknown) (unknown) (no (unknown) (unknown) Intake- Clincial (units (unknown) date) Staff unknown) (unknown) (no (unknown) (unknown) Judgment: judgment (units (unknown) date) good unknown) (unknown) (no (unknown) (unknown) Loc: [facility] (units (unkno wn) date) unknown) (unknown) (no (unknown) (unknown) Medical History (units (unknown) date) (Updated 01/13/22 @ unknown) 12:18 by Ronal Everett MD) (unknown) (no (unknown) (unknown) Medication changes (units (unknown) date) left up to unknown) Neurology. Discussed reasonable expectations in (unknown) (no (unknown) (unknown) Medications (units (un known) date) unknown) (unknown) (no (unknown) (unknown) Mental Status: (units (unknown) date) mental status unknown) grossly normal (unknown) (no (unknown) (unknown) Mood: congruent (units (unknown) date) mood unknown) (unknown) (no (unknown) (unknown) Mr. Stoner is here (units (unknown) date) with his to unknown) discuss medications. His neurologist has (unknown) (no (unknown) (unknown) Nutritional (units (un known) date) Appearance: unknown) overweight (unknown) (no (unknown) (unknown) Orders (units (unkno wn) date) unknown) (unknown) (no (unknown) (unknown) Orientation: (units (u nknown) date) oriented x3 unknown) (unknown) (no (unknown) (unknown) Oxygen Delivery (units (unknown) date) Method room air unknown) (unknown) (no (unknown) (unknown) PFSH (units (unkno wn) date) unknown) (unknown) (no (unknown) (unknown) Patient: (units (unkno wn) date) George Stoner unknown) MR#: [id number] (unknown) (no (unknown) (unknown) Plan (units (unkno wn) date) unknown) (unknown) (no (unknown) (unknown) Position Sitting (unit s (unknown) date) Sitting unknown) (unknown) (no (unknown) (unknown) Preparing to see (units (unknown) date) the patient, i.e., unknown) chart review, review of tests: 5 (unknown) (no (unknown) (unknown) Psych (units (unkno wn) date) unknown) (unknown) (no (unknown) (unknown) Pulse 52 L (units ( unknown) date) unknown) (unknown) (no (unknown) (unknown) Pulse Oximetry (%) (units (unknown) date) 97 unknown) (unknown) (no (unknown) (unknown) Pulse Source (units (u nknown) date) Monitor unknown) (unknown) (no (unknown) (unknown) ROS (units (unkno wn) date) unknown) (unknown) (no (unknown) (unknown) Reason For Visit (units (unknown) date) unknown) (unknown) (no (unknown) (unknown) Reassess shoulders (units (unknown) date) using x-ray. Will unknown) refer to orthopedics for assistance. (unknown) (no (unknown) (unknown) Referral Orthopedic (unit s (unknown) date) Surgery M19.019 - unknown) Primary osteoarthritis, unspecified (unknown) (no (unknown) (unknown) Referrals (units (unkn own) date) unknown) (unknown) (no (unknown) (unknown) Resp (units (unkno wn) date) unknown) (unknown) (no (unknown) (unknown) Signed By: (units (unk nown) date) <Electronically unknown) signed by Ronal Everett MD> (unknown) (no (unknown) (unknown) Smoking Status: (units (unknown) date) Never smoker unknown) (unknown) (no (unknown) (unknown) Speech and (units (unk nown) date) Movement: speech and unknown) movement normal (unknown) (no (unknown) (unknown) Status post mitral (units (unknown) date) valve repair unknown) (unknown) (no (unknown) (unknown) Surgical History (units (unknown) date) (Updated 07/18/21 @ unknown) 09:06 by Ronal Everett MD) (unknown) (no (unknown) (unknown) This note may have (units (unknown) date) been all or unknown) partially generated using voice recognition (unknown) (no (unknown) (unknown) This was a largely (units (unknown) date) informational unknown) session. All billed services occurred on the (unknown) (no (unknown) (unknown) Thought Content: (units (unknown) date) normal unknown) (unknown) (no (unknown) (unknown) Thought Process: (units (unknown) date) normal unknown) (unknown) (no (unknown) (unknown) Time Coding Minutes (unit s (unknown) date) Spent: (must be on unknown) same date of service/appointment) (unknown) (no (unknown) (unknown) Time Spent (units (unk nown) date) unknown) (unknown) (no (unknown) (unknown) Tobacco + Substance (unit s (unknown) date) Use unknown) (unknown) (no (unknown) (unknown) Tobacco Status (units (unknown) date) unknown) (unknown) (no (unknown) (unknown) Total Time: 30 (units (unknown) date) unknown) (unknown) (no (unknown) (unknown) Visit Reasons: (units (unknown) date) discuss medications unknown) (unknown) (no (unknown) (unknown) Vitals (units (unkno wn) date) unknown) (unknown) (no (unknown) (unknown) Weight 302 lb (units (unknown) date) unknown) (unknown) (no (unknown) (unknown) XR shoulder LT min (units (unknown) date) 2V 01/09/22 M25.511 unknown) - Pain in right shoulder, M25.512 - Pain (unknown) (no (unknown) (unknown) XR shoulder RT min (units (unknown) date) 2V 01/09/22 M25.511 unknown) - Pain in right shoulder (unknown) (no (unknown) (unknown) apixaban 5 mg tablet (unit s (unknown) date) (Eliquis) 5 mg PO unknown) BID 10/16/21 [History Confirmed 01/09/22] (unknown) (no (unknown) (unknown) cholecalciferol (units (unknown) date) (vitamin D3) 25 mcg unknown) (1,000 unit) capsule 25 mcg PO DAILY (unknown) (no (unknown) (unknown) clonazepam 0.5 mg (units (unknown) date) tablet 0.5 mg PO unknown) DAILY #30 tabs 12/27/21 [Rx Confirmed (unknown) (no (unknown) (unknown) concern was (units (unk nown) date) uncontrolled weight unknown) gain and peripheral edema. This has not seem to (unknown) (no (unknown) (unknown) date of service. (units (unknown) date) unknown) (unknown) (no (unknown) (unknown) does not find this (units (unknown) date) to be very helpful. unknown) Continues daily ibuprofen use. No (unknown) (no (unknown) (unknown) escitalopram oxalate (unit s (unknown) date) 20 mg tablet 20 mg unknown) PO DAILY #90 tabs 08/22/21 [Rx Confirmed (unknown) (no (unknown) (unknown) fasciculation, (units (unknown) date) peripheral cyanosis. unknown) (unknown) (no (unknown) (unknown) gabapentin 600 mg (units (unknown) date) tablet 600 mg PO TID unknown) #90 tabs 11/01/21 [Rx Confirmed 01/09/22] (unknown) (no (unknown) (unknown) have occurred. If (units (unknown) date) there are any unknown) questions, please contact the Medical Records (unknown) (no (unknown) (unknown) hydroxyzine HCl 50 (units (unknown) date) mg tablet 50 mg PO unknown) BID PRN anxiety #180 tabs 07/18/21 [Rx (unknown) (no (unknown) (unknown) improve in the week (unit s (unknown) date) or so that he has unknown) been off this medication. (unknown) (no (unknown) (unknown) in left shoulder (units (unknown) date) unknown) (unknown) (no (unknown) (unknown) ketorolac [From (units (unknown) date) Toradol] Adverse unknown) Reaction (Severe, Verified 01/09/22 07:51) (unknown) (no (unknown) (unknown) lacosamide 50 mg (units (unknown) date) tablet 100 mg PO BID unknown) 01/09/22 [History Confirmed 01/09/22] (unknown) (no (unknown) (unknown) may occur. (units (unk nown) date) Occasional unknown) wrong-word or 'sound-alike' substitutions may have (unknown) (no (unknown) (unknown) metoprolol (units (unk nown) date) succinate 100 mg unknown) tablet,extended release 24 hr 100 mg PO BID #180 (unknown) (no (unknown) (unknown) occurred due to the (unit s (unknown) date) inherent limitations unknown) of voice recognition software. Please (unknown) (no (unknown) (unknown) on both sides but (units (unknown) date) no recent imaging. unknown) Denies paresthesia, cake knocker strength loss, (unknown) (no (unknown) (unknown) osteoarthritis, (units (unknown) date) right shoulder; unknown) M19.012 - Primary osteoarthritis, left shoulder (unknown) (no (unknown) (unknown) oxycodone Adverse (units (unknown) date) Reaction (Severe, unknown) Verified 01/09/22 07:51) (unknown) (no (unknown) (unknown) read the note (units ( unknown) date) carefully and unknown) recognize, using context, where these substitutions (unknown) (no (unknown) (unknown) recent inciting (units (unknown) date) event, injury, or unknown) over exertion. Has known AC joint arthritis (unknown) (no (unknown) (unknown) recently taken him (units (unknown) date) off of Depakote and unknown) he has not had a seizure. The primary (unknown) (no (unknown) (unknown) sentences and no (units (unknown) date) audible wheezes unknown) (unknown) (no (unknown) (unknown) shoulder (units (unkno wn) date) unknown) (unknown) (no (unknown) (unknown) shoulder; G89.29 - (units (unknown) date) Other chronic pain unknown) (unknown) (no (unknown) (unknown) software. Although (units (unknown) date) every effort is made unknown) to edit content, infertility nurse errors (unknown) (no (unknown) (unknown) tabs 08/06/21 [Rx (units (unknown) date) Confirmed 01/09/22] unknown) (unknown) (no (unknown) (unknown) taking more (units (unk nown) date) gabapentin than unknown) prescribed in an attempt to control symptoms, but he (unknown) (no (unknown) (unknown) terms of losing (units (unknown) date) peripheral edema and unknown) losing weight from excess calories. Social History date description facility (no date) Never smoked tobacco (finding) [facility] Vital Signs date measurement value units +0000 BMI BMI 39.8 kg/m2 +0000 BP_diastolic BP_diastolic 59 mm[H g] +0000 BP_systolic BP_systolic 104 mm[Hg] +0000 heart_rate heart_rate 52 /min +0000 height_metric height_metric 185.42 cm +0000 height_standard height_standard 73 in +0000 weight_metric weight_metric 62.14 kg +0000 weight_standard weight_standard 136.99 lb
--- NOTE | 2022-01-19 23:13 | XRAY Report ---
PROCEDURE: Shoulder 3 View RT INDICATIONS: Likely spon reduction of dislocation TECHNIQUE: 3 views of the shoulder were acquired. COMPARISON: None. FINDINGS: Anatomic alignment of the right shoulder. Flattened appearance of the superior humeral head likely a Hill-Sachs deformity. IMPRESSION: Interval reduction. Reviewed by: Sammy Vincent MD on 01/19/2022 11:12 PM PDT Approved by: Sammy Vincent MD on 01/19/2022 11:12 PM PDT Station ID: [id number]
[2022-01-19] MEDS ORDERED: oxyCODONE/ACET 5/325 Prepack 4 PO STA (23:28)
[2022-01-19 23:47] VITALS: BP 150/88
== END 2022-01-19 23:45 | disposition home or self-care (01) ==
LOC: EDUNIT# → ED 21:34
DX: M24.311 Pathological dislocation of right shoulder, not elsewhere classified (principal); S42.291A Other displaced fracture of upper end of right humerus, initial encounter for closed fracture
CPT/HCPCS: 36415; 73030; 80053; 83690; 85025; 93005; 96374; 99281; 99284; J1170

== ENCOUNTER 2022-03-30 04:20 | Emergency (ER) | payer BC ==
[2022-03-30] MEDS ORDERED: DEXAMETHASONE 10 MG/ML VIAL PO STA (04:43)
[2022-03-30] MEDS ORDERED: CHERRY SYRUP 10 ML UDC PO ONE (04:43)
[2022-03-30] MEDS ORDERED: KETOROLAC 60 MG/2 ML VIAL IM STA (04:43)
--- NOTE | 2022-03-30 04:48 | ED Physician Documentation ---
History of Present Illness - Stated complaint Stated Complaint: right hip pain - Chief complaint Chief Complaint: Ext Problem - History obtained from History obtained from: Patient, Family - History of Present Illness Timing: Enter time (0000), Last night - Additonal information Additional information: 56-year-old George Stoner is a male with a seizure disorder who is on gabapentin and has developed pain in his lower back radiating to his right hip. Patient indicates that he has been working on his house redoing a shower and he has been more active than usual. His indicates that since he started taking a higher dose of gabapentin his legs are flailing in the bed and he will frequently throw his right leg off of the bed. The patient denies any numbness or tingling to the perineum or elsewhere. He denies a difficulty with walking. Denies any difficulty with bowel or bladder. Review of Systems Constitutional: denies: Fever Ears: denies: Ear pain Nose: denies: Congestion Throat: denies: Sore throat Cardiac: denies: Chest pain / pressure Respiratory: denies: Dyspnea, Cough GI: denies: Abdominal Pain, Nausea, Vomiting, Constipation, Diarrhea : denies: Dysuria, Frequency Skin: denies: Rash Musculoskeletal: reports: Back pain, Joint pain. denies: Neck pain, Extremity swelling, Joint swelling, Pain with weight bearing Neurologic: denies: Generalized weakness, Focal weakness, Numbness PD PAST MEDICAL HISTORY - Past Medical History Past Medical History: Yes Cardiovascular: Atrial fibrillation, Valve disorder Respiratory: None, Sleep apnea, CPAP use Neuro: Head injury, Seizure disorder Endocrine/Autoimmune: None GI: None : None HEENT: None, Other Psych: Anxiety Musculoskeletal: None Derm: None - Past Surgical History Past Surgical History: Yes Cardiovascular: Valve replacement - Present Medications Home Medications: Ambulatory Orders Medication Instructions Recorded Confirmed Escitalopram [Lexapro] 20 mg PO DAILY 12/10/18 03/30/22 Apixaban [Eliquis] 5 mg PO BID 03/30/22 03/30/22 Cyclobenzaprine [Flexeril] 10 mg PO TID PRN #20 tablet 03/30/22 Gabapentin [Neurontin] 600 mg PO TID 03/30/22 03/30/22 HYDROcod/ACETAM 5/325 [[place] 5/325] 1 - 2 tablet PO Q6H PRN #14 tablet 03/30/22 Lacosamide 200 mg PO DAILY 03/30/22 03/30/22 Metoprolol Succinate 100 mg PO BID 03/30/22 03/30/22 clonazePAM [Clonazepam] 0.5 mg PO DAILY 03/30/22 03/30/22 hydrOXYzine HCL [Hydroxyzine HCl] 50 mg PO QPM 03/30/22 03/30/22 - Allergies Allergies/Adverse Reactions: Allergies Allergy/AdvReac Type Severity Reaction Status Date / Time bupropion [From Wellbutrin] Allergy Unknown Verified 03/30/22 04:30 oxycodone Allergy Hallucinati Verified 03/30/22 04:30 ons lamotrigine [From Lamictal] AdvReac Unknown Verified 03/30/22 04:30 - Social History Does the pt smoke?: No Smoking Status: Never smoker Does the pt drink ETOH?: No Does the pt have substance abuse?: No - Immunizations Immunizations are current?: No Immunizations: TDAP >10years/unknown - POLST Patient has POLST: No PD ED PE NORMAL - Vitals Vital signs reviewed: Yes (Hypertensive mild) - General General: Alert and oriented X 3, No acute distress, Well developed/nourished - HEENT HEENT: Atraumatic, PERRL, EOMI - Respiratory Respiratory: No respiratory distress - Back Back: No CVA TTP, No spinal TTP, Other (mild right paraspinous muscle tenderness extending to the sciatic notch. 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, No motor deficit, No sensory deficit, Normal speech Eye Opening: Spontaneous Motor: Obeys Commands Verbal: Oriented GCS Score: 15 - Psych Psych: Normal mood, Normal affect Results - Vitals Vitals: Vital Signs - 24 hr 03/30/22 03/30/22 04:25 05:25 Temperature 36.1 C L Heart Rate 57 L 51 L Respiratory 16 16 Rate Blood Pressure 147/79 H 117/78 O2 Saturation 99 97 Oxygen O2 Source Room air PD MEDICAL DECISION MAKING - ED course Complexity details: reviewed results, re-evaluated patient, considered differential, d/w patient, d/w family ED course: 56-year-old male with pain to the right hip radiating from his lower back has not been able to sleep since midnight. He has a history of seizure disorder and he is concerned about sleep deprivation. He states that he has pain and he will get along with pain but tonight he is unable to get back to sleep. Here in the emergency department the patient appears to have sciatica on the right side. There is no evidence of direct hip trauma. He is treated here in the emergency department with 10 mg of dexamethasone and 60 mg of Toradol IM. This was ineffective and after one hour he was administered IM dilaudid and zofran. Departure - Departure Disposition: 01 Home, Self Care Clinical Impression: Sciatica Qualifiers: Laterality: right Qualified Code(s): M54.31 - Sciatica, right side Condition: Stable Instructions: ED Sciatica Follow-Up: Ronal Everett MD [Primary Care Provider] - Prescriptions: Cyclobenzaprine [Flexeril] 10 mg PO TID PRN #20 tablet PRN Reason: Spasms HYDROcod/ACETAM 5/325 [[place] 5/325] 1 - 2 tablet PO Q6H PRN #14 tablet PRN Reason: Pain Comments: George, today looks like you have sciatica or pinched nerve in your back and our expectation is that you will have improvement throughout the day today after taking the dexamethasone. You may have pain for several days and we have prescribed some hydrocodone and Flexeril. These have been E scribed to the community pharmacy here in [place].
[2022-03-30] MEDS ORDERED: ONDANSETRON ODT 4 MG TABLET TL STA (05:59)
[2022-03-30] MEDS ORDERED: HYDROmorphone 1 MG/ML CARPUJECT IM STA (05:59)
[2022-03-30 06:45] VITALS: BP 110/70
--- NOTE | 2022-03-30 10:29 | ED Physician Documentation ---
ED Addendum - Addendum Addendum: 03/30/22 10:27 Pt seen overnight by Dr. Lim With sciatica. Patient was discharged with prescription sent to the [facility] he for Flexeril and [place]. Unfortunately the [facility] he is close to this weekend. Patient had called requesting prescriptions to be sent to [facility] in [place]. I did review the chart as documented by Dr. Lim and have resent the prescriptions that he had initially written for the patient.
== END 2022-03-30 06:45 | disposition home or self-care (01) ==
LOC: ED 04:20
DX: M54.41 Lumbago with sciatica, right side (principal); R03.0 Elevated blood-pressure reading, without diagnosis of hypertension; I48.91 Unspecified atrial fibrillation; Z79.01 Long term (current) use of anticoagulants; G40.909 Epilepsy, unspecified, not intractable, without status epilepticus; Z79.899 Other long term (current) drug therapy
CPT/HCPCS: 96372; 99282; 99283; A9270; J1170; Q0162

== ENCOUNTER 2022-07-16 12:41 | Outpatient (CLI) | payer BC ==
[2022-07-16 12:57] LABS: BASOPHILS % (AUTO) 0.3 %; EOSINOPHILS # (AUTO) 0.1 10^3/uL (0.0-0.7); HCT - HEMATOCRIT 36.3 % (42.0-52.0); HGB - HEMOGLOBIN 11.1 g/dL (14.0-18.0); LYMPHOCYTES # (AUTO) 1.9 10^3/uL (1.5-3.5); LYMPHOCYTES % (AUTO) 15.7 %; MEAN CORPUSCULAR HEMOGLOBIN 25.8 pg (27.0-31.0); MEAN CORPUSCULAR HGB CONC 30.6 g/dL (32.0-36.0); MEAN CORPUSCULAR VOLUME 84.2 fL (80.0-94.0); MEAN PLATELET VOLUME 8.4 fL (7.4-11.4); MONOCYTES % (AUTO) 7.9 %; NEUTROPHILS # (AUTO) 9.1 10^3/uL (1.5-6.6); NEUTROPHILS % (AUTO) 74.8 %; PLT - PLATELET COUNT 349 10^3/uL (130-450); RED BLOOD COUNT 4.31 10^6/uL (4.70-6.10); RED CELL DISTRIBUTION WIDTH 13.9 % (12.0-15.0); WHITE BLOOD COUNT 12.2 x10^3/uL (4.8-10.8)
[2022-07-16 13:24] LABS: CALCIUM 9.3 mg/dL (8.5-10.3); CREATININE 0.7 mg/dL (0.6-1.2); POTASSIUM 3.8 mmol/L (3.5-5.0)
== END 2022-07-16 12:42 | disposition home or self-care (01) ==
LOC: LAB 12:41
PROVIDERS: ATTEND Psychiatry & Neurology Psychiatry
DX: R53.83 Other fatigue (principal); R25.2 Cramp and spasm; G40.909 Epilepsy, unspecified, not intractable, without status epilepticus; Z79.899 Other long term (current) drug therapy
CPT/HCPCS: 36415; 80048; 80171; 80235; 81599; 83540; 84466; 85025

== ENCOUNTER 2022-10-25 08:02 | Outpatient (CLI) | payer BC ==
[2022-10-25 08:17] LABS: BASOPHILS % (AUTO) 0.4 %; EOSINOPHILS # (AUTO) 0.1 10^3/uL (0.0-0.7); HCT - HEMATOCRIT 35.7 % (42.0-52.0); HGB - HEMOGLOBIN 10.7 g/dL (14.0-18.0); LYMPHOCYTES # (AUTO) 0.9 10^3/uL (1.5-3.5); LYMPHOCYTES % (AUTO) 11.4 %; MEAN CORPUSCULAR HEMOGLOBIN 25.5 pg (27.0-31.0); MEAN PLATELET VOLUME 8.2 fL (7.4-11.4); MONOCYTES # (AUTO) 0.6 10^3/uL (0.0-1.0); NEUTROPHILS # (AUTO) 6.3 10^3/uL (1.5-6.6); NEUTROPHILS % (AUTO) 78.7 %; PLT - PLATELET COUNT 374 10^3/uL (130-450); RED CELL DISTRIBUTION WIDTH 14.6 % (12.0-15.0)
[2022-10-25 08:35] LABS: ALBUMIN 3.5 g/dL (3.2-5.5); ALBUMIN/GLOBULIN RATIO 0.8 (1.0-2.2); ALKALINE PHOSPHATASE 63 IU/L (42-121); ALT ALANINE AMINOTRANSFERASE 14 IU/L (10-60); AST ASPARTATE AMINOTRANSFERASE 12 IU/L (10-42); BILIRUBIN,TOTAL 0.6 mg/dL (0.2-1.0); BUN - BLOOD UREA NITROGEN 18 mg/dL (6-20); CALCIUM 8.9 mg/dL (8.5-10.3); CARBON DIOXIDE - CO2 29 mmol/L (21-32); CHLORIDE 98 mmol/L (101-111); CHOL/HDL RATIO 4.7 (<5.0); CHOLESTEROL 163 mg/dL; CREATININE 0.7 mg/dL (0.6-1.2); GFR - MDRD 116 (>89); GLUCOSE 123 mg/dL (70-100); HDL CHOLESTEROL 35 mg/dL; LDL CHOLESTEROL,CALCULATED 115 mg/dL; LDL/HDL RATIO 3.3 (<3.6); POTASSIUM 4.5 mmol/L (3.5-5.0); SODIUM 136 mmol/L (135-145); TRIGLYCERIDES 66 mg/dL; VLDL CHOLESTEROL 13 mg/dL
[2022-10-25 08:46] LABS: THYROID STIMULATING HORMONE 0.68 uIU/mL (0.34-5.60)
== END 2022-10-25 08:03 | disposition home or self-care (01) ==
LOC: LAB 08:02
PROVIDERS: ATTEND Internal Medicine Cardiovascular Disease
DX: I48.0 Paroxysmal atrial fibrillation (principal); I48.4 Atypical atrial flutter; Z98.890 Other specified postprocedural states
CPT/HCPCS: 36415; 80053; 80061; 83721; 84443; 85025

== ENCOUNTER 2023-02-16 13:05 | Emergency (ER) | payer BC ==
[2023-02-16 13:56] LABS: BASOPHILS % (AUTO) 0.5 %; EOSINOPHILS # (AUTO) 0.1 10^3/uL (0.0-0.7); EOSINOPHILS % (AUTO) 0.6 %; HCT - HEMATOCRIT 32.2 % (42.0-52.0); HGB - HEMOGLOBIN 9.5 g/dL (14.0-18.0); LYMPHOCYTES % (AUTO) 12.1 %; MEAN CORPUSCULAR HEMOGLOBIN 24.4 pg (27.0-31.0); MEAN CORPUSCULAR HGB CONC 29.5 g/dL (32.0-36.0); MEAN CORPUSCULAR VOLUME 82.8 fL (80.0-94.0); MEAN PLATELET VOLUME 8.3 fL (7.4-11.4); MONOCYTES # (AUTO) 0.7 10^3/uL (0.0-1.0); MONOCYTES % (AUTO) 7.9 %; NEUTROPHILS # (AUTO) 6.8 10^3/uL (1.5-6.6); NEUTROPHILS % (AUTO) 78.1 %; PLT - PLATELET COUNT 409 10^3/uL (130-450); RED BLOOD COUNT 3.89 10^6/uL (4.70-6.10); WHITE BLOOD COUNT 8.6 x10^3/uL (4.8-10.8)
[2023-02-16 14:00] LABS: ALBUMIN 3.6 g/dL (3.2-5.5); ALBUMIN/GLOBULIN RATIO 0.9 (1.0-2.2); BILIRUBIN,TOTAL 0.4 mg/dL (0.2-1.0); CALCIUM 9.4 mg/dL (8.5-10.3); CREATININE 0.8 mg/dL (0.6-1.3); MAGNESIUM 1.8 mg/dL (1.7-2.3); POTASSIUM 4.2 mmol/L (3.5-4.5); TOTAL PROTEIN 7.7 g/dL (6.4-8.9)
--- NOTE | 2023-02-16 14:23 | ED Physician Documentation ---
History of Present Illness - Stated complaint Stated Complaint: SOA,LIGHT HEADED,SPEECH ISSUE - Chief complaint Chief Complaint: Neuro - History obtained from History obtained from: Patient - Additonal information Additional information: 57-year-old gentleman with history of some sort of chronic hippocampal scarring causing his seizure disorder starting in 2018 maintained on lacosamide for that. He has not had a seizure in about a year. He does have very poor sleep hygiene and notes chills for some time. He has chronic anemia for which she is on iron and chronic hyponatremia for which his neurologist and paper sealer have recommended a water restriction which she does not particularly follow. Starting today he had what he describes as his prior preseizure aura with spots in his vision, feeling like he is lev attaining. He never actually had a seizure. His gave him a clonazepam which has resolved the symptoms. PD PAST MEDICAL HISTORY - Past Medical History Past Medical History: Yes Cardiovascular: Atrial fibrillation, Valve disorder Respiratory: None, Sleep apnea, CPAP use Neuro: Head injury, Seizure disorder Endocrine/Autoimmune: None GI: None : None HEENT: None, Other Psych: Anxiety Musculoskeletal: None Derm: None - Past Surgical History Past Surgical History: Yes Cardiovascular: Valve replacement - Present Medications Home Medications: Ambulatory Orders Medication Instructions Recorded Confirmed Escitalopram [Lexapro] 20 mg PO DAILY 12/10/18 03/30/22 Apixaban [Eliquis] 5 mg PO BID 03/30/22 03/30/22 Cyclobenzaprine [Flexeril] 10 mg PO TID PRN #20 tablet 03/30/22 Gabapentin [Neurontin] 600 mg PO TID 03/30/22 03/30/22 HYDROcod/ACETAM 5/325 [[place] 5/325] 1 - 2 tab PO Q6H PRN #14 tablet 03/30/22 Lacosamide 200 mg PO DAILY 03/30/22 03/30/22 Metoprolol Succinate 100 mg PO BID 03/30/22 03/30/22 clonazePAM [Clonazepam] 0.5 mg PO DAILY 03/30/22 03/30/22 hydrOXYzine HCL [Hydroxyzine HCl] 50 mg PO QPM 03/30/22 03/30/22 - Allergies Allergies/Adverse Reactions: Allergies Allergy/AdvReac Type Severity Reaction Status Date / Time bupropion [From Wellbutrin] Allergy Unknown Verified 02/16/23 13:17 oxycodone Allergy Hallucinati Verified 02/16/23 13:17 ons lamotrigine [From Lamictal] AdvReac Unknown Verified 02/16/23 13:17 - Social History Does the pt smoke?: No Smoking Status: Never smoker Does the pt drink ETOH?: No Does the pt have substance abuse?: No - Immunizations Immunizations are current?: No Immunizations: TDAP >10years/unknown - POLST Patient has POLST: No PD ED PE NORMAL - Vitals Vital signs reviewed: Yes - General General: Alert and oriented X 3, No acute distress - HEENT HEENT: PERRL, EOMI - Cardiac Cardiac: RRR, No murmur - Respiratory Respiratory: No respiratory distress, Clear bilaterally - Abdomen Abdomen: Non tender - Neuro Neuro: Alert and oriented X 3, brush cleaner 2-12 intact, No motor deficit, No sensory deficit Eye Opening: Spontaneous Motor: Obeys Commands Verbal: Oriented GCS Score: 15 Results - Vitals Vitals: Vital Signs - 24 hr 02/16/23 02/16/23 13:17 13:26 Temperature 36.3 C L 36.5 C Heart Rate 54 L 64 Respiratory 18 18 Rate Blood Pressure 122/63 122/63 O2 Saturation 97 97 Oxygen O2 Source Room air - EKG (time done) 1416 EKG releavant findings:: EKG personally interpreted by author of this note. Relevant findings are: Rate: Rate (enter#) (65) Rhythm: NSR [place]: Normal Intervals: RBBB (Incomplete) Ischemia: Normal ST segments - Labs Labs: Laboratory Tests 02/16/23 02/16/23 13:43 13:43 WBC 8.6 RBC 3.89 L Hgb 9.5 L Hct 32.2 L MCV 82.8 MCH 24.4 L MCHC 29.5 L RDW 15.0 Plt Count 409 MPV 8.3 Neut # (Auto) 6.8 H Lymph # (Auto) 1.0 L [place] # (Auto) 0.7 Eos # (Auto) 0.1 Baso # (Auto) 0.0 Absolute Nucleated RBC 0.00 Nucleated RBC % 0.0 Sodium 131 L Potassium 4.2 Chloride 95 L Carbon Dioxide 32 Anion Gap 4.0 L BUN 15 Creatinine 0.8 Estimated GFR (MDRD) 100 Glucose 126 H Calcium 9.4 Magnesium 1.8 Total Bilirubin 0.4 AST 10 ALT 9 L Alkaline Phosphatase 68 Total Protein 7.7 Albumin 3.6 Globulin 4.1 Albumin/Globulin Ratio 0.9 L Lipase 16 PD Medical Decision Making - ED course ED course: 57-year-old gentleman with preseizure aura without seizure today resolved after the home administration of clonazepam. Work-up demonstrates mild hyponatremia which is chronic and modest anemia which is also chronic. Departure - Departure Disposition: Home, Self Care Clinical Impression: Aura Condition: Good Record reviewed to determine appropriate education?: Yes Instructions: ED Seizure Recurrent Comments: You were seen today for an aura, which has resolved after the administration of clonazepam which I think was very appropriate. Talk with your neurologist about this episode. You have chronic hyponatremia at 131 and chronic anemia. Continue current medications. Try to cut back on caffeine to 3 cups of coffee a day with no more caffeine after about 1 PM and improve your sleep hygiene. Given the chronic chills I have added on thyroid function and we will call you later in the day if it is abnormal.
[2023-02-16 14:28] VITALS: BP 139/78; O2SAT 100
[2023-02-16 14:51] LABS: THYROID STIMULATING HORMONE 1.29 uIU/mL (0.34-5.60)
== END 2023-02-16 14:26 | disposition home or self-care (01) ==
LOC: ED 13:05
DX: H53.8 Other visual disturbances (principal); R42 Dizziness and giddiness; G40.909 Epilepsy, unspecified, not intractable, without status epilepticus; I48.91 Unspecified atrial fibrillation; Z79.899 Other long term (current) drug therapy; Z79.01 Long term (current) use of anticoagulants
CPT/HCPCS: 36415; 80053; 83690; 83735; 84439; 84443; 84481; 85025; 93005; 99283; 99284

== ENCOUNTER 2023-02-17 13:27 | Outpatient (CLI) | payer BC | END 2023-02-17 13:28 | disposition critical access hospital (66) | LOC: EMS 13:27 | DX: R56.9 Unspecified convulsions (principal) | CPT/HCPCS: A0425; A0427 ==

== ENCOUNTER 2023-02-17 13:39 | Emergency (ER) | payer BC ==
--- NOTE | 2023-02-17 13:45 | ED Physician Documentation ---
PD HPI SEIZURE - Stated complaint Stated Complaint: SEIZURE - History obtained from History obtained from: EMS - Additional information Additional information: 57-year-old gentleman with history of seizure disorder. Seen by me yesterday for an aura, resolved after home clonazepam prior to arrival. Only slept about 5 hours last night and today developed the ER again around 9 AM. As previously counseled the had given him an extra clonazepam for same. Around Or a little afternoon he started having tonic-clonic seizures, they were back to back. He was administered 5 mg of Versed IM prior to arrival by EMS and prehospital blood sugar was normal and vital signs were notable for systolic hypertension. PD PAST MEDICAL HISTORY - Past Medical History Cardiovascular: Atrial fibrillation, Valve disorder Respiratory: None, Sleep apnea, CPAP use Neuro: Head injury, Seizure disorder Endocrine/Autoimmune: None GI: None : None HEENT: None, Other Psych: Anxiety Musculoskeletal: None Derm: None - Past Surgical History Past Surgical History: Yes Cardiovascular: Valve replacement - Present Medications Home Medications: Ambulatory Orders Medication Instructions Recorded Confirmed Escitalopram [Lexapro] 30 mg PO DAILY 12/10/18 02/17/23 Apixaban [Eliquis] 5 mg PO BID 03/30/22 02/17/23 Gabapentin [Neurontin] 600 mg PO TID 03/30/22 02/17/23 Lacosamide 200 mg PO DAILY 03/30/22 02/17/23 Metoprolol Succinate 100 mg PO BID 03/30/22 02/17/23 clonazePAM [Clonazepam] 0.5 mg PO DAILY 03/30/22 02/17/23 hydrOXYzine HCL [Hydroxyzine HCl] 50 mg PO QPM 03/30/22 02/17/23 - Allergies Allergies/Adverse Reactions: Allergies Allergy/AdvReac Type Severity Reaction Status Date / Time bupropion [From Wellbutrin] Allergy Unknown Verified 02/16/23 13:17 oxycodone Allergy Hallucinati Verified 02/16/23 13:17 ons lamotrigine [From Lamictal] AdvReac Unknown Verified 02/16/23 13:17 - Social History Does the pt smoke?: No Smoking Status: Never smoker Does the pt drink ETOH?: No Does the pt have substance abuse?: No - Immunizations Immunizations are current?: No Immunizations: TDAP >10years/unknown - POLST Patient has POLST: No PD ED PE NORMAL - Vitals Vital signs reviewed: Yes - General General: Other (He is obtunded with sonorous respirations, incontinent of urine. No obvious trauma to the tongue and full range of motion of the shoulders.) - HEENT HEENT: PERRL - Neck Neck: Supple, no meningeal sign, No bony TTP - Cardiac Cardiac: RRR, No murmur - Respiratory Respiratory: No respiratory distress, Clear bilaterally - Abdomen Abdomen: Non tender - Neuro Eye Opening: Spontaneous Motor: Withdraws to Pain Verbal: None GCS Score: 9 Results - Vitals Vitals: Vital Signs - 24 hr 02/17/23 02/17/23 13:41 14:17 Temperature 36.7 C Heart Rate 65 62 Respiratory 27 H 26 H Rate Blood Pressure 98/88 H 121/79 O2 Saturation 97 100 If not protocol 13 : Oxygen Flow, liters/minute Oxygen O2 Source Non-rebreather mask - EKG (time done) 1344 EKG releavant findings:: EKG personally interpreted by author of this note. Relevant findings are: Rate: Rate (enter#) (68) Rhythm: NSR [place]: Normal Intervals: RBBB Ischemia: Non specific changes - Labs Labs: Laboratory Tests 02/17/23 02/17/23 14:10 14:10 WBC 10.9 H RBC 3.92 L Hgb 9.6 L Hct 32.2 L MCV 82.1 MCH 24.5 L MCHC 29.8 L RDW 14.9 Plt Count 414 MPV 8.2 Neut # (Auto) 9.0 H Lymph # (Auto) 0.9 L [place] # (Auto) 0.8 Eos # (Auto) 0.1 Baso # (Auto) 0.0 Absolute Nucleated RBC 0.00 Nucleated RBC % 0.0 Sodium 133 L Potassium 3.9 Chloride 98 L Carbon Dioxide 28 Anion Gap 7.0 BUN 15 Creatinine 0.8 Estimated GFR (MDRD) 100 Glucose 125 H Calcium 9.3 Magnesium 1.8 Total Bilirubin 0.3 AST 11 ALT 11 Alkaline Phosphatase 74 Total Protein 7.5 Albumin 3.5 Globulin 4.0 Albumin/Globulin Ratio 0.9 L Ethyl Alcohol < 10.0 PD Medical Decision Making - ED course ED course: Shortly after initial arrival he remained obtunded and the nurse pointed out that he had some rhythmic contractions of the upper lip and forehead which are concerning for minimally convulsive status epilepticus. He had already received 5 mg of IM Versed prior to arrival and to this added 10 mg of IV Ativan and a second line was placed with the anticipation of potential intubation. Subsequently his arrived to the bedside and I was talking about the potential for intubation. The nurse was preparing to give him the dose of Ativan when the patient started talking and answering questions again. He still certainly was not normal, still very slow answers but the seizure activity had stopped. Call back into the room a few minutes later and he was back in status epilepticus with tonic-clonic activity. Previous orders were reordered with 10 mg of Ativan in preparation for intubation. Case discussed by phone with Dr. Davis, neurology attending at [facility] at approximately 2:45 PM and he accepted transfer. Recommends loading with Keppra, 3 g IV. - Critical Care Time(min): 45 Time Includes: Direct patient care, Review records, Reassess patient, Document care, Coordinate care, Medical consult, Family consult for tx dec Data interpretation: Labs, Pulse ox Procedures included in critical care time: Peripheral IV Procedures excluded from critical care time: EKG Departure - Departure Disposition: 02 Transfer Acute Care Hosp Clinical Impression: Status epilepticus Condition: Critical
[2023-02-17] MEDS ORDERED: LORazepam 2 MG/ML VIAL IVP STA ×2 (13:53→14:14)
[2023-02-17] MEDS ORDERED: SUCCINYLCHOLINE 200 MG/10 ML VIAL IVP STA ×2 (14:03→14:14)
[2023-02-17] MEDS ORDERED: PROPOFOL 200 MG/20 ML VIAL IVP STA ×2 (14:03→14:14)
[2023-02-17] MEDS ORDERED: PROPOFOL 1000 MG/100 ML 1,000 MG/100 ML BOTTLE IV STA (14:14)
[2023-02-17 14:18] LABS: BASOPHILS % (AUTO) 0.4 %; EOSINOPHILS # (AUTO) 0.1 10^3/uL (0.0-0.7); EOSINOPHILS % (AUTO) 0.6 %; HCT - HEMATOCRIT 32.2 % (42.0-52.0); HGB - HEMOGLOBIN 9.6 g/dL (14.0-18.0); LYMPHOCYTES # (AUTO) 0.9 10^3/uL (1.5-3.5); LYMPHOCYTES % (AUTO) 7.8 %; MEAN CORPUSCULAR HEMOGLOBIN 24.5 pg (27.0-31.0); MEAN CORPUSCULAR HGB CONC 29.8 g/dL (32.0-36.0); MEAN CORPUSCULAR VOLUME 82.1 fL (80.0-94.0); MEAN PLATELET VOLUME 8.2 fL (7.4-11.4); MONOCYTES # (AUTO) 0.8 10^3/uL (0.0-1.0); MONOCYTES % (AUTO) 7.1 %; NEUTROPHILS % (AUTO) 83.2 %; PLT - PLATELET COUNT 414 10^3/uL (130-450); RED BLOOD COUNT 3.92 10^6/uL (4.70-6.10); RED CELL DISTRIBUTION WIDTH 14.9 % (12.0-15.0); WHITE BLOOD COUNT 10.9 x10^3/uL (4.8-10.8)
[2023-02-17 14:31] LABS: ALBUMIN 3.5 g/dL (3.2-5.5); ALBUMIN/GLOBULIN RATIO 0.9 (1.0-2.2); ALKALINE PHOSPHATASE 74 IU/L (42-121); ALT ALANINE AMINOTRANSFERASE 11 IU/L (10-60); AST ASPARTATE AMINOTRANSFERASE 11 IU/L (10-42); BILIRUBIN,TOTAL 0.3 mg/dL (0.2-1.0); BUN - BLOOD UREA NITROGEN 15 mg/dL (6-20); CALCIUM 9.3 mg/dL (8.5-10.3); CARBON DIOXIDE - CO2 28 mmol/L (21-32); CHLORIDE 98 mmol/L (101-111); CREATININE 0.8 mg/dL (0.6-1.3); ETOH - ETHANOL < 10.0 mg/dL; GFR - MDRD 100 (>89); GLUCOSE 125 mg/dL (74-104); MAGNESIUM 1.8 mg/dL (1.7-2.3); POTASSIUM 3.9 mmol/L (3.5-4.5); SODIUM 133 mmol/L (135-145); TOTAL PROTEIN 7.5 g/dL (6.4-8.9)
[2023-02-17] MEDS ORDERED: levETIRAcetam INJ 3,000 MG in SODIUM CHLORIDE 0.9% 100ML 100 ML IV STA (14:47)
[2023-02-17] MEDS ORDERED: SODIUM CHLORIDE 0.9% 1,000 ML IV STA (15:14)
--- NOTE | 2023-02-17 15:34 | CT Report ---
PROCEDURE: HEAD WO INDICATIONS: status epilepticus TECHNIQUE: Noncontrast 4.5 mm thick angled axial sections acquired from the foramen magnum to the vertex. For r adiation dose reduction, the following was used: automated exposure control, adjustment of mA and/or kV according to patient size. COMPARISON: CT head 01/16/2022. FINDINGS: Image quality: Motion degraded. CSF spaces: Basal cisterns are patent. No extra-axial fluid collections. Ventricles are normal in size and shape. Brain: No midline shift. No intracranial masses or hemorrhage. Castaneda-white matter interface is norm al. Skull and face: Prominent left parafalcine dural calcification. Calvarium and visualized facial bone s are intact, without suspicious lesions. Sinuses: Visualized sinuses and mastoids are clear. IMPRESSION: Motion degraded exam. No acute intracranial abnormalities are identified. Reviewed by: Talib Vizcaino MD on 02/17/2023 3:32 PM PDT Approved by: Talib Vizcaino MD on 02/17/2023 3:32 PM PDT Station ID: [id number]
[2023-02-17 17:19] VITALS: BP 130/84; O2SAT 100
== END 2023-02-17 17:54 | disposition short-term general hospital (02) ==
LOC: EDUNIT# → ED 13:39
DX: G40.911 Epilepsy, unspecified, intractable, with status epilepticus (principal); Z20.822 Contact with and (suspected) exposure to COVID-19
CPT/HCPCS: 36415; 70450; 80053; 80320; 83735; 85025; 87635; 93005; 96374; 96375; 99291; J2060

== ENCOUNTER 2023-04-29 07:08 | Outpatient (CLI) | payer BC ==
[2023-04-29 07:34] LABS: BASOPHILS # (AUTO) 0.1 10^3/uL (0.0-0.1); BASOPHILS % (AUTO) 0.8 %; EOSINOPHILS # (AUTO) 0.2 10^3/uL (0.0-0.7); EOSINOPHILS % (AUTO) 2.4 %; HCT - HEMATOCRIT 31.2 % (42.0-52.0); HGB - HEMOGLOBIN 9.3 g/dL (14.0-18.0); LYMPHOCYTES % (AUTO) 14.4 %; MEAN CORPUSCULAR HEMOGLOBIN 24.6 pg (27.0-31.0); MEAN CORPUSCULAR HGB CONC 29.8 g/dL (32.0-36.0); MEAN CORPUSCULAR VOLUME 82.5 fL (80.0-94.0); MEAN PLATELET VOLUME 8.2 fL (7.4-11.4); MONOCYTES # (AUTO) 0.8 10^3/uL (0.0-1.0); MONOCYTES % (AUTO) 11.2 %; NEUTROPHILS % (AUTO) 70.8 %; PLT - PLATELET COUNT 346 10^3/uL (130-450); RED BLOOD COUNT 3.78 10^6/uL (4.70-6.10); WHITE BLOOD COUNT 7.1 x10^3/uL (4.8-10.8)
[2023-04-29 07:49] LABS: ALBUMIN 3.5 g/dL (3.2-5.5); ALBUMIN/GLOBULIN RATIO 0.9 (1.0-2.2); ALKALINE PHOSPHATASE 78 IU/L (42-121); ALT ALANINE AMINOTRANSFERASE 8 IU/L (10-60); AST ASPARTATE AMINOTRANSFERASE 8 IU/L (10-42); BILIRUBIN,TOTAL 0.5 mg/dL (0.2-1.0); BUN - BLOOD UREA NITROGEN 14 mg/dL (6-20); CALCIUM 8.9 mg/dL (8.5-10.3); CARBON DIOXIDE - CO2 30 mmol/L (21-32); CHLORIDE 99 mmol/L (101-111); CHOL/HDL RATIO 4.4 (<5.0); CHOLESTEROL 142 mg/dL; CREATININE 0.7 mg/dL (0.6-1.3); GFR - MDRD 116 (>89); GLUCOSE 107 mg/dL (74-104); HDL CHOLESTEROL 32 mg/dL; LDL CHOLESTEROL,CALCULATED 99 mg/dL; LDL/HDL RATIO 3.1 (<3.6); POTASSIUM 4.3 mmol/L (3.5-4.5); SODIUM 134 mmol/L (135-145); TOTAL PROTEIN 7.2 g/dL (6.4-8.9); TRIGLYCERIDES 56 mg/dL (48-352); VLDL CHOLESTEROL 11 mg/dL
[2023-04-29 08:04] LABS: THYROID STIMULATING HORMONE 0.77 uIU/mL (0.34-5.60)
[2023-04-29 10:29] LABS: ESTIMATED AVERAGE GLUCOSE 123 mg/dL (70-100); HEMOGLOBIN A1c% 5.9 % (4.27-6.07)
== END 2023-04-29 07:09 | disposition home or self-care (01) ==
LOC: LAB 07:08
PROVIDERS: ATTEND Nurse Practitioner
DX: E22.2 Syndrome of inappropriate secretion of antidiuretic hormone (principal); Z13.220 Encounter for screening for lipoid disorders; E66.9 Obesity, unspecified; Z12.5 Encounter for screening for malignant neoplasm of prostate; G40.909 Epilepsy, unspecified, not intractable, without status epilepticus; F41.9 Anxiety disorder, unspecified; F32.A Depression, unspecified
CPT/HCPCS: 36415; 80053; 80061; 83036; 83721; 84153; 84443; 85025

== ENCOUNTER 2023-08-06 09:56 | Outpatient (CLI) | payer BC ==
[2023-08-06] MEDS ORDERED: iohexoL-300 100 ML VIAL ONE (10:01)
[2023-08-06] MEDS ORDERED: DIATRIZOATE MEGLU/DIATRIZO SOD 30 ML BOTTLE PO ONE (10:01)
[2023-08-06 10:35] LABS: CREATININE 0.8 mg/dL (0.6-1.3)
--- NOTE | 2023-08-06 14:29 | CT Report ---
PROCEDURE: Abdomen/Pelvis W INDICATIONS: ANEMIA CONTRAST: Omni 300 100ml TECHNIQUE: After the administration of intravenous contrast, a CT scan of the abdomen and pelvis was performed. Images were recorded and evaluated at appropriate window settings. Reformats: coronal and sagittal. F or radiation dose reduction, the following was used: automated exposure control, adjustment of mA and /or kV according to patient size. COMPARISON: 03/18/2021 FINDINGS: Image quality: Diagnostic Lower chest: Mild basal reticulation versus atelectasis/scarring. No pleural effusions. Partially see n sternotomy wires. Cardiomegaly. Mitral annuloplasty. Liver: Small hypoattenuating lesions are favored to represent cysts. However, subcentimeter lesions a re too small to characterize on CT. This could be confirmed on MRI if there is known malignancy. Gallbladder and biliary system: Unremarkable, nondilated Pancreas: No ductal dilation Spleen: Nonenlarged Adrenals: No discrete nodules Kidneys: Possible nonobstructing small renal calculi. No hydronephrosis. No solid renal mass. Vessels and lymph nodes: The main portal vein is patent. No abdominal aortic aneurysm. There are no p athologic lymph nodes by size criteria. Bowel and peritoneum: No evidence of small bowel obstruction. No pathologic ascites. Colonic divertic flori. There is wall thickening of the sigmoid colon. Body wall: Unremarkable Pelvis: Bladder is unremarkable. Heterogeneous prostate is not well assessed on CT possibly BPH. Cons ider PSA correlation if indicated Bones: No acute or suspicious osseous findings. IMPRESSION: Colonic diverticulosis. There is wall thickening of sigmoid colon, likely related to chronic divertic ular disease, however in the setting of liver anemia, consider colonoscopy correlation. Other findings as above. No acute abnormality identified in the abdomen/pelvis. Reviewed by: Gregory Jerez MD on 08/06/2023 2:27 PM PST Approved by: Gregory Jerez MD on 08/06/2023 2:27 PM PST Station ID: [id number]
[2023-08-06] MEDS: iohexoL-300 100 ML VIAL IVP ONE (15:18)
[2023-08-06] MEDS: DIATRIZOATE MEGLU/DIATRIZO SOD 30 ML BOTTLE PO ONE (15:19)
== END 2023-08-06 09:57 | disposition home or self-care (01) ==
LOC: LAB 09:56
PROVIDERS: ATTEND Nurse Practitioner
DX: D64.9 Anemia, unspecified (principal); K57.30 Diverticulosis of large intestine without perforation or abscess without bleeding; K76.89 Other specified diseases of liver; N20.0 Calculus of kidney
CPT/HCPCS: 36415; 74177; 82565; Q9963; Q9967

== ENCOUNTER 2023-08-20 10:09 | Outpatient (CLI) | payer BC ==
[2023-08-20 16:03] LABS: CALCIUM 9.7 mg/dL (8.5-10.3); CREATININE 0.8 mg/dL (0.6-1.3); POTASSIUM 4.4 mmol/L (3.5-4.5)
== END 2023-08-20 10:10 | disposition home or self-care (01) ==
LOC: LAB 10:09
PROVIDERS: ATTEND Nurse Practitioner
DX: E22.2 Syndrome of inappropriate secretion of antidiuretic hormone (principal)
CPT/HCPCS: 36415; 80048

== ENCOUNTER 2023-08-28 10:27 | Outpatient (CLI) | payer BC ==
[2023-08-28 10:39] LABS: BASOPHILS % (AUTO) 0.3 %; EOSINOPHILS # (AUTO) 0.1 10^3/uL (0.0-0.7); EOSINOPHILS % (AUTO) 1.3 %; HCT - HEMATOCRIT 35.7 % (42.0-52.0); HGB - HEMOGLOBIN 10.8 g/dL (14.0-18.0); LYMPHOCYTES # (AUTO) 1.2 10^3/uL (1.5-3.5); LYMPHOCYTES % (AUTO) 12.4 %; MEAN CORPUSCULAR HEMOGLOBIN 25.6 pg (27.0-31.0); MEAN CORPUSCULAR HGB CONC 30.3 g/dL (32.0-36.0); MEAN CORPUSCULAR VOLUME 84.6 fL (80.0-94.0); MEAN PLATELET VOLUME 8.2 fL (7.4-11.4); MONOCYTES # (AUTO) 0.6 10^3/uL (0.0-1.0); MONOCYTES % (AUTO) 6.3 %; NEUTROPHILS # (AUTO) 7.5 10^3/uL (1.5-6.6); PLT - PLATELET COUNT 359 10^3/uL (130-450); RED BLOOD COUNT 4.22 10^6/uL (4.70-6.10); RED CELL DISTRIBUTION WIDTH 15.2 % (12.0-15.0); WHITE BLOOD COUNT 9.5 x10^3/uL (4.8-10.8)
[2023-08-28 11:00] LABS: ALBUMIN 3.8 g/dL (3.2-5.5); BILIRUBIN,TOTAL 0.5 mg/dL (0.2-1.0); CALCIUM 9.6 mg/dL (8.5-10.3); CREATININE 0.7 mg/dL (0.6-1.3); POTASSIUM 4.4 mmol/L (3.5-4.5); TOTAL PROTEIN 7.5 g/dL (6.4-8.9)
[2023-08-28 11:13] LABS: FERRITIN 81.9 ng/mL (23.9-336.2)
== END 2023-08-28 10:28 | disposition home or self-care (01) ==
LOC: LAB 10:27
PROVIDERS: ATTEND Nurse Practitioner
DX: I10 Essential (primary) hypertension (principal); G40.909 Epilepsy, unspecified, not intractable, without status epilepticus; D64.9 Anemia, unspecified
CPT/HCPCS: 36415; 80053; 82607; 82728; 82746; 83540; 84466; 85025

== ENCOUNTER 2023-09-03 13:47 | Outpatient (CLI) | payer BC | END 2023-09-03 23:59 | disposition critical access hospital (66) | LOC: EMS 13:47 | DX: R41.82 Altered mental status, unspecified (principal); R56.9 Unspecified convulsions; V89.2XXA Person injured in unspecified motor-vehicle accident, traffic, initial encounter; Y93.89 Activity, other specified; Y92.413 State road as the place of occurrence of the external cause | CPT/HCPCS: A0425; A0429 ==

== ENCOUNTER 2023-09-03 14:36 | Emergency (ER) | payer BC ==
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
[2023-09-03 15:16] LABS: BASOPHILS % (AUTO) 0.3 %; EOSINOPHILS # (AUTO) 0.1 10^3/uL (0.0-0.7); EOSINOPHILS % (AUTO) 0.7 %; HCT - HEMATOCRIT 34.5 % (42.0-52.0); HGB - HEMOGLOBIN 10.3 g/dL (14.0-18.0); LYMPHOCYTES # (AUTO) 0.9 10^3/uL (1.5-3.5); LYMPHOCYTES % (AUTO) 8.6 %; MEAN CORPUSCULAR HEMOGLOBIN 25.2 pg (27.0-31.0); MEAN CORPUSCULAR HGB CONC 29.9 g/dL (32.0-36.0); MEAN CORPUSCULAR VOLUME 84.4 fL (80.0-94.0); MEAN PLATELET VOLUME 8.1 fL (7.4-11.4); MONOCYTES # (AUTO) 0.8 10^3/uL (0.0-1.0); MONOCYTES % (AUTO) 7.7 %; NEUTROPHILS # (AUTO) 8.5 10^3/uL (1.5-6.6); NEUTROPHILS % (AUTO) 82.1 %; PLT - PLATELET COUNT 374 10^3/uL (130-450); RED BLOOD COUNT 4.09 10^6/uL (4.70-6.10); WHITE BLOOD COUNT 10.4 x10^3/uL (4.8-10.8)
[2023-09-03 15:24] LABS: ALBUMIN 3.7 g/dL (3.2-5.5); ALKALINE PHOSPHATASE 72 IU/L (42-121); ALT ALANINE AMINOTRANSFERASE 13 IU/L (10-60); AST ASPARTATE AMINOTRANSFERASE 14 IU/L (10-42); BILIRUBIN,TOTAL 0.3 mg/dL (0.2-1.0); BUN - BLOOD UREA NITROGEN 18 mg/dL (6-20); CALCIUM 9.5 mg/dL (8.5-10.3); CARBON DIOXIDE - CO2 29 mmol/L (21-32); CHLORIDE 97 mmol/L (101-111); CREATININE 0.8 mg/dL (0.6-1.3); ETOH - ETHANOL < 10.0 mg/dL; GFR - MDRD 99 (>89); GLUCOSE 113 mg/dL (74-104); MAGNESIUM 1.9 mg/dL (1.7-2.3); POTASSIUM 3.9 mmol/L (3.5-4.5); SODIUM 132 mmol/L (135-145); TOTAL PROTEIN 7.4 g/dL (6.4-8.9)
[2023-09-03 16:05] LABS: BILIRUBIN,URINE NEGATIVE (NEGATIVE); GLUCOSE, URINE (UA) NEGATIVE (NEGATIVE); KETONES,URINE (UA) NEGATIVE (NEGATIVE); LEUKOCYTE ESTERASE, URINE TRACE (NEGATIVE); NITRITE,URINE POSITIVE (NEGATIVE); OCCULT BLOOD,URINE SMALL (NEGATIVE); PROTEIN,URINE TRACE mg/dL (NEGATIVE); UROBILINOGEN,URINE 0.2 (NORMAL) E.U./dL (NORMAL)
[2023-09-03 16:21] LABS: CLARITY,URINE HAZY (CLEAR)
[2023-09-03 16:22] LABS: BACTERIA,URINE Many /HPF (None Seen); CASTS, URINE 0-2 Hyaline Casts /LPF; RBC,URINE TNTC /HPF (0-5); SQUAMOUS EPITHELIAL CELL,UR RARE Squamous (<= Few); WBC CLUMPS,URINE PRESENT; WBC,URINE >25 /HPF (0-3)
[2023-09-03] MEDS: levETIRAcetam INJ 1,000 MG in SODIUM CHLORIDE 0.9% 100ML 100 ML IV STA (16:43)
[2023-09-03] MEDS: ACETAMINOPHEN 325 MG TABLET PO STA (16:43)
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
[2023-09-03] MEDS: SODIUM CHLORIDE 0.9% 500 ML IV ONE (17:24)
[2023-09-03 18:18] VITALS: BP 130/80; O2SAT 99
--- NOTE | 2023-09-05 12:42 | ED Physician Documentation ---
ED Addendum - Addendum Addendum: 09/05/23 12:41 Culture reviewed, no documentation of urinary complaints, and low colony count would suggest this is asymptomatic bacteriuria.
== END 2023-09-03 18:14 | disposition home or self-care (01) ==
LOC: EDUNIT# → ED 14:36
DX: G40.909 Epilepsy, unspecified, not intractable, without status epilepticus (principal); V49.9XXA Car occupant (driver) (passenger) injured in unspecified traffic accident, initial encounter; I48.91 Unspecified atrial fibrillation; T42.6X6A Underdosing of other antiepileptic and sedative-hypnotic drugs, initial encounter; Z91.128 Patient's intentional underdosing of medication regimen for other reason; Z79.01 Long term (current) use of anticoagulants
CPT/HCPCS: 36415; 70450; 72125; 80053; 81001; 82077; 83735; 85025; 87086; 93005; 96365; 99284; 99285; A9270; 81003; 87077; 87181

== ENCOUNTER 2023-10-21 10:34 | Outpatient (CLI) | payer BC ==
[2023-10-21 10:46] LABS: BASOPHILS % (AUTO) 0.5 %; EOSINOPHILS # (AUTO) 0.1 10^3/uL (0.0-0.7); EOSINOPHILS % (AUTO) 1.6 %; HCT - HEMATOCRIT 35.4 % (42.0-52.0); HGB - HEMOGLOBIN 10.4 g/dL (14.0-18.0); LYMPHOCYTES # (AUTO) 1.4 10^3/uL (1.5-3.5); LYMPHOCYTES % (AUTO) 16.9 %; MEAN CORPUSCULAR HEMOGLOBIN 25.4 pg (27.0-31.0); MEAN CORPUSCULAR HGB CONC 29.4 g/dL (32.0-36.0); MEAN CORPUSCULAR VOLUME 86.6 fL (80.0-94.0); MEAN PLATELET VOLUME 8.2 fL (7.4-11.4); MONOCYTES # (AUTO) 0.7 10^3/uL (0.0-1.0); MONOCYTES % (AUTO) 8.7 %; NEUTROPHILS # (AUTO) 5.8 10^3/uL (1.5-6.6); NEUTROPHILS % (AUTO) 71.8 %; PLT - PLATELET COUNT 342 10^3/uL (130-450); RED BLOOD COUNT 4.09 10^6/uL (4.70-6.10); RED CELL DISTRIBUTION WIDTH 14.3 % (12.0-15.0); WHITE BLOOD COUNT 8.1 x10^3/uL (4.8-10.8)
[2023-10-21 11:06] LABS: ALBUMIN 3.8 g/dL (3.2-5.5); BILIRUBIN,TOTAL 0.4 mg/dL (0.2-1.0); CALCIUM 9.5 mg/dL (8.5-10.3); CREATININE 0.7 mg/dL (0.6-1.3); POTASSIUM 4.8 mmol/L (3.5-4.5); TOTAL PROTEIN 7.6 g/dL (6.4-8.9)
[2023-10-21 11:29] LABS: FERRITIN 61.7 ng/mL (23.9-336.2)
== END 2023-10-21 10:35 | disposition home or self-care (01) ==
LOC: LAB 10:34
PROVIDERS: ATTEND Nurse Practitioner
DX: D64.9 Anemia, unspecified (principal); G40.909 Epilepsy, unspecified, not intractable, without status epilepticus
CPT/HCPCS: 36415; 80053; 80177; 82607; 82728; 83540; 84466; 85025

== ENCOUNTER 2023-11-30 08:48 | Emergency (ER) | payer BC ==
[2023-11-30 09:05] VITALS: BP 127/75; O2SAT 98
--- NOTE | 2023-11-30 09:06 | ED Physician Documentation ---
PD HPI LOWER EXT INJURY - Stated complaint Stated Complaint: RT FOOT OLD INJURY/PX - Chief complaint Chief Complaint: Ext Problem - History obtained from History obtained from: Patient - Additional information Additional information: He had a couple remote injuries of the right foot and was working heavily yesterday and woke this morning with a lump on his foot and very significant pain. No history of gout. He does have a history of seizure disorder. PD PAST MEDICAL HISTORY - Past Medical History Cardiovascular: Atrial fibrillation, Valve disorder Respiratory: None, Sleep apnea, CPAP use Neuro: Head injury, Seizure disorder Endocrine/Autoimmune: None GI: None : None HEENT: None, Other Psych: Anxiety Musculoskeletal: None Derm: None - Past Surgical History Past Surgical History: Yes General: Colonoscopy Cardiovascular: Valve replacement - Present Medications Home Medications: Ambulatory Orders Medication Instructions Recorded Confirmed Escitalopram [Lexapro] 30 mg PO DAILY 12/10/18 11/30/23 Apixaban [Eliquis] 5 mg PO BID 03/30/22 11/30/23 Gabapentin [Neurontin] 600 mg PO TID 03/30/22 11/30/23 Lacosamide 200 mg PO DAILY 03/30/22 11/30/23 Metoprolol Succinate 100 mg PO BID 03/30/22 11/30/23 clonazePAM [Clonazepam] 0.5 mg PO DAILY 03/30/22 11/30/23 hydrOXYzine HCL [Hydroxyzine HCl] 50 mg PO QPM 03/30/22 11/30/23 Oxycodone HCl/Acetaminophen 1 - 2 each PO Q6H PRN #14 tablet 11/30/23 [Percocet 5-325 mg Tablet] cephALEXin [Keflex] 500 mg PO Q6H #28 cap 11/30/23 - Allergies Allergies/Adverse Reactions: Allergies Allergy/AdvReac Type Severity Reaction Status Date / Time No Known Drug Allergies Allergy Verified 11/30/23 08:56 - Social History Does the pt smoke?: No Smoking Status: Never smoker Does the pt drink ETOH?: No Does the pt have substance abuse?: No - Immunizations Immunizations are current?: No Immunizations: TDAP >10years/unknown - POLST Patient has POLST: No PD ED PE NORMAL - Vitals Vital signs reviewed: Yes - General General: Alert and oriented X 3, No acute distress - Extremities Extremities: Other (On the medial side of the foot, probably just proximal to the first MTP there is a fluctuant area measuring 2 cm around with mild overlying redness. It is tender in that area.) - Neuro Neuro: Alert and oriented X 3, Normal speech Results - Vitals Vitals: Vital Signs - 24 hr 11/30/23 08:54 Temperature 36.4 C L Heart Rate 60 Respiratory 18 Rate Blood Pressure 127/75 O2 Saturation 98 Oxygen O2 Source Room air - Rads (name of study) Right foot x-ray Relevant Findings:: Final report received, Discussed with rads, EMP independent interpretation of test Procedures - Abscess I&D (location) R foot Preparation: Chlorhexadine, Lidocaine 1% Incision: Incised with scalpel (A stab incision was made and quite a bit of sebaceous material was expressed and sent for culture.) Other: Dressing applied PD Medical Decision Making - ED course ED course: 58-year-old gentleman with a painful lump on the medial right foot proximal to the first metatarsal. It is slightly fluctuant and red. X-ray does demonstrate a bone cyst distally to that and I queried the radiologist and he admitted to could be osteomyelitis but was not quite typical for that. Subsequently I did a stab incision over the fluctuant area and quite a bit of sebaceous material was expressed, so this looks like an infected sebaceous cyst. It was sent for culture. Prior to discharge I did discuss the case by phone with Dr. Heriberto Noel who agrees with outpatient management and follow-up in clinic with antibiotics. Departure - Departure Disposition: 01 Home, Self Care Clinical Impression: Sebaceous cyst Condition: Good Record reviewed to determine appropriate education?: Yes Instructions: ED Abscess IandD Follow-Up: [facility] [Provider Group] Prescriptions: cephALEXin [Keflex] 500 mg PO Q6H #28 cap Oxycodone HCl/Acetaminophen [Percocet 5-325 mg Tablet] 1 - 2 each PO Q6H PRN #14 tablet PRN Reason: pain Comments: You are seen today for what looks like a sebaceous cyst that is infected in the right foot. We drained it and got quite a bit of material out that was sent for culture. There was an abnormality in the bone there which could represent a deep infection. Because of that I do want you to follow-up in the clinic, call the number on this form for an appointment for reevaluation. If it is not getting better they may want to do an MRI of your foot. Return if worse. We are performing a wound culture, the results should be done in 48-72 hours. If antibiotic change is necessary we will call you. Return if worse in the meantime, especially if you develop increased pain, fevers, cannot keep down the medication. Otherwise follow-up with your physician in approximately 2-3 days. I am prescribing a short course of narcotic pain medication for you. These are potentially dangerous and addictive medications that should be used carefully. These medications may constipate you. Take an jcvy-tej-[id number] stool softener (docusate) twice daily with plenty of water while taking these medications. If you go 24 hours without a bowel movement, take [id number] miralax, per package instructions. Do not drink or drive while taking these medications. If you received narcotic or sedating medications while in the emergency department, do not drive for 24 hours. Store this medication in a safe, secure place and out of reach of children. It is a violation of federal law to give or sell this medication to another person or to use in a manner other than prescribed. The ED will not refill narcotic prescriptions, including prescriptions lost or stolen. To dispose of unwanted medications: 1. [facility] provides a drop box for medication in pill form only (no liquids) 8:00 am to 4:30 p.m. Friday-Friday in the lobby of the [facility], [address] [place] [address]. Empty pills into ziplock bag before disposal. Call [phone] for information. 2.[employer] is a free service available to all [facility] residents. Go to [email or web address] Note that many narcotic pain relievers also contain Tylenol/acetaminophen. Please ensure that your total dose of acetaminophen from all sources does not exceed 3 g (3000 mg) per day. Forms: PCP List
[2023-11-30] MEDS: LIDOCAINE 1%-EPI 1:100000 20 ML MDV SUBQ STA (09:16)
[2023-11-30] MEDS: oxyCODONE 5 MG TABLET PO STA (09:16)
[2023-11-30] MEDS: BUFFERED LIDOCAINE 10 ML SYRINGE SUBQ STA (09:16)
--- NOTE | 2023-11-30 09:24 | XRAY Report ---
PROCEDURE: Foot 3+V RT INDICATIONS: R foot pain TECHNIQUE: 3 views of the foot were acquired. COMPARISON: None. FINDINGS: Bones: No fractures or dislocations. No suspicious bony lesions. Age-appropriate degenerative law es are seen. Toe alignment abnormalities can be seen. Soft tissues: No tibiotalar joint effusion. Achilles tendon appears normal. IMPRESSION: No acute bony abnormality is seen by plain film. Reviewed by: Kwadwo Hernandes MD on 11/30/2023 8:23 AM SYLVAIN Approved by: Kwadwo Hernandes MD on 11/30/2023 8:23 AM SYLVAIN Station ID: [id number]
== END 2023-11-30 10:08 | disposition home or self-care (01) ==
LOC: ED 08:48
DX: L72.3 Sebaceous cyst (principal); R93.6 Abnormal findings on diagnostic imaging of limbs
CPT/HCPCS: 10060; 73630; 87070; 87205; 99284; A9270

== ENCOUNTER 2024-03-16 08:05 | Outpatient (CLI) | payer MEDICARE, BC ==
[2024-03-16 08:17] LABS: BASOPHILS # (AUTO) 0.1 10^3/uL (0.0-0.1); BASOPHILS % (AUTO) 0.6 %; EOSINOPHILS # (AUTO) 0.2 10^3/uL (0.0-0.7); EOSINOPHILS % (AUTO) 2.2 %; HCT - HEMATOCRIT 38.8 % (42.0-52.0); HGB - HEMOGLOBIN 11.9 g/dL (14.0-18.0); LYMPHOCYTES # (AUTO) 1.6 10^3/uL (1.5-3.5); LYMPHOCYTES % (AUTO) 19.1 %; MEAN CORPUSCULAR HEMOGLOBIN 26.6 pg (27.0-31.0); MEAN CORPUSCULAR HGB CONC 30.7 g/dL (32.0-36.0); MEAN CORPUSCULAR VOLUME 86.8 fL (80.0-94.0); MEAN PLATELET VOLUME 8.1 fL (7.4-11.4); MONOCYTES # (AUTO) 0.8 10^3/uL (0.0-1.0); NEUTROPHILS # (AUTO) 5.8 10^3/uL (1.5-6.6); NEUTROPHILS % (AUTO) 68.6 %; PLT - PLATELET COUNT 335 10^3/uL (130-450); RED BLOOD COUNT 4.47 10^6/uL (4.70-6.10); RED CELL DISTRIBUTION WIDTH 15.2 % (12.0-15.0); WHITE BLOOD COUNT 8.5 x10^3/uL (4.8-10.8)
[2024-03-16 08:54] LABS: ALBUMIN 3.9 g/dL (3.2-5.5); ALBUMIN/GLOBULIN RATIO 1.2 (1.0-2.2); BILIRUBIN,TOTAL 0.5 mg/dL (0.2-1.0); CALCIUM 9.3 mg/dL (8.5-10.3); CREATININE 0.7 mg/dL (0.6-1.3); CRP - C-REACTIVE PROTEIN 6.1 mg/dL (<0.5); TOTAL PROTEIN 7.1 g/dL (6.4-8.9); URIC ACID 5.6 mg/dL (4.4-7.6)
[2024-03-16 08:58] LABS: THYROID STIMULATING HORMONE 1.33 uIU/mL (0.34-5.60)
== END 2024-03-16 08:06 | disposition home or self-care (01) ==
LOC: LAB 08:05
PROVIDERS: ATTEND Nurse Practitioner
DX: I10 Essential (primary) hypertension (principal); G40.909 Epilepsy, unspecified, not intractable, without status epilepticus; R41.9 Unspecified symptoms and signs involving cognitive functions and awareness; F32.A Depression, unspecified; M25.571 Pain in right ankle and joints of right foot; M25.511 Pain in right shoulder; M25.512 Pain in left shoulder
CPT/HCPCS: 36415; 80053; 80177; 84443; 84550; 85025; 85651; 86140

== ENCOUNTER 2024-03-16 13:21 | Emergency (ER) | payer MEDICARE, BC ==
--- NOTE | 2024-03-16 13:31 | ED Physician Documentation ---
PD HPI SEIZURE - Stated complaint Stated Complaint: SZ - Chief complaint Chief Complaint: Neuro - History obtained from History obtained from: Patient, EMS - History of Present Illness Timing - onset: Today Witnessed: Witnessed Number of seizures: Single, Lasted minutes (1-2) Description of seizure activity: Generalized, Tonic clonic Injury during seizure: No: None, Fell, Head injury, Neck injury, Bit tongue, Shoulder dislocation Pain level max: 0 Pain level now: 0 Associated symptoms: None. No: Unknown, Headache, Vision changes, Chest pain, Palpitations, Diaphoresis, Dyspnea, Nausea / vomiting History of seizures: Known seizure disorder Contributing factors: Sleep deprivation (states has not been sleeping well, has a seizure about every 6 months. Has been 5 months since last seizure) Recently seen: Not recently seen - Additional information Additional information: Seizure was witnessed by his . No changes to his normal seizure activity. Has not been sleeping as well and has felt sleep deprived. He is on lacosamide for his seizures at home. No changes to his medications. No missed doses. No recent illnesses. Review of Systems Constitutional: denies: Fever, Chills Throat: denies: Sore throat Cardiac: denies: Chest pain / pressure, Palpitations Respiratory: denies: Dyspnea, Cough GI: denies: Vomiting, Diarrhea Skin: denies: Rash Musculoskeletal: denies: Neck pain, Back pain Neurologic: denies: Headache, Head injury, LOC PD PAST MEDICAL HISTORY - Past Medical History Cardiovascular: Atrial fibrillation, Valve disorder Respiratory: None, Sleep apnea, CPAP use Neuro: Head injury, Seizure disorder Endocrine/Autoimmune: None GI: None : None HEENT: None, Other Psych: Anxiety Musculoskeletal: None Derm: None - Past Surgical History Past Surgical History: Yes General: Colonoscopy Cardiovascular: Valve replacement - Present Medications Home Medications: Ambulatory Orders Medication Instructions Recorded Confirmed Escitalopram [Lexapro] 30 mg PO DAILY 12/10/18 03/16/24 Apixaban [Eliquis] 5 mg PO BID 03/30/22 03/16/24 Gabapentin [Neurontin] 600 mg PO QID 03/30/22 03/16/24 Lacosamide 300 mg PO BID 03/30/22 03/16/24 clonazePAM [Clonazepam] 1 mg PO DAILY PM 03/30/22 03/16/24 hydrOXYzine HCL [Hydroxyzine HCl] 50 mg PO QPM 03/30/22 03/16/24 - Allergies Allergies/Adverse Reactions: Allergies Allergy/AdvReac Type Severity Reaction Status Date / Time No Known Drug Allergies Allergy Verified 03/16/24 13:28 - Social History Does the pt smoke?: No Smoking Status: Never smoker Does the pt drink ETOH?: No Does the pt have substance abuse?: No - Immunizations Immunizations are current?: No Immunizations: TDAP >10years/unknown - POLST Patient has POLST: No PD ED PE NORMAL - Vitals Vital signs reviewed: Yes - General General: Alert and oriented X 3, No acute distress - HEENT HEENT: Atraumatic, PERRL, EOMI, Moist mucous membranes, Pharynx benign - Neck Neck: Supple, no meningeal sign - Cardiac Cardiac: RRR, Strong equal pulses - Respiratory Respiratory: No respiratory distress, Clear bilaterally - Abdomen Abdomen: Soft, Non tender, Non distended - Derm Derm: Warm and dry - Extremities Extremities: No edema, No calf tenderness / cord - Neuro Neuro: Alert and oriented X 3, certified meeting professional 2-12 intact, No motor deficit, No sensory deficit, Normal speech Eye Opening: Spontaneous Motor: Obeys Commands Verbal: Oriented GCS Score: 15 - Psych Psych: Normal mood, Normal affect Results - Vitals Vitals: Vital Signs - 24 hr 03/16/24 03/16/24 03/16/24 13:28 14:13 14:44 Temperature 37.2 C Heart Rate 86 72 Respiratory 26 H 22 Rate Blood Pressure 127/85 H 125/83 H O2 Saturation 95 94 88 L If not protocol : Oxygen Flow, liters/minute 03/16/24 14:46 Temperature Heart Rate 65 Respiratory 18 Rate Blood Pressure O2 Saturation 93 If not protocol 2 : Oxygen Flow, liters/minute Oxygen O2 Source Nasal cannula Oxygen Flow Rate 2 PD Medical Decision Making - ED course Complexity details: re-evaluated patient, considered differential, d/w patient, d/w family ED course: Patient slept in the emergency department, recovered back to his normal baseline. No further seizure activity. His states that he did not take his seizure medication last night and she does not believe that he slept last night either. Has not been using his CPAP for his sleep apnea. Discussed with the patient the importance of using his CPAP, taking his medications as prescribed and ensuring that he is getting adequate sleep as all of these things could lead to an increase seizure activity. No indication for further testing at this time. Patient and family counseled regarding signs and symptoms for which I believe and urgent re-evaluation would be necessary. Patient and family with good understanding of and agreement to plan and is comfortable going home at this time This document was made in part using voice recognition software. While efforts are made to proofread this document, sound alike and grammatical errors may occur. Has not had issues with his electrolytes in the past, therefore they were not checked today. He is alert, oriented x 3 and asymptomatic. Departure - Departure Disposition: 01 Home, Self Care Clinical Impression: Recurrent seizures Condition: Good Instructions: ED Seizure Recurrent Follow-Up: Sweetie Prather ARNP [Primary Care Provider] - Comments: As we discussed sleep deprivation and missing doses of your medication will cause breakthrough seizures, please make sure that you are sleeping regularly. Please make sure you are taking your medications as prescribed as well. Please follow-up with your neurologist for further care. Please return if you worsen Forms: PCP List Discharge Date/Time: 03/16/24 15:37
[2024-03-16 14:15] VITALS: BP 125/83
[2024-03-16] MEDS: SODIUM CHLORIDE 0.9% 1,000 ML IV STA (14:31)
[2024-03-16 14:48] VITALS: O2SAT 93
[2024-03-16] MEDS: ACETAMINOPHEN 325 MG TABLET PO STA (15:21)
== END 2024-03-16 15:37 | disposition home or self-care (01) ==
LOC: EDUNIT# → ED 13:21
DX: G40.909 Epilepsy, unspecified, not intractable, without status epilepticus (principal); G47.30 Sleep apnea, unspecified; Z91.148 Patient's other noncompliance with medication regimen for other reason; I10 Essential (primary) hypertension; R41.9 Unspecified symptoms and signs involving cognitive functions and awareness; F32.A Depression, unspecified; M25.571 Pain in right ankle and joints of right foot; M25.511 Pain in right shoulder; M25.512 Pain in left shoulder
CPT/HCPCS: 36415; 80053; 80177; 84443; 84550; 85025; 85651; 86140; 99283; A9270